=== PATIENT | female | born 1940 | race African-American/Black ===

== ENCOUNTER → 2016-10-28 | Outpatient (CLI) | payer MEDICARE, OTHER ==
[~2016-10-28] MED LIST: ALL100T PO; ATOR10TA52 PO; LISI-646 PO; METF-370 PO; METO-291 PO
[2016-10-28 14:15] LABS: Basophils # (auto) 0 uL; Basophils % (auto) 0.6 % (0.0-2.0); CONDITION Y; Eosinophils # (auto) 0.2 uL; Eosinophils % (auto) 3.1 % (0.0-7.0); Hematocrit 33.3 % (36.0-46.0); Hemoglobin 10.7 g/dL (12.2-16.2); Lymphocytes # (auto) 2.1 uL; Lymphocytes % (auto) 27.1 % (10.0-50.0); Mean Corpuscular Hemoglobin 27.2 pg (28.0-32.0); Mean Corpuscular Hgb Conc. 32.2 g/dL (32.0-36.0); Mean Corpuscular Volume 84.5 fL (80.0-100.0); Mean Platelet Volume 9.4 fL (7.4-10.4); Monocytes # (auto) 0.6 uL; Monocytes % (auto) 7.8 % (0.0-12.0); Neutrophils # (auto) 4.7 uL; Neutrophils % (auto) 61.4 % (37.0-80.0); Platelet Count (auto) 391 10^3/uL (140-450); Red Cell Distribution Width 13.2 % (11.6-16.0); White Blood Cell 7.6 10^3/uL (4.4-10.8)
[2016-10-28 14:27] LABS: Urine Bilirubin Negative (Negative); Urine Blood Negative /uL (Negative); Urine Color Yellow (Yellow); Urine Hyaline Cast FEW /lpf (0 - 2); Urine Ketone Negative (Negative); Urine Mucus FEW (None Seen); Urine Nitrite Negative (Negative); Urine RBC 3 /hpf (0 - 4); Urine Squamous Epithelial Cell MOD /hpf (<5); Urine pH 5.5 (5.0-8.0)
[2016-10-28 14:28] LABS: Urine Glucose 3+ mg/dL (Normal)
[2016-10-28 14:47] LABS: Albumin 3.6 g/dL (3.4-5.0); BUN/Creatinine Ratio 16.3; Bilirubin, Total 0.8 mg/dL (0.2-1.0); Total Protein 8.4 g/dL (6.4-8.2)
== END | disposition home or self-care (01) ==
LOC: LAB 13:32
PROVIDERS: ATTEND Family Medicine
DX: E11.21 Type 2 diabetes mellitus with diabetic nephropathy (principal); N18.3 Chronic kidney disease, stage 3 (moderate); K21.9 Gastro-esophageal reflux disease without esophagitis; E78.5 Hyperlipidemia, unspecified
CPT/HCPCS: 36415; 80053; 80061; 81001; 82306; 82607; 83036; 84443; 85025

== ENCOUNTER → 2017-03-30 | Outpatient (CLI) | payer MEDICARE, OTHER ==
[~2017-03-30] MED LIST changes: +AMLO5TAB2 PO; -LISI-646 PO; -METO-291 PO; +METO1TAB9 PO; +SITA100T7 PO
[2017-03-30 11:06] LABS: Basophils # (auto) 0.1 uL; Basophils % (auto) 1.1 % (0.0-2.0); Eosinophils # (auto) 0.2 uL; Eosinophils % (auto) 2.3 % (0.0-7.0); Hematocrit 31.6 % (36.0-46.0); Lymphocytes # (auto) 2.4 uL; Lymphocytes % (auto) 29.9 % (10.0-50.0); Mean Corpuscular Hemoglobin 27.1 pg (28.0-32.0); Mean Corpuscular Hgb Conc. 31.7 g/dL (32.0-36.0); Mean Corpuscular Volume 85.4 fL (80.0-100.0); Monocytes # (auto) 0.5 uL; Monocytes % (auto) 5.7 % (0.0-12.0); Neutrophils # (auto) 4.9 uL; Nucleated Red Blood Cells % 0.1 %; Platelet Count (auto) 363 10^3/uL (140-450); Red Cell Distribution Width 14.4 % (11.8-14.3)
[2017-03-30 11:17] LABS: Urine Bilirubin Negative (Negative); Urine Blood Negative /uL (Negative); Urine Color Yellow (Yellow); Urine Glucose Normal (Normal); Urine Ketone Negative (Negative); Urine Mucus FEW (None Seen); Urine Nitrite Negative (Negative); Urine RBC <1 /hpf (0 - 4); Urine Squamous Epithelial Cell FEW /hpf (<5)
[2017-03-30 11:18] LABS: Albumin 3.5 g/dL (3.4-5.0); BUN/Creatinine Ratio 13.9; Bilirubin, Total 0.6 mg/dL (0.2-1.0); Calcium 9.4 mg/dL (8.5-10.1); INR 0.98 (0.9-1.15); Partial Thromboplastin Time 27.3 sec (22.64-33.71); Potassium 3.3 mmol/L (3.5-5.1); Prothrombin Time 10.7 sec (9.37-12.3); Total Protein 8.5 g/dL (6.4-8.2)
== END | disposition home or self-care (01) ==
LOC: LAB 10:34
PROVIDERS: ATTEND Family Medicine
DX: Z01.812 Encounter for preprocedural laboratory examination (principal); E11.9 Type 2 diabetes mellitus without complications; I10 Essential (primary) hypertension; H25.9 Unspecified age-related cataract
CPT/HCPCS: 36415; 80053; 81001; 85025; 85610; 85730

== ENCOUNTER → 2017-06-08 | Outpatient (CLI) | payer MEDICARE, OTHER ==
[2017-06-08 09:25] LABS: Basophils # (auto) 0.1 uL; Eosinophils # (auto) 0.2 uL; Neutrophils # (auto) 5.6 uL; Urine Blood Negative /uL (Negative)
[2017-06-08 09:29] LABS: Basophils % (auto) 0.9 % (0.0-2.0); Eosinophils % (auto) 2.5 % (0.0-7.0); Hematocrit 33.7 % (36.0-46.0); Hemoglobin 10.8 g/dL (12.2-16.2); Lymphocytes % (auto) 23.6 % (10.0-50.0); Mean Corpuscular Hemoglobin 26.8 pg (28.0-32.0); Mean Corpuscular Volume 83.6 fL (80.0-100.0); Monocytes # (auto) 0.6 uL; Monocytes % (auto) 7.1 % (0.0-12.0); Neutrophils % (auto) 65.9 % (37.0-80.0); Nucleated Red Blood Cells % 0.1 %; Platelet Count (auto) 369 10^3/uL (140-450); Red Blood Cells 4.03 10^6/uL (4.0-5.20); Red Cell Distribution Width 14.5 % (11.8-14.3); White Blood Cell 8.4 10^3/uL (4.4-10.8)
[2017-06-08 09:35] LABS: INR 0.95 (0.9-1.15); Prothrombin Time 10.4 sec (9.37-12.3)
[2017-06-08 11:21] LABS: Albumin 3.4 g/dL (3.4-5.0); Bilirubin, Total 0.5 mg/dL (0.2-1.0); Calcium 9.4 mg/dL (8.5-10.1); Potassium 3.3 mmol/L (3.5-5.1); Total Protein 8.6 g/dL (6.4-8.2)
== END | disposition home or self-care (01) ==
LOC: LAB 08:27
PROVIDERS: ATTEND Family Medicine
DX: Z01.812 Encounter for preprocedural laboratory examination (principal); H25.11 Age-related nuclear cataract, right eye; Z79.01 Long term (current) use of anticoagulants; D68.311 Acquired hemophilia
CPT/HCPCS: 36415; 80053; 81003; 85025; 85610; 85730

== ENCOUNTER → 2018-07-25 | Outpatient (CLI) | payer MEDICARE, OTHER ==
[~2018-07-25] MED LIST changes: +AMLO5TAB13 PO; -AMLO5TAB2 PO
[2018-07-25 12:41] LABS: Basophils # (auto) 0.1 uL; Basophils % (auto) 1.1 % (0.0-2.0); Eosinophils # (auto) 0.2 uL; Eosinophils % (auto) 2.6 % (0.0-7.0); Hematocrit 33.4 % (36.0-46.0); Hemoglobin 10.8 g/dL (12.2-16.2); Lymphocytes # (auto) 1.9 uL; Lymphocytes % (auto) 27.6 % (10.0-50.0); Mean Corpuscular Hemoglobin 27.2 pg (28.0-32.0); Mean Corpuscular Hgb Conc. 32.5 g/dL (32.0-36.0); Mean Corpuscular Volume 83.6 fL (80.0-100.0); Monocytes # (auto) 0.6 uL; Monocytes % (auto) 8.7 % (0.0-12.0); Neutrophils # (auto) 4.2 uL; Platelet Count (auto) 356 10^3/uL (140-450); Red Blood Cells 3.99 10^6/uL (4.0-5.20)
[2018-07-25 12:42] LABS: Urine Bacteria FEW /hpf (None Seen); Urine Blood Negative /uL (Negative); Urine WBC 11 /hpf (0 - 5)
[2018-07-25 12:59] LABS: Potassium 4.1 mmol/L (3.5-5.1)
[2018-07-25 13:44] LABS: Albumin 3.5 g/dL (3.4-5.0); BUN/Creatinine Ratio 16.2; Bilirubin, Total 0.8 mg/dL (0.2-1.0); Calcium 9.3 mg/dL (8.5-10.1)
== END | disposition home or self-care (01) ==
LOC: LAB 11:13
PROVIDERS: ATTEND Family Medicine
DX: E78.49 Other hyperlipidemia (principal); I10 Essential (primary) hypertension; E66.9 Obesity, unspecified; E11.9 Type 2 diabetes mellitus without complications
CPT/HCPCS: 36415; 80053; 80061; 81001; 82043; 82607; 83036; 84443; 85025

== ENCOUNTER → 2019-03-02 | Outpatient (CLI) | payer MEDICARE, OTHER ==
[~2019-03-02] MED LIST changes: -AMLO5TAB13 PO; +AMLO5TAB15 PO
[2019-03-02 16:18] LABS: Basophils # (auto) 0.1 uL; Basophils % (auto) 1.1 % (0.0-2.0); Eosinophils # (auto) 0.2 uL; Hematocrit 35.7 % (36.0-46.0); Hemoglobin 11.5 g/dL (12.2-16.2); Lymphocytes # (auto) 2.1 uL; Lymphocytes % (auto) 35.1 % (10.0-50.0); Mean Corpuscular Hgb Conc. 32.2 g/dL (32.0-36.0); Mean Corpuscular Volume 83.9 fL (80.0-100.0); Monocytes # (auto) 0.4 uL; Monocytes % (auto) 5.8 % (0.0-12.0); Neutrophils # (auto) 3.4 uL; Nucleated Red Blood Cells % 0.1 %; Platelet Count (auto) 397 10^3/uL (140-450); Red Blood Cells 4.26 10^6/uL (4.0-5.20); Red Cell Distribution Width 13.8 % (11.8-14.3); White Blood Cell 6.1 10^3/uL (4.4-10.8)
[2019-03-02 16:22] LABS: Urine Bacteria MANY /hpf (None Seen); Urine Blood TRACE /uL (Negative); Urine Mucus FEW (None Seen); Urine Specific Gravity 1.019 (1.001-1.035); Urine WBC 214 /hpf (0 - 5); Urine WBC Clumps PRESENT /hpf (None Seen)
[2019-03-02 16:48] LABS: Albumin 3.6 g/dL (3.4-5.0); Calcium 9.7 mg/dL (8.5-10.1); Potassium 3.6 mmol/L (3.5-5.1)
[2019-03-02 16:53] LABS: BUN/Creatinine Ratio 20.7; Bilirubin, Total 0.6 mg/dL (0.2-1.0); Total Protein 8.5 g/dL (6.4-8.2)
== END | disposition home or self-care (01) ==
LOC: LAB 15:47
PROVIDERS: ATTEND Family Medicine
DX: I12.9 Hypertensive chronic kidney disease with stage 1 through stage 4 chronic kidney disease, or unspecified chronic kidney disease (principal); E11.22 Type 2 diabetes mellitus with diabetic chronic kidney disease; N18.3 Chronic kidney disease, stage 3 (moderate); E11.69 Type 2 diabetes mellitus with other specified complication; E78.49 Other hyperlipidemia
CPT/HCPCS: 36415; 80053; 80061; 81001; 82043; 82306; 82607; 83036; 84443; 85025

== ENCOUNTER 2019-08-11 00:42 | Inpatient (IN) | payer MEDICARE, OTHER ==
[~2019-08-11] VITALS: Ht 167.6 cm; Wt 94.5 kg
[2019-08-11] MEDS ORDERED: IPRATROPIUM BROM 0.5 MG/2.5ML INH SOL ONE (00:48)
[2019-08-11] MEDS ORDERED: methylPREDNISolone SOD SUCC 125 MG/2 ML VL ONE (00:48)
[2019-08-11] MEDS ORDERED: ALBUTEROL SULF 2.5 MG/0.5ML(0.5%) NEB SOLN ONE (00:48)
[2019-08-11] MEDS ORDERED: hydrALAZINE HCL 20 MG/ML VL ONE (01:05)
[2019-08-11] MEDS ORDERED: LORazepam 2MG/ML-1ML VIAL ONE (01:39)
[2019-08-11 02:06] LABS: Basophils # (auto) 0.1 10 ^3/uL (0-0.2); Basophils % (auto) 0.7 % (0.0-2.0); Eosinophils # (auto) 0.3 10 ^3/uL (0-0.8); Lymphocytes # (auto) 6.3 10 ^3/uL (0.4-5.4)
[2019-08-11 02:11] LABS: Eosinophils % (auto) 2.1 % (0.0-7.0); Hemoglobin 10.7 g/dL (12.2-16.2); Lymphocytes % (auto) 49.3 % (10.0-50.0); Mean Corpuscular Hemoglobin 26.4 pg (28.0-32.0); Mean Corpuscular Hgb Conc. 30.7 g/dL (32.0-36.0); Monocytes # (auto) 0.7 10 ^3/uL (0-1.3); Monocytes % (auto) 5.4 % (0.0-12.0); Neutrophils # (auto) 5.4 10 ^3/uL (1.6-8.6); Neutrophils % (auto) 42.5 % (37.0-80.0); Platelet Count (auto) 438 10^3/uL (140-450); Red Blood Cells 4.07 10^6/uL (4.0-5.20); Red Cell Distribution Width 15.1 % (11.8-14.3); White Blood Cell 12.7 10^3/uL (4.4-10.8)
[2019-08-11 02:16] LABS: INR 1.02 (0.9-1.15); Partial Thromboplastin Time 24.6 sec (23.64-32.05)
[2019-08-11 02:19] LABS: Albumin 3.1 g/dL (3.4-5.0); Calcium 8.7 mg/dL (8.5-10.1); Potassium 3.7 mmol/L (3.5-5.1)
[2019-08-11 02:22] LABS: BUN/Creatinine Ratio 8.7
[2019-08-11 02:26] LABS: Bilirubin, Total 0.8 mg/dL (0.2-1.0); Total Protein 8.3 g/dL (6.4-8.2)
[2019-08-11] MEDS ORDERED: CLOPIDOGREL BISULFATE 75 MG TAB ONE (02:46)
[2019-08-11] MEDS ORDERED: ALBUTEROL SULF 2.5 MG/0.5ML(0.5%) NEB SOLN NEB ONE (03:30)
[2019-08-11] MEDS ORDERED: IPRATROPIUM BROM 0.5 MG/2.5ML INH SOL NEB ONE (03:30)
[2019-08-11] MEDS ORDERED: FUROSEMIDE 20 MG/2 ML VIAL IV ONE (03:45)
[2019-08-11] MEDS ORDERED: CLOPIDOGREL BISULFATE 75 MG TAB PO ONE (04:00)
[2019-08-11] MEDS ORDERED: methylPREDNISolone SOD SUCC 125 MG/2 ML VL IV ONE (04:00)
[2019-08-11] MEDS ORDERED: hydrALAZINE HCL 20 MG/ML VL IV ONE (04:00)
[2019-08-11] MEDS ORDERED: LORazepam 2MG/ML-1ML VIAL IV ONE (04:00)
[2019-08-11 04:54] LABS: Urine Bacteria MANY /hpf (None Seen); Urine Blood TRACE /uL (Negative); Urine Hyaline Cast FEW /lpf (0 - 2); Urine Specific Gravity 1.009 (1.001-1.035); Urine WBC 5 /hpf (0 - 5)
[2019-08-11] MEDS ORDERED: ENOXAPARIN SOD 100 MG/1 ML SYRINGE SC ONE ×2 (05:30→05:45)
[2019-08-11] MEDS ORDERED: NITROGLYCERIN 0.4 MG SL TAB SL PRN (05:45)
[2019-08-11] MEDS ORDERED: LABETALOL HCL 5 MG/ML 4ML SYRINGE IV ONE (05:45)
[2019-08-11] MEDS ORDERED: ACETAMINOPHEN 325 MG TAB PO PRN (05:45)
[2019-08-11] MEDS ORDERED: MORPHINE SULF INJ 2 MG/ML SYRINGE 1ML IV PRN (05:45)
[2019-08-11] MEDS ORDERED: TEMAZEPAM 15 MG CAP PO PRN (05:45)
[2019-08-11] MEDS ORDERED: ALBUTEROL SULF 2.5 MG/0.5ML(0.5%) NEB SOLN NEB PRN (05:45)
[2019-08-11] MEDS ORDERED: ONDANSETRON HCL 4 MG/2 ML VIAL IV PRN (05:45)
[2019-08-11] MEDS ORDERED: DEXTROSE (50%) 50ML SYRG IV PRN (05:45)
[2019-08-11] MEDS: ALBUTEROL SULF 2.5 MG/0.5ML(0.5%) NEB SOLN NEB SCH ×3 (06:08→19:05)
[2019-08-11] MEDS: IPRATROPIUM BROM 0.5 MG/2.5ML INH SOL NEB SCH ×3 (06:08→19:05)
[2019-08-11 06:25] VITALS: BP 169/119
[2019-08-11] MEDS: InsuLIN REG 1unit/0.01ml Soln (100units/ml) SC SCH ×3 (06:28→17:49)
[2019-08-11] MEDS: ACCU-CHEK COMFORT CURVE STRIP VI SCH ×3 (06:37→17:10)
--- NOTE | 2019-08-11 07:40 | NUR ---
PT TRANSFERRED TO [facility] B[facility] 261 WITH RN, WITHOUT INCIDENT. PT ON 3LNC, SPO2 98%, NO RESPIRATORY DISTRESS. PT STATES SHE WOULD LIKE TO EAT BREAKFAST SOON. BIPAP AT BEDSIDE.
--- NOTE | 2019-08-11 08:51 | NUR ---
PT. OFF BIPAP, SP02 100% ON 3LPM, DECREASED TO 2LPM NC, SP02 100%. PT. IS SLEEPING AT THIS TIME, NO RESP. DISTRESS NOTED, WILL CONTINUE TO MONITOR RESP. STATUS. Addendum: 08/11/19 at 0853 by Kathy Breen RT Amended: Links added.
[2019-08-11] MEDS: levoFLOXacin 500MG 100 ML IV SCH (09:07)
[2019-08-11] MEDS: METOPROLOL SUCCINATE XL 50 MG TAB PO SCH (09:08)
[2019-08-11] MEDS: CLOPIDOGREL BISULFATE 75 MG TAB PO SCH (09:08)
[2019-08-11] MEDS: amLODIPine BESYLATE 5 MG TAB PO SCH (09:09)
--- NOTE | 2019-08-11 09:20 | NUR ---
Medication given as ordered, will continue to monitor BP. No complaining of chest pain noted, on NC 2 LPM, O2 saturation 98-99%, has wheezing a little.
--- NOTE | 2019-08-11 09:30 | NUR ---
Echocardiogram at the bedside.
[2019-08-11] MEDS ORDERED: ASPirin 81 mg TAB PO SCH (10:00)
[2019-08-11] MEDS ORDERED: OSELTAMIVIR 75 MG CAP PO SCH (10:00)
--- NOTE | 2019-08-11 10:30 | NUR ---
Reported Troponin I level to Dr. Puente at this time.
[2019-08-11 11:17] VITALS: BP 177/110
--- NOTE | 2019-08-11 11:34 | NUR ---
BP 146/82 mmHg after Medications given, will continue to monitor and care, patient sitting up with high em position on the bed.
[2019-08-11 11:40] VITALS: BP 151/79
--- NOTE | 2019-08-11 14:20 | NUR ---
Dr. Ledesma at the bedside, seen and examined patient at this time, plan of care discussed with patient, received new orders, will carry out. Patient complaining burning and painful at Busby's catheter, okay to take it out. Busby catheter dc'd Order to discontinue busby catheter. Busby dc'd with clean technique following deflation of balloon. Patient tolerated well with no complaints of pain. Continue care.
[2019-08-11] MEDS ORDERED: ASPirin 81 mg TAB PO ONE (14:30)
[2019-08-11 15:45] VITALS: BP 137/77
--- NOTE | 2019-08-11 15:54 | NUR ---
Received an order from Dr. Puente for diet.
[2019-08-11] MEDS ORDERED: ATOR40TA52 PO (16:47)
[2019-08-11] MEDS ORDERED: LEVOPOW43 XX (16:47)
[2019-08-11] MEDS ORDERED: PAR20T PO (16:47)
[2019-08-11] MEDS ORDERED: LISI-275 PO (16:47)
[2019-08-11] MEDS ORDERED: LEVO25TA49 PO (16:47)
[2019-08-11] MEDS ORDERED: AMLO5CAP40 PO (16:47)
[2019-08-11] MEDS ORDERED: CLOP75TA41 PO (16:47)
[2019-08-11] MEDS ORDERED: OXYB5TAB24 PO (16:47)
--- NOTE | 2019-08-11 17:00 | NUR ---
Health Information Technologist at the bedside for blood culture. Patient able to take a nap with high em position, RR 20-22/min, O2 saturation 98-100%, patient stated that her breathing much more better. No fever noted.
[2019-08-11 20:00] VITALS: BP 143/73
[2019-08-11 20:46] VITALS: BP 137/77
[2019-08-11] MEDS ORDERED: ENOXAPARIN SOD 100 MG/1 ML SYRINGE SC SCH (22:00)
[2019-08-11] MEDS ORDERED: ATORVASTATIN 20 MG TAB PO SCH (22:00)
[2019-08-11] MEDS: ATORVASTATIN 20 MG TAB PO SCH (22:32)
[2019-08-11] MEDS: OSELTAMIVIR 30 MG CAP PO SCH (22:53)
[2019-08-12] VITALS: BP 157/88
[2019-08-12] MEDS: ACCU-CHEK COMFORT CURVE STRIP VI SCH ×4 (00:21→17:56)
[2019-08-12] MEDS: InsuLIN REG 1unit/0.01ml Soln (100units/ml) SC SCH ×4 (00:30→17:56)
[2019-08-12] MEDS: IPRATROPIUM BROM 0.5 MG/2.5ML INH SOL NEB SCH ×4 (00:44→18:28)
[2019-08-12] MEDS: ALBUTEROL SULF 2.5 MG/0.5ML(0.5%) NEB SOLN NEB SCH ×4 (00:44→18:28)
[2019-08-12 03:15] LABS: Basophils # (auto) 0 10 ^3/uL (0-0.2); Eosinophils # (auto) 0 10 ^3/uL (0-0.8); Lymphocytes # (auto) 1.3 10 ^3/uL (0.4-5.4); Mean Corpuscular Hgb Conc. 31.4 g/dL (32.0-36.0); White Blood Cell 13.2 10^3/uL (4.4-10.8)
[2019-08-12 03:17] LABS: Basophils % (auto) 0.1 % (0.0-2.0); Eosinophils % (auto) 0.1 % (0.0-7.0); Hemoglobin 9.1 g/dL (12.2-16.2); Lymphocytes % (auto) 9.7 % (10.0-50.0); Mean Corpuscular Hemoglobin 26.1 pg (28.0-32.0); Mean Corpuscular Volume 83.1 fL (80.0-100.0); Monocytes # (auto) 0.9 10 ^3/uL (0-1.3); Monocytes % (auto) 6.5 % (0.0-12.0); Neutrophils # (auto) 11.1 10 ^3/uL (1.6-8.6); Neutrophils % (auto) 83.6 % (37.0-80.0); Platelet Count (auto) 362 10^3/uL (140-450); Red Blood Cells 3.49 10^6/uL (4.0-5.20)
[2019-08-12 03:29] LABS: Albumin 2.9 g/dL (3.4-5.0); Calcium 9.1 mg/dL (8.5-10.1); Potassium 4.5 mmol/L (3.5-5.1)
[2019-08-12 03:33] LABS: BUN/Creatinine Ratio 20.4; Bilirubin, Total 0.8 mg/dL (0.2-1.0); Total Protein 7.4 g/dL (6.4-8.2)
[2019-08-12 04:00] VITALS: BP 147/87
--- NOTE | 2019-08-12 07:45 | NUR ---
OPEN SHIFT NOTE REPORT RECEIVED FROM ELECTROMECHANICAL ENGINEER RN, MORNING ASSESSMENT PERFORMED AND DOCUMENTED, PATIENT RESTING WITH EYES CLOSED, VSS AND DOCUMENTED - NO DISTRESS NOTED, RESPIRATIONS EVEN AND UNLABORED. FALL AND SAFETY PRECAUTIONS IN PLACE, WILL CONTINUE TO MONITOR.
[2019-08-12 08:00] VITALS: BP 127/68
[2019-08-12] MEDS ORDERED: ENOXAPARIN SOD 80 MG/0.8ML SYRINGE SC SCH (10:00)
[2019-08-12] MEDS: levoFLOXacin 500MG 100 ML IV SCH (10:34)
[2019-08-12] MEDS: predniSONE 20 MG TAB PO SCH (10:35)
[2019-08-12] MEDS: CLOPIDOGREL BISULFATE 75 MG TAB PO SCH (10:35)
[2019-08-12] MEDS: OSELTAMIVIR 30 MG CAP PO SCH (10:35)
[2019-08-12] MEDS: ASPirin 81 mg TAB PO SCH (10:35)
[2019-08-12] MEDS: ENOXAPARIN SOD 80 MG/0.8ML SYRINGE SC SCH ×2 (10:36→22:00)
[2019-08-12] MEDS: amLODIPine BESYLATE 5 MG TAB PO SCH (10:36)
[2019-08-12] MEDS: FUROSEMIDE 20 MG/2 ML VIAL IV SCH (10:36)
[2019-08-12] MEDS: METOPROLOL SUCCINATE XL 50 MG TAB PO SCH (10:36)
[2019-08-12 11:59] VITALS: BP 142/79
--- NOTE | 2019-08-12 12:36 | NUR ---
INCONTINENCE PATIENT INCONTINENCE OF URINE AND CLEANSED OF LARGE/YELLOW SATURATED DOLORES. PATIENT TOLERATED WELL AND HELPED NURSE TURN SELF. SKIN INTEGRITY INTACT.
--- NOTE | 2019-08-12 12:41 | NUR ---
DR RAE/DR AQUINO AT BEDSIDE ALL DOCTORS AWARE OF PATIENT'S STATUS. ORDERS TO DOWNGRADE RECEIVED AND ALL MDS VERBALIZED UNDERSTANDING. DR WICK PAGED REGARDING CARDIOLOGY CONSULT - NO NOTE AVAILABLE IF PATIENT WAS SEEN BY DR WICK YESTERDAY. UNABLE TO LEAVE MESSAGE AT THIS TIME, PER ANSWERING MACHINE "STAFF OUT TO LUNCH BETWEEN 12 AND 2 PM. WILL ATTEMPT TO CALL AFTER 2 PM.
--- NOTE | 2019-08-12 14:41 | NUR ---
REPORT CALLED TO RECEIVING DWAYNE SHETH RN. WILL PREPARE PATIENT FOR TRANSFER.
[2019-08-12 16:00] VITALS: BP 147/90
--- NOTE | 2019-08-12 16:31 | NUR ---
[facility] pt transferred to floor [facility] MATA transfered to room 207 via rney on registered nurse cardiac and portable 02. All patient personal belongings transferred with patient to receiving floor. Patient care transferred to [facility]. Patient alert and oriented x4, no distress noted respirations even and unlabored. Patient reported to this nurse that "Dr. Puente did see me yesterday because he is my 's supervisor paper coating. He told me he may do a procedure on Wednesday".
--- NOTE | 2019-08-12 16:34 | NUR ---
Patient transferred from [facility] to Telemetry unit in room 207B. Patient assessed, placed on 2L NC. Patient showed no signs of distress, sob, or pain at this time. Patient orientated to room and primary RN Patricia. Fall precautions in place per safety protocol. Patient encouraged to press call light PRN. Will cont to monitor patient.
--- NOTE | 2019-08-12 17:32 | NUR ---
SPOKE WITH DR WICK REGARDING CARDIOLOGY CONSULT, DR WICK CONFIRMED THAT HE DID SEE PATIENT YESTERDAY (08/12/19) AND "WAS PLANNING TO DO A HEART CATH ON WEDNESDAY". DR WICK WAS TOLD THAT NO NOTE OR REPORT WAS AVAILABLE, HE STATED HE WOULD DICTATE A REPORT. NOTIFIED DWAYNE LOVE. Addendum: 08/12/19 at 1738 by Tricia Winters RN CORRECTION: MERYL WAS NOTIFIED OF DR WICK'S CALL AND NOT KATE.
--- NOTE | 2019-08-12 19:30 | NUR ---
Endorsed care to night DWAYNE Whitney. Patient resting in bed, no distress, sob, or pain noted at this time.
[2019-08-12 22:00] VITALS: BP 163/97
[2019-08-12] MEDS: ATORVASTATIN 20 MG TAB PO SCH (22:00)
[2019-08-13] MEDS: IPRATROPIUM BROM 0.5 MG/2.5ML INH SOL NEB SCH ×4 (00:20→19:37)
[2019-08-13] MEDS: ALBUTEROL SULF 2.5 MG/0.5ML(0.5%) NEB SOLN NEB SCH ×4 (00:20→19:37)
[2019-08-13] MEDS: OSELTAMIVIR 30 MG CAP PO SCH ×3 (01:48→22:15)
--- NOTE | 2019-08-13 04:26 | NUR ---
Paged air control/anti air warfare officer for order for prn resp treatments as pt requesting breathing tx.
[2019-08-13] MEDS ORDERED: ALBUTEROL SULF 2.5 MG/0.5ML(0.5%) NEB SOLN NEB PRN (04:45)
[2019-08-13 05:00] VITALS: BP 139/83
--- NOTE | 2019-08-13 05:04 | NUR ---
Informed pt that order received for resp. treatments in between routinely ordered treatments and that RT notified.
[2019-08-13] MEDS: ACCU-CHEK COMFORT CURVE STRIP VI SCH ×5 (06:19→22:17)
[2019-08-13] MEDS: InsuLIN REG 1unit/0.01ml Soln (100units/ml) SC SCH ×5 (06:23→22:20)
[2019-08-13 06:54] LABS: Calcium 8.8 mg/dL (8.5-10.1); Potassium 3.6 mmol/L (3.5-5.1)
[2019-08-13 06:58] LABS: BUN/Creatinine Ratio 25.7
--- NOTE | 2019-08-13 07:30 | NUR ---
Opening Shift Note Assumed care of patient, awake and alert. No S/S of distress/SOB or pain. Instructed on POC and to call for assist PRN, will continue to monitor for changes Q1hr and PRN. Fall precautions in place per safety protocol.
[2019-08-13 09:00] VITALS: BP 138/80
[2019-08-13] MEDS ORDERED: levoFLOXacin 250MG 50 ML IV SCH (10:00)
[2019-08-13] MEDS: predniSONE 20 MG TAB PO SCH (10:39)
[2019-08-13] MEDS: FUROSEMIDE 20 MG/2 ML VIAL IV SCH (10:39)
[2019-08-13] MEDS: ASPirin 81 mg TAB PO SCH (10:40)
[2019-08-13] MEDS: CLOPIDOGREL BISULFATE 75 MG TAB PO SCH (10:40)
[2019-08-13] MEDS: amLODIPine BESYLATE 5 MG TAB PO SCH (10:40)
[2019-08-13] MEDS: METOPROLOL SUCCINATE XL 50 MG TAB PO SCH (10:41)
[2019-08-13] MEDS: ENOXAPARIN SOD 80 MG/0.8ML SYRINGE SC SCH ×2 (10:41→23:16)
--- NOTE | 2019-08-13 12:00 | NUR ---
Materials Management Clerk at bedside MD Puente at bedside, aware of patient status. Per MD Puente, Obtain consents for heart cath Wednesday. Will carry out new orders and will cont to monitor patient.
[2019-08-13 12:30] VITALS: BP 160/90
--- NOTE | 2019-08-13 13:58 | NUR ---
Reassessed Patients BP160/90, BP is currently 139/78. Will cont to monitor patient.
[2019-08-13 13:59] VITALS: BP 139/78
[2019-08-13 17:19] VITALS: BP 145/90
[2019-08-13] MEDS: DOXYCYCLINE 100MG/250ML 250 ML IV SCH (17:43)
--- NOTE | 2019-08-13 19:20 | NUR ---
Endorsed care to night DWAYNE Crump. Patient resting in bed, no distress, sob, or pain noted at this time.
--- NOTE | 2019-08-13 19:24 | NUR ---
received report from day rn poc reviewed
--- NOTE | 2019-08-13 20:00 | NUR ---
pt observed resting with hob up resp even and unlabored, denies pain call light within reach, droplet precautions observed
[2019-08-13 22:00] VITALS: BP 158/82
[2019-08-13] MEDS: ATORVASTATIN 20 MG TAB PO SCH (22:15)
--- NOTE | 2019-08-13 23:46 | NUR ---
AWOKE NO C/O DISCOMFORT, LOVENOX GIVEN ORDERED
[2019-08-14] MEDS: ALBUTEROL SULF 2.5 MG/0.5ML(0.5%) NEB SOLN NEB SCH ×4 (00:23→18:23)
[2019-08-14] MEDS: IPRATROPIUM BROM 0.5 MG/2.5ML INH SOL NEB SCH ×4 (00:23→18:23)
[2019-08-14 05:14] VITALS: BP 144/95
[2019-08-14 05:56] LABS: INR 1.15 (0.9-1.15); Partial Thromboplastin Time 33.6 sec (23.64-32.05)
[2019-08-14] MEDS: InsuLIN REG 1unit/0.01ml Soln (100units/ml) SC SCH ×4 (06:00→23:47)
--- NOTE | 2019-08-14 06:43 | NUR ---
ambulate to bathroom with assist
[2019-08-14] MEDS: DOXYCYCLINE 100MG/250ML 250 ML IV SCH ×2 (06:45→17:52)
[2019-08-14] MEDS: ACCU-CHEK COMFORT CURVE STRIP VI SCH ×4 (06:46→23:46)
--- NOTE | 2019-08-14 07:11 | NUR ---
pt has been npo report given to am nurse poc reviewed
--- NOTE | 2019-08-14 07:50 | NUR ---
Opening Shift Note Assumed care of patient, awake and alert sitting up in bed uncomplaining. No S/S of distress/SOB or pain. Instructed on POC and to call for assist PRN, will continue to monitor for changes Q1hr and PRN.
[2019-08-14 09:00] VITALS: BP 159/91
[2019-08-14] MEDS: predniSONE 20 MG TAB PO SCH (09:20)
[2019-08-14] MEDS: ASPirin 81 mg TAB PO SCH (09:20)
[2019-08-14] MEDS: cefTRIAXone 1GM/50ML D5W 50 ML IV SCH (09:20)
[2019-08-14] MEDS: amLODIPine BESYLATE 5 MG TAB PO SCH (09:21)
[2019-08-14] MEDS: METOPROLOL SUCCINATE XL 50 MG TAB PO SCH (09:21)
[2019-08-14] MEDS: OSELTAMIVIR 30 MG CAP PO SCH ×2 (09:22→23:40)
[2019-08-14] MEDS: FUROSEMIDE 20 MG/2 ML VIAL IV SCH (10:00)
[2019-08-14] MEDS: ENOXAPARIN SOD 80 MG/0.8ML SYRINGE SC SCH ×2 (10:00→14:37)
[2019-08-14] MEDS: CLOPIDOGREL BISULFATE 75 MG TAB PO SCH (10:00)
[2019-08-14 10:49] LABS: Hemoglobin 9.3 g/dL (12.2-16.2)
[2019-08-14 10:50] LABS: Hematocrit 29.3 % (36.0-46.0); Mean Corpuscular Hemoglobin 26.7 pg (28.0-32.0); Mean Corpuscular Hgb Conc. 31.6 g/dL (32.0-36.0); Mean Corpuscular Volume 84.6 fL (80.0-100.0); Platelet Count (auto) 338 10^3/uL (140-450); Red Blood Cells 3.46 10^6/uL (4.0-5.20); White Blood Cell 9.6 10^3/uL (4.4-10.8)
[2019-08-14 10:53] LABS: Basophils % (manual) 0 (0.0-2.0); Blast Cells 0; Metamyelocytes % 0; Myelocytes % 0; Promyelocytes % 0; Reactive Lymphocytes 0
[2019-08-14 10:58] LABS: BUN/Creatinine Ratio 28.5; Calcium 8.8 mg/dL (8.5-10.1); Potassium 3.7 mmol/L (3.5-5.1)
[2019-08-14 11:30] LABS: Band Neutrophils % (manual) 2; Eosinophils % (manual) 1 (0-7); Lymphocytes % (manual) 18 (10.0-50.0); Monocytes % (manual) 5 (0-12)
--- NOTE | 2019-08-14 12:01 | NUR ---
Nutrition Assessment Notes please see attached link for complete assessment Est. Needs BW (83 kg): 9733-4637 kcal (20-23 kcal/kgBW), 66-83 gms pro (0.8-1.0 gms/kgBW r/t elev RFT). Will continue to monitor pertinent labs and reassess nutrient need prn Addendum: 08/14/19 at [address] Amended: Links added.
--- NOTE | 2019-08-14 12:40 | NUR ---
Off Unit Patient at label stitcher for left heart cath.
[2019-08-14] MEDS ORDERED: ANGIOMAX 250 MG VIAL IV ONE (12:46)
[2019-08-14] MEDS ORDERED: MIDAZOLAM HCL 1MG/1ML-2 ML VIAL ONE (12:46)
[2019-08-14] MEDS ORDERED: SODIUM CHL 0.9% 50 ML ONE (12:46)
[2019-08-14] MEDS ORDERED: fentaNYL CITRATE 100 MCG/2 ML VL ONE (12:46)
[2019-08-14] MEDS ORDERED: LIDOCAINE 2%HCL (LOCAL ANESTH.) INJ 20ML MDV ONE (12:58)
[2019-08-14] MEDS ORDERED: IOHEXOL 350 MG/ML 100ML IJ ONE (12:59)
[2019-08-14 13:00] VITALS: BP 164/96
[2019-08-14] MEDS ORDERED: IODIXANOL 320MG/ML 100ML BTL IV ONE ×2 (13:02→13:24)
[2019-08-14] MEDS ORDERED: hydrALAZINE HCL 20 MG/ML VL ONE (13:53)
[2019-08-14] MEDS ORDERED: TICAGRELOR 90 MG TAB ONE (13:53)
[2019-08-14] MEDS ORDERED: HYDROmorphone HCL 2 MG/ML VL IV ONE (15:00)
--- NOTE | 2019-08-14 15:30 | NUR ---
On Unit Patient returned to unit after having left heart cath done with Dr Puente. Patient very restless, states she is having pain to her mouth. Dressing to right groin dry and intact. Patient to lay flat until 1615. Vital signs assessed blood pressure 179/97, P. 92, R 20, O2 98%
--- NOTE | 2019-08-14 16:10 | NUR ---
Edge Trimmer Mechanic rounded Dr. Corona rounded, patient still very drowsy and states that she is not feeling well. As per Dr. Corona, do not administer anymore pain medication at this time, as it may affect patients respiratory status.
--- NOTE | 2019-08-14 16:20 | NUR ---
Paged Dr. Almonte regarding patient's status
--- NOTE | 2019-08-14 16:35 | NUR ---
Nabil Almonte regarding patients status and vitals. She will enter orders to be carried out in eMAR.
[2019-08-14 16:42] VITALS: BP 180/109
[2019-08-14] MEDS ORDERED: cloNIDine HCL 0.1 MG TAB PO ONE (16:45)
[2019-08-14] MEDS ORDERED: hydrALAZINE HCL 25 MG TAB PO ONE (16:45)
--- NOTE | 2019-08-14 18:50 | NUR ---
Health Coach on Unit Received orders from Dr. Puente for patient, orders verified and confirmed. Will be entered in eMAR.
[2019-08-14] MEDS ORDERED: HYDROmorphone HCL 2 MG/ML VL IV PRN (19:00)
[2019-08-14] MEDS ORDERED: FUROSEMIDE 20 MG TAB PO ONE (19:15)
[2019-08-14] MEDS ORDERED: POTASSIUM CHL 20 Meq TABLET PO ONE (19:15)
--- NOTE | 2019-08-14 19:25 | NUR ---
Patient sitting up in bed, stating that she is feeling much better now. She is having no pain at this time.
--- NOTE | 2019-08-14 20:45 | NUR ---
OPENING SHIFT NOTE Assumed care of patient who is A&O x4. Currently on 3L NC with reports of SOB. Spo2 is 99% and lung sounds are clear. Patient instructed to sit up in bed and take deep breaths through her nose. Denies pain at this time. Dressing to right groin is CDI. Area is soft to palpation. No IV access at this time. POC discussed. Bed is in low locked position and side rails are up x2. Call light is within reach and patient encouraged to call for assistance when needed.
[2019-08-14 21:00] VITALS: BP 158/79
[2019-08-14 22:00] VITALS: BP 158/79
[2019-08-14] MEDS ORDERED: TICAGRELOR 90 MG TAB PO SCH (22:00)
[2019-08-14] MEDS: ATORVASTATIN 20 MG TAB PO SCH (22:01)
[2019-08-14] MEDS: hydrALAZINE HCL 25 MG TAB PO SCH (22:01)
--- NOTE | 2019-08-14 22:30 | NUR ---
IV insertion IV access obtained, via clean sterile technique by inserting 22 gauge catheter at right wrist, by DWAYNE Johnston after 3 attempts. IV secured properly. No trauma to site. Patient tolerated well.
--- NOTE | 2019-08-14 22:40 | NUR ---
SOB Patient reports SOB/difficulty breathing. Denies chest pain. Spo2 on 3L NC is 99%, BP: 150/84, HR: 59. Lung sounds are diminished throughout. Respiratory paged to request PRN med-neb treatment.
--- NOTE | 2019-08-14 23:15 | NUR ---
Patient reports SOB has resolved. States that she "feels much better". Will continue to monitor for changes.
[2019-08-14] MEDS ORDERED: OSELTAMIVIR 30 MG CAP PO ONE (23:29)
[2019-08-15] VITALS (8 sets, daily range): BP systolic 137–170; BP diastolic 55–90
--- NOTE | 2019-08-15 05:05 | NUR ---
Patient requesting med-neb treatment. Respiratory therapist paged.
[2019-08-15] MEDS: DOXYCYCLINE 100MG/250ML 250 ML IV SCH (05:11)
[2019-08-15] MEDS: InsuLIN REG 1unit/0.01ml Soln (100units/ml) SC SCH ×3 (06:00→18:31)
[2019-08-15 06:05] LABS: Basophils # (auto) 0 10 ^3/uL (0-0.2); Basophils % (auto) 0.3 % (0.0-2.0); Eosinophils # (auto) 0.1 10 ^3/uL (0-0.8); Eosinophils % (auto) 0.6 % (0.0-7.0); Hematocrit 30.8 % (36.0-46.0); Lymphocytes # (auto) 1.4 10 ^3/uL (0.4-5.4); Lymphocytes % (auto) 15.9 % (10.0-50.0); Mean Corpuscular Hemoglobin 27.1 pg (28.0-32.0); Mean Corpuscular Hgb Conc. 32.4 g/dL (32.0-36.0); Mean Corpuscular Volume 83.7 fL (80.0-100.0); Monocytes # (auto) 0.7 10 ^3/uL (0-1.3); Monocytes % (auto) 8.2 % (0.0-12.0); Neutrophils # (auto) 6.4 10 ^3/uL (1.6-8.6); Nucleated Red Blood Cells % 0.1 %; Platelet Count (auto) 367 10^3/uL (140-450); Red Blood Cells 3.68 10^6/uL (4.0-5.20); Red Cell Distribution Width 14.8 % (11.8-14.3); White Blood Cell 8.5 10^3/uL (4.4-10.8)
[2019-08-15] MEDS: hydrALAZINE HCL 25 MG TAB PO SCH ×3 (06:05→21:20)
[2019-08-15] MEDS: ACCU-CHEK COMFORT CURVE STRIP VI SCH ×3 (06:05→18:29)
[2019-08-15] MEDS: IPRATROPIUM BROM 0.5 MG/2.5ML INH SOL NEB SCH ×4 (06:08→18:07)
[2019-08-15] MEDS: ALBUTEROL SULF 2.5 MG/0.5ML(0.5%) NEB SOLN NEB SCH ×4 (06:08→18:07)
[2019-08-15 06:22] LABS: BUN/Creatinine Ratio 28.8; Calcium 9.6 mg/dL (8.5-10.1); Potassium 3.4 mmol/L (3.5-5.1)
--- NOTE | 2019-08-15 07:48 | NUR ---
Opening Shift Note Assumed care of patient, awake and alert sitting up in bed. No S/S of distress/SOB or pain. Patient stated that she is doing much better this morning than she was yesterday. Dressing to right groin dry and intact. Instructed on POC and to call for assist PRN, will continue to monitor for changes Q1hr and PRN.
[2019-08-15] MEDS: FUROSEMIDE 20 MG/2 ML VIAL IV SCH (09:29)
[2019-08-15] MEDS: cefTRIAXone 1GM/50ML D5W 50 ML IV SCH (09:29)
[2019-08-15] MEDS: OSELTAMIVIR 30 MG CAP PO SCH ×2 (09:30→21:20)
[2019-08-15] MEDS: ASPirin 81 mg TAB PO SCH (09:32)
[2019-08-15] MEDS: CLOPIDOGREL BISULFATE 75 MG TAB PO SCH (09:32)
[2019-08-15] MEDS: predniSONE 20 MG TAB PO SCH (09:32)
[2019-08-15] MEDS: amLODIPine BESYLATE 5 MG TAB PO SCH (09:32)
[2019-08-15] MEDS: METOPROLOL SUCCINATE XL 50 MG TAB PO SCH (09:35)
[2019-08-15] MEDS ORDERED: POTASSIUM EFFERVESENT TAB 25 MEQ PO ONE (10:30)
--- NOTE | 2019-08-15 12:15 | NUR ---
VQ Scan Per training technician, no gas is available for scan at this time. Maybe tomorrow 08/15
--- NOTE | 2019-08-15 14:39 | NUR ---
Respiratory note: 1200 MED-NEB NOT ADMINISTERED PATIENT WAS ON COMMODE AT TIME OF CHECK AND STILL WAS 10MIN LATER. THERAPIST UNAVAILABLE AFTER THAT I WAS CALLED FOR MULTIPLE STAT CALLS AND INTUBATIONS, FOLLOWED BY A . PATIENT ASSESSED AT THIS TIME AND WAS IN NO ACUTE RESPIRATORY DISTRESS. SPO2 99% ON 2LPM N/C.
--- NOTE | 2019-08-15 15:02 | NUR ---
assessment Patient is a 79 year old female who is alert and oriented. Patients cognitive abilities are intact. Prior to admission patient lived home with family and functioned with assistance. Per patient she will return home to her prior living arrangements post discharge and family will transport her home. Patient has a fww for home use. Patients PCP is Dr Nagi Woodard. Patient informed me she has a caregiver. Patient may benefit from home health safety on discharge. Patient may also need IV ABX on discharge for Sepsis. Patient feels safe returning home on discharge. I informed patient she has a right to speak to a social work msw regarding all care. I informed patient she has a right to participate in any and all discharge planning. Patient does not have a POA and advanced directive. I have offered patient information on POA and advanced directives. I informed the patient the advantages and benefits of having an Advanced Directive. Patient verbalized understanding and agreed to discharge plan. Addendum: 08/15/19 at 1504 by Radha BELLE Amended: Links added.
[2019-08-15 16:00] LABS: Urine Bacteria FEW /hpf (None Seen); Urine Blood Negative /uL (Negative); Urine Hyaline Cast FEW /lpf (0 - 2); Urine Mucus FEW (None Seen); Urine Specific Gravity 1.008 (1.001-1.035); Urine WBC 14 /hpf (0 - 5)
[2019-08-15 16:11] LABS: Protein, Urine 41.8 mg/dL (0.0-11.9)
--- NOTE | 2019-08-15 18:07 | NUR ---
Respiratory note: AT BEDSIDE FOR MED DENNIS ROGERS.
[2019-08-15] MEDS: DOXYCYCLINE 100 MG TAB/CAP PO SCH (21:19)
[2019-08-15] MEDS: ATORVASTATIN 20 MG TAB PO SCH (21:19)
[2019-08-15] MEDS: INSULIN LANTUS (GLARGINE) 1 /0.01ml (100units/ml) SC SCH (21:34)
[2019-08-16] MEDS: ACCU-CHEK COMFORT CURVE STRIP VI SCH ×5 (00:04→23:53)
[2019-08-16] MEDS: InsuLIN REG 1unit/0.01ml Soln (100units/ml) SC SCH ×4 (00:05→18:29)
[2019-08-16] MEDS: IPRATROPIUM BROM 0.5 MG/2.5ML INH SOL NEB SCH ×4 (00:18→19:07)
[2019-08-16] MEDS: ALBUTEROL SULF 2.5 MG/0.5ML(0.5%) NEB SOLN NEB SCH ×4 (00:18→19:07)
--- NOTE | 2019-08-16 00:22 | NUR ---
Respiratory note: AT BEDSIDE FOR MED DENNIS ROGERS.
--- NOTE | 2019-08-16 00:38 | NUR ---
Endorsed by Vicki to notify senior brand manager Dr Puente of patient [place] 17308/15/2019. Spoke to MD Puente and notified him of patient having run of afib on monitor at 173108/15/2019. Dr Punete advised me to continue to continue to monitor patient. No new orders given. Addendum: 08/16/19 at 0042 by Buster Otto RN actual time of notifying dr puente is 08/15/2019 at time 1940.
[2019-08-16] MEDS: hydrALAZINE HCL 25 MG TAB PO SCH ×3 (05:02→21:20)
[2019-08-16 05:20] VITALS: BP 133/83
--- NOTE | 2019-08-16 07:55 | NUR ---
Opening Shift Note Assumed care of patient. Pt sleeping at the moment with equal rise and fall of chest. Currently PT on 3L NC. No S/S of distress/SOB or pain. Call light within reach and bed to lowest position. Will continue to monitor for changes Q1hr and PRN. Signed: 08/16/19 at 1009 by NARENDRA WALLS SN <Co-Signature Required> Co-Signed: 08/16/19 at 1009 by Veronica Nuno RN
[2019-08-16 08:00] VITALS: BP 134/94
[2019-08-16 09:00] VITALS: BP 134/94
[2019-08-16] MEDS: cefTRIAXone 1GM/50ML D5W 50 ML IV SCH (09:28)
[2019-08-16] MEDS: FUROSEMIDE 20 MG/2 ML VIAL IV SCH (09:29)
[2019-08-16] MEDS: predniSONE 20 MG TAB PO SCH (09:30)
[2019-08-16] MEDS: METOPROLOL SUCCINATE XL 50 MG TAB PO SCH (09:31)
[2019-08-16] MEDS: amLODIPine BESYLATE 5 MG TAB PO SCH (09:32)
[2019-08-16] MEDS: DOXYCYCLINE 100 MG TAB/CAP PO SCH ×2 (09:32→21:19)
[2019-08-16] MEDS: ASPirin 81 mg TAB PO SCH (09:32)
[2019-08-16] MEDS: CLOPIDOGREL BISULFATE 75 MG TAB PO SCH (09:32)
[2019-08-16] MEDS: INSULIN LANTUS (GLARGINE) 1 /0.01ml (100units/ml) SC SCH ×2 (10:36→21:17)
[2019-08-16] MEDS: OSELTAMIVIR 30 MG CAP PO SCH (11:50)
[2019-08-16 13:00] VITALS: BP 121/75
[2019-08-16 17:00] VITALS: BP 131/27
--- NOTE | 2019-08-16 18:50 | NUR ---
Dr. Corona at bedside.
--- NOTE | 2019-08-16 18:50 | NUR ---
closing note Patient is comfortably sitting up in bed, on 2L NC, breath sounds even and unlabored. No c/o pain. No s/s of distress/sob noted stated. Bed at lowest locked position and call light within reach. Will endorse care to NOC RN.
[2019-08-16] MEDS ORDERED: ENOXAPARIN SOD 40 MG/0.4 ML SYRINGE SC ONE (19:00)
[2019-08-16] MEDS: ATORVASTATIN 20 MG TAB PO SCH (21:19)
[2019-08-16 21:23] VITALS: BP 148/79
[2019-08-17] MEDS: InsuLIN REG 1unit/0.01ml Soln (100units/ml) SC SCH ×4 (00:01→18:25)
[2019-08-17] MEDS: IPRATROPIUM BROM 0.5 MG/2.5ML INH SOL NEB SCH ×3 (00:30→19:05)
[2019-08-17] MEDS: ALBUTEROL SULF 2.5 MG/0.5ML(0.5%) NEB SOLN NEB SCH ×3 (00:30→19:05)
--- NOTE | 2019-08-17 00:30 | NUR ---
Respiratory note: AT BEDSIDE FOR MED DENNIS ROGERS.
[2019-08-17 05:30] VITALS: BP 121/72
[2019-08-17] MEDS: ACCU-CHEK COMFORT CURVE STRIP VI SCH ×3 (05:53→18:14)
[2019-08-17] MEDS: hydrALAZINE HCL 25 MG TAB PO SCH ×3 (06:03→22:01)
[2019-08-17 06:15] LABS: Basophils # (auto) 0 10 ^3/uL (0-0.2); Eosinophils # (auto) 0 10 ^3/uL (0-0.8); Hemoglobin 9.4 g/dL (12.2-16.2); Neutrophils # (auto) 6.1 10 ^3/uL (1.6-8.6); White Blood Cell 8.6 10^3/uL (4.4-10.8)
[2019-08-17 06:17] LABS: Basophils % (auto) 0.4 % (0.0-2.0); Eosinophils % (auto) 0.3 % (0.0-7.0); Hematocrit 29.3 % (36.0-46.0); Lymphocytes # (auto) 1.8 10 ^3/uL (0.4-5.4); Lymphocytes % (auto) 20.8 % (10.0-50.0); Mean Corpuscular Hgb Conc. 32.2 g/dL (32.0-36.0); Mean Corpuscular Volume 83.9 fL (80.0-100.0); Monocytes # (auto) 0.6 10 ^3/uL (0-1.3); Monocytes % (auto) 7.4 % (0.0-12.0); Neutrophils % (auto) 71.1 % (37.0-80.0); Nucleated Red Blood Cells % 0.1 %; Platelet Count (auto) 335 10^3/uL (140-450); Red Blood Cells 3.49 10^6/uL (4.0-5.20); Red Cell Distribution Width 14.7 % (11.8-14.3)
[2019-08-17 06:38] LABS: Calcium 8.7 mg/dL (8.5-10.1); Potassium 3.5 mmol/L (3.5-5.1)
[2019-08-17 06:40] LABS: BUN/Creatinine Ratio 32.5
--- NOTE | 2019-08-17 07:53 | NUR ---
PT REFUSED ABG FOR HOME O2. PT ON RA WITH SPO2 100% HR 74, RR 18. PT SAYS IF SPO2 IS 100% SHE WILL NOT QUALIFY FOR HOME O2. DWAYNE TREADWELL MADE AWARE.
--- NOTE | 2019-08-17 08:00 | NUR ---
Opening Shift Note Assumed care of patient, awake and alert. No S/S of distress/SOB or pain. Instructed on POC and to call for assist PRN, will continue to monitor for changes Q1hr and PRN.
[2019-08-17 08:52] VITALS: BP 127/55
--- NOTE | 2019-08-17 09:45 | NUR ---
Patient complained of SOB after going to the bathroom. O2 sat on room air-88%. O2 at 1lpm/nasal cannula administered. Dr. Almonte ordered ABG's. Will continue care.
[2019-08-17] MEDS: cefTRIAXone 1GM/50ML D5W 50 ML IV SCH (09:51)
[2019-08-17] MEDS: ASPirin 81 mg TAB PO SCH (09:52)
[2019-08-17] MEDS: FUROSEMIDE 20 MG/2 ML VIAL IV SCH (09:52)
[2019-08-17] MEDS: CLOPIDOGREL BISULFATE 75 MG TAB PO SCH (09:52)
[2019-08-17] MEDS: DOXYCYCLINE 100 MG TAB/CAP PO SCH ×2 (09:52→22:00)
[2019-08-17] MEDS: amLODIPine BESYLATE 5 MG TAB PO SCH (09:53)
[2019-08-17] MEDS: ENOXAPARIN SOD 40 MG/0.4 ML SYRINGE SC SCH (09:53)
[2019-08-17] MEDS: METOPROLOL SUCCINATE XL 50 MG TAB PO SCH (09:55)
[2019-08-17] MEDS ORDERED: predniSONE 20 MG TAB PO SCH (10:00)
[2019-08-17] MEDS: INSULIN LANTUS (GLARGINE) 1 /0.01ml (100units/ml) SC SCH ×2 (10:06→22:00)
[2019-08-17 13:08] VITALS: BP 130/65
[2019-08-17 16:38] VITALS: BP 147/81
[2019-08-17 21:22] VITALS: BP 147/81
[2019-08-17] MEDS: ATORVASTATIN 20 MG TAB PO SCH (22:00)
[2019-08-17 22:56] VITALS: BP 126/70
[2019-08-18] MEDS: ACCU-CHEK COMFORT CURVE STRIP VI SCH ×3 (00:10→12:31)
[2019-08-18] MEDS: IPRATROPIUM BROM 0.5 MG/2.5ML INH SOL NEB SCH ×3 (00:14→11:29)
[2019-08-18] MEDS: ALBUTEROL SULF 2.5 MG/0.5ML(0.5%) NEB SOLN NEB SCH ×3 (00:14→11:29)
[2019-08-18] MEDS: InsuLIN REG 1unit/0.01ml Soln (100units/ml) SC SCH ×3 (00:24→12:31)
[2019-08-18 05:28] VITALS: BP 121/64
[2019-08-18] MEDS: hydrALAZINE HCL 25 MG TAB PO SCH ×2 (06:04→15:09)
--- NOTE | 2019-08-18 07:30 | NUR ---
Opening Note Assumed patient care from NOC Muna RICE.
[2019-08-18 08:15] LABS: BUN/Creatinine Ratio 36.4; Calcium 8.8 mg/dL (8.5-10.1); Potassium 3.6 mmol/L (3.5-5.1)
[2019-08-18 09:00] VITALS: BP 129/72
[2019-08-18] MEDS: cefTRIAXone 1GM/50ML D5W 50 ML IV SCH (09:00)
--- NOTE | 2019-08-18 09:00 | NUR ---
IV D/C IV discontinued. Site is edematous, painful and cool to touch. IV removed, patient tolerated well. No signs of distress at this time. Patient refusing new IV at this time. Safety precautions in place, will continue to monitor.
[2019-08-18] MEDS ORDERED: ENOXAPARIN SOD 40 MG/0.4 ML SYRINGE SC SCH (10:00)
[2019-08-18] MEDS: DOXYCYCLINE 100 MG TAB/CAP PO SCH (11:09)
[2019-08-18] MEDS: CLOPIDOGREL BISULFATE 75 MG TAB PO SCH (11:09)
[2019-08-18] MEDS: ASPirin 81 mg TAB PO SCH (11:10)
[2019-08-18] MEDS: amLODIPine BESYLATE 5 MG TAB PO SCH (11:10)
[2019-08-18] MEDS: METOPROLOL SUCCINATE XL 50 MG TAB PO SCH (11:10)
--- NOTE | 2019-08-18 11:15 | NUR ---
Attempt IV Attempted to start IV. Patient refusing at this time. Will continue to monitor.
[2019-08-18] MEDS: INSULIN LANTUS (GLARGINE) 1 /0.01ml (100units/ml) SC SCH (11:28)
[2019-08-18] MEDS: ENOXAPARIN SOD 40 MG/0.4 ML SYRINGE SC SCH (11:28)
--- NOTE | 2019-08-18 11:30 | NUR ---
at bedside Dr. Almonte at bedside discussing plan of care with patient. Per MD, patient clear for discharge.
--- NOTE | 2019-08-18 12:18 | NUR ---
Nutrition Followup Notes Wt: 94.5 kg Pt was sleeping with no family by bedside. pt s/p hearth cath per records. pt is currently on CCHO 60 gm 2 gm na soft diet with adequate PO of 100% x 4 per RN doc Est. Needs BW (83 kg): 1772-0882 kcal (20-23 kcal/kgBW), 66-83 gms pro (0.8-1.0 gms/kgBW r/t elev RFT). Will continue to monitor pertinent labs and reassess nutrient need prn LABS: BUN 48 H, CREAT 1.32 H, ALB 2.9 L, GI: Pt had 1 BM yesterday per RN doc BS: 21 low risk skin intact per RN doc PES: Altered nutrition related lab values r.t current chronic medical condition aeb elev RFT, mod hypoalb hyperglycemia Comments Will continue to monitor PO intake, skin status, pertinent labs and weight trends. Will f/u in 3-5 days. 1) consider renal specific 80 gm protein along with current diet if RFT elev. 2) refer to CDE on DC. 3) continue current plan of care
[2019-08-18 13:00] VITALS: BP 118/86
[2019-08-18 13:47] VITALS: BP 118/86
[2019-08-18] MEDS ORDERED: AMOX500T86 PO (14:15)
[2019-08-18] MEDS ORDERED: PRED-158 PO (14:18)
--- NOTE | 2019-08-18 16:06 | NUR ---
Discharge Discharge instructions given as ordered. Encourage to follow up with PMD as instructed. All questions and concerns addressed. Patient verbalized understanding. Medication reconciliation form completed and copy given to patient. Home medications held in Pharmacy returned to patient, and needed vaccines given. IV removed with catheter intact, pressure dressing applied. Telemetry unit returned to ICU. Patient taken to vehicle via wheelchair with all personal belongings, accompanied by staff. No distress noted at time of departure.
[2019-12-29] MEDS ORDERED: SITA100T7 PO (13:14)
[2019-12-29] MEDS ORDERED: PROM25TA5 PO (13:14)
[2019-12-29] MEDS ORDERED: POTA10TA32 PO (13:14)
[2019-12-29] MEDS ORDERED: METO-169 PO (13:14)
[2019-12-29] MEDS ORDERED: AMLO10TA13 PO (13:14)
[2019-12-29] MEDS ORDERED: FURO40TA4 PO (13:14)
[2019-12-29] MEDS ORDERED: HYDR-4296 PO (13:14)
[2019-12-29] MEDS ORDERED: CLOP75TA28 PO (13:14)
[2019-12-29] MEDS ORDERED: SACU1TAB PO (13:14)
[2019-12-29] MEDS ORDERED: ASPI-543 PO (13:14)
[2019-12-29] MEDS ORDERED: OXYB5TAB24 PO (13:14)
[2019-12-29] MEDS ORDERED: ALLO100T PO (13:14)
[2019-12-29] MEDS ORDERED: LEVO25TA49 PO (13:14)
== END 2019-08-18 16:06 | disposition home or self-care (01) | DRG 853 ==
LOC: ER 00:43 → TELE 00:44 → DOU IN ICU 07:55 → TELE-CENTR 08-12 16:18
PROVIDERS: ADMIT Nurse Practitioner; ATTEND Internal Medicine Nephrology
PROC: 027034Z Dilation of Coronary Artery, One Artery with Drug-eluting Intraluminal Device, Percutaneous Approach (ICD-10-PCS; principal; 2019-08-14)
PROC: B2111ZZ Fluoroscopy of Multiple Coronary Arteries using Low Osmolar Contrast (ICD-10-PCS; 2019-08-14)
PROC: B240ZZ3 Ultrasonography of Single Coronary Artery, Intravascular (ICD-10-PCS; 2019-08-14)
DX: A41.9 Sepsis, unspecified organism (principal); I21.4 Non-ST elevation (NSTEMI) myocardial infarction; I50.43 Acute on chronic combined systolic (congestive) and diastolic (congestive) heart failure; J96.01 Acute respiratory failure with hypoxia; J10.00 Influenza due to other identified influenza virus with unspecified type of pneumonia; N39.0 Urinary tract infection, site not specified; J44.1 Chronic obstructive pulmonary disease with (acute) exacerbation; I47.1 Supraventricular tachycardia; J45.901 Unspecified asthma with (acute) exacerbation; E87.2 Acidosis; N17.9 Acute kidney failure, unspecified; I13.0 Hypertensive heart and chronic kidney disease with heart failure and stage 1 through stage 4 chronic kidney disease, or unspecified chronic kidney disease; J44.0 Chronic obstructive pulmonary disease with (acute) lower respiratory infection; N18.3 Chronic kidney disease, stage 3 (moderate); N28.9 Disorder of kidney and ureter, unspecified; E11.22 Type 2 diabetes mellitus with diabetic chronic kidney disease; E78.5 Hyperlipidemia, unspecified; E11.51 Type 2 diabetes mellitus with diabetic peripheral angiopathy without gangrene; F17.210 Nicotine dependence, cigarettes, uncomplicated; I25.10 Atherosclerotic heart disease of native coronary artery without angina pectoris; R65.20 Severe sepsis without septic shock; Z22.330 Carrier of Group B streptococcus; Z80.9 Family history of malignant neoplasm, unspecified; Z82.3 Family history of stroke; Z82.49 Family history of ischemic heart disease and other diseases of the circulatory system; Z95.5 Presence of coronary angioplasty implant and graft; Z03.818 Encounter for observation for suspected exposure to other biological agents ruled out
CPT/HCPCS: 36415; 36600; 51702; 71045; 78582; 80048; 80053; 81001; 82570; 82728; 82805; 82962; 83605; 83880; 84156; 84443; 84484; 85007; 85025; 85027; 85379; 85610; 85730; 87040; 87070; 87086; 87804; 87880; 92928; 92978; 93005; 93306; 93454; 93971; 94640; 94644; 94660; 96372; 96374; 96375; C1887; G0378; G9035; J0696; J1815; J1956; J2250; J2405; J3490; Q9967

== ENCOUNTER → 2019-09-21 | Outpatient (CLI) | payer MEDICARE, OTHER ==
[~2019-09-21] MED LIST changes: +ALBU108A5 IN; +ALLO100T PO; +AMLO10TA13 PO; -AMLO5TAB15 PO; +AMOX500T86 PO; +ASPI-543 PO; -ATOR10TA52 PO; +ATOR40TA52 PO; +CLOP75TA28 PO; +CLOP75TA41 PO; +FURO40TA4 PO; +HYDR-4296 PO; +IPRA0.00 NEB; +LEVO25TA49 PO; -METF-370 PO; +METO-169 PO; +OXYB5TAB24 PO; +PAR20T PO; +POTA10TA32 PO; +POTA8TAB2 PO; +PRED-158 PO; +PROM25TA5 PO; +SACU1TAB PO
== END | disposition home or self-care (01) ==
LOC: Rad HDHVI 13:15
PROVIDERS: ATTEND Internal Medicine Cardiovascular Disease
DX: R06.02 Shortness of breath (principal); R42 Dizziness and giddiness; R07.89 Other chest pain
CPT/HCPCS: 93306

== ENCOUNTER → 2019-09-26 | Outpatient (CLI) | payer MEDICARE, OTHER ==
[~2019-09-26] VITALS: Ht 162.6 cm; Wt 83.0 kg
[~2019-09-26] MED LIST changes: +ADENOSINE 70 MG in GIVE UN-DILUTED 0 ML IV ONE; +ADENOSINE 90 MG/30 ML INJ IV ONE
== END | disposition home or self-care (01) ==
LOC: Rad HDHVI 13:43
PROVIDERS: ATTEND Internal Medicine Cardiovascular Disease
DX: I25.10 Atherosclerotic heart disease of native coronary artery without angina pectoris (principal); I10 Essential (primary) hypertension; E11.9 Type 2 diabetes mellitus without complications; E78.00 Pure hypercholesterolemia, unspecified; I25.2 Old myocardial infarction; F17.210 Nicotine dependence, cigarettes, uncomplicated; Z82.49 Family history of ischemic heart disease and other diseases of the circulatory system
CPT/HCPCS: 78452; 93005; 96374; 96375; A9500; J0153

== ENCOUNTER 2019-11-23 19:44 | Inpatient (IN) | payer MEDICARE, OTHER ==
[~2019-11-23] VITALS: Ht 165.1 cm; Wt 88.9 kg
[~2019-11-23 19:44] MED LIST changes: -ADENOSINE 70 MG in GIVE UN-DILUTED 0 ML IV ONE; -ADENOSINE 90 MG/30 ML INJ IV ONE; -ALBU108A5 IN; -ALLO100T PO; -AMLO10TA13 PO; -ASPI-543 PO; -CLOP75TA28 PO; -FURO40TA4 PO; -HYDR-4296 PO; -IPRA0.00 NEB; -METO-169 PO; -POTA10TA32 PO; -POTA8TAB2 PO; -PROM25TA5 PO; -SACU1TAB PO
[2019-11-23] MEDS ORDERED: cloNIDine HCL 0.1 MG TAB PO ONE ×2 (21:00→23:30)
[2019-11-23 22:12] LABS: Basophils # (auto) 0 10 ^3/uL (0-0.2); Basophils % (auto) 0.5 % (0.0-2.0); Eosinophils # (auto) 0.1 10 ^3/uL (0-0.8); Monocytes # (auto) 0.5 10 ^3/uL (0-1.3); Red Cell Distribution Width 14.6 % (11.8-14.3)
[2019-11-23 22:14] LABS: Eosinophils % (auto) 1.4 % (0.0-7.0); Hematocrit 30.8 % (36.0-46.0); Hemoglobin 9.8 g/dL (12.2-16.2); Lymphocytes # (auto) 1.1 10 ^3/uL (0.4-5.4); Lymphocytes % (auto) 14.4 % (10.0-50.0); Mean Corpuscular Hemoglobin 26.9 pg (28.0-32.0); Mean Corpuscular Hgb Conc. 31.7 g/dL (32.0-36.0); Mean Corpuscular Volume 84.7 fL (80.0-100.0); Monocytes % (auto) 6.3 % (0.0-12.0); Neutrophils # (auto) 5.9 10 ^3/uL (1.6-8.6); Neutrophils % (auto) 77.4 % (37.0-80.0); Nucleated Red Blood Cells % 0.1 %; Platelet Count (auto) 278 10^3/uL (140-450); Red Blood Cells 3.63 10^6/uL (4.0-5.20); White Blood Cell 7.7 10^3/uL (4.4-10.8)
[2019-11-23 22:27] LABS: Albumin 3.3 g/dL (3.4-5.0); BUN/Creatinine Ratio 18.3; Calcium 8.6 mg/dL (8.5-10.1); Potassium 4.2 mmol/L (3.5-5.1)
[2019-11-23 22:30] LABS: Bilirubin, Total 0.8 mg/dL (0.2-1.0); Total Protein 7.2 g/dL (6.4-8.2)
[2019-11-23] MEDS ORDERED: ENOXAPARIN SOD 80 MG/0.8ML SYRINGE SC ONE (23:45)
[2019-11-23 23:53] LABS: Urine Bacteria NONE SEEN /hpf (None Seen); Urine Blood Negative /uL (Negative); Urine Hyaline Cast FEW /lpf (0 - 2); Urine Mucus FEW (None Seen); Urine Specific Gravity 1.022 (1.001-1.035); Urine WBC 1 /hpf (0 - 5)
[2019-11-24] VITALS (8 sets, daily range): BP systolic 128–148; BP diastolic 69–98
[2019-11-24] LABS: INR 1.02 (0.9-1.15); Partial Thromboplastin Time 26.2 sec (23.0-31.2)
[2019-11-24] MEDS ORDERED: ONDANSETRON HCL 4 MG/2 ML VIAL IV PRN (00:45)
[2019-11-24] MEDS ORDERED: DEXTROSE (50%) 50ML SYRG IV PRN (00:45)
[2019-11-24] MEDS ORDERED: NITROGLYCERIN 0.4 MG SL TAB SL PRN (00:45)
[2019-11-24] MEDS ORDERED: ACETAMINOPHEN 325 MG TAB PO PRN (00:45)
[2019-11-24] MEDS ORDERED: MORPHINE SULF INJ 2 MG/ML SYRINGE 1ML IV PRN (00:45)
--- NOTE | 2019-11-24 02:26 | NUR ---
Telemetry admit from ER [facility] Marlen admitted to Telemetry unit. Patient oriented to SHANEKA ROCK, primary RN, unit, room, bed, and unit policies regarding patient care and visiting hours. Patient now on continuous telemetry monitoring, tele box #74 and telemetry reading on arrival to unit is SR 60s-70s with PVC and intverted T wave. Bed in lowest locked position, side rails up x2, patient weighed by bedscale and encouraged to call if they need something. All questions and concerns addressed, patient verbalized understanding.
[2019-11-24] MEDS: LEVOTHYROXINE SODIUM 25 MCG TAB PO SCH (06:02)
[2019-11-24] MEDS: InsuLIN REG 1unit/0.01ml Soln (100units/ml) SC SCH ×4 (06:02→21:35)
[2019-11-24] MEDS: ACCU-CHEK COMFORT CURVE STRIP VI SCH ×4 (06:03→21:34)
--- NOTE | 2019-11-24 07:30 | NUR ---
Opening Shift Note Assumed patient care from NOC RN. Patient currently sitting up in bed, no signs of distress at this time, respirations even and unlabored. Patient denies chest pain and shortness of breath at this time. Safety precautions in place, call light within reach, patient encouraged to call PRN, will continue to monitor.
--- NOTE | 2019-11-24 09:00 | NUR ---
O2 Patient currently resting with eyes closed, respirations noted to be shallow, SpO2 currently 96% on room air. Patient placed on 2L nasal cannula as needed. O2 saturation reassessed, currently 100% with nasal cannula.
[2019-11-24] MEDS: METOPROLOL SUCCINATE XL 50 MG TAB PO SCH (10:00)
[2019-11-24] MEDS: ASPirin 81 mg TAB PO SCH (10:23)
[2019-11-24] MEDS: CLOPIDOGREL BISULFATE 75 MG TAB PO SCH (10:24)
[2019-11-24] MEDS: ALLOPURINOL 100 MG TAB PO SCH (10:25)
[2019-11-24] MEDS: PARoxetine 20 MG TAB PO SCH (10:25)
[2019-11-24] MEDS: PANTOPRAZOLE 40 MG TAB PO SCH (10:25)
[2019-11-24] MEDS: FUROSEMIDE 40 MG TAB PO SCH (10:26)
--- NOTE | 2019-11-24 11:45 | NUR ---
at Bedside Dr. Melvin at bedside discussing plan of care with patient.
[2019-11-24] MEDS: ATORVASTATIN 20 MG TAB PO SCH (21:34)
[2019-11-25] VITALS (7 sets, daily range): BP systolic 149–172; BP diastolic 79–112
[2019-11-25] MEDS: ACCU-CHEK COMFORT CURVE STRIP VI SCH ×4 (06:24→21:44)
[2019-11-25] MEDS: LEVOTHYROXINE SODIUM 25 MCG TAB PO SCH (06:24)
[2019-11-25] MEDS: InsuLIN REG 1unit/0.01ml Soln (100units/ml) SC SCH ×4 (06:25→22:08)
[2019-11-25 07:14] LABS: Basophils # (auto) 0 10 ^3/uL (0-0.2); Eosinophils # (auto) 0.2 10 ^3/uL (0-0.8); Hemoglobin 9.2 g/dL (12.2-16.2); Mean Corpuscular Hemoglobin 26.9 pg (28.0-32.0); White Blood Cell 4.9 10^3/uL (4.4-10.8)
[2019-11-25 07:16] LABS: Basophils % (auto) 0.7 % (0.0-2.0); Hematocrit 28.7 % (36.0-46.0); Lymphocytes # (auto) 1.5 10 ^3/uL (0.4-5.4); Lymphocytes % (auto) 29.7 % (10.0-50.0); Mean Corpuscular Hgb Conc. 31.9 g/dL (32.0-36.0); Mean Corpuscular Volume 84.5 fL (80.0-100.0); Monocytes # (auto) 0.5 10 ^3/uL (0-1.3); Monocytes % (auto) 9.6 % (0.0-12.0); Neutrophils # (auto) 2.7 10 ^3/uL (1.6-8.6); Nucleated Red Blood Cells % 0.1 %; Platelet Count (auto) 264 10^3/uL (140-450); Red Cell Distribution Width 14.5 % (11.8-14.3)
--- NOTE | 2019-11-25 07:30 | NUR ---
Opening Shift Note Assumed patient care from NOC RN. Patient currently resting on left side with eyes closed, respirations even and unlabored, no signs of distress. Safety precautions in place, call light within reach. Will continue to monitor.
[2019-11-25 07:31] LABS: Potassium 3.9 mmol/L (3.5-5.1)
[2019-11-25 07:43] LABS: BUN/Creatinine Ratio 18.4; Calcium 8.6 mg/dL (8.5-10.1)
[2019-11-25] MEDS ORDERED: cloNIDine HCL 0.1 MG TAB PO PRN (09:00)
--- NOTE | 2019-11-25 09:00 | NUR ---
MD Called Received return call from Dr. Olegario MD aware of patient's blood pressure and heart rate. New orders received, will continue to monitor.
[2019-11-25] MEDS: CLOPIDOGREL BISULFATE 75 MG TAB PO SCH (09:39)
[2019-11-25] MEDS: PARoxetine 20 MG TAB PO SCH (09:39)
[2019-11-25] MEDS: PANTOPRAZOLE 40 MG TAB PO SCH (09:39)
[2019-11-25] MEDS: ALLOPURINOL 100 MG TAB PO SCH (09:39)
[2019-11-25] MEDS: METOPROLOL SUCCINATE XL 50 MG TAB PO SCH (09:40)
[2019-11-25] MEDS: FUROSEMIDE 40 MG TAB PO SCH (09:40)
[2019-11-25] MEDS: ASPirin 81 mg TAB PO SCH (09:40)
--- NOTE | 2019-11-25 15:45 | NUR ---
at Bedside Dr. Melvin at bedside discussing plan of care with patient. New orders received for Metoprolol dosage change, per MD, ok to give if heart rate is in 50s.
--- NOTE | 2019-11-25 18:52 | NUR ---
PT ASSESSED FOR PRN MED NEB TX. SPO2 93% ON RA. PT DENIES ANY RESPIRATORY DISTRESS. NO TX INDICATED. PT IS AWARE TO HAVE RT PAGED IF TX NEEDED.
--- NOTE | 2019-11-25 19:25 | NUR ---
Opening shift note/Reassessed Blood Pressure Assumed care of patient from day RNLaverne. Patient A&Ox4, respirations even with slight audible wheezes. Patient denies any pain or distress at this time. Reassessed blood pressure/VS: 159/83, T 98.7, RR 20, HR 80, 97%, 0/10 pain. Discussed POC with patient who verbalized understanding. Bed in lowest locked position with 2 side rails up. Call light within reach, advised patient to call for assistance. Will continue to monitor Q1hr and PRN.
[2019-11-25] MEDS: ATORVASTATIN 20 MG TAB PO SCH (21:44)
--- NOTE | 2019-11-25 22:08 | NUR ---
Paged RT for breathing treatment Patient with audible wheezes, requested breathing treatment.
[2019-11-25] MEDS: ALBUTEROL SULF 2.5 MG/0.5ML(0.5%) NEB SOLN NEB PRN (22:13)
[2019-11-26 05:20] VITALS: BP 150/93
[2019-11-26] MEDS: ALBUTEROL SULF 2.5 MG/0.5ML(0.5%) NEB SOLN NEB PRN ×2 (06:04→13:18)
[2019-11-26] MEDS: ACCU-CHEK COMFORT CURVE STRIP VI SCH ×2 (06:24→12:06)
[2019-11-26] MEDS: InsuLIN REG 1unit/0.01ml Soln (100units/ml) SC SCH ×2 (06:24→12:11)
[2019-11-26] MEDS: LEVOTHYROXINE SODIUM 25 MCG TAB PO SCH (06:37)
--- NOTE | 2019-11-26 07:30 | NUR ---
Opening Shift Note Assumed patient care from NOC RN. Patient currently AOx4, no signs of distress. Respirations even and unlabored. Patient denies pain and shortness of breath at this time. Safety precautions in place, will continue to monitor.
[2019-11-26 08:00] VITALS: BP 147/83
[2019-11-26] MEDS ORDERED: METOPROLOL SUCCINATE XL 50 MG TAB PO SCH (10:00)
[2019-11-26] MEDS ORDERED: POTASSIUM CHL 10 Meq TABLET PO SCH (10:00)
[2019-11-26] MEDS: CLOPIDOGREL BISULFATE 75 MG TAB PO SCH (10:05)
[2019-11-26] MEDS: PARoxetine 20 MG TAB PO SCH (10:05)
[2019-11-26] MEDS: FUROSEMIDE 40 MG TAB PO SCH (10:05)
[2019-11-26] MEDS: PANTOPRAZOLE 40 MG TAB PO SCH (10:05)
[2019-11-26] MEDS: ASPirin 81 mg TAB PO SCH (10:05)
[2019-11-26] MEDS: ALLOPURINOL 100 MG TAB PO SCH (10:05)
[2019-11-26 12:00] VITALS: BP 138/91
--- NOTE | 2019-11-26 13:09 | NUR ---
Ambulated to Bathroom Patient ambulated to bathroom with minimal assistance by staff. No signs of distress noted at this time, will continue to monitor.
--- NOTE | 2019-11-26 13:09 | NUR ---
Paged RT Paged RT per patient request for shortness of breath. No signs of distress at this time, will continue to monitor.
[2019-11-26 15:52] VITALS: BP 138/91
[2019-11-26 17:00] VITALS: BP 153/98
--- NOTE | 2019-11-26 17:15 | NUR ---
Discharge Discharge instructions given as ordered. Encourage to follow up with PMD as instructed. All questions and concerns addressed. Patient verbalized understanding. Medication reconciliation form completed and copy given to patient. IV removed with catheter intact, pressure dressing applied. Telemetry unit returned to ICU. Patient taken to vehicle via wheelchair with all personal belongings, accompanied by staff. Patient provided with discharge packet and prescriptions. No distress noted at time of departure.
--- NOTE | 2019-11-26 18:11 | NUR ---
AT BEDSIDE FOR PRN MED NEB ASSESSMENT, PT NOT IN ROOM. WILL FOLLOW UP WITH RN.
[2019-12-29] MEDS ORDERED: FURO40TA4 PO (13:14)
[2019-12-29] MEDS ORDERED: LEVO25TA49 PO (13:14)
[2019-12-29] MEDS ORDERED: ASPI-543 PO (13:14)
[2019-12-29] MEDS ORDERED: OXYB5TAB24 PO (13:14)
[2019-12-29] MEDS ORDERED: PROM25TA5 PO (13:14)
[2019-12-29] MEDS ORDERED: POTA10TA32 PO (13:14)
[2019-12-29] MEDS ORDERED: ALLO100T PO (13:14)
[2019-12-29] MEDS ORDERED: SITA100T7 PO (13:14)
[2019-12-29] MEDS ORDERED: CLOP75TA28 PO (13:14)
[2019-12-29] MEDS ORDERED: METO-169 PO (13:14)
[2019-12-29] MEDS ORDERED: SACU1TAB PO (13:14)
[2019-12-29] MEDS ORDERED: HYDR-4296 PO (13:14)
[2019-12-29] MEDS ORDERED: AMLO10TA13 PO (13:14)
== END 2019-11-26 17:15 | disposition home or self-care (01) | DRG 280 ==
LOC: EDBD 19:44 → ER 19:45 → TELE 19:46 → TELE-WESTW 11-24 02:26
PROVIDERS: ADMIT Nurse Practitioner; ATTEND Internal Medicine
DX: I47.1 Supraventricular tachycardia (principal); I50.43 Acute on chronic combined systolic (congestive) and diastolic (congestive) heart failure; I21.4 Non-ST elevation (NSTEMI) myocardial infarction; I13.0 Hypertensive heart and chronic kidney disease with heart failure and stage 1 through stage 4 chronic kidney disease, or unspecified chronic kidney disease; Z95.5 Presence of coronary angioplasty implant and graft; I25.10 Atherosclerotic heart disease of native coronary artery without angina pectoris; N18.3 Chronic kidney disease, stage 3 (moderate); E11.22 Type 2 diabetes mellitus with diabetic chronic kidney disease; E78.5 Hyperlipidemia, unspecified; F17.210 Nicotine dependence, cigarettes, uncomplicated; G62.9 Polyneuropathy, unspecified; J44.9 Chronic obstructive pulmonary disease, unspecified; E66.9 Obesity, unspecified; E11.21 Type 2 diabetes mellitus with diabetic nephropathy; E11.40 Type 2 diabetes mellitus with diabetic neuropathy, unspecified; Z68.30 Body mass index [BMI] 30.0-30.9, adult
CPT/HCPCS: 36415; 71045; 80048; 80053; 80061; 81001; 82962; 83036; 83880; 84443; 84484; 85025; 85610; 85730; 93005; 94640; 99291; G0378; J1815; J2405

== ENCOUNTER → 2019-12-29 | Outpatient (CLI) | payer MEDICARE, OTHER ==
[~2019-12-29] MED LIST changes: -ALL100T PO; +ALLO100T PO; +AMLO10TA13 PO; -AMOX500T86 PO; +ASPI-543 PO; -ATOR40TA52 PO; +CLOP75TA28 PO; -CLOP75TA41 PO; +FURO40TA4 PO; +HYDR-4296 PO; +METO-169 PO; -METO1TAB9 PO; -PAR20T PO; +POTA10TA32 PO; -PRED-158 PO; +PROM25TA5 PO; +SACU1TAB PO
[2019-12-29 10:40] VITALS: BP 144/82
--- NOTE | 2019-12-29 10:40 | NUR ---
CLINIC PT ARRIVED TO THE [facility] FOR PRE OP EKG, CXR, AND LABS. A/OX4, AMBULATORY WITH WALKER, BREATHING IS EVEN AND UNLABORED.
--- NOTE | 2019-12-29 11:06 | NUR ---
EKG DONE BY FRIEDA BAGLEY REVIEWED BY HUMBERTO RICE SR 75
[2019-12-29 11:20] VITALS: BP 136/71
--- NOTE | 2019-12-29 11:20 | NUR ---
Pre-Op Discharge Summary: See e-MAR for any medications given for this visit. Pre-op orders received and carried out per MD of EKG, LABS and chest xrays. Patient given a copy of EKG with instructions to go to [facility] out patient for further follow up care. NOTE EKG DONE BY FRIEDA BAGLEY REVIEWED BY HUMBERTO RICE
[2019-12-29 12:00] LABS: Basophils # (auto) 0.1 10 ^3/uL (0-0.2); Eosinophils # (auto) 0.3 10 ^3/uL (0-0.8); Eosinophils % (auto) 4.5 % (0.0-7.0); Hematocrit 32.8 % (36.0-46.0); Hemoglobin 10.2 g/dL (12.2-16.2); Lymphocytes # (auto) 1.5 10 ^3/uL (0.4-5.4); Lymphocytes % (auto) 25.2 % (10.0-50.0); Monocytes # (auto) 0.4 10 ^3/uL (0-1.3); Monocytes % (auto) 7.1 % (0.0-12.0); Neutrophils # (auto) 3.6 10 ^3/uL (1.6-8.6); Neutrophils % (auto) 62.2 % (37.0-80.0); Platelet Count (auto) 329 10^3/uL (140-450); Red Cell Distribution Width 14.6 % (11.8-14.3); White Blood Cell 5.8 10^3/uL (4.4-10.8)
[2019-12-29 12:17] LABS: Potassium 3.7 mmol/L (3.5-5.1)
[2019-12-29 12:19] LABS: BUN/Creatinine Ratio 15.3; Calcium 9.2 mg/dL (8.5-10.1); INR 0.97 (0.9-1.15); Partial Thromboplastin Time 26.7 sec (23.0-31.2)
== END | disposition home or self-care (01) ==
LOC: Rad HDHVI 10:17
PROVIDERS: ATTEND Internal Medicine Cardiovascular Disease
DX: Z01.812 Encounter for preprocedural laboratory examination (principal); I51.7 Cardiomegaly; I70.0 Atherosclerosis of aorta; M47.814 Spondylosis without myelopathy or radiculopathy, thoracic region; I42.9 Cardiomyopathy, unspecified; I50.9 Heart failure, unspecified; I50.41 Acute combined systolic (congestive) and diastolic (congestive) heart failure; Z95.5 Presence of coronary angioplasty implant and graft; Z86.79 Personal history of other diseases of the circulatory system
CPT/HCPCS: 36415; 71046; 80048; 85025; 85610; 85730; 93005; G0463

== ENCOUNTER 2020-01-04 08:13 | Inpatient (IN) | payer MEDICARE, OTHER ==
[~2020-01-04] VITALS: Ht 162.6 cm; Wt 85.7 kg
[2020-01-04] MEDS ORDERED: VANCOMYCIN 1GM/250ML 250 ML IV ONE (09:15)
[2020-01-04] MEDS ORDERED: fentaNYL CITRATE 100 MCG/2 ML VL ONE ×2 (10:05→10:54)
[2020-01-04] MEDS ORDERED: MIDAZOLAM HCL 1MG/1ML-2 ML VIAL ONE ×2 (10:05→11:24)
[2020-01-04] MEDS ORDERED: VANCOMYCIN HCL 1000 MG VL ONE (10:05)
[2020-01-04] MEDS ORDERED: LIDOCAINE 2%HCL (LOCAL ANESTH.) INJ 20ML MDV ONE (10:06)
[2020-01-04] MEDS ORDERED: IOHEXOL 350 MG/ML 100ML IJ ONE (10:11)
[2020-01-04] MEDS ORDERED: FUROSEMIDE 20 MG/2 ML VIAL ONE ×3 (10:50→13:32)
[2020-01-04] MEDS ORDERED: diphenhdrAMINE HCL 50 MG/1 ML VL ONE (10:51)
[2020-01-04] MEDS ORDERED: ENALAPRILAT 1.25 MG/ML-1ML VIAL IV ONE (11:32)
[2020-01-04] MEDS ORDERED: LABETALOL HCL 5 MG/ML ML 20ML VIAL IV ONE (11:40)
[2020-01-04] MEDS ORDERED: NITROGLYCERIN 0.4 MG SL TAB SL PRN (12:30)
[2020-01-04] MEDS ORDERED: ACETAMINOPHEN 325 MG TAB PO PRN (12:30)
[2020-01-04] MEDS ORDERED: MORPHINE SULF INJ 2 MG/ML SYRINGE 1ML IV PRN (12:30)
[2020-01-04] MEDS ORDERED: HYDROcodone-ACET 5/325MG TAB PO PRN (12:30)
[2020-01-04] MEDS ORDERED: ceFAZolin 1GM/50ML 50 ML IV SCH (12:30)
[2020-01-04] MEDS ORDERED: ceFAZolin 1GM 2 GM in D5W 5% 100 ML IV ONE (12:45)
[2020-01-04] MEDS ORDERED: POTASSIUM CHL 20 Meq TABLET PO ONE (13:30)
[2020-01-04] MEDS ORDERED: FUROSEMIDE 40 MG/4 ML VIAL IV ONE (13:30)
[2020-01-04] MEDS ORDERED: ceFAZolin 1GM VL ONE (13:40)
[2020-01-04] MEDS ORDERED: PROMETHAZINE HCL 12.5 MG PO PRN (14:00)
[2020-01-04 15:08] VITALS: BP 140/83
[2020-01-04 16:46] VITALS: BP 129/75
[2020-01-04] MEDS ORDERED: LEVALBUTEROL HCL 1.25 MG/3 ML NEB NEB SCH (18:00)
[2020-01-04 18:26] VITALS: BP 129/75
[2020-01-04] MEDS ORDERED: POTA8TAB2 PO (18:49)
[2020-01-04] MEDS ORDERED: ALBU108A5 IN (18:49)
[2020-01-04] MEDS ORDERED: IPRA0.00 NEB (18:49)
[2020-01-04 20:00] VITALS: BP 162/102
[2020-01-04] MEDS ORDERED: ceFAZolin 1GM/50ML 50 ML IV ONE (20:45)
[2020-01-04] MEDS: hydrALAZINE HCL 25 MG TAB PO SCH (21:42)
[2020-01-04] MEDS: OXYBUTYNIN CHL 5 MG TAB PO SCH (21:42)
[2020-01-04 21:43] VITALS: BP 162/102
[2020-01-04] MEDS: LEVALBUTEROL HCL 1.25 MG/3 ML NEB NEB SCH (21:58)
[2020-01-05 05:00] VITALS: BP 139/86
[2020-01-05] MEDS ORDERED: LEVOTHYROXINE SODIUM 25 MCG TAB PO SCH (07:00)
[2020-01-05] MEDS: LEVALBUTEROL HCL 1.25 MG/3 ML NEB NEB SCH (08:02)
[2020-01-05 09:00] VITALS: BP 132/67
[2020-01-05] MEDS: OXYBUTYNIN CHL 5 MG TAB PO SCH (09:55)
[2020-01-05] MEDS: hydrALAZINE HCL 25 MG TAB PO SCH (09:57)
[2020-01-05] MEDS ORDERED: METOPROLOL SUCCINATE XL 50 MG TAB PO SCH (10:00)
[2020-01-05] MEDS ORDERED: FUROSEMIDE 40 MG TAB PO SCH (10:00)
[2020-01-05] MEDS ORDERED: amLODIPine BESYLATE 5 MG TAB PO SCH (10:00)
[2020-01-05] MEDS ORDERED: ASPirin-EC 81 mg tab PO SCH (10:00)
[2020-01-05] MEDS ORDERED: ALLOPURINOL 100 MG TAB PO SCH (10:00)
[2020-01-05] MEDS ORDERED: CLOPIDOGREL BISULFATE 75 MG TAB PO SCH (10:00)
[2020-01-05] MEDS ORDERED: SACUBITRIL-VALSARTAN 24mg/26mg TAB PO SCH (10:00)
[2020-01-05] MEDS ORDERED: POTASSIUM CHL 10 Meq TABLET PO SCH (10:00)
[2020-01-05 13:00] VITALS: BP 125/73
== END 2020-01-05 17:00 | disposition home or self-care (01) | DRG 226 ==
LOC: CATH 08:13 → TELE-WESTW 14:57
PROVIDERS: ADMIT Internal Medicine Cardiovascular Disease; ATTEND Internal Medicine Cardiovascular Disease
PROC: 0JH609Z Insertion of Cardiac Resynchronization Defibrillator Pulse Generator into Chest Subcutaneous Tissue and Fascia, Open Approach (ICD-10-PCS; principal; 2020-01-04)
PROC: 02HK3KZ Insertion of Defibrillator Lead into Right Ventricle, Percutaneous Approach (ICD-10-PCS; 2020-01-04)
PROC: 02HL3KZ Insertion of Defibrillator Lead into Left Ventricle, Percutaneous Approach (ICD-10-PCS; 2020-01-04)
PROC: 02H63KZ Insertion of Defibrillator Lead into Right Atrium, Percutaneous Approach (ICD-10-PCS; 2020-01-04)
DX: I25.5 Ischemic cardiomyopathy (principal); I50.23 Acute on chronic systolic (congestive) heart failure; I25.10 Atherosclerotic heart disease of native coronary artery without angina pectoris; I42.0 Dilated cardiomyopathy; E78.5 Hyperlipidemia, unspecified; E11.40 Type 2 diabetes mellitus with diabetic neuropathy, unspecified; I10 Essential (primary) hypertension; M19.90 Unspecified osteoarthritis, unspecified site; Z20.828 Contact with and (suspected) exposure to other viral communicable diseases; I25.2 Old myocardial infarction; Z95.5 Presence of coronary angioplasty implant and graft; Z82.49 Family history of ischemic heart disease and other diseases of the circulatory system; I45.9 Conduction disorder, unspecified
CPT/HCPCS: 33249; 71045; 93005; 94640; 99152; 99153; G0378; J0690; J2250; J7060

== ENCOUNTER 2020-01-30 03:21 | Inpatient (IN) | payer MEDICARE, OTHER ==
[~2020-01-30] VITALS: Ht 165.1 cm; Wt 88.4 kg
[~2020-01-30 03:21] MED LIST changes: +ALBU108A5 IN; +IPRA0.00 NEB; +POTA8TAB2 PO
[2020-01-30] MEDS ORDERED: ALBUTEROL SULF 2.5 MG/0.5ML(0.5%) NEB SOLN ONE (03:39)
[2020-01-30] MEDS ORDERED: IPRATROPIUM BROM 0.5 MG/2.5ML INH SOL ONE (03:39)
[2020-01-30] MEDS ORDERED: IPRATROPIUM BROM 0.5 MG/2.5ML INH SOL NEB ONE (03:45)
[2020-01-30] MEDS ORDERED: ALBUTEROL SULF 2.5 MG/0.5ML(0.5%) NEB SOLN NEB ONE (03:45)
[2020-01-30 06:23] LABS: Eosinophils # (auto) 0.1 10 ^3/uL (0-0.8); Lymphocytes # (auto) 0.6 10 ^3/uL (0.4-5.4); White Blood Cell 13.7 10^3/uL (4.4-10.8)
[2020-01-30 06:25] LABS: Basophils # (auto) 0 10 ^3/uL (0-0.2); Basophils % (auto) 0.2 % (0.0-2.0); Eosinophils % (auto) 0.8 % (0.0-7.0); Hematocrit 30.2 % (36.0-46.0); Hemoglobin 9.3 g/dL (12.2-16.2); Lymphocytes % (auto) 4.2 % (10.0-50.0); Mean Corpuscular Hemoglobin 26.4 pg (28.0-32.0); Mean Corpuscular Hgb Conc. 30.9 g/dL (32.0-36.0); Mean Corpuscular Volume 85.4 fL (80.0-100.0); Monocytes # (auto) 0.4 10 ^3/uL (0-1.3); Monocytes % (auto) 2.7 % (0.0-12.0); Neutrophils # (auto) 12.6 10 ^3/uL (1.6-8.6); Neutrophils % (auto) 92.1 % (37.0-80.0); Platelet Count (auto) 322 10^3/uL (140-450); Red Blood Cells 3.53 10^6/uL (4.0-5.20); Red Cell Distribution Width 15.4 % (11.8-14.3)
[2020-01-30 06:46] LABS: Albumin 3.9 g/dL (3.4-5.0); Calcium 9.3 mg/dL (8.5-10.1); Potassium 4.7 mmol/L (3.5-5.1)
[2020-01-30 06:48] LABS: INR 1.08 (0.9-1.15); Partial Thromboplastin Time 24.2 sec (23.0-31.2)
[2020-01-30 06:53] LABS: BUN/Creatinine Ratio 13.3; Bilirubin, Total 1.2 mg/dL (0.2-1.0)
--- NOTE | 2020-01-30 07:30 | NUR ---
Respiratory note: PT TAKEN OFF BIPAP AT THIS TIME AND PLACED ON 3LNC. SPO2 97% HR 75 RR 18 B/S COARSE. NO RESPIRATORY DISTRESS NOTED. PT AWARE TO HAVE RN PAGED RT IF THEY BECOME SOB.
[2020-01-30] MEDS ORDERED: cloNIDine HCL 0.1 MG TAB PO ONE (09:15)
[2020-01-30] MEDS ORDERED: FUROSEMIDE 40 MG/4 ML VIAL IV ONE (09:15)
[2020-01-30] MEDS ORDERED: ONDANSETRON HCL 4 MG/2 ML VIAL IV PRN (11:00)
[2020-01-30] MEDS ORDERED: ALBUTEROL SULF 2.5 MG/0.5ML(0.5%) NEB SOLN NEB PRN (11:00)
[2020-01-30] MEDS ORDERED: MORPHINE SULF INJ 2 MG/ML SYRINGE 1ML IV PRN ×2 (11:00)
[2020-01-30] MEDS ORDERED: ACETAMINOPHEN 500 MG TAB PO PRN (11:00)
[2020-01-30] MEDS ORDERED: NITROGLYCERIN 0.4 MG SL TAB SL PRN (11:00)
[2020-01-30] MEDS ORDERED: IPRATROPIUM BROM 0.5 MG/2.5ML INH SOL NEB PRN (11:00)
[2020-01-30] MEDS ORDERED: HYDROcodone-ACET 5/325MG TAB PO PRN (11:00)
[2020-01-30] MEDS ORDERED: DEXTROSE (50%) 50ML SYRG IV PRN (11:15)
[2020-01-30] MEDS: cefTRIAXone 1GM/50ML D5W 50 ML IV SCH (12:00)
[2020-01-30] MEDS: ACCU-CHEK COMFORT CURVE STRIP VI SCH ×3 (12:20→21:43)
[2020-01-30] MEDS: IPRATROPIUM BROM 0.5 MG/2.5ML INH SOL NEB SCH ×2 (12:21→19:36)
[2020-01-30] MEDS: ALBUTEROL SULF 2.5 MG/0.5ML(0.5%) NEB SOLN NEB SCH ×2 (12:22→19:36)
[2020-01-30] MEDS: amLODIPine BESYLATE 5 MG TAB PO SCH (12:28)
[2020-01-30] MEDS: InsuLIN REG 1unit/0.01ml Soln (100units/ml) SC SCH ×3 (12:28→21:43)
[2020-01-30] MEDS: AZITHROMYCIN 500MG/ 250ML 250 ML IV SCH (12:30)
--- NOTE | 2020-01-30 12:45 | NUR ---
Telemetry admit from ER [facility] admitted to Telemetry unit after SBAR received. Patient oriented to Meg Morrell, primary RN, unit, room, bed, and unit policies regarding patient care and visiting hours. Patient now on continuous telemetry monitoring, tele box # 47 and telemetry reading on arrival to unit is . Patient placed on bedside oxygen, weighed by bedscale and encouraged to call if they need something. All questions and concerns addressed, patient verbalized understanding. Note:
[2020-01-30 16:44] VITALS: BP 135/91
--- NOTE | 2020-01-30 19:35 | NUR ---
Opening Shift Note Assumed care of patient, awake and alert. No S/S of distress/SOB or pain. Bed is locked in lowest position with call light within reach. Instructed on POC and to call for assist PRN, will continue to monitor for changes Q1hr and PRN.
[2020-01-30] MEDS: ATORVASTATIN 20 MG TAB PO SCH (21:40)
[2020-01-30 22:23] VITALS: BP 113/69
[2020-01-31 06:07] VITALS: BP 123/78
[2020-01-31] MEDS: InsuLIN REG 1unit/0.01ml Soln (100units/ml) SC SCH ×4 (06:39→22:25)
[2020-01-31] MEDS: ACCU-CHEK COMFORT CURVE STRIP VI SCH ×4 (06:39→22:25)
[2020-01-31 06:44] LABS: Basophils # (auto) 0 10 ^3/uL (0-0.2); Eosinophils # (auto) 0 10 ^3/uL (0-0.8); Eosinophils % (auto) 0.2 % (0.0-7.0); Hemoglobin 8.2 g/dL (12.2-16.2); Monocytes # (auto) 0.7 10 ^3/uL (0-1.3); Red Cell Distribution Width 15.1 % (11.8-14.3)
[2020-01-31 06:46] LABS: Basophils % (auto) 0.3 % (0.0-2.0); Mean Corpuscular Hemoglobin 26.6 pg (28.0-32.0); Mean Corpuscular Hgb Conc. 31.6 g/dL (32.0-36.0); Mean Corpuscular Volume 84.2 fL (80.0-100.0); Monocytes % (auto) 8.1 % (0.0-12.0); Neutrophils # (auto) 7.1 10 ^3/uL (1.6-8.6); Neutrophils % (auto) 80.4 % (37.0-80.0); Platelet Count (auto) 292 10^3/uL (140-450); Red Blood Cells 3.09 10^6/uL (4.0-5.20); White Blood Cell 8.9 10^3/uL (4.4-10.8)
[2020-01-31 06:49] LABS: Calcium 8.8 mg/dL (8.5-10.1); Potassium 4.2 mmol/L (3.5-5.1)
[2020-01-31 06:53] LABS: BUN/Creatinine Ratio 19.2
--- NOTE | 2020-01-31 07:30 | NUR ---
Opening Shift Note Assumed care of patient, awake and alert. Respirations are even and unlabored. No S/S of distress/SOB or pain. Bed is low, locked with 2x side rails up. Call light is within reach. Instructed on POC and to call for assist PRN, will continue to monitor for changes Q1hr and PRN.
--- NOTE | 2020-01-31 08:00 | NUR ---
EKG HAS BEEN PLACED IN CHART.
[2020-01-31 09:00] VITALS: BP 136/82
[2020-01-31] MEDS: cefTRIAXone 1GM/50ML D5W 50 ML IV SCH (09:14)
[2020-01-31] MEDS: FAMOTIDINE 20 MG TAB PO SCH (09:15)
[2020-01-31] MEDS: FUROSEMIDE 20 MG TAB PO SCH (09:15)
[2020-01-31] MEDS: CLOPIDOGREL BISULFATE 75 MG TAB PO SCH (09:15)
[2020-01-31] MEDS: ASPirin-EC 81 mg tab PO SCH (09:16)
[2020-01-31] MEDS: LOSARTAN POTASSIUM 25 MG TAB PO SCH (09:16)
[2020-01-31] MEDS: amLODIPine BESYLATE 5 MG TAB PO SCH (09:16)
[2020-01-31 09:36] LABS: Urine Bacteria MOD /hpf (None Seen); Urine Blood 3+ /uL (Negative); Urine Budding Yeast OCCASIONAL /hpf (None Seen); Urine Hyaline Cast MANY /lpf (0 - 2); Urine Mucus FEW (None Seen); Urine WBC 86 /hpf (0 - 5)
[2020-01-31] MEDS: AZITHROMYCIN 500MG/ 250ML 250 ML IV SCH (10:49)
--- NOTE | 2020-01-31 11:15 | NUR ---
Stopped Zithromax Patient c/o pain to IV site 15 minutes after starting IV Zithromax. Stopped IV infusion at this time. Flushed IV with 10ml flush of NS. Paging MD to notify.
[2020-01-31] MEDS: ALBUTEROL SULF 2.5 MG/0.5ML(0.5%) NEB SOLN NEB SCH ×3 (11:50→18:42)
[2020-01-31] MEDS: IPRATROPIUM BROM 0.5 MG/2.5ML INH SOL NEB SCH ×3 (11:51→18:42)
[2020-01-31 13:00] VITALS: BP 137/89
[2020-01-31 17:00] VITALS: BP 130/77
--- NOTE | 2020-01-31 19:40 | NUR ---
Opening Shift Note Assumed care of patient. Awake, alert and oriented x4. No S/S of distress/SOB or pain. Instructed on POC and to call for assist PRN. [place] is off the floor, below bladder, patent and draining clear yellow urine. Bed locked, in lowest position, call light within reach, side rails up x2. Will continue to monitor for changes Q1hr and PRN.
[2020-01-31 22:00] VITALS: BP 126/74
[2020-01-31] MEDS: ATORVASTATIN 20 MG TAB PO SCH (22:24)
--- NOTE | 2020-02-01 01:22 | NUR ---
Pt reporting tightness in her chest VS: BP 139/84, P 76 O2 sat 95% on 3L nasal cannula. EKG done. Compared to previous EKG. No changes. Pt asked again about chest pain and pt reported the pain went away. Informed pt to call for assistance if the pain returns. Pt verbalized understanding. Will continue to monitor
[2020-02-01 05:00] VITALS: BP 116/73
[2020-02-01] MEDS: ALBUTEROL SULF 2.5 MG/0.5ML(0.5%) NEB SOLN NEB SCH ×3 (06:09→19:01)
[2020-02-01] MEDS: IPRATROPIUM BROM 0.5 MG/2.5ML INH SOL NEB SCH ×3 (06:09→19:01)
[2020-02-01] MEDS: ACCU-CHEK COMFORT CURVE STRIP VI SCH ×5 (06:41→21:33)
[2020-02-01] MEDS: InsuLIN REG 1unit/0.01ml Soln (100units/ml) SC SCH ×5 (06:41→21:32)
[2020-02-01 08:32] VITALS: BP 131/74
[2020-02-01] MEDS: cefTRIAXone 1GM/50ML D5W 50 ML IV SCH (09:55)
[2020-02-01] MEDS: amLODIPine BESYLATE 5 MG TAB PO SCH (09:56)
[2020-02-01] MEDS: ASPirin-EC 81 mg tab PO SCH (09:56)
[2020-02-01] MEDS: FUROSEMIDE 20 MG TAB PO SCH (09:56)
[2020-02-01] MEDS: FAMOTIDINE 20 MG TAB PO SCH (09:56)
[2020-02-01] MEDS: CLOPIDOGREL BISULFATE 75 MG TAB PO SCH (09:56)
[2020-02-01] MEDS: LOSARTAN POTASSIUM 25 MG TAB PO SCH (09:57)
[2020-02-01] MEDS: AZITHROMYCIN 500MG/ 250ML 250 ML IV SCH (11:49)
[2020-02-01 12:30] VITALS: BP 141/83
[2020-02-01 16:55] VITALS: BP 147/92
[2020-02-01 18:56] LABS: Basophils # (auto) 0.1 10 ^3/uL (0-0.2); Basophils % (auto) 1.3 % (0.0-2.0); Eosinophils # (auto) 0.4 10 ^3/uL (0-0.8); Eosinophils % (auto) 5.6 % (0.0-7.0); Hematocrit 29.6 % (36.0-46.0); Hemoglobin 9.4 g/dL (12.2-16.2); Lymphocytes # (auto) 1.2 10 ^3/uL (0.4-5.4); Lymphocytes % (auto) 18.8 % (10.0-50.0); Mean Corpuscular Hgb Conc. 31.8 g/dL (32.0-36.0); Mean Corpuscular Volume 84.9 fL (80.0-100.0); Monocytes # (auto) 0.5 10 ^3/uL (0-1.3); Monocytes % (auto) 7.7 % (0.0-12.0); Neutrophils # (auto) 4.2 10 ^3/uL (1.6-8.6); Neutrophils % (auto) 66.6 % (37.0-80.0); Nucleated Red Blood Cells % 0.2 %; Platelet Count (auto) 309 10^3/uL (140-450); Red Blood Cells 3.48 10^6/uL (4.0-5.20); Red Cell Distribution Width 15.2 % (11.8-14.3); White Blood Cell 6.3 10^3/uL (4.4-10.8)
[2020-02-01 19:18] LABS: Albumin 3.4 g/dL (3.4-5.0); Calcium 9.2 mg/dL (8.5-10.1); Potassium 4.3 mmol/L (3.5-5.1)
[2020-02-01 19:22] LABS: BUN/Creatinine Ratio 19.5; Bilirubin, Total 0.7 mg/dL (0.2-1.0); Total Protein 7.9 g/dL (6.4-8.2)
--- NOTE | 2020-02-01 19:35 | NUR ---
Opening Shift Note Assumed care of patient. Awake, alert and oriented x4. No S/S of distress/SOB or pain. Instructed on POC and to call for assist PRN. [place] is off the floor, below bladder, patent and draining clear chantal urine. Bed locked, in lowest position, call light within reach, side rails up x2, safety precautions in place. Will continue to monitor for changes Q1hr and PRN.
[2020-02-01] MEDS: ATORVASTATIN 20 MG TAB PO SCH (21:20)
[2020-02-01 22:00] VITALS: BP 138/81
--- NOTE | 2020-02-02 02:13 | NUR ---
IV insertion IV access obtained, via clean sterile technique by inserting 22 gauge catheter at right forearm after 2 attempt. IV secured properly. No trauma to site. Patient tolerated procedure well.
[2020-02-02 05:00] VITALS: BP 150/82
[2020-02-02] MEDS: InsuLIN REG 1unit/0.01ml Soln (100units/ml) SC SCH ×4 (06:37→22:27)
[2020-02-02] MEDS: ACCU-CHEK COMFORT CURVE STRIP VI SCH ×4 (06:38→22:27)
[2020-02-02] MEDS: IPRATROPIUM BROM 0.5 MG/2.5ML INH SOL NEB SCH ×3 (07:12→17:55)
[2020-02-02] MEDS: ALBUTEROL SULF 2.5 MG/0.5ML(0.5%) NEB SOLN NEB SCH ×3 (07:12→17:55)
[2020-02-02 08:38] VITALS: BP 149/87
[2020-02-02] MEDS: LOSARTAN POTASSIUM 25 MG TAB PO SCH (09:06)
[2020-02-02] MEDS: CLOPIDOGREL BISULFATE 75 MG TAB PO SCH (09:06)
[2020-02-02] MEDS: ASPirin-EC 81 mg tab PO SCH (09:06)
[2020-02-02] MEDS: cefTRIAXone 1GM/50ML D5W 50 ML IV SCH (09:06)
[2020-02-02] MEDS: AZITHROMYCIN 500MG/ 250ML 250 ML IV SCH (09:07)
[2020-02-02] MEDS: amLODIPine BESYLATE 5 MG TAB PO SCH (09:07)
[2020-02-02] MEDS: FAMOTIDINE 20 MG TAB PO SCH (09:07)
[2020-02-02] MEDS: FUROSEMIDE 20 MG TAB PO SCH (09:07)
[2020-02-02 13:00] VITALS: BP 136/83
[2020-02-02 15:50] VITALS: BP 136/83
--- NOTE | 2020-02-02 15:51 | NUR ---
Nutrition Assessment Notes Please refer to link for full assessment notes. Est Energy needs: 6371-3422 kcals (20-23 kcal/kgBW) d/t pt elev RFTs Est Protein needs: 72-80 gms/day (0.8-0.9 gm/kgBW) d/t pt elev RFTs Will continue to monitor and reassess prn. Addendum: 02/02/20 at [address] Amended: Links added.
[2020-02-02 17:00] VITALS: BP 151/92
[2020-02-02 22:00] VITALS: BP 128/76
[2020-02-02] MEDS: ATORVASTATIN 20 MG TAB PO SCH (22:26)
[2020-02-03 04:40] VITALS: BP 156/82
[2020-02-03] MEDS: ALBUTEROL SULF 2.5 MG/0.5ML(0.5%) NEB SOLN NEB SCH ×2 (05:42→11:44)
[2020-02-03] MEDS: IPRATROPIUM BROM 0.5 MG/2.5ML INH SOL NEB SCH ×2 (05:42→11:44)
[2020-02-03] MEDS: ACCU-CHEK COMFORT CURVE STRIP VI SCH ×2 (06:31→11:22)
[2020-02-03] MEDS: InsuLIN REG 1unit/0.01ml Soln (100units/ml) SC SCH ×2 (06:31→11:22)
--- NOTE | 2020-02-03 08:00 | NUR ---
OPENING SHIFT NOTE ASSUMED CARE OF PATIENT AWAKE AND ALERT. NO S/S OF DISTRESS NOTED OR COMPLAINTS OF PAIN. PATIENT UPDATED ON POC FOR THE DAY AND ALL QUESTIONS ANSWERED. BED IS IN LOWEST, LOCKED POSITION WITH SIDE RAILS UP X2 AND CALL LIGHT WITHIN REACH. WILL CONTINUE TO MONITOR Q1H AND PRN.
[2020-02-03 09:09] VITALS: BP 126/79
[2020-02-03] MEDS: ASPirin-EC 81 mg tab PO SCH (09:54)
[2020-02-03] MEDS: FUROSEMIDE 20 MG TAB PO SCH (09:55)
[2020-02-03] MEDS: LOSARTAN POTASSIUM 25 MG TAB PO SCH (09:55)
[2020-02-03] MEDS: amLODIPine BESYLATE 5 MG TAB PO SCH (09:55)
[2020-02-03] MEDS: FAMOTIDINE 20 MG TAB PO SCH (09:55)
[2020-02-03] MEDS: CLOPIDOGREL BISULFATE 75 MG TAB PO SCH (09:55)
[2020-02-03 13:30] VITALS: BP 144/87
--- NOTE | 2020-02-03 15:26 | NUR ---
INFO FAXED PATIENT HEALTH SUMMARY FAXED TO DR WICK[facility]ICE USING CONFIDENTIAL COVER SHEET.
--- NOTE | 2020-02-03 16:26 | NUR ---
Discharge instructions given as ordered. Encourage to follow up with PMD as instructed. All questions and concerns addressed. Patient verbalized understanding. IV removed with catheter intact, pressure dressing applied, busby catheter removed. Telemetry unit returned to ICU. Patient taken to vehicle via wheelchair with all personal belongings, accompanied by staff. No distress noted at time of departure.
--- NOTE | 2020-02-05 10:22 | NUR ---
Weekend validation manager-I did not receive a page regarding the social service consult for this patient. I faxed home health order to [facility]. I received a call from Abraham at [facility] letting me know that they would be able to accept this patient back on service.
== END 2020-02-03 16:25 | disposition home health service (06) | DRG 871 ==
LOC: ER 03:26 → EDUNIT# 03:26 → EDBD 03:26 → TELE 03:27 → TELE-CENTR 13:08
PROVIDERS: ADMIT Nurse Practitioner Acute Care; ATTEND Internal Medicine Cardiovascular Disease
PROC: 5A09357 Assistance with Respiratory Ventilation, Less than 24 Consecutive Hours, Continuous Positive Airway Pressure (ICD-10-PCS; principal; 2020-01-30)
DX: A41.9 Sepsis, unspecified organism (principal); J96.01 Acute respiratory failure with hypoxia; I50.23 Acute on chronic systolic (congestive) heart failure; I13.0 Hypertensive heart and chronic kidney disease with heart failure and stage 1 through stage 4 chronic kidney disease, or unspecified chronic kidney disease; J44.1 Chronic obstructive pulmonary disease with (acute) exacerbation; J98.11 Atelectasis; I42.0 Dilated cardiomyopathy; N18.30 Chronic kidney disease, stage 3 unspecified; E66.9 Obesity, unspecified; I25.10 Atherosclerotic heart disease of native coronary artery without angina pectoris; D64.9 Anemia, unspecified; E11.22 Type 2 diabetes mellitus with diabetic chronic kidney disease; I25.2 Old myocardial infarction; Z87.891 Personal history of nicotine dependence; Z95.810 Presence of automatic (implantable) cardiac defibrillator; Z79.84 Long term (current) use of oral hypoglycemic drugs; Z68.30 Body mass index [BMI] 30.0-30.9, adult
CPT/HCPCS: 36415; 36600; 51702; 71045; 80048; 80053; 81001; 82805; 82962; 83036; 83880; 84484; 85025; 85610; 85730; 86141; 87040; 87081; 87086; 93005; 94640; 94660; 96365; 96375; 99291; G0378; J0696; J1815

== ENCOUNTER 2020-02-18 08:11 | Inpatient (IN) | payer MEDICARE, OTHER ==
[~2020-02-18] VITALS: Ht 170.2 cm; Wt 82.5 kg
[2020-02-18 08:43] LABS: Basophils # (auto) 0.1 10 ^3/uL (0-0.2); Eosinophils # (auto) 0.5 10 ^3/uL (0-0.8); Eosinophils % (auto) 7.6 % (0.0-7.0); Monocytes # (auto) 0.5 10 ^3/uL (0-1.3); White Blood Cell 6.1 10^3/uL (4.4-10.8)
[2020-02-18 08:46] LABS: Basophils % (auto) 1.1 % (0.0-2.0); Hematocrit 34.9 % (36.0-46.0); Lymphocytes % (auto) 48.8 % (10.0-50.0); Mean Corpuscular Hemoglobin 26.8 pg (28.0-32.0); Mean Corpuscular Hgb Conc. 31.6 g/dL (32.0-36.0); Mean Corpuscular Volume 84.9 fL (80.0-100.0); Monocytes % (auto) 7.9 % (0.0-12.0); Neutrophils # (auto) 2.1 10 ^3/uL (1.6-8.6); Neutrophils % (auto) 34.6 % (37.0-80.0); Nucleated Red Blood Cells % 0.3 %; Platelet Count (auto) 350 10^3/uL (140-450); Red Blood Cells 4.11 10^6/uL (4.0-5.20); Red Cell Distribution Width 15.3 % (11.8-14.3)
[2020-02-18 09:01] LABS: Albumin 3.6 g/dL (3.4-5.0); Calcium 8.9 mg/dL (8.5-10.1); Magnesium 2.2 mg/dL (1.6-2.6); Potassium 3.8 mmol/L (3.5-5.1)
[2020-02-18 09:08] LABS: BUN/Creatinine Ratio 11.9; Bilirubin, Total 0.9 mg/dL (0.2-1.0); Total Protein 8.4 g/dL (6.4-8.2)
--- NOTE | 2020-02-18 09:29 | NUR ---
Respiratory note: UNABLE TO OBTAIN ABG AT THIS TIME. WILL INFORM OTHER RT TO ATTEMPT AT A LATER TIME.
[2020-02-18] MEDS ORDERED: MORPHINE SULF INJ 2 MG/ML SYRINGE 1ML IV PRN ×2 (14:45→15:15)
[2020-02-18] MEDS ORDERED: NITROGLYCERIN 0.4 MG SL TAB SL PRN (14:45)
[2020-02-18 15:01] LABS: Urine Bacteria FEW /hpf (None Seen); Urine Blood TRACE /uL (Negative); Urine Hyaline Cast MANY /lpf (0 - 2); Urine Mucus FEW (None Seen); Urine Specific Gravity 1.019 (1.001-1.035); Urine WBC 7 /hpf (0 - 5)
[2020-02-18] MEDS ORDERED: LACTULOSE 20Gm/30ML SOLN PO PRN (15:15)
[2020-02-18] MEDS ORDERED: traMADol HCL 50 MG TAB PO PRN (15:15)
[2020-02-18] MEDS ORDERED: DEXTROSE (50%) 50ML SYRG IV PRN (15:15)
[2020-02-18] MEDS ORDERED: ACETAMINOPHEN 500 MG TAB PO PRN (15:15)
[2020-02-18] MEDS ORDERED: LORazepam 0.5 MG TAB PO PRN (15:15)
[2020-02-18] MEDS ORDERED: ENOXAPARIN SOD 40 MG/0.4 ML SYRINGE SC ONE (16:00)
[2020-02-18] MEDS: ACCU-CHEK COMFORT CURVE STRIP VI SCH ×2 (17:19→21:46)
[2020-02-18] MEDS: InsuLIN REG 1unit/0.01ml Soln (100units/ml) SC SCH ×2 (17:26→21:46)
--- NOTE | 2020-02-18 20:30 | NUR ---
TELE ADMIT Patient arrived from ER via gurney and was safely transferred onto bed. Patient is A&O X's 4 with no s/s of distress and reports no pain. Patient is receiving 2L O2 via N.C and O2 saturation is at 100%. Respirations are even and unlabored. Educated patient on POC/to use call light when in need of any assistance. Oriented patient to unit: TV/lights/call light/bathroom/unit policies. Patient verbalized understanding. Bed is in lowest/locked position with side rails up X's 2 and call light is within reach of patient. Patient sitting with HOB elevated and dinner provided for patient. Bed alarm is on for safety. Will continue care.
--- NOTE | 2020-02-18 20:40 | NUR ---
WOUND PHOTOS wound photo taken at this time and paper filled out. Skin/wound care plan added and wound consult in.
[2020-02-18] MEDS: ATORVASTATIN 20 MG TAB PO SCH (21:39)
[2020-02-18] MEDS: hydrALAZINE HCL 25 MG TAB PO SCH (21:39)
[2020-02-18] MEDS: SODIUM CHLOR 0.9% PF (SALINE LOCK) 10ML VIAL/SYR IV SCH (21:46)
[2020-02-18 23:05] VITALS: BP 147/85
[2020-02-18 23:11] VITALS: BP 147/85
--- NOTE | 2020-02-18 23:24 | NUR ---
HOME MEDICATION patient reports not knowing any home medication that she takes because she says "I take a lot." patient states that she will have a family member bring in a list of home medication tomorrow because they cannot do it at this time. Will inform day shift RN.
--- NOTE | 2020-02-19 00:42 | NUR ---
MRSA SWAB obtained and sent to lab via bullet system
[2020-02-19 05:08] VITALS: BP 136/75
[2020-02-19 05:33] LABS: Basophils # (auto) 0.1 10 ^3/uL (0-0.2); Basophils % (auto) 1.3 % (0.0-2.0); Eosinophils # (auto) 0.3 10 ^3/uL (0-0.8); Eosinophils % (auto) 5.6 % (0.0-7.0); Hematocrit 27.7 % (36.0-46.0); Hemoglobin 8.6 g/dL (12.2-16.2); Lymphocytes # (auto) 1.4 10 ^3/uL (0.4-5.4); Lymphocytes % (auto) 22.8 % (10.0-50.0); Mean Corpuscular Hemoglobin 26.3 pg (28.0-32.0); Mean Corpuscular Volume 84.9 fL (80.0-100.0); Monocytes # (auto) 0.5 10 ^3/uL (0-1.3); Monocytes % (auto) 8.7 % (0.0-12.0); Neutrophils # (auto) 3.7 10 ^3/uL (1.6-8.6); Neutrophils % (auto) 61.6 % (37.0-80.0); Platelet Count (auto) 251 10^3/uL (140-450); Red Blood Cells 3.26 10^6/uL (4.0-5.20); Red Cell Distribution Width 15.2 % (11.8-14.3)
[2020-02-19 05:56] LABS: Potassium 3.6 mmol/L (3.5-5.1)
[2020-02-19 06:05] LABS: BUN/Creatinine Ratio 14.3; Bilirubin, Total 0.8 mg/dL (0.2-1.0); Calcium 8.9 mg/dL (8.5-10.1); Total Protein 6.7 g/dL (6.4-8.2)
[2020-02-19] MEDS: LEVOTHYROXINE SODIUM 25 MCG TAB PO SCH (06:09)
[2020-02-19] MEDS: InsuLIN REG 1unit/0.01ml Soln (100units/ml) SC SCH ×4 (06:12→21:34)
[2020-02-19] MEDS: ACCU-CHEK COMFORT CURVE STRIP VI SCH ×4 (06:13→21:35)
[2020-02-19] MEDS: SODIUM CHLOR 0.9% PF (SALINE LOCK) 10ML VIAL/SYR IV SCH ×3 (06:13→21:33)
--- NOTE | 2020-02-19 07:30 | NUR ---
Opening Shift Note Assumed care of patient, awake, alert and oriented x4, even and unlabored respirations, no S/S of distress/SOB or pain. Patient able to turn in bed independently, bed in lowest locked position, side rails up x2, and call light within reach. Instructed on POC and to call for assist PRN, will continue to monitor for changes Q1hr and PRN.
[2020-02-19 09:00] VITALS: BP 138/85
[2020-02-19] MEDS: ASPirin 81 mg TAB PO SCH (09:32)
[2020-02-19] MEDS: FUROSEMIDE 40 MG/4 ML VIAL IV SCH (09:33)
[2020-02-19] MEDS: Oxybutynin Chloride (Ditropan Xl) 5 MG PO SCH (09:34)
[2020-02-19] MEDS: POTASSIUM CHL 10 Meq TABLET PO SCH (09:34)
[2020-02-19] MEDS: hydrALAZINE HCL 25 MG TAB PO SCH ×2 (09:34→21:33)
[2020-02-19] MEDS: Sitagliptin Phosphate (Januvia) 100 MG TAB PO SCH (09:34)
[2020-02-19] MEDS: SACUBITRIL-VALSARTAN 24mg/26mg TAB PO SCH (09:34)
[2020-02-19] MEDS: amLODIPine BESYLATE 5 MG TAB PO SCH (09:35)
[2020-02-19] MEDS: CLOPIDOGREL BISULFATE 75 MG TAB PO SCH (09:35)
[2020-02-19] MEDS: ENOXAPARIN SOD 30 MG/0.3 ML SYRINGE SC SCH (09:35)
[2020-02-19] MEDS: METOPROLOL SUCCINATE XL 50 MG TAB PO SCH (09:36)
[2020-02-19] MEDS: NITROGLYCERIN 0.2MG/HR TOPICAL PATCH TD SCH (09:36)
[2020-02-19] MEDS: ALLOPURINOL 100 MG TAB PO SCH (09:36)
--- NOTE | 2020-02-19 09:43 | NUR ---
WOUND CARE NOTE: WOUND CARE IN TO SEE PATIENT PER WOUND CARE REQUEST. PATIENT ADMITTED TO [facility] FOR HEART FAILURE. BEDSIDE NURSE NOTED SKIN INTEGRITY ISSUE UPON ADMISSION. PHOTOGRAPH TAKEN AT THAT TIME FOR REFERENCE. PATIENT MICHAEL SCORE IS 18. PATIENT NOTED TO HAVE A SKIN TEAR TO THE RIGHT POSTERIOR THIGH. CLEANSED WITH NORMAL SALINE, PATTED DRY WITH STERILE GAUZE, THERAHONEY APPLIED, COVERED WITH OPTIFOAM GENTLE DRESSING. RECOMMEND: REDISTRIBUTE PRESSURE UTILIZING PILLOWS AND WEDGES. EOD/PRN DRESSING CHANGE. SKIN/WOUND CARE PLAN. CONTINUED MONITORING BY WOUND CARE TEAM. Addendum: 02/19/20 at 1024 by ALIA HINES RN RN Amended: Links added.
[2020-02-19] MEDS ORDERED: ENOXAPARIN SOD 40 MG/0.4 ML SYRINGE SC SCH (10:00)
[2020-02-19] MEDS ORDERED: POLYETHYLENE GLYCOL 17 GM PWDR PO ONE (10:45)
[2020-02-19] MEDS ORDERED: POLYETHYLENE GLYCOL 17 GM PWDR PO PRN (10:45)
[2020-02-19 11:03] LABS: % Iron Saturation 23.6 % (15-50)
[2020-02-19 11:14] LABS: Ferritin 117.8 ng/mL (10-322); Folate (Folic Acid) 6.76 ng/mL (5.38-24)
--- NOTE | 2020-02-19 11:48 | NUR ---
MD NURA RODRIGUEZ AT BEDSIDE. ALL QUESTIONS AND CONCERNS ADDRESSED AT THIS TIME.
--- NOTE | 2020-02-19 11:52 | NUR ---
D/C Planning Per social service consult for home health safety evaluation and advance directive. Patient is on service with [facility]. Faxed clinical information to agency. Per Sally with [facility] patient has been accepted and service to start within 24-48hrs upon d.c day. Advance directive will be given to patient.
--- NOTE | 2020-02-19 12:48 | NUR ---
PATIENT TRANSFERRED TO ROOM 275A PATIENT TRANSFERRRED WITH PORTABLE OXYGEN AND ACCOMPANIED BY STAFF. NO S/S OF DISTRESS NOTED AT THIS TIME. CARE ENDORSED TO DWAYNE JONES
[2020-02-19 13:00] VITALS: BP 134/88
--- NOTE | 2020-02-19 13:03 | NUR ---
Received patient, a/o, vs stable, patient oriented to room, call light in reach, will continue to monitor.
[2020-02-19] MEDS: DOBUTamine 1000MCG/ML 250 ML IV SCH ×2 (14:06→19:44)
--- NOTE | 2020-02-19 14:21 | NUR ---
assessment Patient is a 79 year old female who is alert and oriented. Patients cognitive abilities are intact. Patients emotional state is stable and appropriate. Prior to admission patient lived home with family and functioned with assistance. Per patient she will return home to her prior living arrangements post discharge and family will transport her home. Patient has a fww and home oxygen for home use. Patients PCP is Dr Nagi Woodard. Patient informed me she has a caregiver. Patient is on service with [employer]. Patient may benefit from home health safety on discharge. Patient feels safe returning home on discharge. Patient has good support system, her daughter and . I informed patient she has a right to speak to a executive secretary social welfare regarding all care. I informed patient she has a right to participate in any and all discharge planning. Patient does not have a POA and advanced directive. I have offered patient information on POA and advanced directives. I informed the patient the advantages and benefits of having an Advanced Directive. Patient verbalized understanding and agreed to discharge plan. Addendum: 02/19/20 at 1433 by Radha BELLE Amended: Links added.
[2020-02-19 17:00] VITALS: BP 141/74
--- NOTE | 2020-02-19 19:25 | NUR ---
assumed care, pt. awake, no c/o pain, not in distress.
[2020-02-19 21:31] VITALS: BP 129/71
[2020-02-19] MEDS: ATORVASTATIN 20 MG TAB PO SCH (21:33)
[2020-02-20 05:07] VITALS: BP 105/68
[2020-02-20] MEDS: SODIUM CHLOR 0.9% PF (SALINE LOCK) 10ML VIAL/SYR IV SCH ×3 (05:43→22:01)
[2020-02-20] MEDS: ACCU-CHEK COMFORT CURVE STRIP VI SCH ×4 (06:03→22:03)
[2020-02-20] MEDS: LEVOTHYROXINE SODIUM 25 MCG TAB PO SCH (06:03)
[2020-02-20] MEDS: InsuLIN REG 1unit/0.01ml Soln (100units/ml) SC SCH ×4 (06:03→22:02)
[2020-02-20 07:16] LABS: Basophils # (auto) 0.1 10 ^3/uL (0-0.2); Eosinophils # (auto) 0.4 10 ^3/uL (0-0.8); Eosinophils % (auto) 7.4 % (0.0-7.0); Lymphocytes # (auto) 1.3 10 ^3/uL (0.4-5.4); Monocytes # (auto) 0.4 10 ^3/uL (0-1.3); Neutrophils # (auto) 2.7 10 ^3/uL (1.6-8.6); Nucleated Red Blood Cells % 0.1 %; White Blood Cell 4.8 10^3/uL (4.4-10.8)
[2020-02-20 07:19] LABS: Basophils % (auto) 1.4 % (0.0-2.0); Hematocrit 27.9 % (36.0-46.0); Hemoglobin 9.1 g/dL (12.2-16.2); Lymphocytes % (auto) 27.3 % (10.0-50.0); Mean Corpuscular Hemoglobin 27.5 pg (28.0-32.0); Mean Corpuscular Hgb Conc. 32.6 g/dL (32.0-36.0); Mean Corpuscular Volume 84.3 fL (80.0-100.0); Monocytes % (auto) 8.8 % (0.0-12.0); Neutrophils % (auto) 55.1 % (37.0-80.0); Platelet Count (auto) 267 10^3/uL (140-450); Red Blood Cells 3.31 10^6/uL (4.0-5.20); Red Cell Distribution Width 14.7 % (11.8-14.3)
[2020-02-20 07:41] LABS: Potassium 3.9 mmol/L (3.5-5.1)
[2020-02-20 07:48] LABS: Albumin 2.8 g/dL (3.4-5.0); BUN/Creatinine Ratio 14.7; Bilirubin, Total 0.8 mg/dL (0.2-1.0); Calcium 8.8 mg/dL (8.5-10.1); Magnesium 2.3 mg/dL (1.6-2.6); Total Protein 6.6 g/dL (6.4-8.2)
[2020-02-20 09:00] VITALS: BP 120/73
[2020-02-20] MEDS: ASPirin 81 mg TAB PO SCH (09:56)
[2020-02-20] MEDS: FUROSEMIDE 40 MG/4 ML VIAL IV SCH (09:56)
[2020-02-20] MEDS: POTASSIUM CHL 10 Meq TABLET PO SCH (09:57)
[2020-02-20] MEDS: hydrALAZINE HCL 25 MG TAB PO SCH ×2 (09:57→22:06)
[2020-02-20] MEDS: amLODIPine BESYLATE 5 MG TAB PO SCH (09:57)
[2020-02-20] MEDS: SACUBITRIL-VALSARTAN 24mg/26mg TAB PO SCH (09:57)
[2020-02-20] MEDS: ALLOPURINOL 100 MG TAB PO SCH (09:58)
[2020-02-20] MEDS: METOPROLOL SUCCINATE XL 50 MG TAB PO SCH (09:58)
[2020-02-20] MEDS: ENOXAPARIN SOD 30 MG/0.3 ML SYRINGE SC SCH (09:58)
[2020-02-20] MEDS: CLOPIDOGREL BISULFATE 75 MG TAB PO SCH (09:58)
[2020-02-20] MEDS: Oxybutynin Chloride (Ditropan Xl) 5 MG PO SCH (10:00)
[2020-02-20] MEDS: Sitagliptin Phosphate (Januvia) 100 MG TAB PO SCH (10:00)
[2020-02-20] MEDS: DOBUTamine 1000MCG/ML 250 ML IV SCH (10:14)
[2020-02-20] MEDS: NITROGLYCERIN 0.2MG/HR TOPICAL PATCH TD SCH (10:15)
[2020-02-20] MEDS ORDERED: POTASSIUM CHL 20 Meq TABLET PO SCH (13:00)
[2020-02-20] MEDS: POTASSIUM CHL 20 Meq TABLET PO SCH ×2 (14:33→22:03)
[2020-02-20] MEDS: FUROSEMIDE INJECTION 100 MG in SODIUM CHL 0.9% 100 ML IV SCH ×2 (14:35→22:13)
[2020-02-20 16:52] VITALS: BP 100/67
--- NOTE | 2020-02-20 20:00 | NUR ---
Opening Shift Note Assumed care of patient. PT is awake and alert. No S/S of distress/SOB or pain. Instructed on POC and to call for assist PRN, will continue to monitor for changes Q1hr and PRN.
[2020-02-20 22:00] VITALS: BP 103/59
[2020-02-20] MEDS: ATORVASTATIN 20 MG TAB PO SCH (22:03)
[2020-02-21 05:00] VITALS: BP 115/68
[2020-02-21] MEDS: POTASSIUM CHL 20 Meq TABLET PO SCH ×3 (06:00→21:48)
[2020-02-21] MEDS: LEVOTHYROXINE SODIUM 25 MCG TAB PO SCH (06:00)
[2020-02-21] MEDS: ACCU-CHEK COMFORT CURVE STRIP VI SCH ×4 (06:00→21:48)
[2020-02-21] MEDS: SODIUM CHLOR 0.9% PF (SALINE LOCK) 10ML VIAL/SYR IV SCH ×3 (06:00→21:08)
[2020-02-21] MEDS: InsuLIN REG 1unit/0.01ml Soln (100units/ml) SC SCH ×4 (06:01→21:49)
[2020-02-21 06:22] LABS: Basophils # (auto) 0.1 10 ^3/uL (0-0.2); Eosinophils # (auto) 0.4 10 ^3/uL (0-0.8); Nucleated Red Blood Cells % 0.2 %; Red Cell Distribution Width 14.7 % (11.8-14.3); White Blood Cell 5.2 10^3/uL (4.4-10.8)
[2020-02-21 06:24] LABS: Basophils % (auto) 1.1 % (0.0-2.0); Eosinophils % (auto) 8.3 % (0.0-7.0); Hematocrit 30.5 % (36.0-46.0); Hemoglobin 9.5 g/dL (12.2-16.2); Lymphocytes # (auto) 1.3 10 ^3/uL (0.4-5.4); Lymphocytes % (auto) 24.7 % (10.0-50.0); Mean Corpuscular Hemoglobin 26.2 pg (28.0-32.0); Mean Corpuscular Hgb Conc. 31.3 g/dL (32.0-36.0); Mean Corpuscular Volume 83.9 fL (80.0-100.0); Monocytes # (auto) 0.4 10 ^3/uL (0-1.3); Monocytes % (auto) 8.5 % (0.0-12.0); Neutrophils % (auto) 57.4 % (37.0-80.0); Platelet Count (auto) 285 10^3/uL (140-450); Red Blood Cells 3.63 10^6/uL (4.0-5.20)
[2020-02-21 06:40] LABS: Potassium 4.1 mmol/L (3.5-5.1)
[2020-02-21 06:52] LABS: BUN/Creatinine Ratio 15.4; Calcium 9.3 mg/dL (8.5-10.1)
--- NOTE | 2020-02-21 07:30 | NUR ---
STATUS PT RESTING IN BED WITH EYES CLOSED. RESPIRATIONS EQUAL AND UNLABORED. TELE REMAINS IN PLACE AND MONITORED. O2 AT 3L VIA NC IN PLACE. PT SHOWS NO S/S OF DISTRESS OR DISCOMFORT. WILL CONTINUE TO MONITOR
[2020-02-21 09:00] VITALS: BP 106/64
[2020-02-21] MEDS: DOBUTamine 1000MCG/ML 250 ML IV SCH (09:16)
[2020-02-21] MEDS: ALLOPURINOL 100 MG TAB PO SCH (09:17)
[2020-02-21] MEDS: ASPirin 81 mg TAB PO SCH (09:17)
[2020-02-21] MEDS: FUROSEMIDE INJECTION 100 MG in SODIUM CHL 0.9% 100 ML IV SCH ×2 (09:17→18:36)
[2020-02-21] MEDS: ENOXAPARIN SOD 30 MG/0.3 ML SYRINGE SC SCH (09:17)
[2020-02-21] MEDS: CLOPIDOGREL BISULFATE 75 MG TAB PO SCH (09:18)
[2020-02-21] MEDS: NITROGLYCERIN 0.2MG/HR TOPICAL PATCH TD SCH (10:00)
[2020-02-21] MEDS: hydrALAZINE HCL 25 MG TAB PO SCH ×2 (10:00→21:48)
[2020-02-21] MEDS: Sitagliptin Phosphate (Januvia) 100 MG TAB PO SCH (10:00)
[2020-02-21] MEDS: Oxybutynin Chloride (Ditropan Xl) 5 MG PO SCH (10:00)
[2020-02-21 13:00] VITALS: BP 114/77
[2020-02-21] MEDS: METOPROLOL SUCCINATE XL 50 MG TAB PO SCH (14:11)
[2020-02-21] MEDS: amLODIPine BESYLATE 5 MG TAB PO SCH (14:11)
[2020-02-21] MEDS: SACUBITRIL-VALSARTAN 24mg/26mg TAB PO SCH (14:11)
--- NOTE | 2020-02-21 14:22 | NUR ---
DR ESTRELLA AT BEDSIDE
[2020-02-21 17:00] VITALS: BP 114/74
--- NOTE | 2020-02-21 18:00 | NUR ---
DRESSING CHANGE PT DRESSING REMOVED, WOUND CLEANED AND THERAHONEY APPLIED. COVERED AND DATED REPORT GIVEN TO NOC
--- NOTE | 2020-02-21 19:00 | NUR ---
Opening Shift Note Assumed care of patient, awake and alert. No S/S of distress/SOB or pain. Instructed on POC and to call for assist PRN, will continue to monitor for changes Q1hr and PRN. Patient in the lowest possible position with call light within reach. Will continue to monitor.
[2020-02-21 20:00] VITALS: BP 110/69
[2020-02-21] MEDS: ATORVASTATIN 20 MG TAB PO SCH (21:48)
[2020-02-21 22:06] VITALS: BP 110/69
--- NOTE | 2020-02-22 01:31 | NUR ---
Patient called stating that she felt short of breath, checked on patient, all vitals fine. Patients NC not in her nostrils at the time. NC placed back in nostrils and vitals checked. Patients oxygen saturation at 99%, heart rate of 75. Patient moved to left side for positional changes. Patient comfortable and states that she feels better. Will continue to monitor patient.
--- NOTE | 2020-02-22 04:41 | NUR ---
Patients AM blood pressure reading 89/60 for the highest recording, Patient repositioned and rechecked with unchanged reading. Patients other vitals are within normal limits, MD paged awaiting plan of care. Lasix currently not running as bag needs to be changed. Will continue to monitor and await MD orders.
[2020-02-22 05:00] VITALS: BP 106/76
[2020-02-22] MEDS: FUROSEMIDE INJECTION 100 MG in SODIUM CHL 0.9% 100 ML IV SCH ×2 (05:03→14:45)
[2020-02-22] MEDS: SODIUM CHLOR 0.9% PF (SALINE LOCK) 10ML VIAL/SYR IV SCH ×2 (05:04→15:27)
[2020-02-22] MEDS: ACCU-CHEK COMFORT CURVE STRIP VI SCH ×3 (06:04→17:00)
[2020-02-22] MEDS: POTASSIUM CHL 20 Meq TABLET PO SCH ×2 (06:04→14:00)
[2020-02-22] MEDS: LEVOTHYROXINE SODIUM 25 MCG TAB PO SCH (06:12)
[2020-02-22] MEDS: InsuLIN REG 1unit/0.01ml Soln (100units/ml) SC SCH ×3 (06:13→17:00)
--- NOTE | 2020-02-22 06:16 | NUR ---
MD called, new orders to stop lasix and dobutamine drip. Will carry out orders and continue to monitor patient. Will call MD with any further changes in patients vitals or status.
--- NOTE | 2020-02-22 07:00 | NUR ---
Opening Shift Note Received report from night nurse. Assumed care of patient, awake and alert. No S/S of distress/SOB or pain. Instructed on POC and to call for assist PRN, will continue to monitor for changes Q1hr and PRN.
--- NOTE | 2020-02-22 08:50 | NUR ---
Dr Nieves at bedside. New orders received.
[2020-02-22 09:00] VITALS: BP 100/72
[2020-02-22] MEDS: METOPROLOL SUCCINATE XL 50 MG TAB PO SCH (10:00)
[2020-02-22] MEDS: Oxybutynin Chloride (Ditropan Xl) 5 MG PO SCH (10:00)
[2020-02-22] MEDS: hydrALAZINE HCL 25 MG TAB PO SCH (10:00)
[2020-02-22] MEDS: Sitagliptin Phosphate (Januvia) 100 MG TAB PO SCH (10:00)
[2020-02-22] MEDS: ASPirin 81 mg TAB PO SCH (10:27)
[2020-02-22] MEDS: SACUBITRIL-VALSARTAN 24mg/26mg TAB PO SCH (10:28)
[2020-02-22] MEDS: CLOPIDOGREL BISULFATE 75 MG TAB PO SCH (10:29)
[2020-02-22] MEDS: amLODIPine BESYLATE 5 MG TAB PO SCH (10:29)
[2020-02-22] MEDS: ALLOPURINOL 100 MG TAB PO SCH (10:30)
[2020-02-22] MEDS: NITROGLYCERIN 0.2MG/HR TOPICAL PATCH TD SCH (10:32)
[2020-02-22] MEDS: ENOXAPARIN SOD 30 MG/0.3 ML SYRINGE SC SCH (10:36)
[2020-02-22 13:00] VITALS: BP 102/63
[2020-02-22 16:46] VITALS: BP 95/99
[2020-02-22 17:00] VITALS: BP 100/72
--- NOTE | 2020-02-22 18:20 | NUR ---
Discharge instructions given as ordered. Encourage to follow up with PMD as instructed. All questions and concerns addressed. Patient verbalized understanding. Medication reconciliation form completed and copy given to patient. IV removed with catheter intact, pressure dressing applied, busby catheter removed. Telemetry unit returned to ICU. Patient taken to vehicle via wheelchair with all personal belongings, accompanied by staff and family member. No distress noted at time of departure.
== END 2020-02-22 18:20 | disposition home or self-care (01) | DRG 291 ==
LOC: ER 08:11 → EDBD 08:11 → TELE 14:32 → TELE-EAST 20:30 → TELE-WESTW 02-19 13:12
PROVIDERS: ADMIT Internal Medicine; ATTEND Internal Medicine
PROC: 5A09357 Assistance with Respiratory Ventilation, Less than 24 Consecutive Hours, Continuous Positive Airway Pressure (ICD-10-PCS; principal; 2020-02-18)
DX: I13.0 Hypertensive heart and chronic kidney disease with heart failure and stage 1 through stage 4 chronic kidney disease, or unspecified chronic kidney disease (principal); I50.23 Acute on chronic systolic (congestive) heart failure; R06.03 Acute respiratory distress; N18.30 Chronic kidney disease, stage 3 unspecified; E11.21 Type 2 diabetes mellitus with diabetic nephropathy; E03.9 Hypothyroidism, unspecified; I25.10 Atherosclerotic heart disease of native coronary artery without angina pectoris; Z20.828 Contact with and (suspected) exposure to other viral communicable diseases; D63.8 Anemia in other chronic diseases classified elsewhere; E66.3 Overweight; D72.829 Elevated white blood cell count, unspecified; J44.9 Chronic obstructive pulmonary disease, unspecified; E11.22 Type 2 diabetes mellitus with diabetic chronic kidney disease; I25.2 Old myocardial infarction; Z95.810 Presence of automatic (implantable) cardiac defibrillator; Z87.891 Personal history of nicotine dependence; Z68.28 Body mass index [BMI] 28.0-28.9, adult
CPT/HCPCS: 36415; 36600; 71045; 78582; 80048; 80053; 81001; 82270; 82550; 82607; 82728; 82746; 82805; 82962; 83540; 83550; 83615; 83735; 83880; 84484; 85025; 85045; 85379; 86141; 87081; 87426; 93005; 93970; 94660; G0378; J1815

== ENCOUNTER → 2020-03-05 | Outpatient (CLI) | payer MEDICARE, OTHER ==
[~2020-03-05] MED LIST changes: +CYANOCOBALAMIN (B-12) 1000 MCG/1 ML VIAL IM ONE; +CYANOCOBALAMIN (B-12) 1000 MCG/1 ML VIAL ONE
--- NOTE | 2020-03-05 13:56 | NUR ---
CLINIC PT ARRIVED TO THE CHF CLINIC FOR INITIAL CHF EVAL AND TO OBTAIN BASELINE INFO FOR CLINIC, A/OX4, BROUGHT IN BY WHEEL CHAIR ASSISTED BY DAUGHTER. BREATHING IS EVEN AND UNLABORED, PT HAD A AICD IMPLANTED IN DEC, INCISION SITE IS CLOSED AND NO S/S OF INFECTION.
--- NOTE | 2020-03-05 14:26 | NUR ---
EKG DONE BY WILMA BAGLEY V PACED WITH PVCS HR 94
--- NOTE | 2020-03-05 14:32 | NUR ---
LABS DRAWN AND SENT
--- NOTE | 2020-03-05 14:50 | NUR ---
EDMUNDO RICE SAT WITH PT AND DAUGHTER TO DISCUSS DISEASE PROCESS AND TX, ALL QUESTIONS AND CONCERNS WERE ANSWERED. Addendum: 03/05/20 at 1454 by CHARMAINE SWEENEY RN RN VIT D, AND IRON BOOST SPRAY GIVEN TO PT WITH INSTRUCTIONS FOR USE GIVEN TO PT AND DAUGHTER BOTH VERBALIZED UNDERSTANDING.
[2020-03-05 15:05] VITALS: BP 156/97
--- NOTE | 2020-03-05 15:05 | NUR ---
Discharge Instructions See e-MAR for any mediations given with this visit. Patient education given on disease process. Patient verbalized understanding. Previous labs reviewed. Patient discharged in stable condition with after care instructions and follow up appointment NEXT WED. NOTE VIT B12 IM ADMIN BY CHARMAINE STORY LOT#[id number] EXP 12/02 EKG DONE BY WILMA BAGLEY
[2020-03-05 15:45] LABS: Basophils # (auto) 0.1 10 ^3/uL (0-0.2); Basophils % (auto) 0.9 % (0.0-2.0); Eosinophils # (auto) 0.3 10 ^3/uL (0-0.8); Eosinophils % (auto) 3.9 % (0.0-7.0); Hematocrit 30.1 % (36.0-46.0); Hemoglobin 9.7 g/dL (12.2-16.2); Lymphocytes # (auto) 1.1 10 ^3/uL (0.4-5.4); Lymphocytes % (auto) 13.8 % (10.0-50.0); Mean Corpuscular Hemoglobin 26.9 pg (28.0-32.0); Mean Corpuscular Hgb Conc. 32.2 g/dL (32.0-36.0); Mean Corpuscular Volume 83.5 fL (80.0-100.0); Monocytes # (auto) 0.6 10 ^3/uL (0-1.3); Monocytes % (auto) 7.1 % (0.0-12.0); Neutrophils # (auto) 5.8 10 ^3/uL (1.6-8.6); Neutrophils % (auto) 74.3 % (37.0-80.0); Nucleated Red Blood Cells % 0.1 %; Platelet Count (auto) 327 10^3/uL (140-450); Red Cell Distribution Width 14.3 % (11.8-14.3); White Blood Cell 7.8 10^3/uL (4.4-10.8)
[2020-03-05 15:59] LABS: Albumin 3.4 g/dL (3.4-5.0); BUN/Creatinine Ratio 15.5; Calcium 9.4 mg/dL (8.5-10.1); Magnesium 2.1 mg/dL (1.6-2.6); Potassium 4.1 mmol/L (3.5-5.1)
[2020-03-05 16:01] LABS: Bilirubin, Total 0.6 mg/dL (0.2-1.0); Total Protein 8.1 g/dL (6.4-8.2)
== END | disposition home or self-care (01) ==
LOC: Rad HDHVI 12:44
PROVIDERS: ATTEND Internal Medicine Cardiovascular Disease
DX: I13.0 Hypertensive heart and chronic kidney disease with heart failure and stage 1 through stage 4 chronic kidney disease, or unspecified chronic kidney disease (principal); E11.22 Type 2 diabetes mellitus with diabetic chronic kidney disease; N18.30 Chronic kidney disease, stage 3 unspecified; I50.23 Acute on chronic systolic (congestive) heart failure; E55.9 Vitamin D deficiency, unspecified; D64.9 Anemia, unspecified; I25.10 Atherosclerotic heart disease of native coronary artery without angina pectoris; I25.2 Old myocardial infarction; I42.8 Other cardiomyopathies; J44.9 Chronic obstructive pulmonary disease, unspecified; E03.9 Hypothyroidism, unspecified; E11.21 Type 2 diabetes mellitus with diabetic nephropathy; E66.9 Obesity, unspecified; Z68.28 Body mass index [BMI] 28.0-28.9, adult; Z79.84 Long term (current) use of oral hypoglycemic drugs; Z95.810 Presence of automatic (implantable) cardiac defibrillator; Z87.891 Personal history of nicotine dependence
CPT/HCPCS: 36415; 71046; 80053; 82306; 83735; 83880; 85025; 93005; 93306; 96372; G0463; J3420

== ENCOUNTER → 2020-03-13 | Outpatient (CLI) | payer MEDICARE, OTHER ==
[~2020-03-13] MED LIST changes: +DOBUTamine 1000MCG/ML 250 ML IV ONE
== END | disposition home or self-care (01) ==
LOC: CHF HDHVI 15:27
PROVIDERS: ATTEND Internal Medicine Cardiovascular Disease
DX: I13.0 Hypertensive heart and chronic kidney disease with heart failure and stage 1 through stage 4 chronic kidney disease, or unspecified chronic kidney disease (principal); E11.22 Type 2 diabetes mellitus with diabetic chronic kidney disease; N18.30 Chronic kidney disease, stage 3 unspecified; I50.23 Acute on chronic systolic (congestive) heart failure; I25.10 Atherosclerotic heart disease of native coronary artery without angina pectoris; I42.8 Other cardiomyopathies; I25.2 Old myocardial infarction; E11.42 Type 2 diabetes mellitus with diabetic polyneuropathy; M19.90 Unspecified osteoarthritis, unspecified site; J44.9 Chronic obstructive pulmonary disease, unspecified; E78.5 Hyperlipidemia, unspecified; E03.9 Hypothyroidism, unspecified; E44.1 Mild protein-calorie malnutrition; E11.21 Type 2 diabetes mellitus with diabetic nephropathy; E11.649 Type 2 diabetes mellitus with hypoglycemia without coma; E66.01 Morbid (severe) obesity due to excess calories; Z68.36 Body mass index [BMI] 36.0-36.9, adult; Z79.899 Other long term (current) drug therapy; Z95.810 Presence of automatic (implantable) cardiac defibrillator; Z86.73 Personal history of transient ischemic attack (TIA), and cerebral infarction without residual deficits; Z87.891 Personal history of nicotine dependence
CPT/HCPCS: 96365; 96366; 96372; G0463; J1250; J3420

== ENCOUNTER 2020-03-22 15:12 | Inpatient (IN) | payer MEDICARE, OTHER ==
[~2020-03-22] VITALS: Ht 157.5 cm; Wt 90.0 kg
[2020-03-22 15:12] VITALS: BP 146/77
[~2020-03-22 15:12] MED LIST changes: -CYANOCOBALAMIN (B-12) 1000 MCG/1 ML VIAL IM ONE; -CYANOCOBALAMIN (B-12) 1000 MCG/1 ML VIAL ONE; -DOBUTamine 1000MCG/ML 250 ML IV ONE
[2020-03-22] MEDS ORDERED: ALBUTEROL SULF 2.5 MG/0.5ML(0.5%) NEB SOLN NEB ONE (15:45)
[2020-03-22] MEDS ORDERED: FUROSEMIDE 40 MG/4 ML VIAL IV ONE (16:15)
[2020-03-22] MEDS ORDERED: NITROGLYCERIN 50MG/250ML 250 ML IV ONE (16:15)
[2020-03-22 16:36] LABS: Basophils # (auto) 0.1 10 ^3/uL (0-0.2); Basophils % (auto) 0.5 % (0.0-2.0); Eosinophils # (auto) 0 10 ^3/uL (0-0.8); Lymphocytes # (auto) 0.8 10 ^3/uL (0.4-5.4); Monocytes # (auto) 0.6 10 ^3/uL (0-1.3)
[2020-03-22 16:38] LABS: Eosinophils % (auto) 0.1 % (0.0-7.0); Hematocrit 27.8 % (36.0-46.0); Hemoglobin 8.8 g/dL (12.2-16.2); Mean Corpuscular Hemoglobin 26.8 pg (28.0-32.0); Mean Corpuscular Hgb Conc. 31.7 g/dL (32.0-36.0); Mean Corpuscular Volume 84.7 fL (80.0-100.0); Monocytes % (auto) 4.3 % (0.0-12.0); Neutrophils # (auto) 12.2 10 ^3/uL (1.6-8.6); Neutrophils % (auto) 89.1 % (37.0-80.0); Platelet Count (auto) 283 10^3/uL (140-450); Red Blood Cells 3.28 10^6/uL (4.0-5.20); Red Cell Distribution Width 14.4 % (11.8-14.3); White Blood Cell 13.6 10^3/uL (4.4-10.8)
[2020-03-22 16:56] LABS: Magnesium 2.2 mg/dL (1.6-2.6); Potassium 3.4 mmol/L (3.5-5.1)
[2020-03-22 17:00] LABS: Bilirubin, Total 1.5 mg/dL (0.2-1.0); Lactic Acid w/Reflex 3.1 mmol/L (0.4-2.0); Total Protein 7.3 g/dL (6.4-8.2)
[2020-03-22 17:12] LABS: Urine Bacteria MANY /hpf (None Seen); Urine Blood TRACE /uL (Negative); Urine Mucus FEW (None Seen); Urine Specific Gravity 1.018 (1.001-1.035); Urine WBC 179 /hpf (0 - 5)
[2020-03-22 17:18] LABS: BUN/Creatinine Ratio 9.4
[2020-03-22] MEDS ORDERED: ACETAMINOPHEN 500 MG TAB PO ONE (17:30)
[2020-03-22] MEDS ORDERED: CEFEPIME 2 GM in SODIUM CHL 0.9% 50 ML IV ONE (17:30)
[2020-03-22] MEDS ORDERED: DexAMETHasone SOD PHOS 10MG/1ML VIAL INJ IV ONE (17:45)
[2020-03-22] MEDS ORDERED: POTASSIUM CHL 20MEQ/100ML 100 ML IV ONE (18:00)
[2020-03-22] MEDS ORDERED: FUROSEMIDE 20 MG/2 ML VIAL IV ONE (18:00)
[2020-03-22] MEDS ORDERED: NITROGLYCERIN 0.4 MG SL TAB SL PRN ×2 (18:15→18:30)
[2020-03-22] MEDS ORDERED: MORPHINE SULF INJ 2 MG/ML SYRINGE 1ML IV PRN ×3 (18:15→18:30)
[2020-03-22] MEDS ORDERED: DEXTROSE (50%) 50ML SYRG IV PRN (18:15)
[2020-03-22] MEDS ORDERED: ACETAMINOPHEN 500 MG TAB PO PRN (18:30)
[2020-03-22] MEDS ORDERED: ONDANSETRON HCL 4 MG/2 ML VIAL IV PRN (18:30)
[2020-03-22] MEDS ORDERED: VANCOMYCIN PER PHARMACY 0 MG IV SCH (18:30)
[2020-03-22] MEDS ORDERED: HYDROcodone-ACET 5/325MG TAB PO PRN (18:30)
[2020-03-22] MEDS ORDERED: REMDESIVIR PER PHARMACY 0 ML IV SCH (18:30)
[2020-03-22] MEDS ORDERED: ALUM & MAG HYDROX-SIMETH LIQ(MAALOX) 30 ML PO PRN (18:30)
[2020-03-22] MEDS ORDERED: DOCUSATE SOD 100 MG CAP PO PRN (18:30)
[2020-03-22 18:35] VITALS: BP 139/116
[2020-03-22 20:00] LABS: CRP High Sensitivity 7.58 mg/dL (< 0.3)
[2020-03-22] MEDS ORDERED: VANCOMYCIN 1GM/250ML 250 ML IV ONE (20:00)
[2020-03-22 21:00] LABS: Alcohol, Urine < 3.0 mg/dL (0-10); Amphetamine Screen, Urine NEGATIVE (NEGATIVE); Barbiturate Scree,Urine NEGATIVE (NEGATIVE); Benzodiazephine Screen, Urine NEGATIVE (NEGATIVE); Cannabinoid Screen, Urine NEGATIVE (NEGATIVE); Cocaine Screen, Urine NEGATIVE (NEGATIVE); Opiate Scree,Urine NEGATIVE (NEGATIVE); Phencyclidine Screen, Urine NEGATIVE (NEGATIVE)
[2020-03-22] MEDS ORDERED: REMDESIVIR 200 MG in NS 210ml LOADING DOSE ADULT IV ONE (21:00)
[2020-03-22] MEDS: BUDESONIDE (INHALATION) 180 MCG IH IN SCH (22:00)
[2020-03-22] MEDS: OXYBUTYNIN CHL 5 MG TAB PO SCH (23:02)
[2020-03-22] MEDS: ATORVASTATIN 20 MG TAB PO SCH (23:03)
[2020-03-22] MEDS: ACCU-CHEK COMFORT CURVE STRIP VI SCH (23:16)
[2020-03-22] MEDS: InsuLIN REG 1unit/0.01ml Soln (100units/ml) SC SCH (23:17)
[2020-03-23] VITALS (8 sets, daily range): BP systolic 91–143; BP diastolic 66–104
[2020-03-23] MEDS: MEROPENEM 1GM IVPB 100 ML IV SCH ×3 (01:58→23:00)
--- NOTE | 2020-03-23 02:00 | NUR ---
Telemetry admit from ER ELIZABET MATA Marlen admitted to Telemetry unit after SBAR received. Patient oriented to Callie Farooq, primary RN, unit, room, bed, and unit policies regarding patient care and visiting hours. Patient now on continuous telemetry monitoring, tele box # 16 and telemetry reading on arrival to unit is paced at 75. Patient placed on bedside oxygen, weighed by bedscale and encouraged to call if they need something. [place] draining to gravity. Fall precaution measures in place. All questions and concerns addressed, patient verbalized understanding.
--- NOTE | 2020-03-23 03:10 | NUR ---
Remdesivir post infusion vitals: [place] 83 RR 18 Sat 97% BP 125/81
[2020-03-23] MEDS: FUROSEMIDE 20 MG/2 ML VIAL IV SCH ×2 (05:55→17:33)
[2020-03-23] MEDS: ACCU-CHEK COMFORT CURVE STRIP VI SCH ×4 (06:51→22:00)
[2020-03-23] MEDS: InsuLIN REG 1unit/0.01ml Soln (100units/ml) SC SCH ×4 (06:51→22:00)
--- NOTE | 2020-03-23 07:50 | NUR ---
Opening Shift Note Received report from retail event coordinator DWAYNE Diaz, Assumed care of patient, awake and alert. Patient on 4L Oxymizer experiencing SOB. No pain per patient. Password request per patient Fajoel, and contact info Tawny (daughter) [phone], and Alisia (daughter) [phone]. Instructed on POC and to call for assist PRN, will continue to monitor for changes Q1hr and PRN. Bed in lowest position, call light within reach. Addendum: 03/23/20 at 1314 by CHAD VANEGAS RN RN BELONGINGS LIST UPDATED.
[2020-03-23] MEDS ORDERED: SACUBITRIL-VALSARTAN 24mg/26mg TAB PO SCH (10:00)
[2020-03-23] MEDS ORDERED: DexAMETHasone SOD PHOS 10MG/1ML VIAL INJ IV SCH (10:00)
[2020-03-23] MEDS: BUDESONIDE (INHALATION) 180 MCG IH IN SCH ×2 (10:00→21:57)
[2020-03-23] MEDS ORDERED: ZINC SULFATE 220mg CAP or TAB PO SCH (10:00)
[2020-03-23] MEDS: DexAMETHasone SOD PHOS 10MG/1ML VIAL INJ IV SCH (10:16)
[2020-03-23] MEDS: FAMOTIDINE (10MG/ML) 2ML VL IV SCH (10:17)
[2020-03-23] MEDS: OXYBUTYNIN CHL 5 MG TAB PO SCH ×2 (10:18→23:05)
[2020-03-23] MEDS: ASPirin-EC 81 mg tab PO SCH (10:18)
[2020-03-23] MEDS: ZINC SULFATE 220mg CAP or TAB PO SCH (10:18)
[2020-03-23] MEDS: LEVOTHYROXINE SODIUM 25 MCG TAB PO SCH (10:19)
[2020-03-23] MEDS: POTASSIUM CHL 20 Meq TABLET PO SCH (10:19)
[2020-03-23] MEDS: CHOLECALCIFEROL (VITD3) 2,000 UNIT CAP PO SCH (10:20)
[2020-03-23] MEDS: METOPROLOL SUCCINATE XL 50 MG TAB PO SCH (10:20)
[2020-03-23] MEDS: ASCORBIC ACID 1,000 MG TAB PO SCH (10:20)
[2020-03-23] MEDS: ENOXAPARIN SOD 40 MG/0.4 ML SYRINGE SC SCH (10:21)
[2020-03-23] MEDS: ALLOPURINOL 100 MG TAB PO SCH (10:21)
--- NOTE | 2020-03-23 12:14 | NUR ---
MD VELAZQUEZ AT BEDSIDE PATIENT UPDATED ON POC, NO NEW ORDERS RECEIVED.
[2020-03-23 12:42] LABS: Basophils # (auto) 0 10 ^3/uL (0-0.2); Eosinophils # (auto) 0 10 ^3/uL (0-0.8); Hemoglobin 9.4 g/dL (12.2-16.2)
[2020-03-23 12:44] LABS: Basophils % (auto) 0.1 % (0.0-2.0); Lymphocytes # (auto) 0.5 10 ^3/uL (0.4-5.4); Lymphocytes % (auto) 6.1 % (10.0-50.0); Mean Corpuscular Hemoglobin 25.9 pg (28.0-32.0); Mean Corpuscular Hgb Conc. 31.4 g/dL (32.0-36.0); Mean Corpuscular Volume 82.5 fL (80.0-100.0); Monocytes # (auto) 0.2 10 ^3/uL (0-1.3); Monocytes % (auto) 2.9 % (0.0-12.0); Neutrophils % (auto) 90.9 % (37.0-80.0); Platelet Count (auto) 324 10^3/uL (140-450); Red Blood Cells 3.64 10^6/uL (4.0-5.20); Red Cell Distribution Width 14.1 % (11.8-14.3); White Blood Cell 7.7 10^3/uL (4.4-10.8)
[2020-03-23 13:01] LABS: Albumin 3.2 g/dL (3.4-5.0); Calcium 8.8 mg/dL (8.5-10.1); Potassium 4.5 mmol/L (3.5-5.1)
[2020-03-23 13:18] LABS: Bilirubin, Total 1.1 mg/dL (0.2-1.0); Total Protein 8.2 g/dL (6.4-8.2)
[2020-03-23] MEDS ORDERED: VANCOMYCIN 1GM/250ML 250 ML IV ONE (15:30)
--- NOTE | 2020-03-23 15:32 | NUR ---
MD VELAZQUEZ PAGED FOR CRITICAL VALUE PER [place] IN MICROBIOLOGY PATIENTS BLOOD CULTURE IS GRAM POSITIVE COCCI. AWAITING A CALL BACK.
--- NOTE | 2020-03-23 15:58 | NUR ---
REMDESIVIR INFUSION STARTED HEART RATE 83 BLOOD PRESSURE 108/60 OXYGEN SATURATION 100% TITRATED OXYMIZER FROM 4L TO 3L RESPIRATORY RATE 18
--- NOTE | 2020-03-23 16:13 | NUR ---
REMDESIVIR 15 MIN VITALS HEART RATE 81 BLOOD PRESSURE 91/68 OXYGEN SATURATION 100% 3L OXYMIZER
[2020-03-23] MEDS: REMDESIVIR 100 MG in SODIUM CHL 0.9% 250 ML IV SCH (16:35)
--- NOTE | 2020-03-23 17:38 | NUR ---
REMDESIVIR POST INFUSION HEART RATE 85 BLOOD PRESSURE 113/78 100% OXYGEN SATURATION 3 L OXYMIZER RESPIRATIONS 18
[2020-03-23] MEDS ORDERED: SODIUM CHLORIDE 0.9% 1,000 ML IV ONE (17:45)
--- NOTE | 2020-03-23 17:46 | NUR ---
PATIENT TITRATED FROM 3L OXYMIZER TO 2L, OXYGEN SATURATION 98%, NO SIGNS OF DISTRESS/SOB.
--- NOTE | 2020-03-23 18:31 | NUR ---
nasal cannula Patient switched to a nasal cannula, patient titrated down to 2L, SPO2 98%. No s/s of SOB noted/stated. Will continue to monitor.
--- NOTE | 2020-03-23 19:15 | NUR ---
CLOSING NOTE ENDORSED CARE TO DIAN RICE.
--- NOTE | 2020-03-23 21:59 | NUR ---
PT ASSESSED, ON 2L NC, NO SOB NOTED. BIPAP AND PRN TX NOT INDICATED AT THIS TIME.
[2020-03-23] MEDS: ATORVASTATIN 20 MG TAB PO SCH (23:00)
[2020-03-23] MEDS: LORazepam 0.5 MG TAB PO PRN (23:00)
[2020-03-23] MEDS: LINEZOLID 600MG/300ML 300 ML IV SCH (23:01)
--- NOTE | 2020-03-24 02:34 | NUR ---
HEMATOLOGY CONFIRMED GRAM POSITIVE COCCI IN 3RD ANEROBIC BOTTLE;WILL INFORM .
--- NOTE | 2020-03-24 03:00 | NUR ---
LEFT FOREARM INFILTRATED WITH IV CATHETER REMOVED AND ARM ELEVATED ON A PILLOW. PT DENIES PAIN.
--- NOTE | 2020-03-24 03:21 | NUR ---
PT WANTING A BREATHING TREATMENT.PT ALSO ASSISTED TO BATHROOM FOR BM. WHEN RT CAME 15 MINUTES LATER PT WAS STILL SITTING ON THE COMMODE. PT REQUESTED RT TO COME BACK LATER. PT ASSISTED BACK TO BED. O2 AT 5 LITERS NC WITH OXYGEN SATURATION OF100%. O2 NOW DECREASED TO 3 LITERS.
--- NOTE | 2020-03-24 03:33 | NUR ---
PT WANTING BREATHING TREATMENT;WAS ASSISTED TO BATHROOM. TWENTY MINUTES LATER WHEN RT CAME PT WAS STILL SITTING ON THE COMMODE. PT TOLD RT TO "COME BACK LATER". PT THEN ASSISTED BACK TO BED.
--- NOTE | 2020-03-24 03:35 | NUR ---
O2 SATURATION 98% ON 3 LITERS.
[2020-03-24 05:00] VITALS: BP 124/91
[2020-03-24] MEDS: InsuLIN REG 1unit/0.01ml Soln (100units/ml) SC SCH ×4 (06:25→22:42)
[2020-03-24] MEDS: ACCU-CHEK COMFORT CURVE STRIP VI SCH ×4 (06:59→22:40)
--- NOTE | 2020-03-24 07:55 | NUR ---
IV removal Patient c/o pain and tenderness to touch.IV DC'd with clean sterile technique on right FA, catheter fully intact. Pressure dressing applied to site. Patient tolerated well.
--- NOTE | 2020-03-24 08:02 | NUR ---
Opening Shift Note Received report from operations research group manager RN Monica, Assumed care of patient, awake and alert. Patient on 2.5L nasal cannula, No S/S of distress/SOB or pain. Patient oxygen saturation 100% on 2.5 L NC. Patient experiencing episode of anxiety, PRN Ativan to be given for anxiety when due as ordered. Instructed on POC and to call for assist PRN, will continue to monitor for changes Q1hr and PRN. Bed in lowest position, call light within reach.
[2020-03-24] MEDS: LINEZOLID 600MG/300ML 300 ML IV SCH ×2 (08:03→20:53)
[2020-03-24] MEDS: ZINC SULFATE 220mg CAP or TAB PO SCH (08:59)
[2020-03-24] MEDS: DexAMETHasone SOD PHOS 10MG/1ML VIAL INJ IV SCH (08:59)
[2020-03-24 09:00] VITALS: BP 120/73
[2020-03-24] MEDS: POTASSIUM CHL 20 Meq TABLET PO SCH (09:00)
[2020-03-24] MEDS: ASPirin-EC 81 mg tab PO SCH (09:00)
[2020-03-24] MEDS: LEVOTHYROXINE SODIUM 25 MCG TAB PO SCH (09:00)
[2020-03-24] MEDS: OXYBUTYNIN CHL 5 MG TAB PO SCH ×2 (09:00→22:44)
[2020-03-24] MEDS: ASCORBIC ACID 1,000 MG TAB PO SCH (09:01)
[2020-03-24] MEDS: METOPROLOL SUCCINATE XL 50 MG TAB PO SCH (09:01)
[2020-03-24] MEDS: CHOLECALCIFEROL (VITD3) 2,000 UNIT CAP PO SCH (09:01)
[2020-03-24] MEDS: ENOXAPARIN SOD 40 MG/0.4 ML SYRINGE SC SCH (09:02)
[2020-03-24] MEDS: LORazepam 0.5 MG TAB PO PRN (09:02)
[2020-03-24] MEDS: ALLOPURINOL 100 MG TAB PO SCH (09:02)
--- NOTE | 2020-03-24 09:03 | NUR ---
PRN ATIVAN GIVEN TO PATIENT ORDERED. WILL CONTINUE TO MONITOR.
--- NOTE | 2020-03-24 09:05 | NUR ---
IV insertion IV access obtained, via clean sterile technique by inserting 22 gauge catheter at L wrist after 2 attempts. IV secured properly. No trauma to site. Patient tolerated well.
[2020-03-24] MEDS: BUDESONIDE (INHALATION) 180 MCG IH IN SCH ×3 (09:57→21:06)
[2020-03-24 11:36] LABS: Basophils # (auto) 0 10 ^3/uL (0-0.2); Basophils % (auto) 0.1 % (0.0-2.0); Eosinophils # (auto) 0 10 ^3/uL (0-0.8); Hemoglobin 9.5 g/dL (12.2-16.2); Monocytes # (auto) 0.5 10 ^3/uL (0-1.3); Nucleated Red Blood Cells % 0.1 %; Red Blood Cells 3.59 10^6/uL (4.0-5.20)
[2020-03-24 11:38] LABS: Hematocrit 29.6 % (36.0-46.0); Lymphocytes # (auto) 0.6 10 ^3/uL (0.4-5.4); Lymphocytes % (auto) 5.2 % (10.0-50.0); Mean Corpuscular Hemoglobin 26.3 pg (28.0-32.0); Mean Corpuscular Hgb Conc. 31.9 g/dL (32.0-36.0); Mean Corpuscular Volume 82.6 fL (80.0-100.0); Monocytes % (auto) 3.9 % (0.0-12.0); Neutrophils # (auto) 11.2 10 ^3/uL (1.6-8.6); Neutrophils % (auto) 90.8 % (37.0-80.0); Platelet Count (auto) 361 10^3/uL (140-450); Red Cell Distribution Width 14.3 % (11.8-14.3); White Blood Cell 12.3 10^3/uL (4.4-10.8)
[2020-03-24] MEDS: MEROPENEM 1GM IVPB 100 ML IV SCH ×2 (11:45→22:44)
[2020-03-24 11:56] LABS: Albumin 2.7 g/dL (3.4-5.0); Calcium 8.4 mg/dL (8.5-10.1); Potassium 4.3 mmol/L (3.5-5.1)
[2020-03-24 11:59] LABS: BUN/Creatinine Ratio 19.5; Bilirubin, Total 0.7 mg/dL (0.2-1.0); Total Protein 7.1 g/dL (6.4-8.2)
--- NOTE | 2020-03-24 12:00 | NUR ---
MD VELAZQUEZ AT BEDSIDE PATIENT UPDATED ON POC. PER CAROLINE'S ORDERS NO MORE IV FLUIDS TO BE GIVEN TO PATIENT.
[2020-03-24 13:00] VITALS: BP 115/49
[2020-03-24] MEDS: ALBUTEROL SULF HFA 90MCG INH 200DOSE IN PRN ×2 (14:41→21:06)
[2020-03-24] MEDS: REMDESIVIR 100 MG in SODIUM CHL 0.9% 250 ML IV SCH (16:14)
--- NOTE | 2020-03-24 16:14 | NUR ---
REMDESEVIR INFUSION STARTED BLOOD PRESSURE 123/58 HEART RATE 62 OXYGEN SATURATION ON 2L NASAL CANNULA 100% RESPIRATIONS 16
--- NOTE | 2020-03-24 16:30 | NUR ---
15 MINUTE REMDESIVIR VITALS BLOOD PRESSURE 124/77 HEART RATE 73 OXYGEN SATURATION 99% 2L NC RESPIRATIONS 16
--- NOTE | 2020-03-24 16:39 | NUR ---
Per new policy, patient's own medications are safe in medication room. patient aware. please see chart.
[2020-03-24 17:00] VITALS: BP 124/77
--- NOTE | 2020-03-24 17:10 | NUR ---
POST REMDESIVIR VITALS BLOOD PRESSURE 119/70 HEART RATE 62 OXYGEN SATURATION 98% 2L NASAL CANNULA RESPIRATIONS 16
--- NOTE | 2020-03-24 18:34 | NUR ---
ENDORSING CARE TO JACKIE RICE, PATIENT STABLE.
[2020-03-24 22:00] VITALS: BP 130/82
[2020-03-24] MEDS: ATORVASTATIN 20 MG TAB PO SCH (22:40)
[2020-03-25 05:00] VITALS: BP 150/84
[2020-03-25] MEDS: ACCU-CHEK COMFORT CURVE STRIP VI SCH ×4 (06:35→22:13)
[2020-03-25] MEDS: InsuLIN REG 1unit/0.01ml Soln (100units/ml) SC SCH ×4 (06:36→22:19)
--- NOTE | 2020-03-25 07:30 | NUR ---
Opening Shift Note Assumed patient care from NOC RN. Patient currently sitting up in bed, no signs of distress at this time. Patient is on 2L nasal cannula at this time. Respirations even and unlabored. Safety precautions in place. Will continue to monitor q1hr and PRN.
[2020-03-25] MEDS: LINEZOLID 600MG/300ML 300 ML IV SCH ×2 (08:00→20:05)
--- NOTE | 2020-03-25 08:06 | NUR ---
Remdesivir Medication administered per MD orders. Starting BP 111/53 HR 64 15 minute reassessment: 139/62 HR 32 Addendum: 03/25/20 at 1930 by TUCKER DEE RN RN Wrong Time: 4046
[2020-03-25 08:32] LABS: Albumin 2.8 g/dL (3.4-5.0); Calcium 8.5 mg/dL (8.5-10.1); Potassium 4.5 mmol/L (3.5-5.1)
[2020-03-25 08:35] LABS: BUN/Creatinine Ratio 22.5; Bilirubin, Total 0.7 mg/dL (0.2-1.0); Total Protein 7.1 g/dL (6.4-8.2)
[2020-03-25] MEDS: DexAMETHasone SOD PHOS 10MG/1ML VIAL INJ IV SCH (08:40)
[2020-03-25] MEDS: FAMOTIDINE (10MG/ML) 2ML VL IV SCH (08:40)
[2020-03-25] MEDS: ASPirin-EC 81 mg tab PO SCH (08:41)
[2020-03-25] MEDS: LEVOTHYROXINE SODIUM 25 MCG TAB PO SCH (08:41)
[2020-03-25] MEDS: ALLOPURINOL 100 MG TAB PO SCH (08:42)
[2020-03-25] MEDS: CHOLECALCIFEROL (VITD3) 2,000 UNIT CAP PO SCH (08:42)
[2020-03-25] MEDS: ASCORBIC ACID 1,000 MG TAB PO SCH (08:42)
[2020-03-25] MEDS: ENOXAPARIN SOD 40 MG/0.4 ML SYRINGE SC SCH (08:42)
[2020-03-25] MEDS: OXYBUTYNIN CHL 5 MG TAB PO SCH ×2 (08:44→22:13)
[2020-03-25 09:00] VITALS: BP 134/71
[2020-03-25] MEDS: METOPROLOL SUCCINATE XL 50 MG TAB PO SCH (10:00)
[2020-03-25] MEDS: ZINC SULFATE 220mg CAP or TAB PO SCH (10:00)
[2020-03-25] MEDS: MEROPENEM 1GM IVPB 100 ML IV SCH (10:00)
[2020-03-25] MEDS: BUDESONIDE (INHALATION) 180 MCG IH IN SCH ×2 (10:00→22:00)
--- NOTE | 2020-03-25 10:00 | NUR ---
Ambulated Patient ambulated to restroom and back to bed with moderate assistance. Patient tolerated well, denies shortness of breath at this time.
--- NOTE | 2020-03-25 11:45 | NUR ---
at Bedside Dr. Mejia at bedside discussing plan of care with patient.
[2020-03-25 13:00] VITALS: BP 125/76
[2020-03-25 18:00] VITALS: BP 125/91
[2020-03-25] MEDS: REMDESIVIR 100 MG in SODIUM CHL 0.9% 250 ML IV SCH (18:11)
--- NOTE | 2020-03-25 19:00 | NUR ---
Opening Shift Note Assumed care of patient, awake and alert. No S/S of distress/SOB or pain. Instructed on POC and to call for assist PRN, will continue to monitor for changes Q1hr and PRN.
--- NOTE | 2020-03-25 19:30 | NUR ---
REMDESIVIR END VITALS TEMP 98.0 HR 53 RR 16 B/P 145/89 O2 96% PAIN 0/10
--- NOTE | 2020-03-25 19:30 | NUR ---
Closing Shift Note Report given to NOC RN. Endorsed care, including Remdesivir end vitals.
[2020-03-25 21:52] VITALS: BP 145/89
[2020-03-25] MEDS: ATORVASTATIN 20 MG TAB PO SCH (22:13)
[2020-03-25] MEDS: hydrALAZINE HCL 25 MG TAB PO SCH (22:19)
--- NOTE | 2020-03-25 23:46 | NUR ---
Respiratory note: ATTEMPTED TO GIVE MDI TX AT THIS TIME. PT NOT IN ROOM AT TIME OF ARRIVAL.
[2020-03-26 05:00] VITALS: BP 103/58
[2020-03-26] MEDS: InsuLIN REG 1unit/0.01ml Soln (100units/ml) SC SCH ×4 (06:24→22:05)
[2020-03-26] MEDS: ACCU-CHEK COMFORT CURVE STRIP VI SCH ×4 (06:24→21:47)
--- NOTE | 2020-03-26 07:30 | NUR ---
Opening Shift Note Assumed patient care from NOC. Patient currently sitting up in bed, no signs of distress at this time. Patient is on 2L nasal cannula. Safety precautions in place, will continue to monitor q1hr and PRN.
[2020-03-26] MEDS: LINEZOLID 600MG/300ML 300 ML IV SCH (08:00)
[2020-03-26] MEDS: DexAMETHasone SOD PHOS 10MG/1ML VIAL INJ IV SCH (08:35)
[2020-03-26] MEDS: cefTRIAXone 1GM/50ML D5W 50 ML IV SCH (08:35)
[2020-03-26] MEDS: ZINC SULFATE 220mg CAP or TAB PO SCH (08:36)
[2020-03-26] MEDS: hydrALAZINE HCL 25 MG TAB PO SCH ×2 (08:36→21:53)
[2020-03-26] MEDS: ASPirin-EC 81 mg tab PO SCH (08:37)
[2020-03-26] MEDS: CLOPIDOGREL BISULFATE 75 MG TAB PO SCH (08:37)
[2020-03-26] MEDS: OXYBUTYNIN CHL 5 MG TAB PO SCH ×2 (08:37→21:46)
[2020-03-26] MEDS: ASCORBIC ACID 1,000 MG TAB PO SCH (08:38)
[2020-03-26] MEDS: LEVOTHYROXINE SODIUM 25 MCG TAB PO SCH (08:38)
[2020-03-26] MEDS: METOPROLOL SUCCINATE XL 50 MG TAB PO SCH (08:38)
[2020-03-26] MEDS: ENOXAPARIN SOD 40 MG/0.4 ML SYRINGE SC SCH (08:39)
[2020-03-26] MEDS: ALLOPURINOL 100 MG TAB PO SCH (08:39)
[2020-03-26] MEDS: CHOLECALCIFEROL (VITD3) 2,000 UNIT CAP PO SCH (08:39)
[2020-03-26 08:58] LABS: Basophils # (auto) 0 10 ^3/uL (0-0.2); Basophils % (auto) 0.1 % (0.0-2.0); Eosinophils # (auto) 0 10 ^3/uL (0-0.8); Eosinophils % (auto) 0.1 % (0.0-7.0); Hematocrit 30.9 % (36.0-46.0); Hemoglobin 9.7 g/dL (12.2-16.2); Lymphocytes # (auto) 1.2 10 ^3/uL (0.4-5.4); Lymphocytes % (auto) 14.5 % (10.0-50.0); Mean Corpuscular Hemoglobin 25.8 pg (28.0-32.0); Mean Corpuscular Hgb Conc. 31.4 g/dL (32.0-36.0); Mean Corpuscular Volume 82.3 fL (80.0-100.0); Monocytes # (auto) 0.8 10 ^3/uL (0-1.3); Monocytes % (auto) 8.8 % (0.0-12.0); Neutrophils # (auto) 6.6 10 ^3/uL (1.6-8.6); Neutrophils % (auto) 76.5 % (37.0-80.0); Nucleated Red Blood Cells % 0.2 %; Platelet Count (auto) 377 10^3/uL (140-450); Red Blood Cells 3.75 10^6/uL (4.0-5.20); Red Cell Distribution Width 14.5 % (11.8-14.3); White Blood Cell 8.6 10^3/uL (4.4-10.8)
[2020-03-26 09:00] VITALS: BP 106/56
[2020-03-26 09:28] LABS: Potassium 4.3 mmol/L (3.5-5.1)
[2020-03-26 09:34] LABS: Albumin 2.8 g/dL (3.4-5.0); Bilirubin, Total 0.5 mg/dL (0.2-1.0); Calcium 8.5 mg/dL (8.5-10.1); Total Protein 6.9 g/dL (6.4-8.2)
[2020-03-26] MEDS: BUDESONIDE (INHALATION) 180 MCG IH IN SCH ×2 (10:00→21:27)
--- NOTE | 2020-03-26 11:13 | NUR ---
Assessment Patient is a 79 year old female, patient was unable to speak with SW, CAPO called daughter Tawny ([phone]) to conduct initial assessment. Per Tawny, prior to patient admitted to [facility], patient is alert and oriented. Per Tawny, patient cognitive abilities are intact. Per Tawny, patient could do all ADL's independently and ambulate with a walker. Per Tawny, patient is retired and receives social security. Per Tawny, patient is a diabetic. Per Tawny, patient lives with , daughter Tawny stated that she is in the process of moving in with her parents as their caregiver. Per Tawny, patient will return home post discharge, daughter will provide transportation post discharge. Per Tawny, patient has Advance Directive not filed at [facility]. Discharge planning: Patient will return home post discharge, patient will follow up care with PCP post discharge. Patient has all diabetic supplies for home care post discharge. There are no other discharge needs to address at the moment. Addendum: 03/26/20 at 1120 by SONY BELLE Amended: Links added.
--- NOTE | 2020-03-26 11:24 | NUR ---
at Bedside Dr. Mejia at bedside discussing plan of care with patient.
--- NOTE | 2020-03-26 12:24 | NUR ---
Nutrition Assessment Notes please see attached link for complete assessment Est energy needs ABW [id number] kcal (20-23 kcal/kg ABW) Est protein needs: 55-69 g (0.8-1g/kg ABW r/t elev RFT CKD) Will monitor and reassess prn. Addendum: 03/26/20 at [address] Amended: Links added.
[2020-03-26] MEDS: ALBUTEROL SULF HFA 90MCG INH 200DOSE IN PRN ×2 (12:53→21:28)
[2020-03-26 13:00] VITALS: BP 136/66
[2020-03-26] MEDS: SODIUM CHLORIDE 0.9% 1,000 ML IV SCH (13:15)
[2020-03-26 17:00] VITALS: BP 147/75
[2020-03-26] MEDS: ATORVASTATIN 20 MG TAB PO SCH (21:47)
[2020-03-26 22:00] VITALS: BP 155/77
--- NOTE | 2020-03-26 23:00 | NUR ---
Patient Rounds Patient currently resting in bed with eyes closed. No signs of distress at this time, respirations even and unlabored on 2L nasal cannula.
[2020-03-27 05:00] VITALS: BP 127/61
[2020-03-27] MEDS: ACCU-CHEK COMFORT CURVE STRIP VI SCH ×4 (06:22→22:15)
[2020-03-27] MEDS: InsuLIN REG 1unit/0.01ml Soln (100units/ml) SC SCH ×4 (06:23→22:20)
[2020-03-27] MEDS: ALBUTEROL SULF HFA 90MCG INH 200DOSE IN PRN ×2 (07:45→22:00)
[2020-03-27] MEDS: BUDESONIDE (INHALATION) 180 MCG IH IN SCH ×2 (07:45→22:00)
--- NOTE | 2020-03-27 07:45 | NUR ---
Respiratory note: RECEIVED PT ON 2L NC. NO RESPIRATORY DISTRESS NOTED. WILL CONTINUE TO MONITOR.
[2020-03-27 08:00] VITALS: BP 141/71
[2020-03-27] MEDS: cefTRIAXone 1GM/50ML D5W 50 ML IV SCH (08:42)
[2020-03-27] MEDS: SODIUM CHLORIDE 0.9% 1,000 ML IV SCH (08:43)
[2020-03-27 09:00] VITALS: BP 141/71
[2020-03-27 10:16] LABS: BUN/Creatinine Ratio 26.1; Calcium 8.5 mg/dL (8.5-10.1); Potassium 4.1 mmol/L (3.5-5.1)
[2020-03-27] MEDS: ZINC SULFATE 220mg CAP or TAB PO SCH (10:22)
[2020-03-27] MEDS: FAMOTIDINE (10MG/ML) 2ML VL IV SCH (10:22)
[2020-03-27] MEDS: DexAMETHasone 4 MG TAB PO SCH (10:23)
[2020-03-27] MEDS: hydrALAZINE HCL 25 MG TAB PO SCH ×2 (10:23→22:22)
[2020-03-27] MEDS: OXYBUTYNIN CHL 5 MG TAB PO SCH ×2 (10:24→22:21)
[2020-03-27] MEDS: CLOPIDOGREL BISULFATE 75 MG TAB PO SCH (10:24)
[2020-03-27] MEDS: ASPirin-EC 81 mg tab PO SCH (10:24)
[2020-03-27] MEDS: LEVOTHYROXINE SODIUM 25 MCG TAB PO SCH (10:25)
[2020-03-27] MEDS: ASCORBIC ACID 1,000 MG TAB PO SCH (10:26)
[2020-03-27] MEDS: METOPROLOL SUCCINATE XL 50 MG TAB PO SCH (10:26)
[2020-03-27] MEDS: ENOXAPARIN SOD 40 MG/0.4 ML SYRINGE SC SCH (10:27)
[2020-03-27] MEDS: CHOLECALCIFEROL (VITD3) 2,000 UNIT CAP PO SCH (10:27)
[2020-03-27] MEDS: ALLOPURINOL 100 MG TAB PO SCH (10:27)
[2020-03-27 13:00] VITALS: BP 135/83
--- NOTE | 2020-03-27 13:29 | NUR ---
DR SANTOS AT BEDSIDE
[2020-03-27 17:00] VITALS: BP 115/70
[2020-03-27 22:00] VITALS: BP 137/88
[2020-03-27] MEDS: ATORVASTATIN 20 MG TAB PO SCH (22:21)
[2020-03-28 06:08] LABS: Basophils # (auto) 0 10 ^3/uL (0-0.2); Eosinophils # (auto) 0 10 ^3/uL (0-0.8); Lymphocytes # (auto) 1.2 10 ^3/uL (0.4-5.4); Monocytes # (auto) 0.6 10 ^3/uL (0-1.3); Nucleated Red Blood Cells % 0.1 %; Red Cell Distribution Width 14.4 % (11.8-14.3)
[2020-03-28] MEDS: ACCU-CHEK COMFORT CURVE STRIP VI SCH ×4 (06:08→22:00)
[2020-03-28 06:10] LABS: Eosinophils % (auto) 0.3 % (0.0-7.0); Hematocrit 31.7 % (36.0-46.0); Hemoglobin 10.1 g/dL (12.2-16.2); Lymphocytes % (auto) 13.8 % (10.0-50.0); Mean Corpuscular Hemoglobin 26.3 pg (28.0-32.0); Mean Corpuscular Hgb Conc. 31.8 g/dL (32.0-36.0); Mean Corpuscular Volume 82.8 fL (80.0-100.0); Monocytes % (auto) 7.4 % (0.0-12.0); Neutrophils # (auto) 6.7 10 ^3/uL (1.6-8.6); Neutrophils % (auto) 78.5 % (37.0-80.0); Platelet Count (auto) 428 10^3/uL (140-450); Red Blood Cells 3.83 10^6/uL (4.0-5.20); White Blood Cell 8.5 10^3/uL (4.4-10.8)
[2020-03-28] MEDS: InsuLIN REG 1unit/0.01ml Soln (100units/ml) SC SCH ×4 (06:11→22:06)
[2020-03-28 06:15] VITALS: BP 149/63
[2020-03-28] MEDS: BUDESONIDE (INHALATION) 180 MCG IH IN SCH ×2 (06:15→20:22)
[2020-03-28 06:17] LABS: Potassium 4.8 mmol/L (3.5-5.1)
--- NOTE | 2020-03-28 06:17 | NUR ---
Respiratory note: ATTEMPTED TO ADMINISTER MEDS PATIENT NOT IN ROOM.
[2020-03-28 06:37] LABS: BUN/Creatinine Ratio 24.4; Bilirubin, Total 0.6 mg/dL (0.2-1.0); Calcium 8.5 mg/dL (8.5-10.1); Total Protein 7.4 g/dL (6.4-8.2)
[2020-03-28] MEDS: cefTRIAXone 1GM/50ML D5W 50 ML IV SCH (08:46)
[2020-03-28] MEDS: ASPirin-EC 81 mg tab PO SCH (08:52)
[2020-03-28] MEDS: ENOXAPARIN SOD 40 MG/0.4 ML SYRINGE SC SCH (08:52)
[2020-03-28] MEDS: LEVOTHYROXINE SODIUM 25 MCG TAB PO SCH (08:53)
[2020-03-28] MEDS: METOPROLOL SUCCINATE XL 50 MG TAB PO SCH (08:53)
[2020-03-28] MEDS: ALLOPURINOL 100 MG TAB PO SCH (08:54)
[2020-03-28] MEDS: hydrALAZINE HCL 25 MG TAB PO SCH ×2 (08:54→22:06)
[2020-03-28] MEDS: DexAMETHasone 4 MG TAB PO SCH (08:54)
[2020-03-28] MEDS: CLOPIDOGREL BISULFATE 75 MG TAB PO SCH (08:54)
[2020-03-28] MEDS: OXYBUTYNIN CHL 5 MG TAB PO SCH ×2 (08:54→22:07)
[2020-03-28] MEDS: CHOLECALCIFEROL (VITD3) 2,000 UNIT CAP PO SCH (08:55)
[2020-03-28] MEDS: ASCORBIC ACID 1,000 MG TAB PO SCH (08:55)
[2020-03-28] MEDS: ZINC SULFATE 220mg CAP or TAB PO SCH (08:55)
[2020-03-28 09:00] VITALS: BP 151/81
--- NOTE | 2020-03-28 10:40 | NUR ---
Dr Mejia at bedside.
[2020-03-28 13:00] VITALS: BP 130/80
[2020-03-28 16:56] VITALS: BP 124/79
--- NOTE | 2020-03-28 19:20 | NUR ---
Opening Shift Note Assumed care of patient after receiving report from day shift RN. Patient is awake and alert with no S/S of distress/SOB or pain. Call light within reach, bed in lowest locked position x2 side rails up for safety. Instructed on POC and to call for assist PRN, will continue to monitor for changes Q1hr and PRN.
[2020-03-28] MEDS: ALBUTEROL SULF HFA 90MCG INH 200DOSE IN PRN (20:22)
--- NOTE | 2020-03-28 20:58 | NUR ---
Patient Education RE: DM Patient educated regarding blood sugar and diet. Patient had empty containers of juice and claudia crackers, as well as fast food which contained soda. Blood glucose taken at this time of 244. Patient asked "is that high?". Patient educated on normal range of blood glucose and where she should be, that current glucose is high and could be related to the food she is eating on a daily basis. Patient educated on diabetic diet. Will continue to educate and monitor for changes.
[2020-03-28 22:00] VITALS: BP 122/91
[2020-03-28] MEDS: ATORVASTATIN 20 MG TAB PO SCH (22:07)
[2020-03-29 05:00] VITALS: BP 101/75
[2020-03-29 05:51] LABS: Calcium 8.6 mg/dL (8.5-10.1); Potassium 4.1 mmol/L (3.5-5.1)
[2020-03-29 05:54] LABS: BUN/Creatinine Ratio 29.6
[2020-03-29] MEDS: ACCU-CHEK COMFORT CURVE STRIP VI SCH ×2 (06:14→12:15)
[2020-03-29] MEDS: InsuLIN REG 1unit/0.01ml Soln (100units/ml) SC SCH ×2 (06:35→12:17)
[2020-03-29] MEDS: BUDESONIDE (INHALATION) 180 MCG IH IN SCH (06:44)
[2020-03-29] MEDS: ALBUTEROL SULF HFA 90MCG INH 200DOSE IN PRN (06:44)
[2020-03-29 08:00] VITALS: BP 162/95
[2020-03-29 09:00] VITALS: BP 162/95
[2020-03-29] MEDS: cefTRIAXone 1GM/50ML D5W 50 ML IV SCH (09:02)
[2020-03-29] MEDS: ENOXAPARIN SOD 40 MG/0.4 ML SYRINGE SC SCH (09:04)
[2020-03-29] MEDS: ALLOPURINOL 100 MG TAB PO SCH (09:04)
[2020-03-29] MEDS: FAMOTIDINE (10MG/ML) 2ML VL IV SCH (09:04)
[2020-03-29] MEDS: ZINC SULFATE 220mg CAP or TAB PO SCH (09:05)
[2020-03-29] MEDS: CLOPIDOGREL BISULFATE 75 MG TAB PO SCH (09:05)
[2020-03-29] MEDS: METOPROLOL SUCCINATE XL 50 MG TAB PO SCH (09:05)
[2020-03-29] MEDS: ASPirin-EC 81 mg tab PO SCH (09:05)
[2020-03-29] MEDS: OXYBUTYNIN CHL 5 MG TAB PO SCH (09:06)
[2020-03-29] MEDS: hydrALAZINE HCL 25 MG TAB PO SCH (09:06)
[2020-03-29] MEDS: LEVOTHYROXINE SODIUM 25 MCG TAB PO SCH (09:06)
[2020-03-29] MEDS: DexAMETHasone 4 MG TAB PO SCH (09:06)
[2020-03-29] MEDS: ASCORBIC ACID 1,000 MG TAB PO SCH (09:07)
[2020-03-29] MEDS: CHOLECALCIFEROL (VITD3) 2,000 UNIT CAP PO SCH (09:07)
--- NOTE | 2020-03-29 11:42 | NUR ---
Dr. Mejia at bedside
--- NOTE | 2020-03-29 12:05 | NUR ---
Nutrition Followup Notes Wt: 90.0 kg Pt is positive for COVID, in isolation. not picked her call. pt is currently on CCHO 75 gm cardiac chop fine diet with adequte PO of > 75% x 5 per RN doc Est energy needs ABW [id number] kcal (20-23 kcal/kg ABW) Est protein needs: 55-69 g (0.8-1g/kg ABW r/t elev RFT CKD) Will monitor and reassess prn. LABS: BUN 58 H CREAT 1.96 H ALB 3.0 L GLU 171 H GI: Pt had no BM today per RN doc. BS: 19 low risk. Refer to wound assessment report for further details. PES: Altered nutrition related lab values r.t current chronic medical condition aeb elev RFT mod hypoalb hyperglycemia Decrease nutrient needs r/t adiposity aeb pt`s high BMI of 35.8 kgm2 Comments : Will continue to monitor PO status, skin status, pertinent labs and weight trends. Will f/u in 3-5 days Rec: 1) refer to CDE on DC. 2) consider renal specific 60 gm protein along with current diet if RFt continue to be elev. 3) continue current plan of care
[2020-03-29 13:00] VITALS: BP 143/96
[2020-03-29 16:34] VITALS: BP 134/70
--- NOTE | 2020-03-29 16:51 | NUR ---
Discharge instructions given as ordered. Encourage to follow up with PMD as instructed. All questions and concerns addressed. Patient verbalized understanding. Medication reconciliation form completed and copy given to patient. Home medications held in Pharmacy returned to patient. IV removed with catheter intact, pressure dressing applied, busby catheter removed. Telemetry unit returned to ICU. Patient taken to vehicle via wheelchair with all personal belongings, accompanied by staff. No distress noted at time of departure.
== END 2020-03-29 16:51 | disposition home or self-care (01) | DRG 871 ==
LOC: EDBD 15:12 → ER 15:12 → TELE 15:13 → TELE-EAST 03-23 02:00
PROVIDERS: ADMIT Hospitalist; ATTEND Internal Medicine
PROC: 5A09357 Assistance with Respiratory Ventilation, Less than 24 Consecutive Hours, Continuous Positive Airway Pressure (ICD-10-PCS; principal; 2020-03-22)
PROC: XW033E5 Introduction of Remdesivir Anti-infective into Peripheral Vein, Percutaneous Approach, New Technology Group 5 (ICD-10-PCS; 2020-03-22)
DX: A41.89 Other specified sepsis (principal); U07.1 COVID-19; J12.89 Other viral pneumonia; J96.01 Acute respiratory failure with hypoxia; I50.23 Acute on chronic systolic (congestive) heart failure; N17.0 Acute kidney failure with tubular necrosis; J10.08 Influenza due to other identified influenza virus with other specified pneumonia; E44.1 Mild protein-calorie malnutrition; N39.0 Urinary tract infection, site not specified; I13.0 Hypertensive heart and chronic kidney disease with heart failure and stage 1 through stage 4 chronic kidney disease, or unspecified chronic kidney disease; J44.0 Chronic obstructive pulmonary disease with (acute) lower respiratory infection; D64.9 Anemia, unspecified; E87.6 Hypokalemia; E66.01 Morbid (severe) obesity due to excess calories; M1A.9XX0 Chronic gout, unspecified, without tophus (tophi); E03.9 Hypothyroidism, unspecified; E11.22 Type 2 diabetes mellitus with diabetic chronic kidney disease; I25.10 Atherosclerotic heart disease of native coronary artery without angina pectoris; B96.20 Unspecified Escherichia coli [E. coli] as the cause of diseases classified elsewhere; E11.40 Type 2 diabetes mellitus with diabetic neuropathy, unspecified; E11.65 Type 2 diabetes mellitus with hyperglycemia; N18.30 Chronic kidney disease, stage 3 unspecified; E78.5 Hyperlipidemia, unspecified; Z86.73 Personal history of transient ischemic attack (TIA), and cerebral infarction without residual deficits; Z95.810 Presence of automatic (implantable) cardiac defibrillator; Z68.36 Body mass index [BMI] 36.0-36.9, adult
CPT/HCPCS: 36415; 36600; 51702; 71045; 80048; 80053; 80061; 80202; 80307; 81001; 82728; 82805; 82962; 83036; 83605; 83615; 83735; 83880; 84443; 84484; 85025; 85379; 86141; 87040; 87077; 87086; 87088; 87186; 87426; 87804; 93005; 93970; 94640; 94660; 96365; 96367; 96372; 96375; G0378; J0696; J1100; J1815; J2185; J3480; J3490

== ENCOUNTER 2020-04-03 23:00 | Inpatient (IN) | payer MEDICARE, OTHER ==
[~2020-04-03] VITALS: Ht 162.6 cm; Wt 78.0 kg
[~2020-04-03 23:00] MED LIST changes: +AMLO-496 PO; -AMLO10TA13 PO; -POTA10TA32 PO
[2020-04-04 00:10] LABS: Basophils # (auto) 0 10 ^3/uL (0-0.2); Basophils % (auto) 0.2 % (0.0-2.0); Eosinophils # (auto) 0 10 ^3/uL (0-0.8); Eosinophils % (auto) 0.1 % (0.0-7.0); Hematocrit 32.9 % (36.0-46.0); Hemoglobin 10.3 g/dL (12.2-16.2); Lymphocytes # (auto) 1.3 10 ^3/uL (0.4-5.4); Mean Corpuscular Hemoglobin 26.1 pg (28.0-32.0); Mean Corpuscular Hgb Conc. 31.2 g/dL (32.0-36.0); Mean Corpuscular Volume 83.4 fL (80.0-100.0); Monocytes # (auto) 0.8 10 ^3/uL (0-1.3); Monocytes % (auto) 5.8 % (0.0-12.0); Neutrophils # (auto) 12.1 10 ^3/uL (1.6-8.6); Neutrophils % (auto) 84.9 % (37.0-80.0); Platelet Count (auto) 364 10^3/uL (140-450); Red Blood Cells 3.94 10^6/uL (4.0-5.20); Red Cell Distribution Width 14.9 % (11.8-14.3); White Blood Cell 14.2 10^3/uL (4.4-10.8)
[2020-04-04 00:19] LABS: Albumin 2.8 g/dL (3.4-5.0); BUN/Creatinine Ratio 17.1; Calcium 8.6 mg/dL (8.5-10.1); Magnesium 2.2 mg/dL (1.6-2.6); Potassium 4.6 mmol/L (3.5-5.1)
[2020-04-04 00:24] LABS: Bilirubin, Total 0.7 mg/dL (0.2-1.0); Lactic Acid w/Reflex 5.8 mmol/L (0.4-2.0); Total Protein 7.6 g/dL (6.4-8.2)
[2020-04-04 00:32] LABS: INR 1.11 (0.9-1.15); Partial Thromboplastin Time 24.4 sec (23.0-31.2)
[2020-04-04] MEDS ORDERED: SODIUM CHLORIDE 0.9% 500 ML IV ONE (00:45)
[2020-04-04] MEDS ORDERED: InsuLIN REG 1unit/0.01ml Soln (100units/ml) IV ONE (00:45)
[2020-04-04] MEDS ORDERED: PIPERACILLIN-TAZOB 3.375GM 100 ML IV ONE (02:15)
[2020-04-04] MEDS ORDERED: VANCOMYCIN 1GM/250ML 250 ML IV ONE (02:15)
[2020-04-04] MEDS ORDERED: ACETAMINOPHEN 325 MG TAB PO ONE (02:45)
[2020-04-04 03:05] VITALS: BP 121/66
[2020-04-04 05:06] LABS: Urine Bacteria FEW /hpf (None Seen); Urine Blood Negative /uL (Negative); Urine Budding Yeast LOADED /hpf (None Seen); Urine Hyaline Cast FEW /lpf (0 - 2); Urine Mucus FEW (None Seen); Urine Specific Gravity 1.016 (1.001-1.035); Urine WBC 2 /hpf (0 - 5)
[2020-04-04 06:09] VITALS: BP 104/66
[2020-04-04] MEDS ORDERED: NITROGLYCERIN 0.4 MG SL TAB SL PRN (07:45)
[2020-04-04] MEDS ORDERED: REMDESIVIR PER PHARMACY 0 ML IV SCH (07:45)
[2020-04-04] MEDS ORDERED: DEXTROSE (50%) 50ML SYRG IV PRN (07:45)
[2020-04-04] MEDS ORDERED: MORPHINE SULF INJ 2 MG/ML SYRINGE 1ML IV PRN (07:45)
[2020-04-04] MEDS: ZINC SULFATE 220mg CAP or TAB PO SCH (08:56)
[2020-04-04] MEDS: DexAMETHasone SOD PHOS 10MG/1ML VIAL INJ IV SCH (08:56)
[2020-04-04] MEDS: CHOLECALCIFEROL (VITD3) 2,000 UNIT CAP PO SCH (08:57)
[2020-04-04] MEDS: ASCORBIC ACID 500 MG TAB PO SCH (08:57)
[2020-04-04 08:58] LABS: Albumin 2.4 g/dL (3.4-5.0); Calcium 8.4 mg/dL (8.5-10.1); Potassium 4.3 mmol/L (3.5-5.1)
[2020-04-04 09:00] LABS: BUN/Creatinine Ratio 19.7
[2020-04-04 09:06] LABS: Bilirubin, Total 0.6 mg/dL (0.2-1.0); Total Protein 6.5 g/dL (6.4-8.2)
[2020-04-04 09:44] LABS: Eosinophils # (auto) 0 10 ^3/uL (0-0.8); Eosinophils % (auto) 0.2 % (0.0-7.0); Hemoglobin 9.1 g/dL (12.2-16.2); White Blood Cell 19.7 10^3/uL (4.4-10.8)
[2020-04-04 09:46] LABS: Basophils # (auto) 0.1 10 ^3/uL (0-0.2); Basophils % (auto) 0.3 % (0.0-2.0); Hematocrit 28.8 % (36.0-46.0); Lymphocytes # (auto) 0.7 10 ^3/uL (0.4-5.4); Lymphocytes % (auto) 3.7 % (10.0-50.0); Mean Corpuscular Hemoglobin 26.1 pg (28.0-32.0); Mean Corpuscular Hgb Conc. 31.7 g/dL (32.0-36.0); Mean Corpuscular Volume 82.5 fL (80.0-100.0); Monocytes # (auto) 0.7 10 ^3/uL (0-1.3); Monocytes % (auto) 3.7 % (0.0-12.0); Neutrophils # (auto) 18.1 10 ^3/uL (1.6-8.6); Neutrophils % (auto) 92.1 % (37.0-80.0); Platelet Count (auto) 282 10^3/uL (140-450); Red Blood Cells 3.49 10^6/uL (4.0-5.20); Red Cell Distribution Width 14.7 % (11.8-14.3)
[2020-04-04 10:19] LABS: INR 1.15 (0.9-1.15)
[2020-04-04 11:36] VITALS: BP 129/82
[2020-04-04] MEDS: BUDESONIDE (INHALATION) 0.5 MG/2 ML NEB NEB SCH ×2 (11:36→22:00)
[2020-04-04] MEDS: InsuLIN REG 1unit/0.01ml Soln (100units/ml) SC SCH ×3 (11:56→22:08)
[2020-04-04] MEDS: ACCU-CHEK COMFORT CURVE STRIP VI SCH ×3 (11:58→22:02)
[2020-04-04] MEDS: DOBUTamine 1000MCG/ML 250 ML IV SCH (12:07)
[2020-04-04] MEDS: PIPERACILLIN-TAZO 4.5GM 100 ML IV SCH ×2 (13:18→22:16)
[2020-04-04] MEDS: IPRATROPIUM BROM 0.5 MG/2.5ML INH SOL NEB SCH ×2 (13:55→22:00)
[2020-04-04] MEDS: FUROSEMIDE 40 MG/4 ML VIAL IV SCH (17:01)
[2020-04-04] MEDS: SODIUM CHLOR 0.9% PF (SALINE LOCK) 10ML VIAL/SYR IV SCH (22:02)
[2020-04-05] MEDS: DOBUTamine 1000MCG/ML 250 ML IV SCH ×2 (02:36→22:52)
[2020-04-05 05:16] LABS: Basophils # (auto) 0.1 10 ^3/uL (0-0.2); Basophils % (auto) 0.3 % (0.0-2.0); Eosinophils # (auto) 0 10 ^3/uL (0-0.8); Hematocrit 25.2 % (36.0-46.0); Hemoglobin 8.2 g/dL (12.2-16.2); Lymphocytes # (auto) 0.2 10 ^3/uL (0.4-5.4); Lymphocytes % (auto) 0.9 % (10.0-50.0); Mean Corpuscular Hemoglobin 26.5 pg (28.0-32.0); Mean Corpuscular Hgb Conc. 32.6 g/dL (32.0-36.0); Mean Corpuscular Volume 81.4 fL (80.0-100.0); Monocytes # (auto) 0.4 10 ^3/uL (0-1.3); Neutrophils # (auto) 19.2 10 ^3/uL (1.6-8.6); Neutrophils % (auto) 96.8 % (37.0-80.0); Platelet Count (auto) 247 10^3/uL (140-450); Red Cell Distribution Width 14.5 % (11.8-14.3); White Blood Cell 19.8 10^3/uL (4.4-10.8)
[2020-04-05] MEDS: FUROSEMIDE 40 MG/4 ML VIAL IV SCH ×2 (05:26→18:06)
[2020-04-05] MEDS: PIPERACILLIN-TAZO 4.5GM 100 ML IV SCH ×2 (05:26→14:09)
[2020-04-05 05:48] LABS: Albumin 2.2 g/dL (3.4-5.0); BUN/Creatinine Ratio 22.3; Bilirubin, Total 0.7 mg/dL (0.2-1.0); Total Protein 6.7 g/dL (6.4-8.2)
[2020-04-05] MEDS: IPRATROPIUM BROM 0.5 MG/2.5ML INH SOL NEB SCH ×3 (06:00→22:00)
[2020-04-05] MEDS: ACCU-CHEK COMFORT CURVE STRIP VI SCH ×4 (06:27→22:52)
[2020-04-05] MEDS: InsuLIN REG 1unit/0.01ml Soln (100units/ml) SC SCH ×4 (06:50→22:54)
[2020-04-05] MEDS: BUDESONIDE (INHALATION) 0.5 MG/2 ML NEB NEB SCH ×2 (10:00→22:00)
[2020-04-05] MEDS: DexAMETHasone SOD PHOS 10MG/1ML VIAL INJ IV SCH (10:27)
[2020-04-05] MEDS: ZINC SULFATE 220mg CAP or TAB PO SCH (10:28)
[2020-04-05] MEDS: ASCORBIC ACID 500 MG TAB PO SCH (10:28)
[2020-04-05] MEDS: SODIUM CHLOR 0.9% PF (SALINE LOCK) 10ML VIAL/SYR IV SCH ×2 (10:28→22:52)
[2020-04-05] MEDS: CHOLECALCIFEROL (VITD3) 2,000 UNIT CAP PO SCH (10:28)
[2020-04-06] MEDS: LORazepam 0.5 MG TAB PO PRN (00:19)
[2020-04-06] MEDS: PIPERACILLIN-TAZOB 3.375GM 100 ML IV SCH ×4 (01:43→18:29)
[2020-04-06 06:18] LABS: Hematocrit 25.4 % (36.0-46.0); Hemoglobin 8.4 g/dL (12.2-16.2); Mean Corpuscular Hemoglobin 26.7 pg (28.0-32.0); Mean Corpuscular Hgb Conc. 32.8 g/dL (32.0-36.0); Mean Corpuscular Volume 81.2 fL (80.0-100.0); Platelet Count (auto) 260 10^3/uL (140-450); Red Blood Cells 3.13 10^6/uL (4.0-5.20); Red Cell Distribution Width 14.4 % (11.8-14.3); White Blood Cell 25.9 10^3/uL (4.4-10.8)
[2020-04-06 06:35] LABS: Potassium 3.6 mmol/L (3.5-5.1)
[2020-04-06 06:37] LABS: Basophils % (manual) 0 (0.0-2.0); Blast Cells 0; Eosinophils % (manual) 0 (0-7); Metamyelocytes % 0; Myelocytes % 0; Promyelocytes % 0; Reactive Lymphocytes 0
[2020-04-06 06:47] LABS: Albumin 2.2 g/dL (3.4-5.0); BUN/Creatinine Ratio 24.5; Bilirubin, Total 0.9 mg/dL (0.2-1.0); Calcium 9.2 mg/dL (8.5-10.1); Magnesium 1.9 mg/dL (1.6-2.6); Total Protein 7.2 g/dL (6.4-8.2)
[2020-04-06] MEDS: FUROSEMIDE 40 MG/4 ML VIAL IV SCH ×2 (07:00→18:29)
[2020-04-06] MEDS: InsuLIN REG 1unit/0.01ml Soln (100units/ml) SC SCH ×4 (07:01→21:45)
[2020-04-06] MEDS: ACCU-CHEK COMFORT CURVE STRIP VI SCH ×4 (07:01→21:30)
[2020-04-06] MEDS: SODIUM CHLOR 0.9% PF (SALINE LOCK) 10ML VIAL/SYR IV SCH ×2 (09:42→21:45)
[2020-04-06] MEDS: DexAMETHasone SOD PHOS 10MG/1ML VIAL INJ IV SCH (09:53)
[2020-04-06] MEDS: ASCORBIC ACID 500 MG TAB PO SCH (09:53)
[2020-04-06] MEDS: CHOLECALCIFEROL (VITD3) 2,000 UNIT CAP PO SCH (09:53)
[2020-04-06] MEDS: BUDESONIDE (INHALATION) 180 MCG IH IN SCH (09:53)
[2020-04-06] MEDS: ZINC SULFATE 220mg CAP or TAB PO SCH (09:53)
[2020-04-06 10:44] LABS: Band Neutrophils % (manual) 2; Lymphocytes % (manual) 1 (10.0-50.0); Monocytes % (manual) 3 (0-12)
[2020-04-06] MEDS: DOXYCYCLINE 100 MG TAB/CAP PO SCH ×2 (14:46→21:42)
[2020-04-06] MEDS ORDERED: ACETAMINOPHEN 325 MG TAB PO ONE (16:58)
[2020-04-06] MEDS ORDERED: ACETAMINOPHEN 650 mg PER 20.3 mL UD PO PRN (17:00)
[2020-04-06] MEDS ORDERED: ACETAMINOPHEN 325 MG TAB PO PRN (17:15)
[2020-04-07] MEDS: PIPERACILLIN-TAZOB 3.375GM 100 ML IV SCH ×4 (02:00→18:06)
[2020-04-07] MEDS: FUROSEMIDE 40 MG/4 ML VIAL IV SCH ×2 (06:01→18:06)
[2020-04-07 06:13] LABS: Basophils # (auto) 0 10 ^3/uL (0-0.2); Eosinophils # (auto) 0 10 ^3/uL (0-0.8); Hemoglobin 8.4 g/dL (12.2-16.2); Lymphocytes # (auto) 0.3 10 ^3/uL (0.4-5.4); Monocytes # (auto) 0.8 10 ^3/uL (0-1.3); Monocytes % (auto) 3.6 % (0.0-12.0); Red Cell Distribution Width 14.5 % (11.8-14.3)
[2020-04-07 06:15] LABS: Hematocrit 25.3 % (36.0-46.0); Lymphocytes % (auto) 1.4 % (10.0-50.0); Mean Corpuscular Hgb Conc. 33.3 g/dL (32.0-36.0); Neutrophils # (auto) 20.6 10 ^3/uL (1.6-8.6); Platelet Count (auto) 214 10^3/uL (140-450); Red Blood Cells 3.12 10^6/uL (4.0-5.20); White Blood Cell 21.7 10^3/uL (4.4-10.8)
[2020-04-07 06:28] LABS: Potassium 3.7 mmol/L (3.5-5.1)
[2020-04-07] MEDS: ACCU-CHEK COMFORT CURVE STRIP VI SCH ×4 (06:31→22:05)
[2020-04-07] MEDS: InsuLIN REG 1unit/0.01ml Soln (100units/ml) SC SCH ×4 (06:35→22:06)
[2020-04-07 06:38] LABS: Albumin 2.1 g/dL (3.4-5.0); BUN/Creatinine Ratio 28.6; Calcium 9.5 mg/dL (8.5-10.1); Total Protein 7.2 g/dL (6.4-8.2)
[2020-04-07] MEDS: BUDESONIDE (INHALATION) 180 MCG IH IN SCH ×3 (07:42→22:00)
[2020-04-07] MEDS: DOXYCYCLINE 100 MG TAB/CAP PO SCH ×2 (11:14→22:05)
[2020-04-07] MEDS: CHOLECALCIFEROL (VITD3) 2,000 UNIT CAP PO SCH (11:14)
[2020-04-07] MEDS: ZINC SULFATE 220mg CAP or TAB PO SCH (11:15)
[2020-04-07] MEDS: ASCORBIC ACID 500 MG TAB PO SCH (11:15)
[2020-04-07] MEDS: SODIUM CHLOR 0.9% PF (SALINE LOCK) 10ML VIAL/SYR IV SCH ×2 (11:15→22:03)
[2020-04-07] MEDS ORDERED: CARVEDILOL 12.5 MG TAB PO ONE (13:15)
[2020-04-07] MEDS ORDERED: HYDROcodone-ACET 5/325MG TAB PO ONE (22:00)
[2020-04-07] MEDS: CARVEDILOL 12.5 MG TAB PO SCH (22:04)
[2020-04-08] MEDS: PIPERACILLIN-TAZOB 3.375GM 100 ML IV SCH ×3 (00:38→13:08)
[2020-04-08] MEDS: FUROSEMIDE 40 MG/4 ML VIAL IV SCH ×2 (06:35→17:38)
[2020-04-08] MEDS: InsuLIN REG 1unit/0.01ml Soln (100units/ml) SC SCH ×3 (06:36→19:08)
[2020-04-08] MEDS: ACCU-CHEK COMFORT CURVE STRIP VI SCH ×3 (06:36→19:08)
[2020-04-08 06:48] LABS: Basophils # (auto) 0.1 10 ^3/uL (0-0.2); Hemoglobin 8.3 g/dL (12.2-16.2); Lymphocytes # (auto) 0.5 10 ^3/uL (0.4-5.4); Red Cell Distribution Width 15.1 % (11.8-14.3)
[2020-04-08 06:51] LABS: Basophils % (auto) 0.5 % (0.0-2.0); Eosinophils # (auto) 0.2 10 ^3/uL (0-0.8); Eosinophils % (auto) 1.5 % (0.0-7.0); Hematocrit 26.4 % (36.0-46.0); Mean Corpuscular Hemoglobin 26.1 pg (28.0-32.0); Mean Corpuscular Hgb Conc. 31.6 g/dL (32.0-36.0); Mean Corpuscular Volume 82.6 fL (80.0-100.0); Monocytes # (auto) 0.7 10 ^3/uL (0-1.3); Monocytes % (auto) 4.3 % (0.0-12.0); Neutrophils # (auto) 14.9 10 ^3/uL (1.6-8.6); Neutrophils % (auto) 90.7 % (37.0-80.0); Platelet Count (auto) 238 10^3/uL (140-450); Red Blood Cells 3.19 10^6/uL (4.0-5.20); White Blood Cell 16.4 10^3/uL (4.4-10.8)
[2020-04-08 07:14] LABS: Potassium 3.9 mmol/L (3.5-5.1)
[2020-04-08 07:22] LABS: Albumin 1.8 g/dL (3.4-5.0); BUN/Creatinine Ratio 28.8; Bilirubin, Total 1.2 mg/dL (0.2-1.0); Calcium 8.6 mg/dL (8.5-10.1)
[2020-04-08] MEDS: CHOLECALCIFEROL (VITD3) 2,000 UNIT CAP PO SCH (09:50)
[2020-04-08] MEDS: CARVEDILOL 12.5 MG TAB PO SCH ×2 (09:50→22:59)
[2020-04-08] MEDS: ASCORBIC ACID 500 MG TAB PO SCH (09:50)
[2020-04-08] MEDS: DOXYCYCLINE 100 MG TAB/CAP PO SCH (09:52)
[2020-04-08] MEDS: SODIUM CHLOR 0.9% PF (SALINE LOCK) 10ML VIAL/SYR IV SCH ×2 (10:00→22:59)
[2020-04-08] MEDS: BUDESONIDE (INHALATION) 180 MCG IH IN SCH ×2 (10:00→19:50)
[2020-04-08] MEDS: ZINC SULFATE 220mg CAP or TAB PO SCH (10:12)
[2020-04-08] MEDS: ALBUTEROL SULF HFA 90MCG INH 200DOSE IN PRN ×2 (13:22→19:50)
[2020-04-08] MEDS: LOPERAMIDE HCL 2 MG CAP PO SCH ×2 (16:27→22:58)
[2020-04-08] MEDS: metroNIDAZOLE 500 MG TAB PO SCH (22:59)
[2020-04-09] MEDS: ACCU-CHEK COMFORT CURVE STRIP VI SCH ×5 (02:35→23:39)
[2020-04-09] MEDS: InsuLIN REG 1unit/0.01ml Soln (100units/ml) SC SCH ×5 (02:36→23:43)
[2020-04-09] MEDS: FUROSEMIDE 40 MG/4 ML VIAL IV SCH ×2 (06:12→17:44)
[2020-04-09] MEDS: metroNIDAZOLE 500 MG TAB PO SCH ×3 (06:12→22:35)
[2020-04-09] MEDS: ALBUTEROL SULF HFA 90MCG INH 200DOSE IN PRN ×2 (06:20→20:28)
[2020-04-09] MEDS: BUDESONIDE (INHALATION) 180 MCG IH IN SCH ×2 (06:20→18:40)
[2020-04-09 06:29] LABS: Basophils # (auto) 0 10 ^3/uL (0-0.2); Lymphocytes # (auto) 0.7 10 ^3/uL (0.4-5.4); Monocytes # (auto) 0.8 10 ^3/uL (0-1.3)
[2020-04-09 06:31] LABS: Basophils % (auto) 0.1 % (0.0-2.0); Eosinophils # (auto) 0.4 10 ^3/uL (0-0.8); Eosinophils % (auto) 3.5 % (0.0-7.0); Hematocrit 26.3 % (36.0-46.0); Hemoglobin 8.4 g/dL (12.2-16.2); Lymphocytes % (auto) 6.5 % (10.0-50.0); Mean Corpuscular Hemoglobin 25.9 pg (28.0-32.0); Mean Corpuscular Hgb Conc. 31.9 g/dL (32.0-36.0); Mean Corpuscular Volume 81.4 fL (80.0-100.0); Monocytes % (auto) 7.3 % (0.0-12.0); Neutrophils # (auto) 9.1 10 ^3/uL (1.6-8.6); Neutrophils % (auto) 82.6 % (37.0-80.0); Nucleated Red Blood Cells % 0.1 %; Platelet Count (auto) 248 10^3/uL (140-450); Red Blood Cells 3.23 10^6/uL (4.0-5.20); Red Cell Distribution Width 14.9 % (11.8-14.3); White Blood Cell 11.1 10^3/uL (4.4-10.8)
[2020-04-09 07:00] LABS: Potassium 3.3 mmol/L (3.5-5.1)
[2020-04-09 07:30] LABS: Albumin 1.9 g/dL (3.4-5.0); BUN/Creatinine Ratio 26.8
[2020-04-09 09:53] LABS: Bilirubin, Total 1.2 mg/dL (0.2-1.0); Total Protein 7.2 g/dL (6.4-8.2)
[2020-04-09] MEDS ORDERED: metroNIDAZOLE 500MG/100ML 100 ML IV SCH (10:00)
[2020-04-09] MEDS: CARVEDILOL 12.5 MG TAB PO SCH ×2 (10:14→22:35)
[2020-04-09] MEDS: ZINC SULFATE 220mg CAP or TAB PO SCH (10:14)
[2020-04-09] MEDS: LOPERAMIDE HCL 2 MG CAP PO SCH ×2 (10:14→22:35)
[2020-04-09] MEDS: CHOLECALCIFEROL (VITD3) 2,000 UNIT CAP PO SCH (10:14)
[2020-04-09] MEDS: SODIUM CHLOR 0.9% PF (SALINE LOCK) 10ML VIAL/SYR IV SCH ×2 (10:14→22:35)
[2020-04-09] MEDS: ASCORBIC ACID 500 MG TAB PO SCH (10:14)
[2020-04-09] MEDS ORDERED: POTASSIUM EFFERVESENT TAB 25 MEQ PO ONE (13:00)
[2020-04-10 05:29] LABS: Basophils # (auto) 0 10 ^3/uL (0-0.2); Hemoglobin 7.9 g/dL (12.2-16.2); Lymphocytes # (auto) 0.7 10 ^3/uL (0.4-5.4); Red Cell Distribution Width 14.9 % (11.8-14.3)
[2020-04-10 05:32] LABS: Basophils % (auto) 0.2 % (0.0-2.0); Eosinophils # (auto) 0.3 10 ^3/uL (0-0.8); Eosinophils % (auto) 3.1 % (0.0-7.0); Hematocrit 24.1 % (36.0-46.0); Lymphocytes % (auto) 6.9 % (10.0-50.0); Mean Corpuscular Hemoglobin 26.5 pg (28.0-32.0); Mean Corpuscular Hgb Conc. 32.6 g/dL (32.0-36.0); Mean Corpuscular Volume 81.2 fL (80.0-100.0); Monocytes # (auto) 0.4 10 ^3/uL (0-1.3); Monocytes % (auto) 4.1 % (0.0-12.0); Neutrophils # (auto) 8.4 10 ^3/uL (1.6-8.6); Neutrophils % (auto) 85.7 % (37.0-80.0); Platelet Count (auto) 277 10^3/uL (140-450); Red Blood Cells 2.97 10^6/uL (4.0-5.20); White Blood Cell 9.9 10^3/uL (4.4-10.8)
[2020-04-10 05:53] LABS: Potassium 3.3 mmol/L (3.5-5.1)
[2020-04-10 05:59] LABS: Albumin 1.9 g/dL (3.4-5.0); BUN/Creatinine Ratio 26.9; Calcium 8.9 mg/dL (8.5-10.1)
[2020-04-10 06:01] LABS: Bilirubin, Total 1.1 mg/dL (0.2-1.0); Total Protein 7.3 g/dL (6.4-8.2)
[2020-04-10] MEDS: BUDESONIDE (INHALATION) 180 MCG IH IN SCH ×3 (06:50→22:11)
[2020-04-10] MEDS: FUROSEMIDE 40 MG/4 ML VIAL IV SCH ×2 (06:52→18:22)
[2020-04-10] MEDS: metroNIDAZOLE 500 MG TAB PO SCH ×3 (06:52→21:47)
[2020-04-10] MEDS: ACCU-CHEK COMFORT CURVE STRIP VI SCH ×4 (07:25→21:37)
[2020-04-10] MEDS: InsuLIN REG 1unit/0.01ml Soln (100units/ml) SC SCH ×4 (07:27→21:49)
[2020-04-10] MEDS: ALBUTEROL SULF HFA 90MCG INH 200DOSE IN PRN ×3 (09:11→22:13)
[2020-04-10] MEDS: LOPERAMIDE HCL 2 MG CAP PO SCH ×2 (10:00→22:00)
[2020-04-10] MEDS: ZINC SULFATE 220mg CAP or TAB PO SCH (10:00)
[2020-04-10] MEDS: ASCORBIC ACID 500 MG TAB PO SCH (10:00)
[2020-04-10] MEDS: CARVEDILOL 12.5 MG TAB PO SCH ×2 (10:00→21:47)
[2020-04-10] MEDS: CHOLECALCIFEROL (VITD3) 2,000 UNIT CAP PO SCH (10:00)
[2020-04-10] MEDS: SODIUM CHLOR 0.9% PF (SALINE LOCK) 10ML VIAL/SYR IV SCH ×2 (14:45→21:36)
[2020-04-10] MEDS: DOBUTamine 1000MCG/ML 250 ML IV SCH (15:39)
[2020-04-10] MEDS ORDERED: SODIUM FERR GLUC 62.5MG/5ML 125 MG in SODIUM CHL 0.9% 100 ML IV ONE (16:00)
[2020-04-10] MEDS ORDERED: POTASSIUM CHL 20 Meq TABLET PO ONE (16:00)
[2020-04-10] MEDS ORDERED: CYANOCOBALAMIN (B-12) 1000 MCG/1 ML VIAL SUBCUT ONE (16:00)
[2020-04-11] MEDS: FUROSEMIDE 40 MG/4 ML VIAL IV SCH ×2 (06:28→18:35)
[2020-04-11] MEDS: metroNIDAZOLE 500 MG TAB PO SCH ×3 (06:28→22:33)
[2020-04-11] MEDS: InsuLIN REG 1unit/0.01ml Soln (100units/ml) SC SCH ×4 (07:00→22:41)
[2020-04-11] MEDS: ACCU-CHEK COMFORT CURVE STRIP VI SCH ×4 (07:00→22:39)
[2020-04-11] MEDS: BUDESONIDE (INHALATION) 180 MCG IH IN SCH ×2 (10:00→19:08)
[2020-04-11 11:23] LABS: Basophils # (auto) 0.1 10 ^3/uL (0-0.2); Eosinophils # (auto) 0.3 10 ^3/uL (0-0.8); Hemoglobin 7.1 g/dL (12.2-16.2); Lymphocytes # (auto) 0.6 10 ^3/uL (0.4-5.4); Mean Corpuscular Volume 81.6 fL (80.0-100.0); Platelet Count (auto) 312 10^3/uL (140-450)
[2020-04-11 11:25] LABS: Basophils % (auto) 1.2 % (0.0-2.0); Hematocrit 21.4 % (36.0-46.0); Mean Corpuscular Hemoglobin 26.9 pg (28.0-32.0); Monocytes # (auto) 0.5 10 ^3/uL (0-1.3); Monocytes % (auto) 5.2 % (0.0-12.0); Neutrophils # (auto) 8.1 10 ^3/uL (1.6-8.6); Neutrophils % (auto) 84.6 % (37.0-80.0); Red Blood Cells 2.62 10^6/uL (4.0-5.20); Red Cell Distribution Width 14.9 % (11.8-14.3); White Blood Cell 9.6 10^3/uL (4.4-10.8)
[2020-04-11 11:44] LABS: Albumin 1.7 g/dL (3.4-5.0); Calcium 9.1 mg/dL (8.5-10.1); Potassium 3.8 mmol/L (3.5-5.1)
[2020-04-11 11:48] LABS: BUN/Creatinine Ratio 30.6; Bilirubin, Total 1.4 mg/dL (0.2-1.0); Total Protein 7.2 g/dL (6.4-8.2)
[2020-04-11] MEDS: DOBUTamine 1000MCG/ML 250 ML IV SCH (12:11)
[2020-04-11] MEDS: SODIUM CHLOR 0.9% PF (SALINE LOCK) 10ML VIAL/SYR IV SCH ×2 (12:11→22:00)
[2020-04-11] MEDS: ZINC SULFATE 220mg CAP or TAB PO SCH (12:32)
[2020-04-11] MEDS: LOPERAMIDE HCL 2 MG CAP PO SCH ×2 (12:33→22:33)
[2020-04-11] MEDS: ASCORBIC ACID 500 MG TAB PO SCH (12:33)
[2020-04-11] MEDS: CARVEDILOL 12.5 MG TAB PO SCH ×2 (12:33→22:33)
[2020-04-11] MEDS: CHOLECALCIFEROL (VITD3) 2,000 UNIT CAP PO SCH (12:33)
[2020-04-11] MEDS: ALBUTEROL SULF HFA 90MCG INH 200DOSE IN PRN (20:21)
[2020-04-12] MEDS: metroNIDAZOLE 500 MG TAB PO SCH ×3 (05:55→22:00)
[2020-04-12] MEDS: FUROSEMIDE 40 MG/4 ML VIAL IV SCH ×2 (05:55→18:12)
[2020-04-12] MEDS: ALBUTEROL SULF HFA 90MCG INH 200DOSE IN PRN ×2 (06:12→20:10)
[2020-04-12] MEDS: BUDESONIDE (INHALATION) 180 MCG IH IN SCH ×2 (06:12→22:22)
[2020-04-12] MEDS: ACCU-CHEK COMFORT CURVE STRIP VI SCH ×4 (06:30→22:00)
[2020-04-12] MEDS: InsuLIN REG 1unit/0.01ml Soln (100units/ml) SC SCH ×4 (06:41→22:00)
[2020-04-12] MEDS: DOBUTamine 1000MCG/ML 250 ML IV SCH ×2 (08:02→22:40)
[2020-04-12] MEDS: LOPERAMIDE HCL 2 MG CAP PO SCH ×2 (08:31→22:00)
[2020-04-12] MEDS: ZINC SULFATE 220mg CAP or TAB PO SCH (08:31)
[2020-04-12] MEDS: CHOLECALCIFEROL (VITD3) 2,000 UNIT CAP PO SCH (08:32)
[2020-04-12] MEDS: CARVEDILOL 12.5 MG TAB PO SCH ×2 (08:32→22:00)
[2020-04-12] MEDS: ASCORBIC ACID 500 MG TAB PO SCH (08:32)
[2020-04-12] MEDS: SODIUM CHLOR 0.9% PF (SALINE LOCK) 10ML VIAL/SYR IV SCH ×2 (08:33→21:49)
[2020-04-12 12:31] LABS: Albumin 1.6 g/dL (3.4-5.0); Calcium 8.7 mg/dL (8.5-10.1); Potassium 3.6 mmol/L (3.5-5.1)
[2020-04-12 12:35] LABS: BUN/Creatinine Ratio 28.6; Bilirubin, Total 1.5 mg/dL (0.2-1.0); Total Protein 7.3 g/dL (6.4-8.2)
[2020-04-12 13:32] LABS: Basophils # (auto) 0.1 10 ^3/uL (0-0.2); Eosinophils # (auto) 0.4 10 ^3/uL (0-0.8); Lymphocytes # (auto) 0.8 10 ^3/uL (0.4-5.4); Nucleated Red Blood Cells % 0.2 %; Platelet Count (auto) 325 10^3/uL (140-450)
[2020-04-12 13:33] LABS: Basophils % (auto) 0.8 % (0.0-2.0); Eosinophils % (auto) 3.9 % (0.0-7.0); Hematocrit 20.2 % (36.0-46.0); Lymphocytes % (auto) 8.3 % (10.0-50.0); Mean Corpuscular Hemoglobin 27.4 pg (28.0-32.0); Mean Corpuscular Hgb Conc. 32.6 g/dL (32.0-36.0); Mean Corpuscular Volume 84.1 fL (80.0-100.0); Monocytes # (auto) 0.4 10 ^3/uL (0-1.3); Monocytes % (auto) 4.7 % (0.0-12.0); Neutrophils # (auto) 7.8 10 ^3/uL (1.6-8.6); Neutrophils % (auto) 82.3 % (37.0-80.0); Red Cell Distribution Width 15.6 % (11.8-14.3); White Blood Cell 9.5 10^3/uL (4.4-10.8)
[2020-04-12 13:44] LABS: Hemoglobin 6.6 g/dL (12.2-16.2)
[2020-04-12 17:33] VITALS: BP 114/62
[2020-04-12 18:43] VITALS: BP 106/70
[2020-04-13] MEDS: metroNIDAZOLE 500 MG TAB PO SCH ×3 (06:06→23:24)
[2020-04-13] MEDS: FUROSEMIDE 40 MG/4 ML VIAL IV SCH ×2 (06:06→18:00)
[2020-04-13] MEDS: ACCU-CHEK COMFORT CURVE STRIP VI SCH ×4 (06:42→23:24)
[2020-04-13] MEDS: InsuLIN REG 1unit/0.01ml Soln (100units/ml) SC SCH ×4 (06:42→22:00)
[2020-04-13] MEDS: CARVEDILOL 12.5 MG TAB PO SCH ×2 (08:12→23:24)
[2020-04-13] MEDS: SODIUM CHLOR 0.9% PF (SALINE LOCK) 10ML VIAL/SYR IV SCH ×2 (08:12→23:25)
[2020-04-13] MEDS: ZINC SULFATE 220mg CAP or TAB PO SCH (08:12)
[2020-04-13] MEDS: CHOLECALCIFEROL (VITD3) 2,000 UNIT CAP PO SCH (08:13)
[2020-04-13] MEDS: LOPERAMIDE HCL 2 MG CAP PO SCH ×2 (08:13→23:24)
[2020-04-13] MEDS: ASCORBIC ACID 500 MG TAB PO SCH (08:13)
[2020-04-13] MEDS: BUDESONIDE (INHALATION) 180 MCG IH IN SCH (10:00)
[2020-04-13] MEDS: ALBUTEROL SULF HFA 90MCG INH 200DOSE IN PRN (13:41)
[2020-04-13] MEDS: DOBUTamine 1000MCG/ML 250 ML IV SCH (16:17)
[2020-04-14] MEDS: FUROSEMIDE 40 MG/4 ML VIAL IV SCH ×2 (05:47→18:46)
[2020-04-14] MEDS: metroNIDAZOLE 500 MG TAB PO SCH ×3 (05:48→22:34)
[2020-04-14] MEDS: InsuLIN REG 1unit/0.01ml Soln (100units/ml) SC SCH ×4 (06:52→22:37)
[2020-04-14] MEDS: ACCU-CHEK COMFORT CURVE STRIP VI SCH ×4 (06:52→22:35)
[2020-04-14] MEDS: BUDESONIDE (INHALATION) 180 MCG IH IN SCH ×3 (07:28→19:17)
[2020-04-14] MEDS: SODIUM CHLOR 0.9% PF (SALINE LOCK) 10ML VIAL/SYR IV SCH ×2 (10:40→22:34)
[2020-04-14] MEDS: ZINC SULFATE 220mg CAP or TAB PO SCH ×3 (10:40→13:42)
[2020-04-14] MEDS: CARVEDILOL 12.5 MG TAB PO SCH ×4 (10:41→22:35)
[2020-04-14] MEDS: ASCORBIC ACID 500 MG TAB PO SCH ×3 (10:41→13:43)
[2020-04-14] MEDS: LOPERAMIDE HCL 2 MG CAP PO SCH ×4 (10:41→22:34)
[2020-04-14] MEDS: CHOLECALCIFEROL (VITD3) 2,000 UNIT CAP PO SCH ×3 (10:42→13:43)
[2020-04-14 10:46] LABS: Basophils # (auto) 0.1 10 ^3/uL (0-0.2); Basophils % (auto) 0.5 % (0.0-2.0); Eosinophils # (auto) 0.3 10 ^3/uL (0-0.8); Eosinophils % (auto) 2.6 % (0.0-7.0); Hematocrit 23.5 % (36.0-46.0); Hemoglobin 7.5 g/dL (12.2-16.2); Lymphocytes # (auto) 1.1 10 ^3/uL (0.4-5.4); Lymphocytes % (auto) 8.7 % (10.0-50.0); Mean Corpuscular Hemoglobin 27.4 pg (28.0-32.0); Mean Corpuscular Volume 85.7 fL (80.0-100.0); Monocytes # (auto) 0.8 10 ^3/uL (0-1.3); Monocytes % (auto) 6.4 % (0.0-12.0); Neutrophils # (auto) 10.1 10 ^3/uL (1.6-8.6); Neutrophils % (auto) 81.8 % (37.0-80.0); Nucleated Red Blood Cells % 0.3 %; Platelet Count (auto) 375 10^3/uL (140-450); Red Blood Cells 2.75 10^6/uL (4.0-5.20); Red Cell Distribution Width 16.4 % (11.8-14.3); White Blood Cell 12.4 10^3/uL (4.4-10.8)
[2020-04-14] MEDS: DOBUTamine 1000MCG/ML 250 ML IV SCH (10:51)
[2020-04-14 10:52] LABS: BUN/Creatinine Ratio 32.2; Potassium 3.5 mmol/L (3.5-5.1)
[2020-04-14] MEDS ORDERED: EPOETIN ALFA 10,000 UNIT/1 ML VIAL SC ONE (13:45)
[2020-04-14 17:47] VITALS: BP 130/68
[2020-04-15] VITALS: BP 128/68
[2020-04-15 02:09] VITALS: BP 133/89
[2020-04-15 02:30] VITALS: BP 123/60
[2020-04-15] MEDS: ACCU-CHEK COMFORT CURVE STRIP VI SCH ×4 (06:16→23:30)
[2020-04-15] MEDS: metroNIDAZOLE 500 MG TAB PO SCH ×2 (06:16→14:15)
[2020-04-15] MEDS: FUROSEMIDE 40 MG/4 ML VIAL IV SCH (06:16)
[2020-04-15] MEDS: InsuLIN REG 1unit/0.01ml Soln (100units/ml) SC SCH ×4 (06:18→23:33)
[2020-04-15 06:22] VITALS: BP 146/76
[2020-04-15] MEDS: BUDESONIDE (INHALATION) 180 MCG IH IN SCH ×2 (06:58→19:12)
[2020-04-15 08:00] VITALS: BP 137/85
[2020-04-15 08:37] LABS: Basophils # (auto) 0.1 10 ^3/uL (0-0.2); Basophils % (auto) 0.6 % (0.0-2.0); Eosinophils # (auto) 0.3 10 ^3/uL (0-0.8); Eosinophils % (auto) 2.8 % (0.0-7.0); Hematocrit 29.1 % (36.0-46.0); Hemoglobin 9.4 g/dL (12.2-16.2); Lymphocytes # (auto) 1.2 10 ^3/uL (0.4-5.4); Lymphocytes % (auto) 10.4 % (10.0-50.0); Mean Corpuscular Hemoglobin 28.3 pg (28.0-32.0); Mean Corpuscular Hgb Conc. 32.2 g/dL (32.0-36.0); Mean Corpuscular Volume 87.9 fL (80.0-100.0); Monocytes # (auto) 0.8 10 ^3/uL (0-1.3); Monocytes % (auto) 6.5 % (0.0-12.0); Neutrophils # (auto) 9.3 10 ^3/uL (1.6-8.6); Neutrophils % (auto) 79.7 % (37.0-80.0); Nucleated Red Blood Cells % 0.3 %; Platelet Count (auto) 363 10^3/uL (140-450); Red Blood Cells 3.31 10^6/uL (4.0-5.20); White Blood Cell 11.6 10^3/uL (4.4-10.8)
[2020-04-15] MEDS: ALBUTEROL SULF HFA 90MCG INH 200DOSE IN PRN ×2 (08:49→20:31)
[2020-04-15 08:50] LABS: Albumin 2.2 g/dL (3.4-5.0); Calcium 9.3 mg/dL (8.5-10.1); Potassium 3.5 mmol/L (3.5-5.1)
[2020-04-15 08:52] LABS: BUN/Creatinine Ratio 30.4
[2020-04-15 09:12] LABS: Bilirubin, Total 1.3 mg/dL (0.2-1.0); Total Protein 7.7 g/dL (6.4-8.2)
[2020-04-15] MEDS: CARVEDILOL 12.5 MG TAB PO SCH ×2 (10:00→23:47)
[2020-04-15] MEDS: CHOLECALCIFEROL (VITD3) 2,000 UNIT CAP PO SCH (10:00)
[2020-04-15] MEDS: ASCORBIC ACID 500 MG TAB PO SCH (10:29)
[2020-04-15] MEDS: SODIUM CHLOR 0.9% PF (SALINE LOCK) 10ML VIAL/SYR IV SCH ×2 (10:29→23:30)
[2020-04-15] MEDS: ZINC SULFATE 220mg CAP or TAB PO SCH (10:30)
[2020-04-15] MEDS: LOPERAMIDE HCL 2 MG CAP PO SCH ×2 (10:30→23:30)
[2020-04-15 16:00] VITALS: BP 145/78
[2020-04-16] VITALS: BP 152/80
[2020-04-16] MEDS: InsuLIN REG 1unit/0.01ml Soln (100units/ml) SC SCH ×4 (06:31→22:00)
[2020-04-16] MEDS: ACCU-CHEK COMFORT CURVE STRIP VI SCH ×4 (06:31→22:53)
[2020-04-16] MEDS: BUDESONIDE (INHALATION) 180 MCG IH IN SCH ×2 (06:50→20:25)
[2020-04-16] MEDS: ALBUTEROL SULF HFA 90MCG INH 200DOSE IN PRN ×2 (06:50→20:25)
[2020-04-16 08:00] VITALS: BP 123/69
[2020-04-16 10:47] LABS: Hematocrit 30.8 % (36.0-46.0); Hemoglobin 9.7 g/dL (12.2-16.2); Mean Corpuscular Hemoglobin 28.2 pg (28.0-32.0); Mean Corpuscular Hgb Conc. 31.5 g/dL (32.0-36.0); Mean Corpuscular Volume 89.6 fL (80.0-100.0); Platelet Count (auto) 385 10^3/uL (140-450); Red Blood Cells 3.44 10^6/uL (4.0-5.20); Red Cell Distribution Width 17.5 % (11.8-14.3); White Blood Cell 11.2 10^3/uL (4.4-10.8)
[2020-04-16 10:53] LABS: Calcium 9.5 mg/dL (8.5-10.1); Potassium 3.9 mmol/L (3.5-5.1)
[2020-04-16] MEDS: SODIUM CHLOR 0.9% PF (SALINE LOCK) 10ML VIAL/SYR IV SCH ×2 (11:07→23:17)
[2020-04-16] MEDS: ASCORBIC ACID 500 MG TAB PO SCH (11:08)
[2020-04-16] MEDS: FUROSEMIDE 40 MG/4 ML VIAL IV SCH (11:08)
[2020-04-16] MEDS: ZINC SULFATE 220mg CAP or TAB PO SCH (11:16)
[2020-04-16] MEDS: CHOLECALCIFEROL (VITD3) 2,000 UNIT CAP PO SCH (11:17)
[2020-04-16] MEDS: CARVEDILOL 12.5 MG TAB PO SCH ×2 (11:17→23:18)
[2020-04-16] MEDS: LOPERAMIDE HCL 2 MG CAP PO SCH ×2 (11:17→23:18)
[2020-04-16 11:19] LABS: Basophils % (manual) 0 (0.0-2.0); Blast Cells 0; Eosinophils % (manual) 0 (0-7); Myelocytes % 0; Promyelocytes % 0; Reactive Lymphocytes 0
[2020-04-16] MEDS ORDERED: SODIUM FERR GLUC 62.5MG/5ML 125 MG in SODIUM CHL 0.9% 100 ML IV ONE (12:00)
[2020-04-16 13:01] LABS: Band Neutrophils % (manual) 16; Lymphocytes % (manual) 9 (10.0-50.0); Metamyelocytes % 3; Monocytes % (manual) 3 (0-12)
[2020-04-16] MEDS ORDERED: EPOETIN ALFA 10,000 UNIT/1 ML VIAL SC ONE (13:15)
[2020-04-16 16:00] VITALS: BP 118/68
[2020-04-17] VITALS: BP 144/96
[2020-04-17] MEDS: ACCU-CHEK COMFORT CURVE STRIP VI SCH ×4 (06:18→23:13)
[2020-04-17] MEDS: InsuLIN REG 1unit/0.01ml Soln (100units/ml) SC SCH ×4 (06:20→23:26)
[2020-04-17 08:00] VITALS: BP 88/58
[2020-04-17] MEDS: SODIUM CHLOR 0.9% PF (SALINE LOCK) 10ML VIAL/SYR IV SCH ×2 (10:00→23:11)
[2020-04-17] MEDS: BUDESONIDE (INHALATION) 180 MCG IH IN SCH ×2 (11:15→20:03)
[2020-04-17] MEDS: ZINC SULFATE 220mg CAP or TAB PO SCH (11:17)
[2020-04-17] MEDS: CHOLECALCIFEROL (VITD3) 2,000 UNIT CAP PO SCH (11:18)
[2020-04-17] MEDS: LOPERAMIDE HCL 2 MG CAP PO SCH ×2 (11:18→23:12)
[2020-04-17] MEDS: ASCORBIC ACID 500 MG TAB PO SCH (11:18)
[2020-04-17] MEDS: CARVEDILOL 12.5 MG TAB PO SCH ×2 (11:19→23:12)
[2020-04-17] MEDS: FUROSEMIDE 40 MG/4 ML VIAL IV SCH (11:19)
[2020-04-17] MEDS: ALBUTEROL SULF HFA 90MCG INH 200DOSE IN PRN ×2 (12:43→20:03)
[2020-04-17 16:00] VITALS: BP 138/74
[2020-04-18] VITALS: BP 130/73
[2020-04-18] MEDS: LORazepam 0.5 MG TAB PO PRN (03:49)
[2020-04-18] MEDS: ACCU-CHEK COMFORT CURVE STRIP VI SCH ×4 (06:44→22:00)
[2020-04-18] MEDS: InsuLIN REG 1unit/0.01ml Soln (100units/ml) SC SCH ×4 (06:44→22:00)
[2020-04-18] MEDS: BUDESONIDE (INHALATION) 180 MCG IH IN SCH ×2 (07:32→22:10)
[2020-04-18 08:00] VITALS: BP 138/63
[2020-04-18] MEDS: FUROSEMIDE 40 MG/4 ML VIAL IV SCH (10:20)
[2020-04-18] MEDS: CARVEDILOL 12.5 MG TAB PO SCH ×2 (10:20→22:57)
[2020-04-18] MEDS: SODIUM CHLOR 0.9% PF (SALINE LOCK) 10ML VIAL/SYR IV SCH ×2 (10:20→21:58)
[2020-04-18] MEDS: ZINC SULFATE 220mg CAP or TAB PO SCH (10:20)
[2020-04-18] MEDS: ASCORBIC ACID 500 MG TAB PO SCH (10:21)
[2020-04-18] MEDS: LOPERAMIDE HCL 2 MG CAP PO SCH ×2 (10:21→22:58)
[2020-04-18] MEDS: CHOLECALCIFEROL (VITD3) 2,000 UNIT CAP PO SCH (10:22)
[2020-04-18 16:00] VITALS: BP 158/88
[2020-04-18 17:56] LABS: Urine Bacteria NONE SEEN /hpf (None Seen); Urine Blood 2+ /uL (Negative); Urine Specific Gravity 1.017 (1.001-1.035); Urine WBC 1688 /hpf (0 - 5); Urine WBC Clumps PRESENT /hpf (None Seen)
[2020-04-18] MEDS: ALBUTEROL SULF HFA 90MCG INH 200DOSE IN PRN (22:15)
[2020-04-19] VITALS: BP 142/72
[2020-04-19] MEDS: ACCU-CHEK COMFORT CURVE STRIP VI SCH ×4 (06:25→21:55)
[2020-04-19] MEDS: InsuLIN REG 1unit/0.01ml Soln (100units/ml) SC SCH ×4 (06:25→21:54)
[2020-04-19 08:00] VITALS: BP 141/74
[2020-04-19] MEDS: BUDESONIDE (INHALATION) 180 MCG IH IN SCH ×2 (09:58→20:36)
[2020-04-19] MEDS: SODIUM CHLOR 0.9% PF (SALINE LOCK) 10ML VIAL/SYR IV SCH ×2 (11:18→21:54)
[2020-04-19] MEDS: ZINC SULFATE 220mg CAP or TAB PO SCH (11:18)
[2020-04-19] MEDS: CARVEDILOL 12.5 MG TAB PO SCH ×2 (11:19→21:55)
[2020-04-19] MEDS: LOPERAMIDE HCL 2 MG CAP PO SCH ×2 (11:19→21:55)
[2020-04-19] MEDS: ASCORBIC ACID 500 MG TAB PO SCH (11:19)
[2020-04-19] MEDS: CHOLECALCIFEROL (VITD3) 2,000 UNIT CAP PO SCH (11:20)
[2020-04-19 16:17] VITALS: BP 133/71
[2020-04-19] MEDS: ALBUTEROL SULF HFA 90MCG INH 200DOSE IN PRN (20:36)
[2020-04-20] VITALS: BP 120/58
[2020-04-20] MEDS: InsuLIN REG 1unit/0.01ml Soln (100units/ml) SC SCH ×4 (06:10→22:00)
[2020-04-20] MEDS: ACCU-CHEK COMFORT CURVE STRIP VI SCH ×4 (06:10→22:00)
[2020-04-20 08:00] VITALS: BP 133/67
[2020-04-20] MEDS: BUDESONIDE (INHALATION) 180 MCG IH IN SCH ×2 (10:24→21:49)
[2020-04-20] MEDS: SODIUM CHLOR 0.9% PF (SALINE LOCK) 10ML VIAL/SYR IV SCH (10:24)
[2020-04-20] MEDS: ZINC SULFATE 220mg CAP or TAB PO SCH (10:24)
[2020-04-20] MEDS: LOPERAMIDE HCL 2 MG CAP PO SCH ×2 (10:25→23:20)
[2020-04-20] MEDS: CARVEDILOL 12.5 MG TAB PO SCH ×2 (10:25→23:20)
[2020-04-20] MEDS: CHOLECALCIFEROL (VITD3) 2,000 UNIT CAP PO SCH (10:26)
[2020-04-20] MEDS: ASCORBIC ACID 500 MG TAB PO SCH (10:26)
[2020-04-20] MEDS: ALBUTEROL SULF HFA 90MCG INH 200DOSE IN PRN ×2 (10:31→21:49)
[2020-04-20 16:00] VITALS: BP 119/64
[2020-04-21] VITALS: BP 142/73
[2020-04-21] MEDS: CARVEDILOL 12.5 MG TAB PO SCH ×3 (07:00→22:21)
[2020-04-21] MEDS: InsuLIN REG 1unit/0.01ml Soln (100units/ml) SC SCH ×4 (07:00→22:15)
[2020-04-21] MEDS: ACCU-CHEK COMFORT CURVE STRIP VI SCH ×4 (07:07→22:09)
[2020-04-21] MEDS: SODIUM CHLOR 0.9% PF (SALINE LOCK) 10ML VIAL/SYR IV SCH ×3 (07:16→22:21)
[2020-04-21 08:00] VITALS: BP 126/69
[2020-04-21] MEDS: BUDESONIDE (INHALATION) 180 MCG IH IN SCH ×2 (08:30→19:09)
[2020-04-21] MEDS: ZINC SULFATE 220mg CAP or TAB PO SCH (10:08)
[2020-04-21] MEDS: LOPERAMIDE HCL 2 MG CAP PO SCH ×2 (10:08→22:21)
[2020-04-21] MEDS: ASCORBIC ACID 500 MG TAB PO SCH (10:10)
[2020-04-21] MEDS: CHOLECALCIFEROL (VITD3) 2,000 UNIT CAP PO SCH (10:10)
[2020-04-21 15:47] LABS: Basophils # (auto) 0.1 10 ^3/uL (0-0.2); Basophils % (auto) 1.2 % (0.0-2.0); Eosinophils # (auto) 0.1 10 ^3/uL (0-0.8); Eosinophils % (auto) 1.9 % (0.0-7.0); Hematocrit 28.3 % (36.0-46.0); Hemoglobin 9.3 g/dL (12.2-16.2); Lymphocytes # (auto) 1.3 10 ^3/uL (0.4-5.4); Lymphocytes % (auto) 19.3 % (10.0-50.0); Mean Corpuscular Hgb Conc. 32.8 g/dL (32.0-36.0); Mean Corpuscular Volume 88.3 fL (80.0-100.0); Monocytes # (auto) 0.7 10 ^3/uL (0-1.3); Monocytes % (auto) 10.2 % (0.0-12.0); Neutrophils # (auto) 4.4 10 ^3/uL (1.6-8.6); Neutrophils % (auto) 67.4 % (37.0-80.0); Nucleated Red Blood Cells % 0.2 %; Platelet Count (auto) 346 10^3/uL (140-450); Red Cell Distribution Width 19.6 % (11.8-14.3); White Blood Cell 6.6 10^3/uL (4.4-10.8)
[2020-04-21 16:00] VITALS: BP 105/84
[2020-04-21 16:30] LABS: Albumin 2.2 g/dL (3.4-5.0); BUN/Creatinine Ratio 25.4; Bilirubin, Total 0.6 mg/dL (0.2-1.0); Calcium 9.1 mg/dL (8.5-10.1); Potassium 3.6 mmol/L (3.5-5.1); Total Protein 7.4 g/dL (6.4-8.2)
[2020-04-21] MEDS: ALBUTEROL SULF HFA 90MCG INH 200DOSE IN PRN (19:09)
[2020-04-22] VITALS: BP 137/77
[2020-04-22] MEDS: InsuLIN REG 1unit/0.01ml Soln (100units/ml) SC SCH ×4 (06:03→21:40)
[2020-04-22] MEDS: ACCU-CHEK COMFORT CURVE STRIP VI SCH ×4 (06:04→21:40)
[2020-04-22] MEDS: BUDESONIDE (INHALATION) 180 MCG IH IN SCH ×2 (06:15→19:23)
[2020-04-22 08:00] VITALS: BP 134/73
[2020-04-22] MEDS: CARVEDILOL 12.5 MG TAB PO SCH ×2 (09:36→21:39)
[2020-04-22] MEDS: ZINC SULFATE 220mg CAP or TAB PO SCH (09:37)
[2020-04-22] MEDS: LOPERAMIDE HCL 2 MG CAP PO SCH ×2 (09:37→21:39)
[2020-04-22] MEDS: ASCORBIC ACID 500 MG TAB PO SCH (09:37)
[2020-04-22] MEDS: SODIUM CHLOR 0.9% PF (SALINE LOCK) 10ML VIAL/SYR IV SCH ×2 (09:44→21:39)
[2020-04-22] MEDS: CHOLECALCIFEROL (VITD3) 2,000 UNIT CAP PO SCH (09:44)
[2020-04-22 16:00] VITALS: BP 123/70
[2020-04-22] MEDS: ALBUTEROL SULF HFA 90MCG INH 200DOSE IN PRN (19:24)
[2020-04-23] VITALS: BP 146/74
[2020-04-23] MEDS: InsuLIN REG 1unit/0.01ml Soln (100units/ml) SC SCH ×4 (06:12→21:02)
[2020-04-23] MEDS: ACCU-CHEK COMFORT CURVE STRIP VI SCH ×4 (06:12→21:02)
[2020-04-23] MEDS: BUDESONIDE (INHALATION) 180 MCG IH IN SCH ×2 (07:37→19:39)
[2020-04-23] MEDS: ALBUTEROL SULF HFA 90MCG INH 200DOSE IN PRN ×2 (07:38→19:39)
[2020-04-23 08:00] VITALS: BP 113/73
[2020-04-23] MEDS: ZINC SULFATE 220mg CAP or TAB PO SCH (10:00)
[2020-04-23] MEDS: CHOLECALCIFEROL (VITD3) 2,000 UNIT CAP PO SCH (10:00)
[2020-04-23] MEDS: LOPERAMIDE HCL 2 MG CAP PO SCH ×2 (10:00→21:02)
[2020-04-23] MEDS: ASCORBIC ACID 500 MG TAB PO SCH (10:00)
[2020-04-23] MEDS: SODIUM CHLOR 0.9% PF (SALINE LOCK) 10ML VIAL/SYR IV SCH ×2 (10:11→21:01)
[2020-04-23] MEDS: CARVEDILOL 12.5 MG TAB PO SCH ×2 (10:12→21:02)
[2020-04-23 16:00] VITALS: BP 146/89
[2020-04-24] VITALS: BP 145/87
[2020-04-24] MEDS: InsuLIN REG 1unit/0.01ml Soln (100units/ml) SC SCH ×4 (05:59→22:00)
[2020-04-24] MEDS: ACCU-CHEK COMFORT CURVE STRIP VI SCH ×4 (05:59→22:17)
[2020-04-24] MEDS: BUDESONIDE (INHALATION) 180 MCG IH IN SCH ×2 (07:52→22:16)
[2020-04-24] MEDS: ALBUTEROL SULF HFA 90MCG INH 200DOSE IN PRN ×2 (07:52→22:17)
[2020-04-24 08:00] VITALS: BP 173/94
[2020-04-24] MEDS: SODIUM CHLOR 0.9% PF (SALINE LOCK) 10ML VIAL/SYR IV SCH ×2 (11:49→22:17)
[2020-04-24] MEDS: LOPERAMIDE HCL 2 MG CAP PO SCH ×2 (11:50→22:17)
[2020-04-24] MEDS: CARVEDILOL 12.5 MG TAB PO SCH ×2 (11:50→22:18)
[2020-04-24] MEDS: ZINC SULFATE 220mg CAP or TAB PO SCH (11:50)
[2020-04-24] MEDS: ASCORBIC ACID 500 MG TAB PO SCH (11:51)
[2020-04-24] MEDS: CHOLECALCIFEROL (VITD3) 2,000 UNIT CAP PO SCH (11:51)
[2020-04-24 16:00] VITALS: BP 146/91
[2020-04-24 21:45] VITALS: BP 161/77
[2020-04-25] VITALS: BP 130/66
[2020-04-25] MEDS: InsuLIN REG 1unit/0.01ml Soln (100units/ml) SC SCH ×4 (06:02→22:00)
[2020-04-25] MEDS: ACCU-CHEK COMFORT CURVE STRIP VI SCH ×4 (06:02→22:17)
[2020-04-25] MEDS: ALBUTEROL SULF HFA 90MCG INH 200DOSE IN PRN ×2 (07:29→22:01)
[2020-04-25] MEDS: BUDESONIDE (INHALATION) 180 MCG IH IN SCH ×2 (07:29→22:01)
[2020-04-25 08:00] VITALS: BP 153/103
[2020-04-25] MEDS: CARVEDILOL 12.5 MG TAB PO SCH ×2 (10:19→22:18)
[2020-04-25] MEDS: SODIUM CHLOR 0.9% PF (SALINE LOCK) 10ML VIAL/SYR IV SCH ×2 (10:21→22:17)
[2020-04-25] MEDS: CHOLECALCIFEROL (VITD3) 2,000 UNIT CAP PO SCH (10:22)
[2020-04-25] MEDS: LOPERAMIDE HCL 2 MG CAP PO SCH ×2 (10:22→22:17)
[2020-04-25] MEDS: ZINC SULFATE 220mg CAP or TAB PO SCH (10:22)
[2020-04-25] MEDS: ASCORBIC ACID 500 MG TAB PO SCH (10:22)
[2020-04-25 16:00] VITALS: BP 151/73
== END 2020-04-25 22:27 | disposition home health service (06) | DRG 871 ==
LOC: ER 23:05 → OVERFLOW 23:06 → TELE-EAST 04-14 17:50
PROVIDERS: ADMIT Internal Medicine Cardiovascular Disease; ATTEND Internal Medicine Cardiovascular Disease
PROC: 5A09357 Assistance with Respiratory Ventilation, Less than 24 Consecutive Hours, Continuous Positive Airway Pressure (ICD-10-PCS; 2020-04-03)
PROC: 02HV33Z Insertion of Infusion Device into Superior Vena Cava, Percutaneous Approach (ICD-10-PCS; principal; 2020-04-04)
PROC: 30233N1 Transfusion of Nonautologous Red Blood Cells into Peripheral Vein, Percutaneous Approach (ICD-10-PCS; 2020-04-12)
PROC: B548ZZA Ultrasonography of Superior Vena Cava, Guidance (ICD-10-PCS; 2020-04-12)
DX: A41.89 Other specified sepsis (principal); U07.1 COVID-19; J96.91 Respiratory failure, unspecified with hypoxia; G92 Toxic encephalopathy; J12.82 Pneumonia due to coronavirus disease 2019; I50.23 Acute on chronic systolic (congestive) heart failure; I13.0 Hypertensive heart and chronic kidney disease with heart failure and stage 1 through stage 4 chronic kidney disease, or unspecified chronic kidney disease; I42.0 Dilated cardiomyopathy; D64.9 Anemia, unspecified; E11.22 Type 2 diabetes mellitus with diabetic chronic kidney disease; I25.10 Atherosclerotic heart disease of native coronary artery without angina pectoris; E11.42 Type 2 diabetes mellitus with diabetic polyneuropathy; M19.90 Unspecified osteoarthritis, unspecified site; E66.9 Obesity, unspecified; Z82.49 Family history of ischemic heart disease and other diseases of the circulatory system; I25.2 Old myocardial infarction; Z79.899 Other long term (current) drug therapy; Z95.810 Presence of automatic (implantable) cardiac defibrillator; N18.31 Chronic kidney disease, stage 3a; Z68.33 Body mass index [BMI] 33.0-33.9, adult
CPT/HCPCS: 36415; 36569; 36600; 71045; 80048; 80053; 81001; 82805; 82962; 83605; 83735; 83880; 84484; 85007; 85025; 85027; 85045; 85379; 85610; 85730; 86850; 86900; 86901; 86920; 87040; 87081; 87086; 87088; 87493; 93005; 94640; 94660; 97110; 97530; 99291; G0378; J0885; J1100; J1815; J2543

== ENCOUNTER → 2020-05-08 | Outpatient (CLI) | payer MEDICARE, OTHER ==
[~2020-05-08] MED LIST changes: +CYANOCOBALAMIN (B-12) 1000 MCG/1 ML VIAL IM ONE; +CYANOCOBALAMIN (B-12) 1000 MCG/1 ML VIAL ONE; +DOBUTamine 1000MCG/ML 250 ML IV ONE; +MAGNESIUM OXIDE 400 MG TAB ONE; +MAGNESIUM OXIDE 400 MG TAB PO ONE; +POTASSIUM CHL 10 Meq TABLET PO ONE
[2020-05-08 11:49] LABS: Basophils # (auto) 0.1 10 ^3/uL (0-0.2); Basophils % (auto) 0.8 % (0.0-2.0); Eosinophils # (auto) 0.2 10 ^3/uL (0-0.8); Eosinophils % (auto) 2.8 % (0.0-7.0); Hematocrit 32.6 % (36.0-46.0); Hemoglobin 10.7 g/dL (12.2-16.2); Lymphocytes # (auto) 1.9 10 ^3/uL (0.4-5.4); Lymphocytes % (auto) 31.7 % (10.0-50.0); Mean Corpuscular Hemoglobin 28.3 pg (28.0-32.0); Mean Corpuscular Hgb Conc. 32.8 g/dL (32.0-36.0); Mean Corpuscular Volume 86.4 fL (80.0-100.0); Monocytes # (auto) 0.9 10 ^3/uL (0-1.3); Monocytes % (auto) 14.1 % (0.0-12.0); Neutrophils # (auto) 3.1 10 ^3/uL (1.6-8.6); Neutrophils % (auto) 50.6 % (37.0-80.0); Nucleated Red Blood Cells % 0.1 %; Platelet Count (auto) 301 10^3/uL (140-450); Red Blood Cells 3.77 10^6/uL (4.0-5.20); Red Cell Distribution Width 17.3 % (11.8-14.3); White Blood Cell 6.1 10^3/uL (4.4-10.8)
[2020-05-08 12:01] LABS: Albumin 2.8 g/dL (3.4-5.0); Magnesium 1.8 mg/dL (1.6-2.6); Potassium 3.5 mmol/L (3.5-5.1)
[2020-05-08 12:07] LABS: BUN/Creatinine Ratio 10.5; Bilirubin, Total 0.5 mg/dL (0.2-1.0); Total Protein 8.1 g/dL (6.4-8.2)
[2020-05-08 14:17] VITALS: BP 123/68
== END | disposition home or self-care (01) ==
LOC: CHF HDHVI 10:13
PROVIDERS: ATTEND Internal Medicine Cardiovascular Disease
DX: I13.0 Hypertensive heart and chronic kidney disease with heart failure and stage 1 through stage 4 chronic kidney disease, or unspecified chronic kidney disease (principal); E11.22 Type 2 diabetes mellitus with diabetic chronic kidney disease; I50.23 Acute on chronic systolic (congestive) heart failure; N18.31 Chronic kidney disease, stage 3a; I49.8 Other specified cardiac arrhythmias; E83.40 Disorders of magnesium metabolism, unspecified; I25.10 Atherosclerotic heart disease of native coronary artery without angina pectoris; I25.2 Old myocardial infarction; I42.8 Other cardiomyopathies; J44.9 Chronic obstructive pulmonary disease, unspecified; J96.10 Chronic respiratory failure, unspecified whether with hypoxia or hypercapnia; E11.42 Type 2 diabetes mellitus with diabetic polyneuropathy; E78.5 Hyperlipidemia, unspecified; E03.9 Hypothyroidism, unspecified; E66.01 Morbid (severe) obesity due to excess calories; Z68.33 Body mass index [BMI] 33.0-33.9, adult; Z95.810 Presence of automatic (implantable) cardiac defibrillator; Z79.899 Other long term (current) drug therapy
CPT/HCPCS: 36415; 80053; 82306; 83735; 83880; 85025; 93005; 96365; 96366; 96372; G0463; J1250; J3420

== ENCOUNTER → 2020-05-22 | Outpatient (CLI) | payer MEDICARE, OTHER ==
[~2020-05-22] VITALS: Ht 30.5 cm; Wt 74.5 kg
[2020-05-22] VITALS (11 sets, daily range): BP systolic 104–148; BP diastolic 59–90
[~2020-05-22] MED LIST changes: -CYANOCOBALAMIN (B-12) 1000 MCG/1 ML VIAL IM ONE; -CYANOCOBALAMIN (B-12) 1000 MCG/1 ML VIAL ONE; -MAGNESIUM OXIDE 400 MG TAB ONE; -MAGNESIUM OXIDE 400 MG TAB PO ONE; -POTASSIUM CHL 10 Meq TABLET PO ONE; +POTASSIUM EFFERVESENT TAB 25 MEQ ONE; +POTASSIUM EFFERVESENT TAB 25 MEQ PO ONE
[2020-05-22 11:40] LABS: Basophils # (auto) 0 10 ^3/uL (0-0.2); Basophils % (auto) 0.5 % (0.0-2.0); Eosinophils # (auto) 0.2 10 ^3/uL (0-0.8); Eosinophils % (auto) 2.7 % (0.0-7.0); Hematocrit 29.6 % (36.0-46.0); Hemoglobin 9.6 g/dL (12.2-16.2); Lymphocytes # (auto) 1.7 10 ^3/uL (0.4-5.4); Lymphocytes % (auto) 20.1 % (10.0-50.0); Mean Corpuscular Hemoglobin 27.7 pg (28.0-32.0); Mean Corpuscular Hgb Conc. 32.5 g/dL (32.0-36.0); Mean Corpuscular Volume 85.3 fL (80.0-100.0); Monocytes # (auto) 0.6 10 ^3/uL (0-1.3); Monocytes % (auto) 7.3 % (0.0-12.0); Neutrophils # (auto) 5.9 10 ^3/uL (1.6-8.6); Neutrophils % (auto) 69.4 % (37.0-80.0); Nucleated Red Blood Cells % 0.1 %; Platelet Count (auto) 275 10^3/uL (140-450); Red Blood Cells 3.47 10^6/uL (4.0-5.20); Red Cell Distribution Width 17.4 % (11.8-14.3); White Blood Cell 8.5 10^3/uL (4.4-10.8)
[2020-05-22 11:46] LABS: Albumin 2.6 g/dL (3.4-5.0); Magnesium 1.8 mg/dL (1.6-2.6); Potassium 3.4 mmol/L (3.5-5.1)
[2020-05-22 11:50] LABS: BUN/Creatinine Ratio 14.2; Bilirubin, Total 0.5 mg/dL (0.2-1.0); Total Protein 7.6 g/dL (6.4-8.2)
== END | disposition home or self-care (01) ==
LOC: CHF HDHVI 09:42
PROVIDERS: ATTEND Internal Medicine Cardiovascular Disease
DX: I13.0 Hypertensive heart and chronic kidney disease with heart failure and stage 1 through stage 4 chronic kidney disease, or unspecified chronic kidney disease (principal); E11.22 Type 2 diabetes mellitus with diabetic chronic kidney disease; I50.23 Acute on chronic systolic (congestive) heart failure; N18.30 Chronic kidney disease, stage 3 unspecified; I25.10 Atherosclerotic heart disease of native coronary artery without angina pectoris; J44.9 Chronic obstructive pulmonary disease, unspecified; E78.5 Hyperlipidemia, unspecified; E03.9 Hypothyroidism, unspecified; I25.2 Old myocardial infarction; I48.91 Unspecified atrial fibrillation; E11.42 Type 2 diabetes mellitus with diabetic polyneuropathy; M19.90 Unspecified osteoarthritis, unspecified site; Z86.73 Personal history of transient ischemic attack (TIA), and cerebral infarction without residual deficits; Z79.899 Other long term (current) drug therapy; Z95.810 Presence of automatic (implantable) cardiac defibrillator
CPT/HCPCS: 36415; 71046; 80053; 83735; 83880; 85025; 96365; 96366; G0463; J1250

== ENCOUNTER → 2020-05-29 | Outpatient (CLI) | payer MEDICARE, OTHER ==
[2020-05-29] VITALS (7 sets, daily range): BP systolic 116–146; BP diastolic 69–81
[~2020-05-29] MED LIST changes: +CYANOCOBALAMIN (B-12) 1000 MCG/1 ML VIAL IM ONE; +CYANOCOBALAMIN (B-12) 1000 MCG/1 ML VIAL ONE; +MAGNESIUM SULFATE 1GM/100ML 100 ML IV ONE; +MAGNESIUM SULFATE 1GM/100ML 200 ML IV ONE; -POTASSIUM EFFERVESENT TAB 25 MEQ ONE; -POTASSIUM EFFERVESENT TAB 25 MEQ PO ONE
[2020-05-29 15:37] LABS: Basophils # (auto) 0 10 ^3/uL (0-0.2); Basophils % (auto) 0.5 % (0.0-2.0); Eosinophils # (auto) 0.4 10 ^3/uL (0-0.8); Eosinophils % (auto) 5.1 % (0.0-7.0); Hematocrit 31.7 % (36.0-46.0); Hemoglobin 10.1 g/dL (12.2-16.2); Lymphocytes # (auto) 1.7 10 ^3/uL (0.4-5.4); Lymphocytes % (auto) 21.5 % (10.0-50.0); Mean Corpuscular Hemoglobin 27.7 pg (28.0-32.0); Mean Corpuscular Hgb Conc. 31.9 g/dL (32.0-36.0); Mean Corpuscular Volume 86.8 fL (80.0-100.0); Monocytes # (auto) 0.6 10 ^3/uL (0-1.3); Monocytes % (auto) 7.7 % (0.0-12.0); Neutrophils # (auto) 5.3 10 ^3/uL (1.6-8.6); Neutrophils % (auto) 65.2 % (37.0-80.0); Platelet Count (auto) 323 10^3/uL (140-450); Red Blood Cells 3.65 10^6/uL (4.0-5.20); Red Cell Distribution Width 17.6 % (11.8-14.3); White Blood Cell 8.1 10^3/uL (4.4-10.8)
[2020-05-29 15:43] LABS: BUN/Creatinine Ratio 13.2; Calcium 9.4 mg/dL (8.5-10.1); Magnesium 1.8 mg/dL (1.6-2.6); Potassium 4.1 mmol/L (3.5-5.1)
== END | disposition home or self-care (01) ==
LOC: CHF HDHVI 09:34
PROVIDERS: ATTEND Internal Medicine Cardiovascular Disease
DX: I13.0 Hypertensive heart and chronic kidney disease with heart failure and stage 1 through stage 4 chronic kidney disease, or unspecified chronic kidney disease (principal); E11.22 Type 2 diabetes mellitus with diabetic chronic kidney disease; I50.23 Acute on chronic systolic (congestive) heart failure; N18.31 Chronic kidney disease, stage 3a; D64.9 Anemia, unspecified; I49.9 Cardiac arrhythmia, unspecified; I25.10 Atherosclerotic heart disease of native coronary artery without angina pectoris; J44.9 Chronic obstructive pulmonary disease, unspecified; E78.5 Hyperlipidemia, unspecified; E03.9 Hypothyroidism, unspecified; I25.2 Old myocardial infarction; E11.42 Type 2 diabetes mellitus with diabetic polyneuropathy; I48.91 Unspecified atrial fibrillation; M19.90 Unspecified osteoarthritis, unspecified site; Z79.899 Other long term (current) drug therapy; Z95.810 Presence of automatic (implantable) cardiac defibrillator; Z86.73 Personal history of transient ischemic attack (TIA), and cerebral infarction without residual deficits
CPT/HCPCS: 36415; 80048; 83735; 83880; 85025; 96365; 96366; 96367; 96368; 96372; G0463; J1250; J3420; J3475

== ENCOUNTER → 2020-06-05 | Outpatient (CLI) | payer MEDICARE, OTHER ==
[2020-06-05] VITALS (9 sets, daily range): BP systolic 153–186; BP diastolic 74–94
[~2020-06-05] MED LIST changes: -CYANOCOBALAMIN (B-12) 1000 MCG/1 ML VIAL IM ONE; -CYANOCOBALAMIN (B-12) 1000 MCG/1 ML VIAL ONE; -MAGNESIUM SULFATE 1GM/100ML 100 ML IV ONE; -MAGNESIUM SULFATE 1GM/100ML 200 ML IV ONE; +POTASSIUM CHL 10 Meq TABLET PO ONE; +POTASSIUM EFFERVESENT TAB 25 MEQ ONE; +POTASSIUM EFFERVESENT TAB 25 MEQ PO ONE
[2020-06-05 10:44] LABS: Magnesium 2.1 mg/dL (1.6-2.6); Potassium 3.4 mmol/L (3.5-5.1)
== END | disposition home or self-care (01) ==
LOC: CHF HDHVI 09:19
PROVIDERS: ATTEND Internal Medicine Cardiovascular Disease
DX: I13.0 Hypertensive heart and chronic kidney disease with heart failure and stage 1 through stage 4 chronic kidney disease, or unspecified chronic kidney disease (principal); E11.22 Type 2 diabetes mellitus with diabetic chronic kidney disease; I50.23 Acute on chronic systolic (congestive) heart failure; N18.31 Chronic kidney disease, stage 3a; I25.10 Atherosclerotic heart disease of native coronary artery without angina pectoris; E11.42 Type 2 diabetes mellitus with diabetic polyneuropathy; I48.91 Unspecified atrial fibrillation; M19.90 Unspecified osteoarthritis, unspecified site; J44.9 Chronic obstructive pulmonary disease, unspecified; E78.5 Hyperlipidemia, unspecified; E03.9 Hypothyroidism, unspecified; I25.2 Old myocardial infarction; Z79.899 Other long term (current) drug therapy; Z95.810 Presence of automatic (implantable) cardiac defibrillator; Z86.73 Personal history of transient ischemic attack (TIA), and cerebral infarction without residual deficits
CPT/HCPCS: 36415; 82565; 83735; 83880; 84132; 84520; 96365; 96366; G0463; J1250

== ENCOUNTER → 2020-06-12 | Outpatient (CLI) | payer MEDICARE, OTHER ==
[~2020-06-12] VITALS: Ht 30.5 cm; Wt 78.0 kg
[2020-06-12] VITALS (10 sets, daily range): BP systolic 104–175; BP diastolic 70–97
[~2020-06-12] MED LIST changes: +CYANOCOBALAMIN (B-12) 1000 MCG/1 ML VIAL IM ONE; +CYANOCOBALAMIN (B-12) 1000 MCG/1 ML VIAL ONE; -POTASSIUM CHL 10 Meq TABLET PO ONE; -POTASSIUM EFFERVESENT TAB 25 MEQ ONE; -POTASSIUM EFFERVESENT TAB 25 MEQ PO ONE
[2020-06-12 11:57] LABS: Albumin 2.9 g/dL (3.4-5.0); Potassium 3.6 mmol/L (3.5-5.1)
[2020-06-12 11:59] LABS: Total Protein 7.7 g/dL (6.4-8.2)
== END | disposition home or self-care (01) ==
LOC: CHF HDHVI 09:15
PROVIDERS: ATTEND Internal Medicine Cardiovascular Disease
DX: I13.0 Hypertensive heart and chronic kidney disease with heart failure and stage 1 through stage 4 chronic kidney disease, or unspecified chronic kidney disease (principal); E11.22 Type 2 diabetes mellitus with diabetic chronic kidney disease; I50.23 Acute on chronic systolic (congestive) heart failure; N18.31 Chronic kidney disease, stage 3a; R53.83 Other fatigue; I25.10 Atherosclerotic heart disease of native coronary artery without angina pectoris; I25.2 Old myocardial infarction; I42.0 Dilated cardiomyopathy; I48.91 Unspecified atrial fibrillation; J96.10 Chronic respiratory failure, unspecified whether with hypoxia or hypercapnia; J44.9 Chronic obstructive pulmonary disease, unspecified; E11.42 Type 2 diabetes mellitus with diabetic polyneuropathy; E78.5 Hyperlipidemia, unspecified; E03.9 Hypothyroidism, unspecified; M19.90 Unspecified osteoarthritis, unspecified site; E66.01 Morbid (severe) obesity due to excess calories; Z68.33 Body mass index [BMI] 33.0-33.9, adult; Z79.899 Other long term (current) drug therapy; Z95.810 Presence of automatic (implantable) cardiac defibrillator; Z86.73 Personal history of transient ischemic attack (TIA), and cerebral infarction without residual deficits
CPT/HCPCS: 36415; 82040; 82565; 83880; 84132; 84155; 84520; 96365; 96366; 96372; G0463; J1250; J3420

== ENCOUNTER 2020-06-22 22:24 | Inpatient (IN) | payer MEDICARE, OTHER ==
[~2020-06-22] VITALS: Ht 162.6 cm; Wt 82.9 kg
[~2020-06-22 22:24] MED LIST changes: -CYANOCOBALAMIN (B-12) 1000 MCG/1 ML VIAL IM ONE; -CYANOCOBALAMIN (B-12) 1000 MCG/1 ML VIAL ONE; -DOBUTamine 1000MCG/ML 250 ML IV ONE
[2020-06-22] MEDS ORDERED: IPRATROPIUM BROM 0.5 MG/2.5ML INH SOL ONE (22:33)
[2020-06-22] MEDS ORDERED: ALBUTEROL SULF 2.5 MG/0.5ML(0.5%) NEB SOLN ONE (22:33)
[2020-06-23 00:10] VITALS: BP 139/80
[2020-06-23 00:30] LABS: Basophils # (auto) 0 10 ^3/uL (0-0.2); Basophils % (auto) 0.3 % (0.0-2.0); Eosinophils # (auto) 0.1 10 ^3/uL (0-0.8); Eosinophils % (auto) 1.3 % (0.0-7.0); Hematocrit 29.9 % (36.0-46.0); Hemoglobin 9.4 g/dL (12.2-16.2); Lymphocytes % (auto) 9.5 % (10.0-50.0); Mean Corpuscular Hemoglobin 27.1 pg (28.0-32.0); Mean Corpuscular Hgb Conc. 31.5 g/dL (32.0-36.0); Mean Corpuscular Volume 86.1 fL (80.0-100.0); Monocytes # (auto) 0.5 10 ^3/uL (0-1.3); Monocytes % (auto) 4.5 % (0.0-12.0); Neutrophils # (auto) 9.1 10 ^3/uL (1.6-8.6); Neutrophils % (auto) 84.4 % (37.0-80.0); Platelet Count (auto) 257 10^3/uL (140-450); Red Blood Cells 3.47 10^6/uL (4.0-5.20); Red Cell Distribution Width 15.8 % (11.8-14.3); White Blood Cell 10.8 10^3/uL (4.4-10.8)
[2020-06-23 00:46] LABS: Albumin 2.8 g/dL (3.4-5.0); BUN/Creatinine Ratio 13.7; Calcium 8.4 mg/dL (8.5-10.1); Potassium 3.7 mmol/L (3.5-5.1)
[2020-06-23 00:48] LABS: INR 1.03 (0.9-1.15); Partial Thromboplastin Time 20.6 sec (23.0-31.2)
[2020-06-23 00:50] LABS: Bilirubin, Total 0.5 mg/dL (0.2-1.0); Total Protein 7.1 g/dL (6.4-8.2)
[2020-06-23 00:56] LABS: Lactic Acid w/Reflex 2.3 mmol/L (0.4-2.0)
[2020-06-23 04:10] VITALS: BP 101/71
[2020-06-23 06:30] VITALS: BP 132/74
[2020-06-23 09:21] LABS: Urine Bacteria MANY /hpf (None Seen); Urine Blood Negative /uL (Negative); Urine Hyaline Cast FEW /lpf (0 - 2); Urine Mucus FEW (None Seen); Urine Specific Gravity 1.017 (1.001-1.035); Urine WBC 80 /hpf (0 - 5)
[2020-06-23 09:33] LABS: Lactic Acid w/Reflex 2.2 mmol/L (0.4-2.0)
[2020-06-23] MEDS ORDERED: cefTRIAXone 1GM/50ML D5W 50 ML IV ONE (11:00)
[2020-06-23] MEDS ORDERED: SODIUM CHLORIDE 0.9% 1,000 ML IV ONE (11:30)
[2020-06-23] MEDS ORDERED: MORPHINE SULF INJ 2 MG/ML SYRINGE 1ML IV PRN (15:30)
[2020-06-23] MEDS ORDERED: NITROGLYCERIN 0.4 MG SL TAB SL PRN (15:30)
[2020-06-23] MEDS ORDERED: DEXTROSE (50%) 50ML SYRG IV PRN (15:45)
[2020-06-23] MEDS ORDERED: ONDANSETRON HCL 4 MG/2 ML VIAL IV PRN (15:45)
[2020-06-23] MEDS ORDERED: ACETAMINOPHEN 500 MG TAB PO PRN (15:45)
[2020-06-23] MEDS ORDERED: LACTULOSE 20Gm/30ML SOLN PO PRN (15:45)
[2020-06-23] MEDS ORDERED: ALBUTEROL SULF 2.5 MG/0.5ML(0.5%) NEB SOLN NEB PRN (15:45)
[2020-06-23] MEDS: InsuLIN REG 1unit/0.01ml Soln (100units/ml) SC SCH ×2 (17:00→21:20)
[2020-06-23] MEDS: ACCU-CHEK COMFORT CURVE STRIP VI SCH ×2 (17:25→21:58)
[2020-06-23 17:38] VITALS: BP 138/78
[2020-06-23 18:46] VITALS: BP 144/75
[2020-06-23] MEDS: IPRATROPIUM BROM 0.5 MG/2.5ML INH SOL NEB SCH (18:54)
[2020-06-23] MEDS: ALBUTEROL SULF 2.5 MG/0.5ML(0.5%) NEB SOLN NEB SCH (18:54)
[2020-06-23 21:00] VITALS: BP 145/76
[2020-06-23] MEDS: ATORVASTATIN 20 MG TAB PO SCH (21:58)
[2020-06-23] MEDS: SODIUM CHLOR 0.9% PF (SALINE LOCK) 10ML VIAL/SYR IV SCH (21:58)
[2020-06-23] MEDS: hydrALAZINE HCL 25 MG TAB PO SCH (21:58)
[2020-06-23] MEDS: FAMOTIDINE 20 MG TAB PO SCH (21:58)
[2020-06-24] MEDS: IPRATROPIUM BROM 0.5 MG/2.5ML INH SOL NEB SCH ×4 (00:13→18:32)
[2020-06-24] MEDS: ALBUTEROL SULF 2.5 MG/0.5ML(0.5%) NEB SOLN NEB SCH ×4 (00:13→18:32)
[2020-06-24 04:20] VITALS: BP 144/75
[2020-06-24 05:00] VITALS: BP 138/79
[2020-06-24 05:49] LABS: Basophils # (auto) 0.1 10 ^3/uL (0-0.2); Basophils % (auto) 2.3 % (0.0-2.0); Eosinophils # (auto) 0.4 10 ^3/uL (0-0.8); Eosinophils % (auto) 7.6 % (0.0-7.0); Hematocrit 25.3 % (36.0-46.0); Hemoglobin 8.3 g/dL (12.2-16.2); Lymphocytes # (auto) 1.4 10 ^3/uL (0.4-5.4); Mean Corpuscular Hemoglobin 27.9 pg (28.0-32.0); Mean Corpuscular Hgb Conc. 32.7 g/dL (32.0-36.0); Mean Corpuscular Volume 85.1 fL (80.0-100.0); Monocytes # (auto) 0.4 10 ^3/uL (0-1.3); Neutrophils % (auto) 57.1 % (37.0-80.0); Nucleated Red Blood Cells % 0.1 %; Platelet Count (auto) 253 10^3/uL (140-450); Red Blood Cells 2.97 10^6/uL (4.0-5.20); Red Cell Distribution Width 15.5 % (11.8-14.3); White Blood Cell 5.3 10^3/uL (4.4-10.8)
[2020-06-24] MEDS: InsuLIN REG 1unit/0.01ml Soln (100units/ml) SC SCH ×4 (05:57→22:25)
[2020-06-24] MEDS: LEVOTHYROXINE SODIUM 25 MCG TAB PO SCH (05:58)
[2020-06-24] MEDS: SODIUM CHLOR 0.9% PF (SALINE LOCK) 10ML VIAL/SYR IV SCH ×3 (05:58→22:17)
[2020-06-24 06:15] LABS: Albumin 2.6 g/dL (3.4-5.0); Calcium 8.9 mg/dL (8.5-10.1); Potassium 3.8 mmol/L (3.5-5.1)
[2020-06-24 06:24] LABS: BUN/Creatinine Ratio 16.3; Bilirubin, Total 0.6 mg/dL (0.2-1.0); Total Protein 6.8 g/dL (6.4-8.2)
[2020-06-24 09:00] VITALS: BP 141/78
[2020-06-24] MEDS ORDERED: FUROSEMIDE 40 MG TAB PO SCH (10:00)
[2020-06-24] MEDS ORDERED: ASPirin 81 mg TAB PO SCH (10:00)
[2020-06-24] MEDS: Sitagliptin Phosphate (Januvia) 100 MG TAB PO SCH (10:00)
[2020-06-24] MEDS: cefTRIAXone 1GM/50ML D5W 50 ML IV SCH (10:32)
[2020-06-24] MEDS: ACCU-CHEK COMFORT CURVE STRIP VI SCH ×4 (10:32→22:18)
[2020-06-24] MEDS: NITROGLYCERIN 0.2MG/HR TOPICAL PATCH TD SCH (10:36)
[2020-06-24] MEDS: ENOXAPARIN SOD 40 MG/0.4 ML SYRINGE SC SCH (10:37)
[2020-06-24] MEDS: ALLOPURINOL 100 MG TAB PO SCH (10:37)
[2020-06-24] MEDS: FAMOTIDINE 20 MG TAB PO SCH (10:38)
[2020-06-24] MEDS: CLOPIDOGREL BISULFATE 75 MG TAB PO SCH (10:38)
[2020-06-24] MEDS: METOPROLOL SUCCINATE XL 50 MG TAB PO SCH (10:38)
[2020-06-24] MEDS: amLODIPine BESYLATE 5 MG TAB PO SCH (10:39)
[2020-06-24] MEDS: POTASSIUM CHLORIDE 8 MEQ TAB PO SCH (10:39)
[2020-06-24] MEDS: hydrALAZINE HCL 25 MG TAB PO SCH ×2 (10:43→22:18)
[2020-06-24] MEDS: ASPirin-EC 81 mg tab PO SCH (10:44)
[2020-06-24] MEDS: OXYBUTYNIN CHL 5 MG TAB PO SCH (10:44)
[2020-06-24] MEDS: SACUBITRIL-VALSARTAN 24mg/26mg TAB PO SCH (10:51)
[2020-06-24] MEDS ORDERED: FUROSEMIDE 40 MG/4 ML VIAL IV ONE (11:45)
[2020-06-24] MEDS ORDERED: methylPREDNISolone SOD SUCC 40 MG/ML VL IV ONE (11:45)
[2020-06-24 13:00] VITALS: BP 132/75
[2020-06-24 17:00] VITALS: BP 131/86
[2020-06-24] MEDS: FUROSEMIDE 40 MG/4 ML VIAL IV SCH (18:04)
[2020-06-24] MEDS: BUDESONIDE (INHALATION) 0.5 MG/2 ML NEB NEB SCH (18:33)
[2020-06-24 21:58] VITALS: BP 146/99
[2020-06-24] MEDS: methylPREDNISolone SOD SUCC 40 MG/ML VL IV SCH (22:18)
[2020-06-24] MEDS: ATORVASTATIN 20 MG TAB PO SCH (22:18)
[2020-06-25] MEDS: IPRATROPIUM BROM 0.5 MG/2.5ML INH SOL NEB SCH ×4 (00:16→19:52)
[2020-06-25] MEDS: ALBUTEROL SULF 2.5 MG/0.5ML(0.5%) NEB SOLN NEB SCH ×4 (00:16→19:52)
[2020-06-25 05:00] VITALS: BP 143/83
[2020-06-25] MEDS: ACCU-CHEK COMFORT CURVE STRIP VI SCH ×4 (06:17→22:18)
[2020-06-25] MEDS: FUROSEMIDE 40 MG/4 ML VIAL IV SCH (06:17)
[2020-06-25] MEDS: SODIUM CHLOR 0.9% PF (SALINE LOCK) 10ML VIAL/SYR IV SCH ×3 (06:17→22:30)
[2020-06-25] MEDS: LEVOTHYROXINE SODIUM 25 MCG TAB PO SCH (06:17)
[2020-06-25] MEDS: InsuLIN REG 1unit/0.01ml Soln (100units/ml) SC SCH ×4 (06:21→22:32)
[2020-06-25] MEDS: BUDESONIDE (INHALATION) 0.5 MG/2 ML NEB NEB SCH ×2 (06:36→23:06)
[2020-06-25 08:20] LABS: Anion Gap 15 (5-15); BUN/Creatinine Ratio 13.1; Blood Urea Nitrogen 23 mg/dL (7-18); Calcium 8.5 mg/dL (8.5-10.1); Carbon Dioxide 19 mmol/L (21-32); Chloride 102 mmol/L (98-107); GFR African American 36 mL/min; GFR Non-African American 30 mL/min; Glucose 387 mg/dL (74-106); Potassium 4.3 mmol/L (3.5-5.1); Sodium 136 mmol/L (136-145)
[2020-06-25 08:49] VITALS: BP 146/85
[2020-06-25] MEDS: cefTRIAXone 1GM/50ML D5W 50 ML IV SCH (09:00)
[2020-06-25] MEDS: Sitagliptin Phosphate (Januvia) 100 MG TAB PO SCH (10:00)
[2020-06-25] MEDS: methylPREDNISolone SOD SUCC 40 MG/ML VL IV SCH (10:10)
[2020-06-25] MEDS: ASPirin-EC 81 mg tab PO SCH (10:11)
[2020-06-25] MEDS: hydrALAZINE HCL 25 MG TAB PO SCH ×2 (10:11→22:18)
[2020-06-25] MEDS: OXYBUTYNIN CHL 5 MG TAB PO SCH (10:11)
[2020-06-25] MEDS: FAMOTIDINE 20 MG TAB PO SCH (10:12)
[2020-06-25] MEDS: SACUBITRIL-VALSARTAN 24mg/26mg TAB PO SCH (10:12)
[2020-06-25] MEDS: amLODIPine BESYLATE 5 MG TAB PO SCH (10:12)
[2020-06-25] MEDS: POTASSIUM CHLORIDE 8 MEQ TAB PO SCH (10:12)
[2020-06-25] MEDS: CLOPIDOGREL BISULFATE 75 MG TAB PO SCH (10:13)
[2020-06-25] MEDS: METOPROLOL SUCCINATE XL 50 MG TAB PO SCH (10:13)
[2020-06-25] MEDS: ENOXAPARIN SOD 40 MG/0.4 ML SYRINGE SC SCH (10:13)
[2020-06-25] MEDS: ALLOPURINOL 100 MG TAB PO SCH (10:13)
[2020-06-25] MEDS: NITROGLYCERIN 0.2MG/HR TOPICAL PATCH TD SCH (10:14)
[2020-06-25] MEDS ORDERED: EPINEPHrine HCL 250 ML IV ONE (10:41)
[2020-06-25 12:42] VITALS: BP 136/80
[2020-06-25 16:09] VITALS: BP 135/70
[2020-06-25] MEDS ORDERED: INSULIN LANTUS (GLARGINE) 1 /0.01ml (100units/ml) SC ONE (18:00)
[2020-06-25 22:00] VITALS: BP 133/60
[2020-06-25] MEDS: ATORVASTATIN 20 MG TAB PO SCH (22:17)
[2020-06-26] MEDS: IPRATROPIUM BROM 0.5 MG/2.5ML INH SOL NEB SCH ×3 (00:18→11:30)
[2020-06-26] MEDS: ALBUTEROL SULF 2.5 MG/0.5ML(0.5%) NEB SOLN NEB SCH ×3 (00:18→11:30)
[2020-06-26 05:00] VITALS: BP 138/80
[2020-06-26 05:30] LABS: Hematocrit 25.5 % (36.0-46.0); Hemoglobin 8.5 g/dL (12.2-16.2)
[2020-06-26] MEDS: LEVOTHYROXINE SODIUM 25 MCG TAB PO SCH (05:44)
[2020-06-26] MEDS: SODIUM CHLOR 0.9% PF (SALINE LOCK) 10ML VIAL/SYR IV SCH ×2 (05:44→14:00)
[2020-06-26] MEDS: ACCU-CHEK COMFORT CURVE STRIP VI SCH ×2 (05:44→11:30)
[2020-06-26 05:50] LABS: Calcium 8.6 mg/dL (8.5-10.1); Potassium 3.9 mmol/L (3.5-5.1)
[2020-06-26 05:51] LABS: BUN/Creatinine Ratio 16.9
[2020-06-26] MEDS: InsuLIN REG 1unit/0.01ml Soln (100units/ml) SC SCH ×2 (05:52→11:30)
[2020-06-26] MEDS: BUDESONIDE (INHALATION) 0.5 MG/2 ML NEB NEB SCH (06:15)
[2020-06-26 09:00] VITALS: BP 147/72
[2020-06-26] MEDS: cefTRIAXone 1GM/50ML D5W 50 ML IV SCH (09:08)
[2020-06-26] MEDS: ALLOPURINOL 100 MG TAB PO SCH (10:00)
[2020-06-26] MEDS: Sitagliptin Phosphate (Januvia) 100 MG TAB PO SCH (10:00)
[2020-06-26] MEDS ORDERED: predniSONE 20 MG TAB PO SCH (10:00)
[2020-06-26] MEDS: CLOPIDOGREL BISULFATE 75 MG TAB PO SCH (10:27)
[2020-06-26] MEDS: SACUBITRIL-VALSARTAN 24mg/26mg TAB PO SCH (10:27)
[2020-06-26] MEDS: ASPirin-EC 81 mg tab PO SCH (10:27)
[2020-06-26] MEDS: FAMOTIDINE 20 MG TAB PO SCH (10:27)
[2020-06-26] MEDS: hydrALAZINE HCL 25 MG TAB PO SCH (10:28)
[2020-06-26] MEDS: OXYBUTYNIN CHL 5 MG TAB PO SCH (10:28)
[2020-06-26] MEDS: amLODIPine BESYLATE 5 MG TAB PO SCH (10:28)
[2020-06-26] MEDS: METOPROLOL SUCCINATE XL 50 MG TAB PO SCH (10:28)
[2020-06-26] MEDS: ENOXAPARIN SOD 40 MG/0.4 ML SYRINGE SC SCH (10:29)
[2020-06-26 13:00] VITALS: BP 127/73
[2020-06-26] MEDS ORDERED: FUROSEMIDE 40 MG/4 ML VIAL IV ONE (13:30)
[2020-06-26] MEDS ORDERED: levoFLOXacin 250 MG TAB PO ONE (13:30)
[2020-06-26] MEDS ORDERED: LEVO250T69 PO (13:55)
[2020-06-26] MEDS ORDERED: FLUT110A INH (13:56)
[2020-06-26 14:01] VITALS: BP 147/72
[2020-06-27] MEDS ORDERED: levoFLOXacin 250 MG TAB PO SCH (10:00)
== END 2020-06-26 16:40 | disposition home health service (06) | DRG 280 ==
LOC: ER 22:24 → EDSEX 22:24 → EDBD 22:24 → EDUNIT# 22:24 → TELE 22:25 → TELE-WESTW 06-23 17:32
PROVIDERS: ADMIT Internal Medicine; ATTEND Internal Medicine
PROC: 5A09357 Assistance with Respiratory Ventilation, Less than 24 Consecutive Hours, Continuous Positive Airway Pressure (ICD-10-PCS; principal; 2020-06-22)
DX: I13.0 Hypertensive heart and chronic kidney disease with heart failure and stage 1 through stage 4 chronic kidney disease, or unspecified chronic kidney disease (principal); I50.43 Acute on chronic combined systolic (congestive) and diastolic (congestive) heart failure; I21.A1 Myocardial infarction type 2; J96.21 Acute and chronic respiratory failure with hypoxia; N39.0 Urinary tract infection, site not specified; J44.1 Chronic obstructive pulmonary disease with (acute) exacerbation; Z20.822 Contact with and (suspected) exposure to COVID-19; E66.9 Obesity, unspecified; N18.32 Chronic kidney disease, stage 3b; B96.4 Proteus (mirabilis) (morganii) as the cause of diseases classified elsewhere; E03.9 Hypothyroidism, unspecified; B96.1 Klebsiella pneumoniae [K. pneumoniae] as the cause of diseases classified elsewhere; E11.22 Type 2 diabetes mellitus with diabetic chronic kidney disease; I25.10 Atherosclerotic heart disease of native coronary artery without angina pectoris; M10.9 Gout, unspecified; D63.8 Anemia in other chronic diseases classified elsewhere; E11.21 Type 2 diabetes mellitus with diabetic nephropathy; Z68.29 Body mass index [BMI] 29.0-29.9, adult; Z95.810 Presence of automatic (implantable) cardiac defibrillator; Z82.3 Family history of stroke; Z82.49 Family history of ischemic heart disease and other diseases of the circulatory system; Z83.3 Family history of diabetes mellitus
CPT/HCPCS: 36415; 36600; 71045; 80048; 80053; 81001; 82550; 82805; 82962; 83036; 83605; 83880; 84484; 85014; 85018; 85025; 85379; 85610; 85730; 87040; 87086; 87088; 87186; 87426; 93005; 93970; 94640; 94644; 94660; 96361; 96365; 96372; G0378; J0171; J0696; J1815

== ENCOUNTER → 2020-07-03 | Outpatient (CLI) | payer MEDICARE, OTHER ==
[2020-07-03] VITALS (12 sets, daily range): BP systolic 125–159; BP diastolic 66–94
[~2020-07-03] VITALS: Ht 30.5 cm; Wt 83.2 kg
[~2020-07-03] MED LIST changes: +APIX2.5T PO; +CYANOCOBALAMIN (B-12) 1000 MCG/1 ML VIAL IM ONE; +CYANOCOBALAMIN (B-12) 1000 MCG/1 ML VIAL ONE; +DOBUTamine 1000MCG/ML 250 ML IV ONE; +FLUT110A INH; +FUROSEMIDE 20 MG/2 ML VIAL IV ONE; +FUROSEMIDE 20 MG/2 ML VIAL ONE; +FUROSEMIDE 40 MG/4 ML VIAL ONE; +IPR002IS NEB; +LEVO250T69 PO; +LOSA-69 PO; +MAGN400T26 PO; +MAGNESIUM CITRATE SOLUTION 300 ML BTL ONE; +MAGNESIUM CITRATE SOLUTION 300 ML BTL PO ONE; +METO1TAB9 PO; +OXYB5TAB61 PO; +POTA10TA32 PO; +POTASSIUM EFFERVESENT TAB 25 MEQ GT ONE; +POTASSIUM EFFERVESENT TAB 25 MEQ ONE; -PROM25TA5 PO; +SACU1TAB7 PO
[2020-07-03 10:26] LABS: Albumin 3.1 g/dL (3.4-5.0); Magnesium 2.4 mg/dL (1.6-2.6); Potassium 3.7 mmol/L (3.5-5.1)
[2020-07-03 10:29] LABS: Basophils # (auto) 0.1 10 ^3/uL (0-0.2); Eosinophils # (auto) 0.3 10 ^3/uL (0-0.8); Eosinophils % (auto) 3.7 % (0.0-7.0); Hematocrit 27.3 % (36.0-46.0); Hemoglobin 8.8 g/dL (12.2-16.2); Lymphocytes # (auto) 1.1 10 ^3/uL (0.4-5.4); Lymphocytes % (auto) 15.5 % (10.0-50.0); Mean Corpuscular Hemoglobin 27.5 pg (28.0-32.0); Mean Corpuscular Hgb Conc. 32.1 g/dL (32.0-36.0); Mean Corpuscular Volume 85.6 fL (80.0-100.0); Monocytes # (auto) 0.6 10 ^3/uL (0-1.3); Monocytes % (auto) 7.6 % (0.0-12.0); Neutrophils # (auto) 5.3 10 ^3/uL (1.6-8.6); Neutrophils % (auto) 72.2 % (37.0-80.0); Platelet Count (auto) 279 10^3/uL (140-450); Red Blood Cells 3.19 10^6/uL (4.0-5.20); Red Cell Distribution Width 15.2 % (11.8-14.3); White Blood Cell 7.3 10^3/uL (4.4-10.8)
[2020-07-03 10:32] LABS: BUN/Creatinine Ratio 16.9; Bilirubin, Total 0.9 mg/dL (0.2-1.0); Total Protein 7.4 g/dL (6.4-8.2)
== END | disposition home or self-care (01) ==
LOC: CHF HDHVI 09:13
PROVIDERS: ATTEND Internal Medicine Cardiovascular Disease
DX: I13.0 Hypertensive heart and chronic kidney disease with heart failure and stage 1 through stage 4 chronic kidney disease, or unspecified chronic kidney disease (principal); E11.22 Type 2 diabetes mellitus with diabetic chronic kidney disease; I50.42 Chronic combined systolic (congestive) and diastolic (congestive) heart failure; N18.30 Chronic kidney disease, stage 3 unspecified; I25.10 Atherosclerotic heart disease of native coronary artery without angina pectoris; I25.2 Old myocardial infarction; I48.91 Unspecified atrial fibrillation; I42.8 Other cardiomyopathies; J96.10 Chronic respiratory failure, unspecified whether with hypoxia or hypercapnia; J44.9 Chronic obstructive pulmonary disease, unspecified; E11.42 Type 2 diabetes mellitus with diabetic polyneuropathy; E03.9 Hypothyroidism, unspecified; E66.01 Morbid (severe) obesity due to excess calories; M19.90 Unspecified osteoarthritis, unspecified site; Z95.810 Presence of automatic (implantable) cardiac defibrillator; Z68.33 Body mass index [BMI] 33.0-33.9, adult; Z79.899 Other long term (current) drug therapy; Z86.73 Personal history of transient ischemic attack (TIA), and cerebral infarction without residual deficits
CPT/HCPCS: 36415; 80053; 83735; 83880; 85025; 96365; 96366; 96372; 96375; G0463; J1250; J1940; J3420

== ENCOUNTER 2020-07-05 21:20 | Inpatient (IN) | payer MEDICARE, OTHER ==
[~2020-07-05] VITALS: Ht 162.6 cm; Wt 84.7 kg
[~2020-07-05 21:20] MED LIST changes: -APIX2.5T PO; -CYANOCOBALAMIN (B-12) 1000 MCG/1 ML VIAL IM ONE; -CYANOCOBALAMIN (B-12) 1000 MCG/1 ML VIAL ONE; -DOBUTamine 1000MCG/ML 250 ML IV ONE; -FUROSEMIDE 20 MG/2 ML VIAL IV ONE; -FUROSEMIDE 20 MG/2 ML VIAL ONE; -FUROSEMIDE 40 MG/4 ML VIAL ONE; -IPR002IS NEB; -LOSA-69 PO; -MAGN400T26 PO; -MAGNESIUM CITRATE SOLUTION 300 ML BTL ONE; -MAGNESIUM CITRATE SOLUTION 300 ML BTL PO ONE; -METO1TAB9 PO; -OXYB5TAB61 PO; -POTA10TA32 PO; -POTASSIUM EFFERVESENT TAB 25 MEQ GT ONE; -POTASSIUM EFFERVESENT TAB 25 MEQ ONE; -SACU1TAB7 PO
[2020-07-05 22:23] LABS: Basophils # (auto) 0 10 ^3/uL (0-0.2); Basophils % (auto) 0.6 % (0.0-2.0); Eosinophils # (auto) 0.2 10 ^3/uL (0-0.8); Hematocrit 27.4 % (36.0-46.0); Hemoglobin 8.8 g/dL (12.2-16.2); Lymphocytes # (auto) 1.3 10 ^3/uL (0.4-5.4); Lymphocytes % (auto) 16.9 % (10.0-50.0); Mean Corpuscular Hemoglobin 27.5 pg (28.0-32.0); Monocytes # (auto) 0.7 10 ^3/uL (0-1.3); Monocytes % (auto) 9.2 % (0.0-12.0); Neutrophils # (auto) 5.6 10 ^3/uL (1.6-8.6); Neutrophils % (auto) 70.3 % (37.0-80.0); Nucleated Red Blood Cells % 0.1 %; Platelet Count (auto) 316 10^3/uL (140-450); Red Blood Cells 3.19 10^6/uL (4.0-5.20); Red Cell Distribution Width 14.9 % (11.8-14.3); White Blood Cell 7.9 10^3/uL (4.4-10.8)
[2020-07-05 22:43] LABS: Albumin 3.4 g/dL (3.4-5.0); Calcium 8.7 mg/dL (8.5-10.1)
[2020-07-05 22:44] LABS: INR 1.05 (0.9-1.15); Partial Thromboplastin Time 23.1 sec (23.0-31.2)
[2020-07-05 22:49] LABS: Bilirubin, Total 0.9 mg/dL (0.2-1.0); Total Protein 8.1 g/dL (6.4-8.2)
[2020-07-05 23:59] VITALS: BP 147/78
[2020-07-06] VITALS (7 sets, daily range): BP systolic 109–152; BP diastolic 67–82
[2020-07-06] MEDS ORDERED: ALBUTEROL SULF HFA 90MCG INH 200DOSE IN PRN (02:30)
[2020-07-06] MEDS ORDERED: hydrALAZINE HCL 20 MG/ML VL IV PRN (02:30)
[2020-07-06] MEDS ORDERED: MORPHINE SULF INJ 2 MG/ML SYRINGE 1ML IV PRN (02:45)
[2020-07-06] MEDS ORDERED: DEXTROSE (50%) 50ML SYRG IV PRN (02:45)
[2020-07-06] MEDS ORDERED: HYDROcodone-ACET 5/325MG TAB PO PRN (02:45)
[2020-07-06] MEDS ORDERED: ACETAMINOPHEN 325 MG TAB PO PRN (02:45)
[2020-07-06] MEDS ORDERED: ONDANSETRON HCL 4 MG/2 ML VIAL IV PRN (02:45)
[2020-07-06] MEDS ORDERED: NITROGLYCERIN 0.4 MG SL TAB SL PRN (02:45)
[2020-07-06] MEDS ORDERED: DOCUSATE SOD 100 MG CAP PO PRN (02:45)
[2020-07-06] MEDS: InsuLIN REG 1unit/0.01ml Soln (100units/ml) SC SCH ×3 (06:00→17:56)
[2020-07-06] MEDS: ACCU-CHEK COMFORT CURVE STRIP VI SCH ×3 (06:15→17:56)
[2020-07-06] MEDS: SODIUM CHLOR 0.9% PF (SALINE LOCK) 10ML VIAL/SYR IV SCH ×3 (06:15→21:30)
[2020-07-06] MEDS: ALBUTEROL SULF HFA 90MCG INH 200DOSE IN SCH ×2 (06:40→14:00)
[2020-07-06] MEDS ORDERED: FLUTICASONE PROPIONATE INH SCH (10:00)
[2020-07-06] MEDS: amLODIPine BESYLATE 5 MG TAB PO SCH (10:00)
[2020-07-06] MEDS: ASPirin-EC 81 mg tab PO SCH (10:00)
[2020-07-06] MEDS ORDERED: ALLOPURINOL 100 MG TAB PO SCH (10:00)
[2020-07-06] MEDS ORDERED: PATIENTS OWN MEDICATION (Amlodipine Besylate 10 MG) PO SCH (10:00)
[2020-07-06] MEDS ORDERED: amLODIPine BESYLATE 5 MG TAB PO SCH (10:00)
[2020-07-06 10:39] LABS: Basophils # (auto) 0.1 10 ^3/uL (0-0.2); Basophils % (auto) 0.9 % (0.0-2.0); Eosinophils # (auto) 0.2 10 ^3/uL (0-0.8); Eosinophils % (auto) 2.7 % (0.0-7.0); Hematocrit 23.5 % (36.0-46.0); Hemoglobin 7.6 g/dL (12.2-16.2); Lymphocytes # (auto) 1.2 10 ^3/uL (0.4-5.4); Lymphocytes % (auto) 14.5 % (10.0-50.0); Mean Corpuscular Hemoglobin 27.4 pg (28.0-32.0); Mean Corpuscular Hgb Conc. 32.2 g/dL (32.0-36.0); Monocytes # (auto) 0.6 10 ^3/uL (0-1.3); Monocytes % (auto) 7.4 % (0.0-12.0); Neutrophils % (auto) 74.5 % (37.0-80.0); Platelet Count (auto) 274 10^3/uL (140-450); Red Blood Cells 2.77 10^6/uL (4.0-5.20); Red Cell Distribution Width 14.8 % (11.8-14.3); White Blood Cell 8.1 10^3/uL (4.4-10.8)
[2020-07-06 10:50] LABS: % Iron Saturation 20.2 % (15-50)
[2020-07-06 10:51] LABS: Albumin 2.9 g/dL (3.4-5.0); Potassium 4.1 mmol/L (3.5-5.1)
[2020-07-06 10:56] LABS: BUN/Creatinine Ratio 15.8
[2020-07-06] MEDS: FUROSEMIDE 40 MG/4 ML VIAL IV SCH (10:57)
[2020-07-06] MEDS: FAMOTIDINE (10MG/ML) 2ML VL IV SCH (10:58)
[2020-07-06] MEDS: hydrALAZINE HCL 25 MG TAB PO SCH ×2 (10:58→21:31)
[2020-07-06] MEDS: ZINC SULFATE 220mg CAP or TAB PO SCH (10:58)
[2020-07-06] MEDS: MULTIPLE VITAMIN TAB PO SCH (11:00)
[2020-07-06] MEDS ORDERED: cefTRIAXone 1GM/50ML D5W 50 ML IV ONE (11:00)
[2020-07-06] MEDS: METOPROLOL TARTRATE 25 MG TAB PO SCH ×2 (11:00→21:31)
[2020-07-06] MEDS: ASCORBIC ACID 500 MG TAB PO SCH ×2 (11:01→21:30)
[2020-07-06] MEDS: LEVOTHYROXINE SODIUM 25 MCG TAB PO SCH (11:01)
[2020-07-06] MEDS: CLOPIDOGREL BISULFATE 75 MG TAB PO SCH (11:01)
[2020-07-06] MEDS: methylPREDNISolone SOD SUCC 40 MG/ML VL IV SCH ×2 (17:55→21:30)
[2020-07-06] MEDS: ALBUTEROL SULF 2.5 MG/0.5ML(0.5%) NEB SOLN NEB PRN (22:57)
[2020-07-07] MEDS: ACCU-CHEK COMFORT CURVE STRIP VI SCH ×4 (00:06→17:48)
[2020-07-07] MEDS: InsuLIN REG 1unit/0.01ml Soln (100units/ml) SC SCH ×4 (00:07→18:05)
[2020-07-07 05:00] VITALS: BP 138/88
[2020-07-07] MEDS: SODIUM CHLOR 0.9% PF (SALINE LOCK) 10ML VIAL/SYR IV SCH ×3 (06:33→21:55)
[2020-07-07] MEDS: methylPREDNISolone SOD SUCC 40 MG/ML VL IV SCH ×3 (06:33→21:54)
[2020-07-07 07:12] LABS: Basophils # (auto) 0 10 ^3/uL (0-0.2); Basophils % (auto) 0.2 % (0.0-2.0); Eosinophils # (auto) 0 10 ^3/uL (0-0.8); Hematocrit 24.4 % (36.0-46.0); Lymphocytes # (auto) 0.3 10 ^3/uL (0.4-5.4); Lymphocytes % (auto) 9.1 % (10.0-50.0); Mean Corpuscular Hemoglobin 27.9 pg (28.0-32.0); Mean Corpuscular Hgb Conc. 32.6 g/dL (32.0-36.0); Mean Corpuscular Volume 85.5 fL (80.0-100.0); Monocytes # (auto) 0.1 10 ^3/uL (0-1.3); Monocytes % (auto) 1.4 % (0.0-12.0); Neutrophils # (auto) 3.4 10 ^3/uL (1.6-8.6); Neutrophils % (auto) 89.3 % (37.0-80.0); Nucleated Red Blood Cells % 0.1 %; Platelet Count (auto) 277 10^3/uL (140-450); Red Blood Cells 2.86 10^6/uL (4.0-5.20); Red Cell Distribution Width 14.4 % (11.8-14.3); White Blood Cell 3.8 10^3/uL (4.4-10.8)
[2020-07-07 07:29] LABS: Potassium 4.5 mmol/L (3.5-5.1)
[2020-07-07 07:35] LABS: BUN/Creatinine Ratio 16.5; Bilirubin, Total 0.6 mg/dL (0.2-1.0); Calcium 8.9 mg/dL (8.5-10.1); Total Protein 7.4 g/dL (6.4-8.2)
[2020-07-07 08:00] VITALS: BP 157/80
[2020-07-07 09:00] VITALS: BP 157/80
[2020-07-07] MEDS: MULTIPLE VITAMIN TAB PO SCH (10:00)
[2020-07-07] MEDS: ASPirin-EC 81 mg tab PO SCH (10:00)
[2020-07-07 10:42] LABS: Urine Bacteria NONE SEEN /hpf (None Seen); Urine Blood Negative /uL (Negative); Urine Mucus FEW (None Seen); Urine Specific Gravity 1.019 (1.001-1.035); Urine WBC 2 /hpf (0 - 5)
[2020-07-07] MEDS: cefTRIAXone 1GM/50ML D5W 50 ML IV SCH (10:42)
[2020-07-07] MEDS: FUROSEMIDE 40 MG/4 ML VIAL IV SCH (10:43)
[2020-07-07] MEDS: FAMOTIDINE (10MG/ML) 2ML VL IV SCH (10:43)
[2020-07-07] MEDS: hydrALAZINE HCL 25 MG TAB PO SCH ×2 (10:44→21:55)
[2020-07-07] MEDS: ZINC SULFATE 220mg CAP or TAB PO SCH (10:44)
[2020-07-07] MEDS: METOPROLOL TARTRATE 25 MG TAB PO SCH ×2 (10:45→21:55)
[2020-07-07] MEDS: CLOPIDOGREL BISULFATE 75 MG TAB PO SCH (10:46)
[2020-07-07] MEDS: amLODIPine BESYLATE 5 MG TAB PO SCH (10:46)
[2020-07-07] MEDS: LEVOTHYROXINE SODIUM 25 MCG TAB PO SCH (10:47)
[2020-07-07] MEDS: ASCORBIC ACID 500 MG TAB PO SCH ×2 (10:47→21:54)
[2020-07-07 13:00] VITALS: BP 130/78
[2020-07-07 16:53] VITALS: BP 127/80
[2020-07-07] MEDS: ALBUTEROL SULF 2.5 MG/0.5ML(0.5%) NEB SOLN NEB PRN (19:02)
[2020-07-07 22:34] VITALS: BP 148/90
[2020-07-08] MEDS: ACCU-CHEK COMFORT CURVE STRIP VI SCH ×4 (00:19→18:21)
[2020-07-08] MEDS: InsuLIN REG 1unit/0.01ml Soln (100units/ml) SC SCH ×4 (00:23→18:21)
[2020-07-08] MEDS: ALBUTEROL SULF 2.5 MG/0.5ML(0.5%) NEB SOLN NEB PRN (01:54)
[2020-07-08 05:12] VITALS: BP 149/79
[2020-07-08] MEDS: methylPREDNISolone SOD SUCC 40 MG/ML VL IV SCH ×3 (05:36→21:39)
[2020-07-08] MEDS: SODIUM CHLOR 0.9% PF (SALINE LOCK) 10ML VIAL/SYR IV SCH ×3 (05:36→21:39)
[2020-07-08 07:25] LABS: Basophils # (auto) 0 10 ^3/uL (0-0.2); Basophils % (auto) 0.1 % (0.0-2.0); Eosinophils # (auto) 0 10 ^3/uL (0-0.8); Hematocrit 24.8 % (36.0-46.0); Lymphocytes # (auto) 0.4 10 ^3/uL (0.4-5.4); Lymphocytes % (auto) 3.7 % (10.0-50.0); Mean Corpuscular Hemoglobin 27.7 pg (28.0-32.0); Mean Corpuscular Hgb Conc. 32.3 g/dL (32.0-36.0); Mean Corpuscular Volume 85.8 fL (80.0-100.0); Monocytes # (auto) 0.2 10 ^3/uL (0-1.3); Monocytes % (auto) 2.2 % (0.0-12.0); Neutrophils # (auto) 9.1 10 ^3/uL (1.6-8.6); Platelet Count (auto) 309 10^3/uL (140-450); Red Blood Cells 2.89 10^6/uL (4.0-5.20); Red Cell Distribution Width 14.7 % (11.8-14.3); White Blood Cell 9.7 10^3/uL (4.4-10.8)
[2020-07-08 08:46] VITALS: BP 127/74
[2020-07-08] MEDS: cefTRIAXone 1GM/50ML D5W 50 ML IV SCH (09:01)
[2020-07-08] MEDS: ZINC SULFATE 220mg CAP or TAB PO SCH (09:02)
[2020-07-08] MEDS: FUROSEMIDE 40 MG/4 ML VIAL IV SCH (09:02)
[2020-07-08] MEDS: FAMOTIDINE (10MG/ML) 2ML VL IV SCH (09:02)
[2020-07-08] MEDS: hydrALAZINE HCL 25 MG TAB PO SCH ×2 (09:02→21:40)
[2020-07-08] MEDS: METOPROLOL TARTRATE 25 MG TAB PO SCH ×2 (09:03→21:39)
[2020-07-08] MEDS: MULTIPLE VITAMIN TAB PO SCH (09:04)
[2020-07-08] MEDS: LEVOTHYROXINE SODIUM 25 MCG TAB PO SCH (09:05)
[2020-07-08] MEDS: amLODIPine BESYLATE 5 MG TAB PO SCH (09:05)
[2020-07-08] MEDS: CLOPIDOGREL BISULFATE 75 MG TAB PO SCH (09:05)
[2020-07-08] MEDS: ASCORBIC ACID 500 MG TAB PO SCH ×2 (09:06→21:39)
[2020-07-08] MEDS: ASPirin-EC 81 mg tab PO SCH (10:00)
[2020-07-08 10:15] LABS: Folate (Folic Acid) 7.63 ng/mL (5.38-24)
[2020-07-08 13:00] VITALS: BP 105/70
[2020-07-08 17:00] VITALS: BP 142/83
[2020-07-08 22:00] VITALS: BP 146/81
[2020-07-09] MEDS: ACCU-CHEK COMFORT CURVE STRIP VI SCH ×5 (00:01→23:19)
[2020-07-09] MEDS: InsuLIN REG 1unit/0.01ml Soln (100units/ml) SC SCH ×5 (00:05→23:19)
[2020-07-09 03:14] VITALS: BP 130/72
[2020-07-09 05:00] VITALS: BP 142/84
[2020-07-09] MEDS: SODIUM CHLOR 0.9% PF (SALINE LOCK) 10ML VIAL/SYR IV SCH ×3 (05:46→21:32)
[2020-07-09] MEDS: methylPREDNISolone SOD SUCC 40 MG/ML VL IV SCH ×2 (05:46→14:58)
[2020-07-09 09:00] VITALS: BP 136/79
[2020-07-09] MEDS: hydrALAZINE HCL 25 MG TAB PO SCH ×2 (09:18→21:32)
[2020-07-09] MEDS: ZINC SULFATE 220mg CAP or TAB PO SCH (09:19)
[2020-07-09] MEDS: amLODIPine BESYLATE 5 MG TAB PO SCH (09:19)
[2020-07-09] MEDS: LEVOTHYROXINE SODIUM 25 MCG TAB PO SCH (09:19)
[2020-07-09] MEDS: MULTIPLE VITAMIN TAB PO SCH (09:19)
[2020-07-09] MEDS: METOPROLOL TARTRATE 25 MG TAB PO SCH ×2 (09:19→21:31)
[2020-07-09] MEDS: ASCORBIC ACID 500 MG TAB PO SCH ×2 (09:20→21:30)
[2020-07-09] MEDS: cefTRIAXone 1GM/50ML D5W 50 ML IV SCH (09:20)
[2020-07-09] MEDS: CLOPIDOGREL BISULFATE 75 MG TAB PO SCH (09:20)
[2020-07-09] MEDS: FAMOTIDINE (10MG/ML) 2ML VL IV SCH (09:21)
[2020-07-09] MEDS: FUROSEMIDE 40 MG/4 ML VIAL IV SCH (09:21)
[2020-07-09 13:00] VITALS: BP 131/78
[2020-07-09] MEDS ORDERED: ASPirin 81 mg TAB PO ONE (14:45)
[2020-07-09] MEDS ORDERED: POTA10TA32 PO (15:40)
[2020-07-09] MEDS ORDERED: OXYB5TAB61 PO (15:41)
[2020-07-09] MEDS ORDERED: ALBU108A5 IN (15:42)
[2020-07-09] MEDS ORDERED: METO1TAB9 PO (15:43)
[2020-07-09] MEDS ORDERED: SACU1TAB7 PO (15:43)
[2020-07-09] MEDS ORDERED: LOSA-69 PO (15:45)
[2020-07-09] MEDS ORDERED: APIX2.5T PO (15:45)
[2020-07-09] MEDS ORDERED: MAGN400T26 PO (15:45)
[2020-07-09 17:00] VITALS: BP 142/76
[2020-07-09] MEDS ORDERED: IPR002IS NEB (18:10)
[2020-07-09 22:14] VITALS: BP 156/91
[2020-07-10 04:49] VITALS: BP 153/84
[2020-07-10] MEDS: SODIUM CHLOR 0.9% PF (SALINE LOCK) 10ML VIAL/SYR IV SCH ×2 (05:44→13:45)
[2020-07-10] MEDS: ACCU-CHEK COMFORT CURVE STRIP VI SCH ×3 (05:44→18:16)
[2020-07-10] MEDS: InsuLIN REG 1unit/0.01ml Soln (100units/ml) SC SCH ×3 (05:47→18:20)
[2020-07-10 07:23] LABS: Calcium 8.5 mg/dL (8.5-10.1); Potassium 3.5 mmol/L (3.5-5.1)
[2020-07-10 09:00] VITALS: BP 119/80
[2020-07-10] MEDS: cefTRIAXone 1GM/50ML D5W 50 ML IV SCH (09:00)
[2020-07-10] MEDS: FUROSEMIDE 40 MG/4 ML VIAL IV SCH (09:53)
[2020-07-10] MEDS: FAMOTIDINE (10MG/ML) 2ML VL IV SCH (09:53)
[2020-07-10] MEDS: hydrALAZINE HCL 25 MG TAB PO SCH (09:54)
[2020-07-10] MEDS: ZINC SULFATE 220mg CAP or TAB PO SCH (09:54)
[2020-07-10] MEDS: amLODIPine BESYLATE 5 MG TAB PO SCH (09:55)
[2020-07-10] MEDS: METOPROLOL TARTRATE 25 MG TAB PO SCH (09:55)
[2020-07-10] MEDS: MULTIPLE VITAMIN TAB PO SCH (09:55)
[2020-07-10] MEDS: CLOPIDOGREL BISULFATE 75 MG TAB PO SCH (09:56)
[2020-07-10] MEDS: LEVOTHYROXINE SODIUM 25 MCG TAB PO SCH (09:56)
[2020-07-10] MEDS: ASCORBIC ACID 500 MG TAB PO SCH (09:56)
[2020-07-10] MEDS ORDERED: predniSONE 20 MG TAB PO SCH (10:00)
[2020-07-10] MEDS ORDERED: ASPirin 81 mg TAB PO SCH (10:00)
[2020-07-10 13:00] VITALS: BP 104/80
[2020-07-10 16:54] VITALS: BP 128/87
[2020-07-10 20:24] VITALS: BP 147/73
[2020-07-10 21:09] VITALS: BP 117/79
== END 2020-07-10 22:00 | disposition home or self-care (01) | DRG 291 ==
LOC: ER 21:20 → TELE 07-06 02:38 → TELE-CENTR 07-06 05:48
PROVIDERS: ADMIT Nurse Practitioner Family; ATTEND Internal Medicine Cardiovascular Disease
PROC: 5A09357 Assistance with Respiratory Ventilation, Less than 24 Consecutive Hours, Continuous Positive Airway Pressure (ICD-10-PCS; principal; 2020-07-05)
DX: I13.0 Hypertensive heart and chronic kidney disease with heart failure and stage 1 through stage 4 chronic kidney disease, or unspecified chronic kidney disease (principal); J96.21 Acute and chronic respiratory failure with hypoxia; I50.23 Acute on chronic systolic (congestive) heart failure; J44.1 Chronic obstructive pulmonary disease with (acute) exacerbation; I42.0 Dilated cardiomyopathy; D64.9 Anemia, unspecified; E11.65 Type 2 diabetes mellitus with hyperglycemia; M10.9 Gout, unspecified; E11.21 Type 2 diabetes mellitus with diabetic nephropathy; E11.40 Type 2 diabetes mellitus with diabetic neuropathy, unspecified; Z20.822 Contact with and (suspected) exposure to COVID-19; E11.22 Type 2 diabetes mellitus with diabetic chronic kidney disease; E03.9 Hypothyroidism, unspecified; I25.10 Atherosclerotic heart disease of native coronary artery without angina pectoris; Z82.3 Family history of stroke; Z82.49 Family history of ischemic heart disease and other diseases of the circulatory system; Z83.3 Family history of diabetes mellitus; Z86.16 Personal history of COVID-19; Z87.01 Personal history of pneumonia (recurrent); Z87.891 Personal history of nicotine dependence; Z91.19 Patient's noncompliance with other medical treatment and regimen; N18.32 Chronic kidney disease, stage 3b
CPT/HCPCS: 36415; 36600; 71045; 80048; 80053; 81001; 82607; 82746; 82805; 82962; 83540; 83550; 83880; 84443; 84484; 85025; 85610; 85730; 86850; 86900; 86901; 86920; 87081; 87426; 93970; 94640; 96374; G0378; J0696; J1815; J3490

== ENCOUNTER 2020-07-16 20:43 | Inpatient (IN) | payer MEDICARE, OTHER ==
[~2020-07-16] VITALS: Ht 165.1 cm; Wt 18.5 kg
[~2020-07-16 20:43] MED LIST changes: +APIX2.5T PO; -CLOP75TA28 PO; +IPR002IS NEB; -IPRA0.00 NEB; +LOSA-69 PO; +MAGN400T26 PO; -METO-169 PO; +METO1TAB9 PO; -OXYB5TAB24 PO; +OXYB5TAB61 PO; +POTA10TA32 PO; -POTA8TAB2 PO; -SACU1TAB PO; +SACU1TAB7 PO
[2020-07-16] MEDS ORDERED: methylPREDNISolone SOD SUCC 125 MG/2 ML VL IV ONE (20:45)
[2020-07-16] MEDS: ALBUTEROL SULF 2.5 MG/0.5ML(0.5%) NEB SOLN HHN ONE ×2 (21:04→21:29)
[2020-07-16] MEDS: IPRATROPIUM BROM 0.5 MG/2.5ML INH SOL HHN ONE ×2 (21:04→21:29)
[2020-07-16 21:15] LABS: Basophils # (auto) 0.1 10 ^3/uL (0-0.2); Basophils % (auto) 0.8 % (0.0-2.0); Eosinophils # (auto) 0.6 10 ^3/uL (0-0.8); Eosinophils % (auto) 3.9 % (0.0-7.0); Hematocrit 28.5 % (36.0-46.0); Hemoglobin 8.9 g/dL (12.2-16.2); Lymphocytes % (auto) 24.6 % (10.0-50.0); Mean Corpuscular Hemoglobin 27.4 pg (28.0-32.0); Mean Corpuscular Hgb Conc. 31.4 g/dL (32.0-36.0); Mean Corpuscular Volume 87.3 fL (80.0-100.0); Monocytes # (auto) 1.2 10 ^3/uL (0-1.3); Monocytes % (auto) 7.2 % (0.0-12.0); Neutrophils # (auto) 10.4 10 ^3/uL (1.6-8.6); Neutrophils % (auto) 63.5 % (37.0-80.0); Nucleated Red Blood Cells % 0.1 %; Platelet Count (auto) 355 10^3/uL (140-450); Red Blood Cells 3.26 10^6/uL (4.0-5.20); Red Cell Distribution Width 14.8 % (11.8-14.3); White Blood Cell 16.4 10^3/uL (4.4-10.8)
[2020-07-16] MEDS ORDERED: hydrALAZINE HCL 20 MG/ML VL IV ONE (21:15)
[2020-07-16] MEDS ORDERED: ENALAPRILAT 1.25 MG/ML-1ML VIAL IV ONE (21:30)
[2020-07-16 21:39] LABS: Albumin 3.3 g/dL (3.4-5.0); BUN/Creatinine Ratio 16.4; Calcium 8.4 mg/dL (8.5-10.1); Magnesium 2.2 mg/dL (1.6-2.6); Potassium 4.1 mmol/L (3.5-5.1)
[2020-07-16 21:42] LABS: Lactic Acid w/Reflex 3.2 mmol/L (0.4-2.0)
[2020-07-16 21:44] LABS: Bilirubin, Total 0.6 mg/dL (0.2-1.0); Total Protein 7.9 g/dL (6.4-8.2)
[2020-07-16] MEDS ORDERED: NITROGLYCERIN 0.2MG/HR TOPICAL PATCH TD ONE (22:30)
[2020-07-17] MEDS ORDERED: MORPHINE SULF INJ 2 MG/ML SYRINGE 1ML IV PRN (04:00)
[2020-07-17] MEDS ORDERED: NITROGLYCERIN 0.4 MG SL TAB SL PRN (04:00)
[2020-07-17 05:06] LABS: Urine Bacteria FEW /hpf (None Seen); Urine Blood Negative /uL (Negative); Urine Hyaline Cast FEW /lpf (0 - 2); Urine Mucus FEW (None Seen); Urine Specific Gravity 1.018 (1.001-1.035); Urine WBC 2 /hpf (0 - 5)
[2020-07-17] MEDS ORDERED: FUROSEMIDE INJECTION 10 ML ONE (05:10)
[2020-07-17] MEDS: DOBUTamine 1000MCG/ML 250 ML IV SCH ×3 (05:33→18:20)
[2020-07-17] MEDS: FUROSEMIDE INJECTION 100 MG in SODIUM CHL 0.9% 100 ML IV SCH ×2 (05:34→15:58)
[2020-07-17] MEDS: IPRATROPIUM BROM 0.5 MG/2.5ML INH SOL NEB SCH ×3 (07:03→18:09)
[2020-07-17 07:30] VITALS: BP 153/77
[2020-07-17 07:57] LABS: Hematocrit 24.8 % (36.0-46.0); Mean Corpuscular Hemoglobin 27.5 pg (28.0-32.0); Mean Corpuscular Hgb Conc. 32.2 g/dL (32.0-36.0); Mean Corpuscular Volume 85.4 fL (80.0-100.0); Platelet Count (auto) 283 10^3/uL (140-450); Red Cell Distribution Width 14.6 % (11.8-14.3); White Blood Cell 8.8 10^3/uL (4.4-10.8)
[2020-07-17 08:08] LABS: Potassium 4.4 mmol/L (3.5-5.1)
[2020-07-17 08:13] LABS: BUN/Creatinine Ratio 20.9
[2020-07-17 08:14] LABS: Basophils % (manual) 0 (0.0-2.0); Eosinophils % (manual) 0 (0-7); Metamyelocytes % 0
[2020-07-17 08:15] LABS: Blast Cells 0; Myelocytes % 0; Promyelocytes % 0; Reactive Lymphocytes 0
[2020-07-17 08:57] LABS: Band Neutrophils % (manual) 2; Lymphocytes % (manual) 4 (10.0-50.0); Monocytes % (manual) 1 (0-12)
[2020-07-17 12:30] VITALS: BP 158/84
[2020-07-17] MEDS: DIGOXIN 0.125 MG TAB PO SCH (14:37)
[2020-07-17] MEDS: POTASSIUM CHL 20 Meq TABLET PO SCH ×2 (14:41→21:42)
[2020-07-17] MEDS: SACUBITRIL-VALSARTAN 24mg/26mg TAB PO SCH ×2 (14:41→21:42)
[2020-07-17 17:00] VITALS: BP 141/67
[2020-07-17] MEDS ORDERED: HYDROcodone-ACET 10/325MG TAB PO PRN (17:45)
[2020-07-17 22:16] VITALS: BP 142/67
[2020-07-18] MEDS: IPRATROPIUM BROM 0.5 MG/2.5ML INH SOL NEB SCH ×4 (00:23→18:00)
[2020-07-18] MEDS: FUROSEMIDE INJECTION 100 MG in SODIUM CHL 0.9% 100 ML IV SCH ×2 (02:16→10:29)
[2020-07-18 04:48] VITALS: BP 153/73
[2020-07-18 06:09] LABS: Basophils # (auto) 0 10 ^3/uL (0-0.2); Basophils % (auto) 0.1 % (0.0-2.0); Eosinophils # (auto) 0 10 ^3/uL (0-0.8); Neutrophils # (auto) 10.4 10 ^3/uL (1.6-8.6); Red Cell Distribution Width 14.5 % (11.8-14.3); White Blood Cell 11.8 10^3/uL (4.4-10.8)
[2020-07-18 06:10] LABS: Hematocrit 22.6 % (36.0-46.0); Hemoglobin 7.5 g/dL (12.2-16.2); Lymphocytes # (auto) 0.5 10 ^3/uL (0.4-5.4); Lymphocytes % (auto) 4.6 % (10.0-50.0); Mean Corpuscular Hemoglobin 28.4 pg (28.0-32.0); Mean Corpuscular Hgb Conc. 33.2 g/dL (32.0-36.0); Mean Corpuscular Volume 85.5 fL (80.0-100.0); Monocytes # (auto) 0.9 10 ^3/uL (0-1.3); Monocytes % (auto) 7.3 % (0.0-12.0); Nucleated Red Blood Cells % 0.1 %; Platelet Count (auto) 262 10^3/uL (140-450); Red Blood Cells 2.64 10^6/uL (4.0-5.20)
[2020-07-18 06:36] LABS: Calcium 8.8 mg/dL (8.5-10.1); Potassium 4.9 mmol/L (3.5-5.1)
[2020-07-18 06:45] LABS: BUN/Creatinine Ratio 22.7
[2020-07-18] MEDS ORDERED: DEXTROSE (50%) 50ML SYRG IV PRN (08:15)
[2020-07-18] MEDS: INSULIN LANTUS (GLARGINE) 1 /0.01ml (100units/ml) SC SCH ×2 (08:29→22:28)
[2020-07-18] MEDS: InsuLIN REG 1unit/0.01ml Soln (100units/ml) SC SCH ×4 (08:30→22:22)
[2020-07-18] MEDS: ACCU-CHEK COMFORT CURVE STRIP VI SCH ×4 (08:30→22:22)
[2020-07-18 09:00] VITALS: BP 154/81
[2020-07-18] MEDS: POTASSIUM CHL 20 Meq TABLET PO SCH ×2 (10:27→22:14)
[2020-07-18] MEDS: SACUBITRIL-VALSARTAN 24mg/26mg TAB PO SCH ×2 (10:27→22:14)
[2020-07-18] MEDS: DIGOXIN 0.125 MG TAB PO SCH (10:28)
[2020-07-18 13:00] VITALS: BP 143/89
[2020-07-18] MEDS: DOBUTamine 1000MCG/ML 250 ML IV SCH (15:43)
[2020-07-18 17:00] VITALS: BP 143/72
[2020-07-18 20:00] VITALS: BP 134/80
[2020-07-19] MEDS: IPRATROPIUM BROM 0.5 MG/2.5ML INH SOL NEB SCH ×4 (00:11→21:10)
[2020-07-19] MEDS: INSULIN LANTUS (GLARGINE) 1 /0.01ml (100units/ml) SC SCH ×2 (01:00→07:06)
[2020-07-19 05:00] VITALS: BP 140/73
[2020-07-19 06:06] LABS: Basophils # (auto) 0.1 10 ^3/uL (0-0.2); Eosinophils # (auto) 0.3 10 ^3/uL (0-0.8); Monocytes # (auto) 0.7 10 ^3/uL (0-1.3); Neutrophils # (auto) 8.3 10 ^3/uL (1.6-8.6); Red Cell Distribution Width 14.1 % (11.8-14.3)
[2020-07-19 06:08] LABS: Basophils % (auto) 0.9 % (0.0-2.0); Eosinophils % (auto) 2.7 % (0.0-7.0); Hematocrit 23.2 % (36.0-46.0); Hemoglobin 7.8 g/dL (12.2-16.2); Lymphocytes # (auto) 1.3 10 ^3/uL (0.4-5.4); Lymphocytes % (auto) 12.3 % (10.0-50.0); Mean Corpuscular Hemoglobin 28.6 pg (28.0-32.0); Mean Corpuscular Hgb Conc. 33.8 g/dL (32.0-36.0); Mean Corpuscular Volume 84.6 fL (80.0-100.0); Monocytes % (auto) 6.4 % (0.0-12.0); Neutrophils % (auto) 77.7 % (37.0-80.0); Platelet Count (auto) 267 10^3/uL (140-450); Red Blood Cells 2.74 10^6/uL (4.0-5.20); White Blood Cell 10.7 10^3/uL (4.4-10.8)
[2020-07-19 06:26] LABS: BUN/Creatinine Ratio 26.4; Calcium 8.9 mg/dL (8.5-10.1)
[2020-07-19] MEDS: InsuLIN REG 1unit/0.01ml Soln (100units/ml) SC SCH ×3 (07:00→17:40)
[2020-07-19] MEDS: ACCU-CHEK COMFORT CURVE STRIP VI SCH ×4 (07:00→22:00)
[2020-07-19 08:38] VITALS: BP 131/68
[2020-07-19] MEDS: POTASSIUM CHL 20 Meq TABLET PO SCH ×2 (10:59→22:00)
[2020-07-19] MEDS: DIGOXIN 0.125 MG TAB PO SCH (11:00)
[2020-07-19] MEDS: SACUBITRIL-VALSARTAN 24mg/26mg TAB PO SCH ×2 (11:00→22:00)
[2020-07-19] MEDS: DOBUTamine 1000MCG/ML 250 ML IV SCH (11:53)
[2020-07-19 13:00] VITALS: BP 141/57
[2020-07-19 15:27] LABS: Basophils # (auto) 0.1 10 ^3/uL (0-0.2); Basophils % (auto) 0.5 % (0.0-2.0); Eosinophils # (auto) 0.3 10 ^3/uL (0-0.8); Eosinophils % (auto) 3.2 % (0.0-7.0); Hematocrit 26.2 % (36.0-46.0); Hemoglobin 8.5 g/dL (12.2-16.2); Lymphocytes % (auto) 9.6 % (10.0-50.0); Mean Corpuscular Hemoglobin 27.7 pg (28.0-32.0); Mean Corpuscular Hgb Conc. 32.3 g/dL (32.0-36.0); Mean Corpuscular Volume 85.8 fL (80.0-100.0); Monocytes # (auto) 0.8 10 ^3/uL (0-1.3); Monocytes % (auto) 7.5 % (0.0-12.0); Neutrophils # (auto) 7.9 10 ^3/uL (1.6-8.6); Neutrophils % (auto) 79.2 % (37.0-80.0); Platelet Count (auto) 306 10^3/uL (140-450); Red Blood Cells 3.05 10^6/uL (4.0-5.20); Red Cell Distribution Width 14.3 % (11.8-14.3)
[2020-07-19 16:35] VITALS: BP 157/78
[2020-07-19 22:00] VITALS: BP 141/74
[2020-07-20] MEDS: IPRATROPIUM BROM 0.5 MG/2.5ML INH SOL NEB SCH ×5 (00:49→18:20)
[2020-07-20] MEDS: InsuLIN REG 1unit/0.01ml Soln (100units/ml) SC SCH ×4 (01:00→17:00)
[2020-07-20 04:55] VITALS: BP 128/66
[2020-07-20] MEDS: ACCU-CHEK COMFORT CURVE STRIP VI SCH ×3 (07:00→17:00)
[2020-07-20] MEDS: INSULIN LANTUS (GLARGINE) 1 /0.01ml (100units/ml) SC SCH (07:00)
[2020-07-20 07:10] VITALS: BP 128/66
[2020-07-20] MEDS: DOBUTamine 1000MCG/ML 250 ML IV SCH (07:48)
[2020-07-20 08:20] VITALS: BP 129/73
[2020-07-20 08:21] LABS: Basophils # (auto) 0.1 10 ^3/uL (0-0.2); Basophils % (auto) 0.8 % (0.0-2.0); Eosinophils # (auto) 0.4 10 ^3/uL (0-0.8); Mean Corpuscular Hemoglobin 27.9 pg (28.0-32.0); Monocytes # (auto) 0.8 10 ^3/uL (0-1.3); Neutrophils # (auto) 5.4 10 ^3/uL (1.6-8.6)
[2020-07-20 08:23] LABS: Eosinophils % (auto) 4.6 % (0.0-7.0); Hematocrit 26.1 % (36.0-46.0); Hemoglobin 8.4 g/dL (12.2-16.2); Lymphocytes # (auto) 1.2 10 ^3/uL (0.4-5.4); Lymphocytes % (auto) 14.8 % (10.0-50.0); Mean Corpuscular Hgb Conc. 32.2 g/dL (32.0-36.0); Mean Corpuscular Volume 86.6 fL (80.0-100.0); Monocytes % (auto) 10.2 % (0.0-12.0); Neutrophils % (auto) 69.6 % (37.0-80.0); Platelet Count (auto) 290 10^3/uL (140-450); Red Blood Cells 3.01 10^6/uL (4.0-5.20); Red Cell Distribution Width 14.2 % (11.8-14.3); White Blood Cell 7.8 10^3/uL (4.4-10.8)
[2020-07-20 08:59] LABS: Calcium 8.7 mg/dL (8.5-10.1); Potassium 4.4 mmol/L (3.5-5.1)
[2020-07-20 09:01] LABS: BUN/Creatinine Ratio 22.6
[2020-07-20] MEDS: DIGOXIN 0.125 MG TAB PO SCH (10:04)
[2020-07-20] MEDS: SACUBITRIL-VALSARTAN 24mg/26mg TAB PO SCH (10:04)
[2020-07-20] MEDS: POTASSIUM CHL 20 Meq TABLET PO SCH (10:07)
[2020-07-20 12:15] VITALS: BP 146/69
[2020-07-20 15:38] VITALS: BP 146/69
[2020-07-20 16:15] VITALS: BP 151/83
== END 2020-07-20 18:52 | disposition home or self-care (01) | DRG 291 ==
LOC: ER 20:44 → TELE 07-17 04:04 → EDUNIT# 07-17 04:04 → TELE-CENTR 07-17 08:38
PROVIDERS: ADMIT Internal Medicine Cardiovascular Disease; ATTEND Internal Medicine Cardiovascular Disease
PROC: 5A09357 Assistance with Respiratory Ventilation, Less than 24 Consecutive Hours, Continuous Positive Airway Pressure (ICD-10-PCS; 2020-07-16)
PROC: 05HB33Z Insertion of Infusion Device into Right Basilic Vein, Percutaneous Approach (ICD-10-PCS; principal; 2020-07-18)
PROC: B54MZZA Ultrasonography of Right Upper Extremity Veins, Guidance (ICD-10-PCS; 2020-07-18)
DX: I11.0 Hypertensive heart disease with heart failure (principal); J96.02 Acute respiratory failure with hypercapnia; J44.1 Chronic obstructive pulmonary disease with (acute) exacerbation; K92.2 Gastrointestinal hemorrhage, unspecified; I50.23 Acute on chronic systolic (congestive) heart failure; I42.0 Dilated cardiomyopathy; Z20.822 Contact with and (suspected) exposure to COVID-19; D50.0 Iron deficiency anemia secondary to blood loss (chronic); E11.9 Type 2 diabetes mellitus without complications; I27.20 Pulmonary hypertension, unspecified; I48.0 Paroxysmal atrial fibrillation; M19.90 Unspecified osteoarthritis, unspecified site; Z86.16 Personal history of COVID-19; Z87.01 Personal history of pneumonia (recurrent)
CPT/HCPCS: 36415; 36600; 71045; 80048; 80053; 81001; 82270; 82805; 82962; 83605; 83735; 83880; 84484; 85007; 85025; 85027; 87040; 87426; 93005; 94640; 96365; 96375; 99291; G0378; J1815

== ENCOUNTER 2020-07-23 14:45 | Inpatient (IN) | payer MEDICARE, OTHER ==
[2020-07-23] VITALS (18 sets, daily range): BP systolic 111–173; BP diastolic 69–102
[~2020-07-23] VITALS: Ht 175.3 cm; Wt 74.2 kg
[2020-07-23] MEDS: fentaNYL Drip 2500mCg/250mlNS 250 ML IV SCH (08:00)
[2020-07-23] MEDS ORDERED: MAGNESIUM SULFATE 1GM/100ML 100 ML IV ONE (15:00)
[2020-07-23] MEDS ORDERED: ALBUTEROL SULF 2.5 MG/0.5ML(0.5%) NEB SOLN NEB ONE (15:00)
[2020-07-23] MEDS ORDERED: IPRATROPIUM BROM 0.5 MG/2.5ML INH SOL NEB ONE (15:00)
[2020-07-23] MEDS ORDERED: methylPREDNISolone SOD SUCC 125 MG/2 ML VL IV ONE (15:00)
[2020-07-23 15:21] LABS: Basophils # (auto) 0.1 10 ^3/uL (0-0.2); Eosinophils # (auto) 0.5 10 ^3/uL (0-0.8); Red Blood Cells 3.38 10^6/uL (4.0-5.20)
[2020-07-23 15:22] LABS: Basophils % (auto) 0.8 % (0.0-2.0); Eosinophils % (auto) 3.6 % (0.0-7.0); Hematocrit 30.2 % (36.0-46.0); Hemoglobin 9.2 g/dL (12.2-16.2); Lymphocytes # (auto) 4.5 10 ^3/uL (0.4-5.4); Mean Corpuscular Hemoglobin 27.3 pg (28.0-32.0); Mean Corpuscular Hgb Conc. 30.5 g/dL (32.0-36.0); Mean Corpuscular Volume 89.3 fL (80.0-100.0); Monocytes # (auto) 0.9 10 ^3/uL (0-1.3); Monocytes % (auto) 6.4 % (0.0-12.0); Neutrophils # (auto) 7.8 10 ^3/uL (1.6-8.6); Neutrophils % (auto) 56.2 % (37.0-80.0); Platelet Count (auto) 380 10^3/uL (140-450); Red Cell Distribution Width 14.7 % (11.8-14.3); White Blood Cell 13.8 10^3/uL (4.4-10.8)
[2020-07-23] MEDS ORDERED: PROPOFOL 100 ML IV ONE (15:26)
[2020-07-23] MEDS ORDERED: PROPOFOL 100 ML IV SCH (15:30)
[2020-07-23] MEDS ORDERED: SUCCINYLCHOLINE CHLORIDE 20 MG/ML 10ML VIAL IV ONE (15:30)
[2020-07-23] MEDS ORDERED: ETOMIDATE (2MG/ML) 20ML VIAL IV ONE (15:30)
[2020-07-23] MEDS ORDERED: MIDAZOLAM DRIP 50 mg/50mL 50 ML IV ONE (15:31)
[2020-07-23 15:34] LABS: Albumin 3.3 g/dL (3.4-5.0); BUN/Creatinine Ratio 15.3; Calcium 9.2 mg/dL (8.5-10.1); Potassium 4.2 mmol/L (3.5-5.1)
[2020-07-23] MEDS: MIDAZOLAM DRIP 50 mg/50mL 50 ML IV SCH ×2 (15:35→22:20)
[2020-07-23 15:38] LABS: Lactic Acid w/Reflex 7.2 mmol/L (0.4-2.0)
[2020-07-23 15:39] LABS: Total Protein 8.1 g/dL (6.4-8.2)
[2020-07-23 15:48] LABS: Urine Bacteria NONE SEEN /hpf (None Seen); Urine Blood Negative /uL (Negative); Urine Specific Gravity 1.012 (1.001-1.035); Urine WBC 1 /hpf (0 - 5)
[2020-07-23 15:52] LABS: INR 1.04 (0.9-1.15); Partial Thromboplastin Time 26.8 sec (23.0-31.2)
[2020-07-23] MEDS ORDERED: FUROSEMIDE 40 MG/4 ML VIAL IV ONE (16:00)
[2020-07-23] MEDS ORDERED: NOREPINEPHRINE 8 MG/250ML KIT 250 ML IV ONE (16:30)
[2020-07-23] MEDS: NOREPINEPHRINE 8 MG/250ML KIT 250 ML IV SCH (16:40)
[2020-07-23] MEDS ORDERED: MORPHINE SULF INJ 2 MG/ML SYRINGE 1ML IV PRN (18:15)
[2020-07-23] MEDS ORDERED: NITROGLYCERIN 0.4 MG SL TAB SL PRN (18:15)
[2020-07-23] MEDS ORDERED: DEXTROSE (50%) 50ML SYRG IV PRN (18:15)
[2020-07-23] MEDS: PROPOFOL 100 ML IV SCH ×2 (19:30→23:24)
[2020-07-23] MEDS: DOBUTamine 1000MCG/ML 250 ML IV SCH (20:00)
[2020-07-23] MEDS: ACCU-CHEK COMFORT CURVE STRIP VI SCH (21:47)
[2020-07-23] MEDS: InsuLIN REG 1unit/0.01ml Soln (100units/ml) SC SCH (21:48)
[2020-07-24] VITALS (103 sets, daily range): BP systolic 109–190; BP diastolic 63–103
[2020-07-24] MEDS: MIDAZOLAM DRIP 50 mg/50mL 50 ML IV SCH ×4 (02:00→17:58)
[2020-07-24] MEDS: ALBUTEROL SULF 2.5 MG/0.5ML(0.5%) NEB SOLN NEB SCH ×4 (02:16→18:09)
[2020-07-24] MEDS: IPRATROPIUM BROM 0.5 MG/2.5ML INH SOL NEB SCH ×4 (02:17→18:09)
[2020-07-24] MEDS ORDERED: dilTIAZem 25 MG/5 ML VIAL IV ONE (02:45)
[2020-07-24] MEDS: PROPOFOL 100 ML IV SCH (04:13)
[2020-07-24 04:42] LABS: Albumin 2.8 g/dL (3.4-5.0); Calcium 8.9 mg/dL (8.5-10.1)
[2020-07-24 04:46] LABS: BUN/Creatinine Ratio 16.6; Bilirubin, Total 0.9 mg/dL (0.2-1.0); Total Protein 6.9 g/dL (6.4-8.2)
[2020-07-24 04:50] LABS: Basophils # (auto) 0 10 ^3/uL (0-0.2); Basophils % (auto) 0.1 % (0.0-2.0); Eosinophils # (auto) 0 10 ^3/uL (0-0.8); Hemoglobin 7.8 g/dL (12.2-16.2); Lymphocytes # (auto) 0.2 10 ^3/uL (0.4-5.4); Monocytes # (auto) 0.1 10 ^3/uL (0-1.3); Nucleated Red Blood Cells % 0.1 %; Platelet Count (auto) 287 10^3/uL (140-450)
[2020-07-24 04:52] LABS: Hematocrit 23.3 % (36.0-46.0); Lymphocytes % (auto) 3.6 % (10.0-50.0); Mean Corpuscular Hemoglobin 28.2 pg (28.0-32.0); Mean Corpuscular Hgb Conc. 33.3 g/dL (32.0-36.0); Mean Corpuscular Volume 84.6 fL (80.0-100.0); Monocytes % (auto) 0.8 % (0.0-12.0); Neutrophils % (auto) 95.5 % (37.0-80.0); Red Blood Cells 2.76 10^6/uL (4.0-5.20); Red Cell Distribution Width 14.2 % (11.8-14.3); White Blood Cell 6.2 10^3/uL (4.4-10.8)
[2020-07-24] MEDS: DOBUTamine 1000MCG/ML 250 ML IV SCH ×2 (05:23→20:57)
[2020-07-24] MEDS: FUROSEMIDE 40 MG/4 ML VIAL IV SCH ×2 (06:07→17:57)
[2020-07-24] MEDS: ACCU-CHEK COMFORT CURVE STRIP VI SCH ×4 (06:15→22:00)
[2020-07-24] MEDS: InsuLIN REG 1unit/0.01ml Soln (100units/ml) SC SCH ×4 (06:30→22:37)
[2020-07-24] MEDS ORDERED: METOPROLOL TARTRATE 50 MG TAB PO ONE (07:00)
[2020-07-24] MEDS ORDERED: METOPROLOL TARTRATE 50 MG TAB ONE (07:04)
[2020-07-24] MEDS: cefTRIAXone 1GM/50ML D5W 50 ML IV SCH (09:08)
[2020-07-24] MEDS: METOPROLOL TARTRATE 50 MG TAB PO SCH ×2 (10:03→21:47)
[2020-07-24] MEDS: AZITHROMYCIN 500MG/ 250ML 250 ML IV SCH (10:03)
[2020-07-24] MEDS ORDERED: ALBU108A5 IN (13:14)
[2020-07-24] MEDS: NOREPINEPHRINE 8 MG/250ML KIT 250 ML IV SCH (16:45)
[2020-07-24] MEDS: fentaNYL Drip 2500mCg/250mlNS 250 ML IV SCH (19:30)
[2020-07-24] MEDS ORDERED: FUROSEMIDE 40 MG/4 ML VIAL IV ONE (21:30)
[2020-07-25] VITALS (99 sets, daily range): BP systolic 124–203; BP diastolic 65–108
[2020-07-25] MEDS: IPRATROPIUM BROM 0.5 MG/2.5ML INH SOL NEB SCH ×4 (00:07→18:33)
[2020-07-25] MEDS: ALBUTEROL SULF 2.5 MG/0.5ML(0.5%) NEB SOLN NEB SCH ×4 (00:07→18:33)
[2020-07-25] MEDS: DOBUTamine 1000MCG/ML 250 ML IV SCH ×3 (00:54→21:08)
[2020-07-25 02:17] LABS: Basophils # (auto) 0 10 ^3/uL (0-0.2); Basophils % (auto) 0.2 % (0.0-2.0); Eosinophils # (auto) 0 10 ^3/uL (0-0.8); Eosinophils % (auto) 0.3 % (0.0-7.0); Hematocrit 31.1 % (36.0-46.0); Hemoglobin 10.2 g/dL (12.2-16.2); Lymphocytes # (auto) 0.9 10 ^3/uL (0.4-5.4); Lymphocytes % (auto) 6.3 % (10.0-50.0); Mean Corpuscular Hgb Conc. 32.6 g/dL (32.0-36.0); Mean Corpuscular Volume 85.9 fL (80.0-100.0); Monocytes % (auto) 6.7 % (0.0-12.0); Neutrophils # (auto) 12.8 10 ^3/uL (1.6-8.6); Neutrophils % (auto) 86.5 % (37.0-80.0); Platelet Count (auto) 301 10^3/uL (140-450); Red Blood Cells 3.62 10^6/uL (4.0-5.20); Red Cell Distribution Width 14.6 % (11.8-14.3); White Blood Cell 14.8 10^3/uL (4.4-10.8)
[2020-07-25 02:34] LABS: Albumin 2.8 g/dL (3.4-5.0); BUN/Creatinine Ratio 17.6; Calcium 9.2 mg/dL (8.5-10.1); Potassium 3.5 mmol/L (3.5-5.1)
[2020-07-25 02:37] LABS: Total Protein 7.3 g/dL (6.4-8.2)
[2020-07-25] MEDS: FUROSEMIDE 40 MG/4 ML VIAL IV SCH ×3 (05:58→18:11)
[2020-07-25] MEDS: ACCU-CHEK COMFORT CURVE STRIP VI SCH ×4 (06:41→21:26)
[2020-07-25] MEDS: InsuLIN REG 1unit/0.01ml Soln (100units/ml) SC SCH ×4 (06:43→21:31)
[2020-07-25] MEDS: METOPROLOL TARTRATE 50 MG TAB PO SCH ×2 (06:57→21:14)
[2020-07-25] MEDS: cefTRIAXone 1GM/50ML D5W 50 ML IV SCH (08:37)
[2020-07-25] MEDS ORDERED: SACUBITRIL-VALSARTAN 24mg/26mg TAB PO SCH (10:00)
[2020-07-25] MEDS ORDERED: hydrALAZINE HCL 20 MG/ML VL ONE (10:25)
[2020-07-25] MEDS: AZITHROMYCIN 500MG/ 250ML 250 ML IV SCH (10:27)
[2020-07-25] MEDS ORDERED: hydrALAZINE HCL 20 MG/ML VL IV PRN (10:30)
[2020-07-25] MEDS: NOREPINEPHRINE 8 MG/250ML KIT 250 ML IV SCH (15:41)
[2020-07-25] MEDS ORDERED: SACUBITRIL-VALSARTAN 24mg/26mg TAB PO ONE (15:45)
[2020-07-25] MEDS: fentaNYL Drip 2500mCg/250mlNS 250 ML IV SCH (18:12)
[2020-07-25] MEDS: PROPOFOL 100 ML IV SCH ×2 (18:13→22:26)
[2020-07-25] MEDS: SACUBITRIL-VALSARTAN 24mg/26mg TAB PO SCH (21:10)
[2020-07-26] VITALS (97 sets, daily range): BP systolic 109–156; BP diastolic 58–105
[2020-07-26] MEDS: ALBUTEROL SULF 2.5 MG/0.5ML(0.5%) NEB SOLN NEB SCH ×5 (00:22→23:58)
[2020-07-26] MEDS: IPRATROPIUM BROM 0.5 MG/2.5ML INH SOL NEB SCH ×5 (00:22→23:58)
[2020-07-26 04:03] LABS: Basophils # (auto) 0.1 10 ^3/uL (0-0.2); Basophils % (auto) 0.4 % (0.0-2.0); Eosinophils # (auto) 0.1 10 ^3/uL (0-0.8); Eosinophils % (auto) 0.8 % (0.0-7.0); Hematocrit 32.6 % (36.0-46.0); Hemoglobin 10.8 g/dL (12.2-16.2); Lymphocytes # (auto) 1.1 10 ^3/uL (0.4-5.4); Lymphocytes % (auto) 9.6 % (10.0-50.0); Mean Corpuscular Hemoglobin 28.4 pg (28.0-32.0); Mean Corpuscular Hgb Conc. 33.1 g/dL (32.0-36.0); Mean Corpuscular Volume 85.8 fL (80.0-100.0); Monocytes # (auto) 1.1 10 ^3/uL (0-1.3); Monocytes % (auto) 9.3 % (0.0-12.0); Neutrophils # (auto) 9.5 10 ^3/uL (1.6-8.6); Neutrophils % (auto) 79.9 % (37.0-80.0); Platelet Count (auto) 289 10^3/uL (140-450); Red Blood Cells 3.81 10^6/uL (4.0-5.20); Red Cell Distribution Width 14.5 % (11.8-14.3); White Blood Cell 11.9 10^3/uL (4.4-10.8)
[2020-07-26 04:18] LABS: Calcium 9.1 mg/dL (8.5-10.1)
[2020-07-26 04:25] LABS: Albumin 2.8 g/dL (3.4-5.0); BUN/Creatinine Ratio 16.9; Bilirubin, Total 1.2 mg/dL (0.2-1.0)
[2020-07-26 04:38] LABS: Potassium 2.8 mmol/L (3.5-5.1)
[2020-07-26] MEDS: FUROSEMIDE 40 MG/4 ML VIAL IV SCH ×2 (06:00→17:43)
[2020-07-26] MEDS: SACUBITRIL-VALSARTAN 24mg/26mg TAB PO SCH ×3 (06:05→22:18)
[2020-07-26] MEDS: ACCU-CHEK COMFORT CURVE STRIP VI SCH ×4 (06:05→22:17)
[2020-07-26] MEDS: InsuLIN REG 1unit/0.01ml Soln (100units/ml) SC SCH ×4 (06:15→22:20)
[2020-07-26] MEDS: POTASSIUM CHL 20MEQ/100ML 100 ML IV SCH ×4 (07:40→11:37)
[2020-07-26] MEDS: DOBUTamine 1000MCG/ML 250 ML IV SCH (08:42)
[2020-07-26] MEDS: METOPROLOL TARTRATE 50 MG TAB PO SCH ×2 (08:42→22:19)
[2020-07-26] MEDS: cefTRIAXone 1GM/50ML D5W 50 ML IV SCH (09:04)
[2020-07-26] MEDS: AZITHROMYCIN 500MG/ 250ML 250 ML IV SCH (10:00)
[2020-07-26] MEDS ORDERED: LEVALBUTEROL HCL 1.25 MG/3 ML NEB NEB PRN (15:00)
[2020-07-26] MEDS ORDERED: FUROSEMIDE 40 MG/4 ML VIAL IV ONE (15:15)
[2020-07-26] MEDS: MIDAZOLAM DRIP 50 mg/50mL 50 ML IV SCH (15:30)
[2020-07-26] MEDS: NOREPINEPHRINE 8 MG/250ML KIT 250 ML IV SCH (15:43)
[2020-07-26] MEDS: LEVALBUTEROL HCL 1.25 MG/3 ML NEB NEB PRN (16:10)
[2020-07-27] VITALS (61 sets, daily range): BP systolic 85–161; BP diastolic 45–104
[2020-07-27] MEDS: DOBUTamine 1000MCG/ML 250 ML IV SCH ×3 (04:10→14:28)
[2020-07-27 04:35] LABS: Basophils # (auto) 0.4 10 ^3/uL (0-0.2); Basophils % (auto) 3.7 % (0.0-2.0); Eosinophils # (auto) 0.6 10 ^3/uL (0-0.8); Eosinophils % (auto) 5.6 % (0.0-7.0); Hematocrit 30.5 % (36.0-46.0); Lymphocytes % (auto) 10.1 % (10.0-50.0); Mean Corpuscular Hemoglobin 28.5 pg (28.0-32.0); Mean Corpuscular Hgb Conc. 32.9 g/dL (32.0-36.0); Mean Corpuscular Volume 86.6 fL (80.0-100.0); Monocytes # (auto) 0.5 10 ^3/uL (0-1.3); Monocytes % (auto) 5.4 % (0.0-12.0); Neutrophils # (auto) 7.5 10 ^3/uL (1.6-8.6); Neutrophils % (auto) 75.2 % (37.0-80.0); Platelet Count (auto) 282 10^3/uL (140-450); Red Blood Cells 3.52 10^6/uL (4.0-5.20); Red Cell Distribution Width 14.6 % (11.8-14.3); White Blood Cell 9.9 10^3/uL (4.4-10.8)
[2020-07-27 04:50] LABS: Albumin 2.6 g/dL (3.4-5.0); Calcium 8.7 mg/dL (8.5-10.1); Potassium 3.5 mmol/L (3.5-5.1)
[2020-07-27 04:53] LABS: BUN/Creatinine Ratio 16.8
[2020-07-27 04:56] LABS: Total Protein 6.8 g/dL (6.4-8.2)
[2020-07-27] MEDS: InsuLIN REG 1unit/0.01ml Soln (100units/ml) SC SCH ×4 (06:17→22:51)
[2020-07-27] MEDS: SACUBITRIL-VALSARTAN 24mg/26mg TAB PO SCH ×3 (06:17→22:50)
[2020-07-27] MEDS: FUROSEMIDE 40 MG/4 ML VIAL IV SCH ×2 (06:17→17:55)
[2020-07-27] MEDS: ACCU-CHEK COMFORT CURVE STRIP VI SCH ×4 (06:17→22:50)
[2020-07-27] MEDS: LEVALBUTEROL HCL 1.25 MG/3 ML NEB NEB PRN (06:40)
[2020-07-27] MEDS: IPRATROPIUM BROM 0.5 MG/2.5ML INH SOL NEB SCH ×3 (06:40→18:37)
[2020-07-27] MEDS: ALBUTEROL SULF 2.5 MG/0.5ML(0.5%) NEB SOLN NEB SCH ×3 (09:11→18:37)
[2020-07-27] MEDS: METOPROLOL TARTRATE 50 MG TAB PO SCH ×3 (09:35→22:50)
[2020-07-27] MEDS: AZITHROMYCIN 500MG/ 250ML 250 ML IV SCH (09:35)
[2020-07-27] MEDS: cefTRIAXone 1GM/50ML D5W 50 ML IV SCH (09:35)
[2020-07-27] MEDS ORDERED: ALBUTEROL SULF 2.5 MG/0.5ML(0.5%) NEB SOLN ONE (12:00)
[2020-07-27] MEDS: NOREPINEPHRINE 8 MG/250ML KIT 250 ML IV SCH (13:36)
[2020-07-28] VITALS (39 sets, daily range): BP systolic 101–166; BP diastolic 59–108
[2020-07-28] MEDS: ALBUTEROL SULF 2.5 MG/0.5ML(0.5%) NEB SOLN NEB SCH ×3 (00:17→18:55)
[2020-07-28] MEDS ORDERED: ALBUTEROL SULF 2.5 MG/0.5ML(0.5%) NEB SOLN ONE ×4 (00:17→18:22)
[2020-07-28] MEDS: IPRATROPIUM BROM 0.5 MG/2.5ML INH SOL NEB SCH ×4 (00:18→18:55)
[2020-07-28] MEDS: DOBUTamine 1000MCG/ML 250 ML IV SCH ×4 (01:35→22:04)
[2020-07-28 04:22] LABS: Basophils # (auto) 0.1 10 ^3/uL (0-0.2); Basophils % (auto) 0.8 % (0.0-2.0); Eosinophils # (auto) 0.7 10 ^3/uL (0-0.8); Eosinophils % (auto) 7.9 % (0.0-7.0); Hematocrit 32.5 % (36.0-46.0); Hemoglobin 10.5 g/dL (12.2-16.2); Lymphocytes # (auto) 1.1 10 ^3/uL (0.4-5.4); Lymphocytes % (auto) 11.6 % (10.0-50.0); Mean Corpuscular Hemoglobin 28.3 pg (28.0-32.0); Mean Corpuscular Hgb Conc. 32.4 g/dL (32.0-36.0); Mean Corpuscular Volume 87.2 fL (80.0-100.0); Monocytes # (auto) 0.9 10 ^3/uL (0-1.3); Monocytes % (auto) 9.2 % (0.0-12.0); Neutrophils # (auto) 6.7 10 ^3/uL (1.6-8.6); Neutrophils % (auto) 70.5 % (37.0-80.0); Nucleated Red Blood Cells % 0.1 %; Platelet Count (auto) 303 10^3/uL (140-450); Red Blood Cells 3.73 10^6/uL (4.0-5.20); Red Cell Distribution Width 14.6 % (11.8-14.3); White Blood Cell 9.5 10^3/uL (4.4-10.8)
[2020-07-28 04:47] LABS: Albumin 2.6 g/dL (3.4-5.0); BUN/Creatinine Ratio 14.8; Calcium 8.7 mg/dL (8.5-10.1); Potassium 3.2 mmol/L (3.5-5.1)
[2020-07-28 04:50] LABS: Bilirubin, Total 0.9 mg/dL (0.2-1.0); Total Protein 6.8 g/dL (6.4-8.2)
[2020-07-28] MEDS: FUROSEMIDE 40 MG/4 ML VIAL IV SCH ×2 (06:00→17:34)
[2020-07-28] MEDS: SACUBITRIL-VALSARTAN 24mg/26mg TAB PO SCH ×3 (06:10→21:21)
[2020-07-28] MEDS: InsuLIN REG 1unit/0.01ml Soln (100units/ml) SC SCH ×4 (06:40→21:24)
[2020-07-28] MEDS: ACCU-CHEK COMFORT CURVE STRIP VI SCH ×4 (06:40→21:24)
[2020-07-28] MEDS: cefTRIAXone 1GM/50ML D5W 50 ML IV SCH (09:32)
[2020-07-28] MEDS: AZITHROMYCIN 500MG/ 250ML 250 ML IV SCH (09:43)
[2020-07-28] MEDS: METOPROLOL TARTRATE 50 MG TAB PO SCH ×2 (09:44→21:23)
[2020-07-28] MEDS: NOREPINEPHRINE 8 MG/250ML KIT 250 ML IV SCH (13:56)
[2020-07-28] MEDS ORDERED: POTASSIUM CHL 20MEQ/100ML 300 ML IV ONE (15:54)
[2020-07-28] MEDS: POTASSIUM CHL 20MEQ/100ML 100 ML IV SCH ×3 (15:55→19:48)
[2020-07-28] MEDS ORDERED: traMADol HCL 50 MG TAB PO PRN (21:30)
[2020-07-28] MEDS: DOCUSATE SOD 100 MG CAP PO SCH (22:03)
[2020-07-29] MEDS ORDERED: ALBUTEROL SULF 2.5 MG/0.5ML(0.5%) NEB SOLN ONE (00:19)
[2020-07-29] MEDS: IPRATROPIUM BROM 0.5 MG/2.5ML INH SOL NEB SCH ×4 (00:31→19:48)
[2020-07-29] MEDS: ALBUTEROL SULF 2.5 MG/0.5ML(0.5%) NEB SOLN NEB SCH ×4 (00:31→19:48)
[2020-07-29 05:00] VITALS: BP 108/64
[2020-07-29] MEDS: ACCU-CHEK COMFORT CURVE STRIP VI SCH ×4 (06:47→22:39)
[2020-07-29] MEDS: FUROSEMIDE 40 MG/4 ML VIAL IV SCH (06:47)
[2020-07-29] MEDS: SACUBITRIL-VALSARTAN 24mg/26mg TAB PO SCH ×3 (06:47→22:38)
[2020-07-29] MEDS: InsuLIN REG 1unit/0.01ml Soln (100units/ml) SC SCH ×4 (06:50→22:44)
[2020-07-29 07:07] LABS: Basophils # (auto) 0 10 ^3/uL (0-0.2); Basophils % (auto) 0.5 % (0.0-2.0); Eosinophils # (auto) 0.8 10 ^3/uL (0-0.8); Eosinophils % (auto) 7.8 % (0.0-7.0); Hematocrit 30.8 % (36.0-46.0); Hemoglobin 10.1 g/dL (12.2-16.2); Lymphocytes # (auto) 1.2 10 ^3/uL (0.4-5.4); Lymphocytes % (auto) 11.8 % (10.0-50.0); Mean Corpuscular Hemoglobin 28.5 pg (28.0-32.0); Mean Corpuscular Hgb Conc. 32.9 g/dL (32.0-36.0); Mean Corpuscular Volume 86.6 fL (80.0-100.0); Neutrophils # (auto) 7.1 10 ^3/uL (1.6-8.6); Neutrophils % (auto) 69.9 % (37.0-80.0); Platelet Count (auto) 303 10^3/uL (140-450); Red Blood Cells 3.56 10^6/uL (4.0-5.20); Red Cell Distribution Width 13.9 % (11.8-14.3); White Blood Cell 10.2 10^3/uL (4.4-10.8)
[2020-07-29 07:26] LABS: Calcium 8.9 mg/dL (8.5-10.1); Potassium 3.7 mmol/L (3.5-5.1)
[2020-07-29 07:29] LABS: BUN/Creatinine Ratio 14.3
[2020-07-29] MEDS: cefTRIAXone 1GM/50ML D5W 50 ML IV SCH (08:54)
[2020-07-29] MEDS: DOCUSATE SOD 100 MG CAP PO SCH ×2 (08:55→22:38)
[2020-07-29] MEDS: traMADol HCL 50 MG TAB PO PRN (08:55)
[2020-07-29 09:00] VITALS: BP 100/64
[2020-07-29] MEDS: METOPROLOL TARTRATE 50 MG TAB PO SCH ×2 (11:09→22:39)
[2020-07-29 13:00] VITALS: BP 123/79
[2020-07-29 16:47] VITALS: BP 116/68
[2020-07-29] MEDS: DOBUTamine 1000MCG/ML 250 ML IV SCH ×2 (17:41→21:00)
[2020-07-29] MEDS: FUROSEMIDE 40 MG TAB PO SCH (18:28)
[2020-07-29 18:59] LABS: BUN/Creatinine Ratio 12.2; Calcium 9.6 mg/dL (8.5-10.1); Potassium 4.3 mmol/L (3.5-5.1)
[2020-07-30] VITALS (7 sets, daily range): BP systolic 94–123; BP diastolic 49–87
[2020-07-30] MEDS: IPRATROPIUM BROM 0.5 MG/2.5ML INH SOL NEB SCH ×4 (00:34→19:46)
[2020-07-30] MEDS: ALBUTEROL SULF 2.5 MG/0.5ML(0.5%) NEB SOLN NEB SCH ×4 (00:34→19:46)
[2020-07-30] MEDS: FUROSEMIDE 40 MG TAB PO SCH ×2 (05:47→18:29)
[2020-07-30] MEDS: SACUBITRIL-VALSARTAN 24mg/26mg TAB PO SCH ×3 (05:47→21:48)
[2020-07-30] MEDS: traMADol HCL 50 MG TAB PO PRN ×2 (05:47→13:07)
[2020-07-30] MEDS: InsuLIN REG 1unit/0.01ml Soln (100units/ml) SC SCH ×4 (05:47→22:09)
[2020-07-30] MEDS: ACCU-CHEK COMFORT CURVE STRIP VI SCH ×4 (07:00→21:48)
[2020-07-30] MEDS: cefTRIAXone 1GM/50ML D5W 50 ML IV SCH (09:45)
[2020-07-30] MEDS: DOCUSATE SOD 100 MG CAP PO SCH ×2 (09:46→21:48)
[2020-07-30] MEDS: METOPROLOL TARTRATE 50 MG TAB PO SCH ×2 (09:46→21:48)
[2020-07-30] MEDS: DOBUTamine 1000MCG/ML 250 ML IV SCH ×2 (13:43→21:33)
[2020-07-31 05:30] VITALS: BP 102/54
[2020-07-31] MEDS: ALBUTEROL SULF 2.5 MG/0.5ML(0.5%) NEB SOLN NEB SCH ×4 (05:42→23:34)
[2020-07-31] MEDS: IPRATROPIUM BROM 0.5 MG/2.5ML INH SOL NEB SCH ×5 (05:42→23:34)
[2020-07-31] MEDS: InsuLIN REG 1unit/0.01ml Soln (100units/ml) SC SCH ×4 (06:14→21:19)
[2020-07-31] MEDS: ACCU-CHEK COMFORT CURVE STRIP VI SCH ×4 (06:15→21:02)
[2020-07-31] MEDS: FUROSEMIDE 40 MG TAB PO SCH ×2 (06:15→17:37)
[2020-07-31] MEDS: SACUBITRIL-VALSARTAN 24mg/26mg TAB PO SCH ×3 (06:15→21:02)
[2020-07-31] MEDS: DOBUTamine 1000MCG/ML 250 ML IV SCH (07:02)
[2020-07-31 09:00] VITALS: BP 112/61
[2020-07-31] MEDS ORDERED: MAGNESIUM CITRATE SOLUTION 300 ML BTL PO ONE (09:15)
[2020-07-31] MEDS: METOPROLOL TARTRATE 50 MG TAB PO SCH ×2 (10:52→21:02)
[2020-07-31] MEDS: DOCUSATE SOD 100 MG CAP PO SCH ×2 (10:52→21:01)
[2020-07-31] MEDS: cefTRIAXone 1GM/50ML D5W 50 ML IV SCH (10:53)
[2020-07-31 13:00] VITALS: BP 103/58
[2020-07-31 16:46] VITALS: BP 119/60
[2020-07-31 21:36] VITALS: BP 117/62
[2020-08-01 04:37] VITALS: BP 117/69
[2020-08-01] MEDS: SACUBITRIL-VALSARTAN 24mg/26mg TAB PO SCH ×3 (06:01→21:50)
[2020-08-01] MEDS: FUROSEMIDE 40 MG TAB PO SCH ×2 (06:01→18:15)
[2020-08-01] MEDS: InsuLIN REG 1unit/0.01ml Soln (100units/ml) SC SCH ×4 (06:09→21:48)
[2020-08-01] MEDS: ACCU-CHEK COMFORT CURVE STRIP VI SCH ×4 (06:09→21:18)
[2020-08-01 06:11] LABS: Basophils # (auto) 0.1 10 ^3/uL (0-0.2); Basophils % (auto) 1.5 % (0.0-2.0); Eosinophils # (auto) 0.4 10 ^3/uL (0-0.8); Eosinophils % (auto) 5.8 % (0.0-7.0); Hematocrit 28.4 % (36.0-46.0); Hemoglobin 9.5 g/dL (12.2-16.2); Lymphocytes # (auto) 1.2 10 ^3/uL (0.4-5.4); Lymphocytes % (auto) 16.8 % (10.0-50.0); Mean Corpuscular Hgb Conc. 33.5 g/dL (32.0-36.0); Mean Corpuscular Volume 86.4 fL (80.0-100.0); Monocytes # (auto) 0.8 10 ^3/uL (0-1.3); Monocytes % (auto) 11.2 % (0.0-12.0); Neutrophils # (auto) 4.7 10 ^3/uL (1.6-8.6); Neutrophils % (auto) 64.7 % (37.0-80.0); Nucleated Red Blood Cells % 0.1 %; Platelet Count (auto) 375 10^3/uL (140-450); Red Blood Cells 3.28 10^6/uL (4.0-5.20); Red Cell Distribution Width 13.8 % (11.8-14.3); White Blood Cell 7.3 10^3/uL (4.4-10.8)
[2020-08-01 06:33] LABS: Potassium 3.9 mmol/L (3.5-5.1)
[2020-08-01 06:42] LABS: Albumin 2.7 g/dL (3.4-5.0); BUN/Creatinine Ratio 14.2; Bilirubin, Total 0.6 mg/dL (0.2-1.0); Total Protein 6.9 g/dL (6.4-8.2)
[2020-08-01 09:00] VITALS: BP 130/58
[2020-08-01] MEDS: DOCUSATE SOD 100 MG CAP PO SCH ×2 (10:05→21:50)
[2020-08-01] MEDS: METOPROLOL TARTRATE 50 MG TAB PO SCH ×2 (10:07→21:52)
[2020-08-01 13:00] VITALS: BP 108/58
[2020-08-01 17:00] VITALS: BP 101/64
[2020-08-01] MEDS: IPRATROPIUM BROM 0.5 MG/2.5ML INH SOL NEB SCH (17:52)
[2020-08-01] MEDS: ALBUTEROL SULF 2.5 MG/0.5ML(0.5%) NEB SOLN NEB SCH (17:52)
[2020-08-01 22:00] VITALS: BP 100/66
[2020-08-01] MEDS: traMADol HCL 50 MG TAB PO PRN (23:44)
[2020-08-02] MEDS: IPRATROPIUM BROM 0.5 MG/2.5ML INH SOL NEB SCH ×3 (00:03→13:36)
[2020-08-02] MEDS: ALBUTEROL SULF 2.5 MG/0.5ML(0.5%) NEB SOLN NEB SCH ×3 (00:03→13:37)
[2020-08-02 05:00] VITALS: BP 138/81
[2020-08-02] MEDS: FUROSEMIDE 40 MG TAB PO SCH (06:12)
[2020-08-02] MEDS: SACUBITRIL-VALSARTAN 24mg/26mg TAB PO SCH ×2 (06:12→13:25)
[2020-08-02] MEDS: ACCU-CHEK COMFORT CURVE STRIP VI SCH ×3 (06:17→17:00)
[2020-08-02] MEDS: InsuLIN REG 1unit/0.01ml Soln (100units/ml) SC SCH ×3 (06:25→17:00)
[2020-08-02 09:00] VITALS: BP 122/57
[2020-08-02 09:54] VITALS: BP 122/57
[2020-08-02] MEDS: DOCUSATE SOD 100 MG CAP PO SCH (11:34)
[2020-08-02] MEDS: METOPROLOL TARTRATE 50 MG TAB PO SCH (11:35)
[2020-08-02 13:00] VITALS: BP 108/70
[2020-08-02] MEDS: traMADol HCL 50 MG TAB PO PRN (13:26)
[2020-08-02 13:46] VITALS: BP 108/70
== END 2020-08-02 16:00 | disposition home health service (06) | DRG 280 ==
LOC: EDBD 14:45 → ER 14:45 → TELE 18:31 → EDUNIT# 18:31 → ICU WEST 20:50 → TELE-CENTR 07-28 22:15
PROVIDERS: ADMIT Nurse Practitioner Acute Care; ATTEND Internal Medicine Cardiovascular Disease
PROC: 02HV33Z Insertion of Infusion Device into Superior Vena Cava, Percutaneous Approach (ICD-10-PCS; principal; 2020-07-23)
PROC: 5A1945Z Respiratory Ventilation, 24-96 Consecutive Hours (ICD-10-PCS; 2020-07-23)
PROC: 0BH17EZ Insertion of Endotracheal Airway into Trachea, Via Natural or Artificial Opening (ICD-10-PCS; 2020-07-23)
PROC: 5A09357 Assistance with Respiratory Ventilation, Less than 24 Consecutive Hours, Continuous Positive Airway Pressure (ICD-10-PCS; 2020-07-23)
PROC: 30233N1 Transfusion of Nonautologous Red Blood Cells into Peripheral Vein, Percutaneous Approach (ICD-10-PCS; 2020-07-24)
DX: I21.4 Non-ST elevation (NSTEMI) myocardial infarction (principal); J96.01 Acute respiratory failure with hypoxia; I50.23 Acute on chronic systolic (congestive) heart failure; K29.71 Gastritis, unspecified, with bleeding; D68.59 Other primary thrombophilia; I42.0 Dilated cardiomyopathy; I13.0 Hypertensive heart and chronic kidney disease with heart failure and stage 1 through stage 4 chronic kidney disease, or unspecified chronic kidney disease; N17.9 Acute kidney failure, unspecified; Z20.822 Contact with and (suspected) exposure to COVID-19; I16.0 Hypertensive urgency; N18.31 Chronic kidney disease, stage 3a; E11.22 Type 2 diabetes mellitus with diabetic chronic kidney disease; D72.829 Elevated white blood cell count, unspecified; E66.9 Obesity, unspecified; D64.9 Anemia, unspecified; I48.0 Paroxysmal atrial fibrillation; Z68.25 Body mass index [BMI] 25.0-25.9, adult; Z79.4 Long term (current) use of insulin; Z82.3 Family history of stroke; Z82.49 Family history of ischemic heart disease and other diseases of the circulatory system; Z83.3 Family history of diabetes mellitus; Z86.16 Personal history of COVID-19; Z91.14 Patient's other noncompliance with medication regimen; Z95.810 Presence of automatic (implantable) cardiac defibrillator; Z98.61 Coronary angioplasty status
CPT/HCPCS: 31500; 36415; 36556; 36600; 71045; 80048; 80053; 81001; 82805; 82962; 83036; 83605; 83735; 83880; 84132; 84484; 85025; 85610; 85730; 86850; 86900; 86901; 86920; 87040; 87070; 87077; 87081; 87205; 87426; 93005; 93306; 93971; 94002; 94003; 94640; 94660; 96365; 96375; 97163; 99291; G0378; J0330; J0696; J1815; J2250; J2704; J3480

== ENCOUNTER → 2020-08-07 | Outpatient (CLI) | payer MEDICARE, OTHER ==
[~2020-08-07] MED LIST changes: +DOBUTamine 1000MCG/ML 250 ML IV ONE
[2020-08-07 11:48] LABS: Basophils # (auto) 0.1 10 ^3/uL (0-0.2); Basophils % (auto) 0.8 % (0.0-2.0); Eosinophils # (auto) 0.5 10 ^3/uL (0-0.8); Eosinophils % (auto) 4.6 % (0.0-7.0); Hematocrit 30.5 % (36.0-46.0); Hemoglobin 9.9 g/dL (12.2-16.2); Lymphocytes # (auto) 1.6 10 ^3/uL (0.4-5.4); Lymphocytes % (auto) 15.3 % (10.0-50.0); Mean Corpuscular Hemoglobin 28.6 pg (28.0-32.0); Mean Corpuscular Hgb Conc. 32.4 g/dL (32.0-36.0); Mean Corpuscular Volume 88.3 fL (80.0-100.0); Monocytes # (auto) 0.7 10 ^3/uL (0-1.3); Monocytes % (auto) 6.5 % (0.0-12.0); Neutrophils # (auto) 7.7 10 ^3/uL (1.6-8.6); Neutrophils % (auto) 72.8 % (37.0-80.0); Platelet Count (auto) 402 10^3/uL (140-450); Red Blood Cells 3.45 10^6/uL (4.0-5.20); Red Cell Distribution Width 14.3 % (11.8-14.3); White Blood Cell 10.5 10^3/uL (4.4-10.8)
[2020-08-07 12:00] VITALS: BP 101/79
[2020-08-07 12:04] LABS: Potassium 4.9 mmol/L (3.5-5.1)
[2020-08-07 12:16] LABS: Albumin 3.3 g/dL (3.4-5.0); BUN/Creatinine Ratio 18.2; Bilirubin, Total 0.7 mg/dL (0.2-1.0); Calcium 9.3 mg/dL (8.5-10.1); Total Protein 7.6 g/dL (6.4-8.2)
== END | disposition home or self-care (01) ==
LOC: CHF HDHVI 09:34
PROVIDERS: ATTEND Internal Medicine Cardiovascular Disease
DX: I50.23 Acute on chronic systolic (congestive) heart failure (principal); Z79.899 Other long term (current) drug therapy
CPT/HCPCS: 36415; 80053; 82306; 82607; 83735; 83880; 85025; G0463; J1250

== ENCOUNTER → 2020-08-09 | Outpatient (CLI) | payer MEDICARE, OTHER ==
[~2020-08-09] MED LIST changes: -DOBUTamine 1000MCG/ML 250 ML IV ONE
== END | disposition home or self-care (01) ==
LOC: Rad HDHVI 10:56
PROVIDERS: ATTEND Internal Medicine Cardiovascular Disease
DX: R00.2 Palpitations (principal); R06.02 Shortness of breath
CPT/HCPCS: 93306

== ENCOUNTER → 2020-08-09 | Outpatient (CLI) | payer MEDICARE, OTHER ==
[~2020-08-09] MED LIST changes: +LIDOCAINE 1% (LOCAL ANESTH.) PF 5ml SDV ID ONE; +SODIUM CHLOR 0.9% PF (SALINE LOCK) 10ML VIAL/SYR IV SCH
[2020-08-09 13:10] LABS: INR 1.11 (0.9-1.15); Partial Thromboplastin Time 28.5 sec (23.0-31.2)
== END | disposition home or self-care (01) ==
LOC: XYW 12:09
PROVIDERS: ATTEND Internal Medicine Cardiovascular Disease
DX: Z45.2 Encounter for adjustment and management of vascular access device (principal); I50.9 Heart failure, unspecified; J44.9 Chronic obstructive pulmonary disease, unspecified; F41.9 Anxiety disorder, unspecified; F17.200 Nicotine dependence, unspecified, uncomplicated; Z95.5 Presence of coronary angioplasty implant and graft; Z85.3 Personal history of malignant neoplasm of breast; Z98.890 Other specified postprocedural states; Z79.899 Other long term (current) drug therapy
CPT/HCPCS: 36415; 36569; 85610; 85730; C1751; J7050

== ENCOUNTER → 2020-08-13 | Outpatient (CLI) | payer MEDICARE, OTHER ==
[~2020-08-13] VITALS: Ht 162.6 cm; Wt 79.8 kg
[~2020-08-13] MED LIST changes: +ADENOSINE 67 MG in GIVE UN-DILUTED 0 ML IV ONE; +ADENOSINE 90 MG/30 ML INJ IV ONE; +ALBUTEROL SULF 2.5 MG/0.5ML(0.5%) NEB SOLN ONE; -LIDOCAINE 1% (LOCAL ANESTH.) PF 5ml SDV ID ONE; -SODIUM CHLOR 0.9% PF (SALINE LOCK) 10ML VIAL/SYR IV SCH
== END | disposition home or self-care (01) ==
LOC: Rad HDHVI 13:41
PROVIDERS: ATTEND Internal Medicine Cardiovascular Disease
DX: I25.10 Atherosclerotic heart disease of native coronary artery without angina pectoris (principal); I10 Essential (primary) hypertension; E78.00 Pure hypercholesterolemia, unspecified; E11.9 Type 2 diabetes mellitus without complications; F17.210 Nicotine dependence, cigarettes, uncomplicated; I25.2 Old myocardial infarction; J44.9 Chronic obstructive pulmonary disease, unspecified; Z95.0 Presence of cardiac pacemaker; Z82.49 Family history of ischemic heart disease and other diseases of the circulatory system
CPT/HCPCS: 78452; 93005; 94640; 96374; 96375; A9500; J0153; J1642

== ENCOUNTER → 2020-08-28 | Outpatient (CLI) | payer MEDICARE, OTHER ==
[~2020-08-28] VITALS: Ht 30.5 cm; Wt 72.3 kg
[2020-08-28] VITALS (9 sets, daily range): BP systolic 58–121; BP diastolic 55–70
[~2020-08-28] MED LIST changes: -ADENOSINE 67 MG in GIVE UN-DILUTED 0 ML IV ONE; -ADENOSINE 90 MG/30 ML INJ IV ONE; -ALBUTEROL SULF 2.5 MG/0.5ML(0.5%) NEB SOLN ONE; +CYANOCOBALAMIN (B-12) 1000 MCG/1 ML VIAL IM ONE; +CYANOCOBALAMIN (B-12) 1000 MCG/1 ML VIAL ONE; +DOBUTamine 1000MCG/ML 250 ML IV ONE
[2020-08-28 10:12] LABS: Basophils # (auto) 0 10 ^3/uL (0-0.2); Basophils % (auto) 0.5 % (0.0-2.0); Eosinophils # (auto) 0.2 10 ^3/uL (0-0.8); Eosinophils % (auto) 3.2 % (0.0-7.0); Hematocrit 29.2 % (36.0-46.0); Lymphocytes # (auto) 1.5 10 ^3/uL (0.4-5.4); Mean Corpuscular Hemoglobin 29.7 pg (28.0-32.0); Mean Corpuscular Hgb Conc. 34.1 g/dL (32.0-36.0); Monocytes # (auto) 0.7 10 ^3/uL (0-1.3); Monocytes % (auto) 8.7 % (0.0-12.0); Neutrophils # (auto) 5.1 10 ^3/uL (1.6-8.6); Neutrophils % (auto) 67.6 % (37.0-80.0); Platelet Count (auto) 254 10^3/uL (140-450); Red Blood Cells 3.36 10^6/uL (4.0-5.20); Red Cell Distribution Width 13.4 % (11.8-14.3); White Blood Cell 7.6 10^3/uL (4.4-10.8)
[2020-08-28 10:24] LABS: Albumin 3.4 g/dL (3.4-5.0); Calcium 8.9 mg/dL (8.5-10.1); Potassium 4.2 mmol/L (3.5-5.1)
[2020-08-28 10:52] LABS: BUN/Creatinine Ratio 14.5; Bilirubin, Total 0.8 mg/dL (0.2-1.0); Total Protein 8.2 g/dL (6.4-8.2)
== END | disposition home or self-care (01) ==
LOC: CHF HDHVI 09:14
PROVIDERS: ATTEND Internal Medicine Cardiovascular Disease
DX: I13.0 Hypertensive heart and chronic kidney disease with heart failure and stage 1 through stage 4 chronic kidney disease, or unspecified chronic kidney disease (principal); E11.22 Type 2 diabetes mellitus with diabetic chronic kidney disease; N18.31 Chronic kidney disease, stage 3a; I50.23 Acute on chronic systolic (congestive) heart failure; F41.9 Anxiety disorder, unspecified; J44.9 Chronic obstructive pulmonary disease, unspecified; J96.10 Chronic respiratory failure, unspecified whether with hypoxia or hypercapnia; E78.5 Hyperlipidemia, unspecified; I25.2 Old myocardial infarction; R53.83 Other fatigue; E78.00 Pure hypercholesterolemia, unspecified; M19.90 Unspecified osteoarthritis, unspecified site; I25.10 Atherosclerotic heart disease of native coronary artery without angina pectoris; I10 Essential (primary) hypertension; D63.1 Anemia in chronic kidney disease; I48.0 Paroxysmal atrial fibrillation; D50.0 Iron deficiency anemia secondary to blood loss (chronic); E11.40 Type 2 diabetes mellitus with diabetic neuropathy, unspecified; Z79.4 Long term (current) use of insulin; Z79.899 Other long term (current) drug therapy; Z87.891 Personal history of nicotine dependence; Z95.0 Presence of cardiac pacemaker; Z85.3 Personal history of malignant neoplasm of breast; Z98.890 Other specified postprocedural states
CPT/HCPCS: 36415; 80053; 83735; 83880; 85025; 96365; 96366; 96372; G0463; J1250; J1642; J3420

== ENCOUNTER → 2020-09-04 | Outpatient (CLI) | payer MEDICARE, OTHER ==
[2020-09-04] VITALS (9 sets, daily range): BP systolic 95–122; BP diastolic 51–67
[~2020-09-04] MED LIST changes: -CYANOCOBALAMIN (B-12) 1000 MCG/1 ML VIAL IM ONE; -CYANOCOBALAMIN (B-12) 1000 MCG/1 ML VIAL ONE; +GENTAMICIN SULF 80 MG/2 ML VIAL ONE; +GENTAMICIN SULFATE 160 MG in D5W 5% 100 ML IV ONE; +VANCOMYCIN 1GM/250ML 250 ML IV ONE
[2020-09-04 11:27] LABS: Basophils # (auto) 0.1 10 ^3/uL (0-0.2); Basophils % (auto) 0.6 % (0.0-2.0); Eosinophils # (auto) 0.4 10 ^3/uL (0-0.8); Eosinophils % (auto) 4.7 % (0.0-7.0); Hematocrit 28.4 % (36.0-46.0); Hemoglobin 9.1 g/dL (12.2-16.2); Lymphocytes # (auto) 1.3 10 ^3/uL (0.4-5.4); Lymphocytes % (auto) 15.8 % (10.0-50.0); Mean Corpuscular Hgb Conc. 32.1 g/dL (32.0-36.0); Mean Corpuscular Volume 87.1 fL (80.0-100.0); Monocytes # (auto) 0.6 10 ^3/uL (0-1.3); Monocytes % (auto) 7.4 % (0.0-12.0); Neutrophils % (auto) 71.5 % (37.0-80.0); Nucleated Red Blood Cells % 0.2 %; Platelet Count (auto) 227 10^3/uL (140-450); Red Blood Cells 3.25 10^6/uL (4.0-5.20); Red Cell Distribution Width 13.7 % (11.8-14.3); White Blood Cell 8.4 10^3/uL (4.4-10.8)
[2020-09-04 11:33] LABS: Urine Bacteria FEW /hpf (None Seen); Urine Blood Negative /uL (Negative); Urine Hyaline Cast FEW /lpf (0 - 2); Urine WBC 60 /hpf (0 - 5); Urine WBC Clumps PRESENT /hpf (None Seen)
[2020-09-04 11:45] LABS: Calcium 9.2 mg/dL (8.5-10.1); Potassium 4.9 mmol/L (3.5-5.1)
[2020-09-04 11:47] LABS: BUN/Creatinine Ratio 17.6
== END | disposition home or self-care (01) ==
LOC: CHF HDHVI 09:29
PROVIDERS: ATTEND Internal Medicine Cardiovascular Disease
DX: I13.0 Hypertensive heart and chronic kidney disease with heart failure and stage 1 through stage 4 chronic kidney disease, or unspecified chronic kidney disease (principal); E11.22 Type 2 diabetes mellitus with diabetic chronic kidney disease; I50.23 Acute on chronic systolic (congestive) heart failure; N18.31 Chronic kidney disease, stage 3a; I25.10 Atherosclerotic heart disease of native coronary artery without angina pectoris; I25.2 Old myocardial infarction; J44.9 Chronic obstructive pulmonary disease, unspecified; I48.0 Paroxysmal atrial fibrillation; E11.40 Type 2 diabetes mellitus with diabetic neuropathy, unspecified; E78.5 Hyperlipidemia, unspecified; E78.00 Pure hypercholesterolemia, unspecified; F41.9 Anxiety disorder, unspecified; Z79.4 Long term (current) use of insulin; Z79.899 Other long term (current) drug therapy; M19.90 Unspecified osteoarthritis, unspecified site; Z95.810 Presence of automatic (implantable) cardiac defibrillator; Z85.3 Personal history of malignant neoplasm of breast; Z95.5 Presence of coronary angioplasty implant and graft; Z87.891 Personal history of nicotine dependence
CPT/HCPCS: 36415; 80048; 81001; 83880; 85025; 87086; 96365; 96366; 96367; G0463; J1250; J1580; J1642; J7060

== ENCOUNTER → 2020-09-11 | Outpatient (CLI) | payer MEDICARE, OTHER ==
[2020-09-11] VITALS (9 sets, daily range): BP systolic 97–132; BP diastolic 60–70
[~2020-09-11] VITALS: Ht 30.5 cm; Wt 72.7 kg
[~2020-09-11] MED LIST changes: -GENTAMICIN SULF 80 MG/2 ML VIAL ONE; -GENTAMICIN SULFATE 160 MG in D5W 5% 100 ML IV ONE; -VANCOMYCIN 1GM/250ML 250 ML IV ONE
[2020-09-11 12:13] LABS: Basophils # (auto) 0 10 ^3/uL (0-0.2); Basophils % (auto) 0.6 % (0.0-2.0); Eosinophils # (auto) 0.5 10 ^3/uL (0-0.8); Eosinophils % (auto) 7.6 % (0.0-7.0); Hematocrit 28.2 % (36.0-46.0); Hemoglobin 9.3 g/dL (12.2-16.2); Lymphocytes # (auto) 1.1 10 ^3/uL (0.4-5.4); Lymphocytes % (auto) 17.8 % (10.0-50.0); Mean Corpuscular Hemoglobin 28.7 pg (28.0-32.0); Mean Corpuscular Hgb Conc. 32.8 g/dL (32.0-36.0); Mean Corpuscular Volume 87.3 fL (80.0-100.0); Monocytes # (auto) 0.5 10 ^3/uL (0-1.3); Monocytes % (auto) 8.4 % (0.0-12.0); Neutrophils # (auto) 4.1 10 ^3/uL (1.6-8.6); Neutrophils % (auto) 65.6 % (37.0-80.0); Nucleated Red Blood Cells % 0.1 %; Platelet Count (auto) 289 10^3/uL (140-450); Potassium 4.4 mmol/L (3.5-5.1); Red Blood Cells 3.23 10^6/uL (4.0-5.20); Red Cell Distribution Width 13.6 % (11.8-14.3); White Blood Cell 6.3 10^3/uL (4.4-10.8)
== END | disposition home or self-care (01) ==
LOC: CHF HDHVI 08:14
PROVIDERS: ATTEND Internal Medicine Cardiovascular Disease
DX: I13.0 Hypertensive heart and chronic kidney disease with heart failure and stage 1 through stage 4 chronic kidney disease, or unspecified chronic kidney disease (principal); E11.22 Type 2 diabetes mellitus with diabetic chronic kidney disease; I50.23 Acute on chronic systolic (congestive) heart failure; N18.31 Chronic kidney disease, stage 3a; I25.10 Atherosclerotic heart disease of native coronary artery without angina pectoris; I48.0 Paroxysmal atrial fibrillation; J44.9 Chronic obstructive pulmonary disease, unspecified; J96.10 Chronic respiratory failure, unspecified whether with hypoxia or hypercapnia; E78.00 Pure hypercholesterolemia, unspecified; E11.40 Type 2 diabetes mellitus with diabetic neuropathy, unspecified; M19.90 Unspecified osteoarthritis, unspecified site; F41.9 Anxiety disorder, unspecified; Z79.4 Long term (current) use of insulin; Z79.899 Other long term (current) drug therapy; Z87.891 Personal history of nicotine dependence; Z85.3 Personal history of malignant neoplasm of breast; Z95.810 Presence of automatic (implantable) cardiac defibrillator; Z95.5 Presence of coronary angioplasty implant and graft; Z86.73 Personal history of transient ischemic attack (TIA), and cerebral infarction without residual deficits
CPT/HCPCS: 36415; 82565; 83880; 84132; 84520; 85025; 96365; 96366; G0463; J1250; J1642

== ENCOUNTER → 2020-09-18 | Outpatient (CLI) | payer MEDICARE, OTHER ==
[2020-09-18] VITALS (9 sets, daily range): BP systolic 112–183; BP diastolic 60–94
[~2020-09-18] MED LIST changes: +CYANOCOBALAMIN (B-12) 1000 MCG/1 ML VIAL IM ONE; +CYANOCOBALAMIN (B-12) 1000 MCG/1 ML VIAL ONE; +METOPROLOL SUCCINATE XL 50 MG TAB PO ONE
[2020-09-18 11:45] LABS: Potassium 3.5 mmol/L (3.5-5.1)
[2020-09-18 11:50] LABS: Calcium 9.5 mg/dL (8.5-10.1); Magnesium 2.4 mg/dL (1.6-2.6)
[2020-09-18 11:51] LABS: Basophils # (auto) 0 10 ^3/uL (0-0.2); Basophils % (auto) 0.3 % (0.0-2.0); Eosinophils # (auto) 0.4 10 ^3/uL (0-0.8); Eosinophils % (auto) 5.4 % (0.0-7.0); Hematocrit 30.2 % (36.0-46.0); Hemoglobin 9.7 g/dL (12.2-16.2); Lymphocytes # (auto) 1.1 10 ^3/uL (0.4-5.4); Lymphocytes % (auto) 16.7 % (10.0-50.0); Mean Corpuscular Hemoglobin 27.8 pg (28.0-32.0); Mean Corpuscular Hgb Conc. 32.2 g/dL (32.0-36.0); Mean Corpuscular Volume 86.1 fL (80.0-100.0); Monocytes # (auto) 0.5 10 ^3/uL (0-1.3); Monocytes % (auto) 8.3 % (0.0-12.0); Neutrophils # (auto) 4.5 10 ^3/uL (1.6-8.6); Neutrophils % (auto) 69.3 % (37.0-80.0); Nucleated Red Blood Cells % 0.1 %; Platelet Count (auto) 261 10^3/uL (140-450); Red Cell Distribution Width 13.7 % (11.8-14.3); White Blood Cell 6.5 10^3/uL (4.4-10.8)
== END | disposition home or self-care (01) ==
LOC: CHF HDHVI 08:44
PROVIDERS: ATTEND Internal Medicine Cardiovascular Disease
DX: I13.0 Hypertensive heart and chronic kidney disease with heart failure and stage 1 through stage 4 chronic kidney disease, or unspecified chronic kidney disease (principal); E11.22 Type 2 diabetes mellitus with diabetic chronic kidney disease; I50.23 Acute on chronic systolic (congestive) heart failure; N18.31 Chronic kidney disease, stage 3a; D64.9 Anemia, unspecified; I25.10 Atherosclerotic heart disease of native coronary artery without angina pectoris; I25.2 Old myocardial infarction; I48.0 Paroxysmal atrial fibrillation; J44.9 Chronic obstructive pulmonary disease, unspecified; J96.10 Chronic respiratory failure, unspecified whether with hypoxia or hypercapnia; E11.40 Type 2 diabetes mellitus with diabetic neuropathy, unspecified; E78.5 Hyperlipidemia, unspecified; M19.90 Unspecified osteoarthritis, unspecified site; F41.9 Anxiety disorder, unspecified; Z79.4 Long term (current) use of insulin; Z79.899 Other long term (current) drug therapy; Z87.891 Personal history of nicotine dependence; Z85.3 Personal history of malignant neoplasm of breast; Z95.810 Presence of automatic (implantable) cardiac defibrillator; Z86.73 Personal history of transient ischemic attack (TIA), and cerebral infarction without residual deficits
CPT/HCPCS: 36415; 80048; 83735; 83880; 85025; 96365; 96366; 96372; G0463; J1250; J1642; J3420

== ENCOUNTER → 2020-10-16 | Outpatient (CLI) | payer MEDICARE, OTHER ==
[2020-10-16] VITALS (8 sets, daily range): BP systolic 150–195; BP diastolic 66–103
[~2020-10-16] VITALS: Ht 2.5 cm; Wt 63.7 kg
[~2020-10-16] MED LIST changes: -CYANOCOBALAMIN (B-12) 1000 MCG/1 ML VIAL IM ONE; -CYANOCOBALAMIN (B-12) 1000 MCG/1 ML VIAL ONE; -METOPROLOL SUCCINATE XL 50 MG TAB PO ONE; +cloNIDine HCL 0.1 MG TAB ONE; +cloNIDine HCL 0.1 MG TAB PO ONE
[2020-10-16 11:52] LABS: Basophils # (auto) 0 10 ^3/uL (0-0.2); Basophils % (auto) 0.7 % (0.0-2.0); Eosinophils # (auto) 0.4 10 ^3/uL (0-0.8); Eosinophils % (auto) 6.9 % (0.0-7.0); Hematocrit 27.6 % (36.0-46.0); Lymphocytes % (auto) 31.7 % (10.0-50.0); Mean Corpuscular Hemoglobin 28.3 pg (28.0-32.0); Mean Corpuscular Hgb Conc. 32.8 g/dL (32.0-36.0); Mean Corpuscular Volume 86.3 fL (80.0-100.0); Monocytes # (auto) 0.5 10 ^3/uL (0-1.3); Monocytes % (auto) 8.3 % (0.0-12.0); Neutrophils # (auto) 3.4 10 ^3/uL (1.6-8.6); Neutrophils % (auto) 52.4 % (37.0-80.0); White Blood Cell 6.4 10^3/uL (4.4-10.8)
[2020-10-16 12:03] LABS: Potassium 3.6 mmol/L (3.5-5.1)
[2020-10-16 12:08] LABS: BUN/Creatinine Ratio 21.3; Calcium 8.9 mg/dL (8.5-10.1)
== END | disposition home or self-care (01) ==
LOC: CHF HDHVI 08:30
PROVIDERS: ATTEND Internal Medicine Cardiovascular Disease
DX: I13.0 Hypertensive heart and chronic kidney disease with heart failure and stage 1 through stage 4 chronic kidney disease, or unspecified chronic kidney disease (principal); E11.22 Type 2 diabetes mellitus with diabetic chronic kidney disease; I50.23 Acute on chronic systolic (congestive) heart failure; N18.31 Chronic kidney disease, stage 3a; D64.9 Anemia, unspecified; I25.10 Atherosclerotic heart disease of native coronary artery without angina pectoris; I25.2 Old myocardial infarction; I48.0 Paroxysmal atrial fibrillation; J96.10 Chronic respiratory failure, unspecified whether with hypoxia or hypercapnia; J44.9 Chronic obstructive pulmonary disease, unspecified; E11.40 Type 2 diabetes mellitus with diabetic neuropathy, unspecified; E78.5 Hyperlipidemia, unspecified; E03.9 Hypothyroidism, unspecified; M19.90 Unspecified osteoarthritis, unspecified site; F41.9 Anxiety disorder, unspecified; Z79.4 Long term (current) use of insulin; Z79.899 Other long term (current) drug therapy; Z95.810 Presence of automatic (implantable) cardiac defibrillator
CPT/HCPCS: 36415; 80048; 83880; 85025; 85049; 96365; 96366; G0463; J1250; J1642

== ENCOUNTER → 2020-10-23 | Outpatient (CLI) | payer MEDICARE, OTHER ==
[2020-10-23] VITALS (9 sets, daily range): BP systolic 158–178; BP diastolic 86–101
[~2020-10-23] VITALS: Ht 30.5 cm; Wt 73.3 kg
[~2020-10-23] MED LIST changes: +FUROSEMIDE 40 MG/4 ML VIAL IV ONE; +FUROSEMIDE 40 MG/4 ML VIAL ONE; +POTASSIUM CHL 10 Meq TABLET PO ONE; -cloNIDine HCL 0.1 MG TAB ONE; -cloNIDine HCL 0.1 MG TAB PO ONE
[2020-10-23 11:31] LABS: Basophils # (auto) 0.1 10 ^3/uL (0-0.2); Basophils % (auto) 0.9 % (0.0-2.0); Eosinophils # (auto) 0.3 10 ^3/uL (0-0.8); Hematocrit 28.6 % (36.0-46.0); Hemoglobin 9.2 g/dL (12.2-16.2); Lymphocytes # (auto) 1.5 10 ^3/uL (0.4-5.4); Lymphocytes % (auto) 21.1 % (10.0-50.0); Mean Corpuscular Hemoglobin 27.4 pg (28.0-32.0); Mean Corpuscular Volume 85.7 fL (80.0-100.0); Monocytes # (auto) 0.5 10 ^3/uL (0-1.3); Monocytes % (auto) 7.5 % (0.0-12.0); Neutrophils # (auto) 4.5 10 ^3/uL (1.6-8.6); Neutrophils % (auto) 65.5 % (37.0-80.0); Nucleated Red Blood Cells % 0.1 %; Red Blood Cells 3.34 10^6/uL (4.0-5.20); Red Cell Distribution Width 13.3 % (11.8-14.3); White Blood Cell 6.9 10^3/uL (4.4-10.8)
[2020-10-23 11:54] LABS: BUN/Creatinine Ratio 13.4; Calcium 9.1 mg/dL (8.5-10.1); Potassium 3.6 mmol/L (3.5-5.1)
== END | disposition home or self-care (01) ==
LOC: CHF HDHVI 08:05
PROVIDERS: ATTEND Internal Medicine Cardiovascular Disease
DX: I13.0 Hypertensive heart and chronic kidney disease with heart failure and stage 1 through stage 4 chronic kidney disease, or unspecified chronic kidney disease (principal); E11.22 Type 2 diabetes mellitus with diabetic chronic kidney disease; I50.23 Acute on chronic systolic (congestive) heart failure; N18.31 Chronic kidney disease, stage 3a; I25.10 Atherosclerotic heart disease of native coronary artery without angina pectoris; I25.2 Old myocardial infarction; J44.9 Chronic obstructive pulmonary disease, unspecified; J96.10 Chronic respiratory failure, unspecified whether with hypoxia or hypercapnia; I48.0 Paroxysmal atrial fibrillation; E11.40 Type 2 diabetes mellitus with diabetic neuropathy, unspecified; R53.83 Other fatigue; E78.5 Hyperlipidemia, unspecified; E03.9 Hypothyroidism, unspecified; E78.00 Pure hypercholesterolemia, unspecified; M19.90 Unspecified osteoarthritis, unspecified site; F41.9 Anxiety disorder, unspecified; Z79.4 Long term (current) use of insulin; Z79.899 Other long term (current) drug therapy; Z85.3 Personal history of malignant neoplasm of breast; Z86.73 Personal history of transient ischemic attack (TIA), and cerebral infarction without residual deficits; Z87.891 Personal history of nicotine dependence; Z95.810 Presence of automatic (implantable) cardiac defibrillator
CPT/HCPCS: 36415; 80048; 83880; 85025; 96365; 96366; 96375; G0463; J1250; J1642; J1940

== ENCOUNTER → 2020-11-06 | Outpatient (CLI) | payer MEDICARE, OTHER ==
[2020-11-06] VITALS (9 sets, daily range): BP systolic 159–177; BP diastolic 73–99
[~2020-11-06] MED LIST changes: -FUROSEMIDE 40 MG/4 ML VIAL IV ONE; -FUROSEMIDE 40 MG/4 ML VIAL ONE; -POTASSIUM CHL 10 Meq TABLET PO ONE
[2020-11-06 11:40] LABS: Basophils # (auto) 0.1 10 ^3/uL (0-0.2); Basophils % (auto) 1.2 % (0.0-2.0); Eosinophils # (auto) 0.4 10 ^3/uL (0-0.8); Eosinophils % (auto) 6.8 % (0.0-7.0); Hematocrit 29.4 % (36.0-46.0); Hemoglobin 9.6 g/dL (12.2-16.2); Lymphocytes # (auto) 1.6 10 ^3/uL (0.4-5.4); Lymphocytes % (auto) 24.7 % (10.0-50.0); Mean Corpuscular Hemoglobin 27.6 pg (28.0-32.0); Mean Corpuscular Hgb Conc. 32.7 g/dL (32.0-36.0); Mean Corpuscular Volume 84.6 fL (80.0-100.0); Monocytes # (auto) 0.5 10 ^3/uL (0-1.3); Monocytes % (auto) 7.7 % (0.0-12.0); Neutrophils # (auto) 3.8 10 ^3/uL (1.6-8.6); Neutrophils % (auto) 59.6 % (37.0-80.0); Red Blood Cells 3.47 10^6/uL (4.0-5.20); Red Cell Distribution Width 13.1 % (11.8-14.3); White Blood Cell 6.4 10^3/uL (4.4-10.8)
[2020-11-06 11:45] LABS: Calcium 9.7 mg/dL (8.5-10.1); Potassium 3.6 mmol/L (3.5-5.1)
== END | disposition home or self-care (01) ==
LOC: CHF HDHVI 08:13
PROVIDERS: ATTEND Internal Medicine Cardiovascular Disease
DX: I13.0 Hypertensive heart and chronic kidney disease with heart failure and stage 1 through stage 4 chronic kidney disease, or unspecified chronic kidney disease (principal); E11.22 Type 2 diabetes mellitus with diabetic chronic kidney disease; I50.23 Acute on chronic systolic (congestive) heart failure; N18.31 Chronic kidney disease, stage 3a; I25.10 Atherosclerotic heart disease of native coronary artery without angina pectoris; I25.2 Old myocardial infarction; I48.0 Paroxysmal atrial fibrillation; J44.9 Chronic obstructive pulmonary disease, unspecified; E11.40 Type 2 diabetes mellitus with diabetic neuropathy, unspecified; E78.5 Hyperlipidemia, unspecified; E03.9 Hypothyroidism, unspecified; E78.00 Pure hypercholesterolemia, unspecified; R53.83 Other fatigue; M19.90 Unspecified osteoarthritis, unspecified site; F41.9 Anxiety disorder, unspecified; Z79.4 Long term (current) use of insulin; Z79.899 Other long term (current) drug therapy; Z87.891 Personal history of nicotine dependence; Z85.3 Personal history of malignant neoplasm of breast; Z95.810 Presence of automatic (implantable) cardiac defibrillator; Z95.5 Presence of coronary angioplasty implant and graft; Z86.73 Personal history of transient ischemic attack (TIA), and cerebral infarction without residual deficits
CPT/HCPCS: 36415; 80048; 83880; 85025; 96365; 96366; G0463; J1250; J1642

== ENCOUNTER → 2020-11-13 | Outpatient (CLI) | payer MEDICARE, OTHER ==
[2020-11-13] VITALS (9 sets, daily range): BP systolic 112–197; BP diastolic 79–104
[~2020-11-13] MED LIST changes: +FUROSEMIDE 40 MG/4 ML VIAL IV ONE; +FUROSEMIDE 40 MG/4 ML VIAL ONE; +POTASSIUM CHL 10 Meq TABLET PO ONE; +cloNIDine HCL 0.1 MG TAB ONE; +cloNIDine HCL 0.1 MG TAB PO ONE
[2020-11-13 11:51] LABS: Basophils # (auto) 0 10 ^3/uL (0-0.2); Basophils % (auto) 0.3 % (0.0-2.0); Eosinophils # (auto) 0.4 10 ^3/uL (0-0.8); Eosinophils % (auto) 6.2 % (0.0-7.0); Hematocrit 27.7 % (36.0-46.0); Hemoglobin 9.1 g/dL (12.2-16.2); Lymphocytes # (auto) 1.4 10 ^3/uL (0.4-5.4); Lymphocytes % (auto) 20.9 % (10.0-50.0); Mean Corpuscular Hemoglobin 27.9 pg (28.0-32.0); Mean Corpuscular Volume 84.5 fL (80.0-100.0); Monocytes # (auto) 0.4 10 ^3/uL (0-1.3); Monocytes % (auto) 6.9 % (0.0-12.0); Neutrophils # (auto) 4.3 10 ^3/uL (1.6-8.6); Neutrophils % (auto) 65.7 % (37.0-80.0); Red Blood Cells 3.28 10^6/uL (4.0-5.20); Red Cell Distribution Width 12.7 % (11.8-14.3); White Blood Cell 6.5 10^3/uL (4.4-10.8)
[2020-11-13 11:59] LABS: Potassium 3.6 mmol/L (3.5-5.1)
== END | disposition home or self-care (01) ==
LOC: CHF HDHVI 08:09
PROVIDERS: ATTEND Internal Medicine Cardiovascular Disease
DX: I13.0 Hypertensive heart and chronic kidney disease with heart failure and stage 1 through stage 4 chronic kidney disease, or unspecified chronic kidney disease (principal); E11.22 Type 2 diabetes mellitus with diabetic chronic kidney disease; I50.23 Acute on chronic systolic (congestive) heart failure; N18.31 Chronic kidney disease, stage 3a; I25.10 Atherosclerotic heart disease of native coronary artery without angina pectoris; I25.2 Old myocardial infarction; I48.0 Paroxysmal atrial fibrillation; J44.9 Chronic obstructive pulmonary disease, unspecified; E11.40 Type 2 diabetes mellitus with diabetic neuropathy, unspecified; E78.5 Hyperlipidemia, unspecified; E03.9 Hypothyroidism, unspecified; E78.00 Pure hypercholesterolemia, unspecified; M19.90 Unspecified osteoarthritis, unspecified site; F41.9 Anxiety disorder, unspecified; Z79.4 Long term (current) use of insulin; Z79.899 Other long term (current) drug therapy; Z87.891 Personal history of nicotine dependence; Z95.810 Presence of automatic (implantable) cardiac defibrillator; Z95.5 Presence of coronary angioplasty implant and graft; Z86.73 Personal history of transient ischemic attack (TIA), and cerebral infarction without residual deficits
CPT/HCPCS: 36415; 82565; 83880; 84132; 84520; 85025; 96365; 96366; 96375; G0463; J1250; J1642; J1940

== ENCOUNTER → 2020-11-20 | Outpatient (CLI) | payer MEDICARE, OTHER ==
[2020-11-20] VITALS (7 sets, daily range): BP systolic 97–140; BP diastolic 62–81
[~2020-11-20] MED LIST changes: -FUROSEMIDE 40 MG/4 ML VIAL IV ONE; -FUROSEMIDE 40 MG/4 ML VIAL ONE; -POTASSIUM CHL 10 Meq TABLET PO ONE
[2020-11-20 11:22] LABS: Basophils # (auto) 0.1 10 ^3/uL (0-0.2); Eosinophils # (auto) 0.3 10 ^3/uL (0-0.8); Eosinophils % (auto) 6.3 % (0.0-7.0); Hemoglobin 9.6 g/dL (12.2-16.2); Lymphocytes # (auto) 1.3 10 ^3/uL (0.4-5.4); Lymphocytes % (auto) 24.4 % (10.0-50.0); Mean Corpuscular Hemoglobin 27.8 pg (28.0-32.0); Mean Corpuscular Volume 84.1 fL (80.0-100.0); Monocytes # (auto) 0.5 10 ^3/uL (0-1.3); Monocytes % (auto) 9.1 % (0.0-12.0); Neutrophils # (auto) 3.1 10 ^3/uL (1.6-8.6); Neutrophils % (auto) 59.2 % (37.0-80.0); Nucleated Red Blood Cells % 0.1 %; Red Blood Cells 3.45 10^6/uL (4.0-5.20); Red Cell Distribution Width 13.2 % (11.8-14.3); White Blood Cell 5.2 10^3/uL (4.4-10.8)
[2020-11-20 11:33] LABS: Albumin 3.1 g/dL (3.4-5.0); Calcium 9.6 mg/dL (8.5-10.1); Magnesium 2.4 mg/dL (1.6-2.6); Potassium 3.6 mmol/L (3.5-5.1)
[2020-11-20 11:38] LABS: BUN/Creatinine Ratio 16.4; Bilirubin, Total 0.8 mg/dL (0.2-1.0)
== END | disposition home or self-care (01) ==
LOC: CHF HDHVI 08:14
PROVIDERS: ATTEND Internal Medicine Cardiovascular Disease
DX: I13.0 Hypertensive heart and chronic kidney disease with heart failure and stage 1 through stage 4 chronic kidney disease, or unspecified chronic kidney disease (principal); E11.22 Type 2 diabetes mellitus with diabetic chronic kidney disease; I50.23 Acute on chronic systolic (congestive) heart failure; N18.31 Chronic kidney disease, stage 3a; I25.10 Atherosclerotic heart disease of native coronary artery without angina pectoris; I25.2 Old myocardial infarction; I42.8 Other cardiomyopathies; I48.0 Paroxysmal atrial fibrillation; J96.10 Chronic respiratory failure, unspecified whether with hypoxia or hypercapnia; J44.9 Chronic obstructive pulmonary disease, unspecified; E03.9 Hypothyroidism, unspecified; E78.5 Hyperlipidemia, unspecified; E78.00 Pure hypercholesterolemia, unspecified; E11.40 Type 2 diabetes mellitus with diabetic neuropathy, unspecified; M19.90 Unspecified osteoarthritis, unspecified site; Z79.4 Long term (current) use of insulin; Z95.810 Presence of automatic (implantable) cardiac defibrillator; Z87.891 Personal history of nicotine dependence; Z85.3 Personal history of malignant neoplasm of breast; Z95.5 Presence of coronary angioplasty implant and graft
CPT/HCPCS: 36415; 80053; 83735; 83880; 85025; 96365; 96366; G0463; J1250; J1642

== ENCOUNTER → 2020-11-27 | Outpatient (CLI) | payer MEDICARE, OTHER ==
[2020-11-27] VITALS (9 sets, daily range): BP systolic 144–184; BP diastolic 80–106
[~2020-11-27] MED LIST changes: -cloNIDine HCL 0.1 MG TAB ONE; -cloNIDine HCL 0.1 MG TAB PO ONE
[2020-11-27 11:28] LABS: Potassium 3.6 mmol/L (3.5-5.1)
== END | disposition home or self-care (01) ==
LOC: CHF HDHVI 08:37
PROVIDERS: ATTEND Internal Medicine Cardiovascular Disease
DX: I13.0 Hypertensive heart and chronic kidney disease with heart failure and stage 1 through stage 4 chronic kidney disease, or unspecified chronic kidney disease (principal); E11.22 Type 2 diabetes mellitus with diabetic chronic kidney disease; I50.23 Acute on chronic systolic (congestive) heart failure; N18.31 Chronic kidney disease, stage 3a; I25.10 Atherosclerotic heart disease of native coronary artery without angina pectoris; I25.2 Old myocardial infarction; J44.9 Chronic obstructive pulmonary disease, unspecified; J96.10 Chronic respiratory failure, unspecified whether with hypoxia or hypercapnia; I48.0 Paroxysmal atrial fibrillation; I42.8 Other cardiomyopathies; E11.40 Type 2 diabetes mellitus with diabetic neuropathy, unspecified; E03.9 Hypothyroidism, unspecified; E78.00 Pure hypercholesterolemia, unspecified; E78.5 Hyperlipidemia, unspecified; F41.9 Anxiety disorder, unspecified; M19.90 Unspecified osteoarthritis, unspecified site; Z79.4 Long term (current) use of insulin; Z95.810 Presence of automatic (implantable) cardiac defibrillator; Z87.891 Personal history of nicotine dependence; Z79.899 Other long term (current) drug therapy; Z86.73 Personal history of transient ischemic attack (TIA), and cerebral infarction without residual deficits; Z95.5 Presence of coronary angioplasty implant and graft
CPT/HCPCS: 36415; 82565; 83880; 84132; 84520; 96365; 96366; G0463; J1250; J1642

== ENCOUNTER 2020-12-02 02:41 | Inpatient (IN) | payer MEDICARE, OTHER ==
[~2020-12-02] VITALS: Ht 167.6 cm; Wt 71.7 kg
[~2020-12-02 02:41] MED LIST changes: -DOBUTamine 1000MCG/ML 250 ML IV ONE
[2020-12-02 02:50] VITALS: BP 192/128
[2020-12-02] MEDS ORDERED: methylPREDNISolone SOD SUCC 125 MG/2 ML VL IV ONE (03:00)
[2020-12-02] MEDS ORDERED: IPRATROPIUM BROM 0.5 MG/2.5ML INH SOL NEB ONE (03:15)
[2020-12-02] MEDS ORDERED: ALBUTEROL SULF 2.5 MG/0.5ML(0.5%) NEB SOLN NEB ONE (03:15)
[2020-12-02] MEDS: MAGNESIUM SULFATE 1GM/100ML 100 ML IV SCH ×2 (03:18→04:19)
[2020-12-02] MEDS ORDERED: FUROSEMIDE 100 MG/10ML VIAL IV ONE (05:30)
[2020-12-02] MEDS ORDERED: LABETALOL HCL 5 MG/ML 4ML SYRINGE IV ONE (05:30)
[2020-12-02] MEDS ORDERED: NITROGLYCERIN 0.4 MG SL TAB SL PRN ×2 (05:30→07:00)
[2020-12-02] MEDS ORDERED: MORPHINE SULFATE INJECTION 2 MG/ML SYRG IV PRN ×3 (05:30→07:00)
[2020-12-02 05:55] LABS: Basophils # (auto) 0.1 10 ^3/uL (0-0.2); Basophils % (auto) 0.3 % (0.0-2.0); Eosinophils # (auto) 0 10 ^3/uL (0-0.8); Eosinophils % (auto) 0.1 % (0.0-7.0); Hematocrit 28.6 % (36.0-46.0); Lymphocytes # (auto) 0.5 10 ^3/uL (0.4-5.4); Lymphocytes % (auto) 3.4 % (10.0-50.0); Mean Corpuscular Hgb Conc. 31.6 g/dL (32.0-36.0); Mean Corpuscular Volume 85.5 fL (80.0-100.0); Monocytes # (auto) 0.5 10 ^3/uL (0-1.3); Monocytes % (auto) 3.7 % (0.0-12.0); Neutrophils # (auto) 13.3 10 ^3/uL (1.6-8.6); Neutrophils % (auto) 92.5 % (37.0-80.0); Red Blood Cells 3.35 10^6/uL (4.0-5.20); Red Cell Distribution Width 13.3 % (11.8-14.3); White Blood Cell 14.4 10^3/uL (4.4-10.8)
[2020-12-02 06:16] VITALS: BP 154/80
[2020-12-02 06:18] LABS: Albumin 3.3 g/dL (3.4-5.0); Calcium 9.1 mg/dL (8.5-10.1); Lactic Acid w/Reflex 2.7 mmol/L (0.4-2.0); Magnesium 3.1 mg/dL (1.6-2.6); Potassium 3.6 mmol/L (3.5-5.1)
[2020-12-02 06:23] LABS: BUN/Creatinine Ratio 17.3; Total Protein 7.9 g/dL (6.4-8.2)
[2020-12-02] MEDS ORDERED: METOPROLOL SUCCINATE XL 50 MG TAB PO ONE (06:45)
[2020-12-02 06:52] LABS: Urine Bacteria FEW /hpf (None Seen); Urine Blood Negative /uL (Negative); Urine Hyaline Cast FEW /lpf (0 - 2); Urine Mucus FEW (None Seen); Urine Specific Gravity 1.013 (1.001-1.035); Urine WBC 1 /hpf (0 - 5)
[2020-12-02] MEDS ORDERED: DOCUSATE SOD 100 MG CAP PO PRN (07:00)
[2020-12-02] MEDS ORDERED: DOXYCYCLINE 100MG/250ML 250 ML IV SCH (07:00)
[2020-12-02] MEDS ORDERED: LABETALOL HCL 5 MG/ML 4ML SYRINGE IV PRN (07:00)
[2020-12-02] MEDS ORDERED: ONDANSETRON HCL 4 MG/2 ML VIAL IV PRN (07:00)
[2020-12-02] MEDS ORDERED: DOXYCYCLINE 100MG/250ML 250 ML IV ONE (07:00)
[2020-12-02] MEDS ORDERED: LORazepam 0.5 MG TAB PO PRN (07:00)
[2020-12-02] MEDS ORDERED: DEXTROSE (50%) 50ML SYRG IV PRN (07:00)
[2020-12-02] MEDS ORDERED: ACETAMINOPHEN 325 MG TAB PO PRN (07:00)
[2020-12-02] MEDS ORDERED: HYDROcodone-ACET 5/325MG TAB PO PRN (07:00)
[2020-12-02] MEDS ORDERED: ALUM & MAG HYDROX-SIMETH LIQ(MAALOX) 30 ML PO PRN (07:00)
[2020-12-02] MEDS ORDERED: ENOXAPARIN SOD 30 MG/0.3 ML SYRINGE SC ONE (07:30)
[2020-12-02 07:32] LABS: Amphetamine Screen, Urine NEGATIVE (NEGATIVE); Barbiturate Scree,Urine NEGATIVE (NEGATIVE); Benzodiazephine Screen, Urine NEGATIVE (NEGATIVE); Cannabinoid Screen, Urine NEGATIVE (NEGATIVE); Cocaine Screen, Urine NEGATIVE (NEGATIVE); Opiate Scree,Urine NEGATIVE (NEGATIVE); Phencyclidine Screen, Urine NEGATIVE (NEGATIVE)
[2020-12-02] MEDS: ACCU-CHEK COMFORT CURVE STRIP VI SCH ×4 (07:50→22:00)
[2020-12-02] MEDS: InsuLIN REG 1unit/0.01ml Soln (100units/ml) SC SCH ×4 (07:51→22:48)
[2020-12-02 09:00] LABS: INR 1.1 (0.9-1.15)
[2020-12-02] MEDS ORDERED: OXYBUTYNIN CHL 5 MG TAB PO SCH (10:00)
[2020-12-02] MEDS: SACUBITRIL-VALSARTAN 24mg/26mg TAB PO SCH ×2 (11:10→22:41)
[2020-12-02] MEDS: ALLOPURINOL 100 MG TAB PO SCH (11:11)
[2020-12-02] MEDS: ASPirin-EC 81 mg tab PO SCH (11:11)
[2020-12-02] MEDS: OXYBUTYNIN CHL 5 MG TAB PO SCH ×2 (11:11→22:42)
[2020-12-02] MEDS: ENOXAPARIN SOD 30 MG/0.3 ML SYRINGE SC SCH (11:11)
[2020-12-02] MEDS: LEVOTHYROXINE SODIUM 25 MCG TAB PO SCH (11:12)
[2020-12-02] MEDS: SPIRONOLACTONE 25 MG TAB PO SCH (11:12)
[2020-12-02] MEDS ORDERED: IPRATROPIUM BROM 0.5 MG/2.5ML INH SOL NEB SCH (12:00)
[2020-12-02 14:55] VITALS: BP 163/76
[2020-12-02] MEDS ORDERED: FUROSEMIDE 40 MG/4 ML VIAL IV SCH (18:00)
[2020-12-02 18:24] VITALS: BP 133/68
[2020-12-02] MEDS: FUROSEMIDE INJECTION 100 MG in D5W 5% 100 ML IV SCH (18:52)
[2020-12-02] MEDS: DOBUTamine 1000MCG/ML 250 ML IV SCH (18:52)
[2020-12-02 20:00] VITALS: BP 157/79
[2020-12-02 22:00] VITALS: BP 157/79
[2020-12-02] MEDS: ALBUTEROL SULF 2.5 MG/0.5ML(0.5%) NEB SOLN NEB SCH (22:35)
[2020-12-02] MEDS: IPRATROPIUM BROM 0.5 MG/2.5ML INH SOL NEB SCH (22:36)
[2020-12-02] MEDS: ATORVASTATIN 20 MG TAB PO SCH (22:41)
[2020-12-02] MEDS: POTASSIUM CHL 20 Meq TABLET PO SCH (22:41)
[2020-12-03] MEDS ORDERED: FUROSEMIDE INJECTION 10 ML ONE (03:22)
[2020-12-03] MEDS: FUROSEMIDE INJECTION 100 MG in D5W 5% 100 ML IV SCH ×3 (03:34→23:02)
[2020-12-03 05:00] VITALS: BP 101/60
[2020-12-03] MEDS: DOBUTamine 1000MCG/ML 250 ML IV SCH ×2 (06:12→18:22)
[2020-12-03] MEDS: ALBUTEROL SULF 2.5 MG/0.5ML(0.5%) NEB SOLN NEB SCH ×5 (06:15→22:48)
[2020-12-03] MEDS: IPRATROPIUM BROM 0.5 MG/2.5ML INH SOL NEB SCH ×5 (06:15→22:48)
[2020-12-03] MEDS: POTASSIUM CHL 20 Meq TABLET PO SCH ×3 (06:19→21:50)
[2020-12-03] MEDS: InsuLIN REG 1unit/0.01ml Soln (100units/ml) SC SCH ×4 (06:22→21:51)
[2020-12-03 09:00] VITALS: BP 117/79
[2020-12-03] MEDS: LEVOTHYROXINE SODIUM 25 MCG TAB PO SCH (09:30)
[2020-12-03] MEDS: SACUBITRIL-VALSARTAN 24mg/26mg TAB PO SCH ×2 (09:30→21:51)
[2020-12-03] MEDS: ASPirin-EC 81 mg tab PO SCH (09:30)
[2020-12-03] MEDS: OXYBUTYNIN CHL 5 MG TAB PO SCH ×2 (09:30→21:49)
[2020-12-03] MEDS: SPIRONOLACTONE 25 MG TAB PO SCH (09:30)
[2020-12-03] MEDS: ALLOPURINOL 100 MG TAB PO SCH (09:31)
[2020-12-03] MEDS: ENOXAPARIN SOD 30 MG/0.3 ML SYRINGE SC SCH (09:31)
[2020-12-03] MEDS: METOPROLOL SUCCINATE XL 50 MG TAB PO SCH (09:31)
[2020-12-03] MEDS: ACCU-CHEK COMFORT CURVE STRIP VI SCH ×3 (11:32→21:50)
[2020-12-03 12:47] VITALS: BP 124/71
[2020-12-03 13:29] VITALS: BP 124/71
[2020-12-03 17:28] VITALS: BP 117/54
[2020-12-03] MEDS: ATORVASTATIN 20 MG TAB PO SCH (21:50)
[2020-12-03 22:00] VITALS: BP 148/99
[2020-12-04 05:00] VITALS: BP 112/64
[2020-12-04] MEDS: DOBUTamine 1000MCG/ML 250 ML IV SCH ×3 (05:57→21:53)
[2020-12-04] MEDS: ACCU-CHEK COMFORT CURVE STRIP VI SCH ×4 (06:23→21:52)
[2020-12-04] MEDS: InsuLIN REG 1unit/0.01ml Soln (100units/ml) SC SCH ×4 (06:28→21:50)
[2020-12-04] MEDS: IPRATROPIUM BROM 0.5 MG/2.5ML INH SOL NEB SCH ×5 (06:29→22:40)
[2020-12-04] MEDS: ALBUTEROL SULF 2.5 MG/0.5ML(0.5%) NEB SOLN NEB SCH ×5 (06:30→22:40)
[2020-12-04] MEDS: POTASSIUM CHL 20 Meq TABLET PO SCH ×3 (06:32→21:52)
[2020-12-04 09:00] VITALS: BP 132/65
[2020-12-04] MEDS: FUROSEMIDE INJECTION 100 MG in D5W 5% 100 ML IV SCH ×2 (09:11→18:16)
[2020-12-04] MEDS: ASPirin-EC 81 mg tab PO SCH (09:12)
[2020-12-04] MEDS: SACUBITRIL-VALSARTAN 24mg/26mg TAB PO SCH ×2 (09:12→21:52)
[2020-12-04] MEDS: OXYBUTYNIN CHL 5 MG TAB PO SCH ×2 (09:12→21:51)
[2020-12-04] MEDS: LEVOTHYROXINE SODIUM 25 MCG TAB PO SCH (09:12)
[2020-12-04] MEDS: SPIRONOLACTONE 25 MG TAB PO SCH (09:12)
[2020-12-04] MEDS: ENOXAPARIN SOD 30 MG/0.3 ML SYRINGE SC SCH (09:13)
[2020-12-04] MEDS: ALLOPURINOL 100 MG TAB PO SCH (09:13)
[2020-12-04] MEDS: METOPROLOL SUCCINATE XL 50 MG TAB PO SCH (09:13)
[2020-12-04 12:38] VITALS: BP 139/80
[2020-12-04 17:00] VITALS: BP 115/74
[2020-12-04] MEDS: ATORVASTATIN 20 MG TAB PO SCH (21:52)
[2020-12-04 22:00] VITALS: BP 102/56
[2020-12-05 05:00] VITALS: BP 117/62
[2020-12-05] MEDS: FUROSEMIDE INJECTION 100 MG in D5W 5% 100 ML IV SCH ×2 (05:38→15:00)
[2020-12-05] MEDS: POTASSIUM CHL 20 Meq TABLET PO SCH ×2 (05:44→13:16)
[2020-12-05] MEDS: ACCU-CHEK COMFORT CURVE STRIP VI SCH ×2 (06:04→10:55)
[2020-12-05] MEDS: InsuLIN REG 1unit/0.01ml Soln (100units/ml) SC SCH ×2 (06:06→10:56)
[2020-12-05] MEDS: IPRATROPIUM BROM 0.5 MG/2.5ML INH SOL NEB SCH ×3 (06:07→13:33)
[2020-12-05] MEDS: ALBUTEROL SULF 2.5 MG/0.5ML(0.5%) NEB SOLN NEB SCH ×3 (06:07→13:33)
[2020-12-05 09:00] VITALS: BP 87/58
[2020-12-05] MEDS: SPIRONOLACTONE 25 MG TAB PO SCH (09:43)
[2020-12-05] MEDS: ASPirin-EC 81 mg tab PO SCH (09:43)
[2020-12-05] MEDS: LEVOTHYROXINE SODIUM 25 MCG TAB PO SCH (09:43)
[2020-12-05] MEDS: SACUBITRIL-VALSARTAN 24mg/26mg TAB PO SCH (09:43)
[2020-12-05] MEDS: OXYBUTYNIN CHL 5 MG TAB PO SCH (09:43)
[2020-12-05 09:44] VITALS: BP 109/63
[2020-12-05] MEDS: ALLOPURINOL 100 MG TAB PO SCH (09:44)
[2020-12-05] MEDS: ENOXAPARIN SOD 30 MG/0.3 ML SYRINGE SC SCH (09:44)
[2020-12-05] MEDS: METOPROLOL SUCCINATE XL 50 MG TAB PO SCH (09:44)
[2020-12-05] MEDS: DOBUTamine 1000MCG/ML 250 ML IV SCH (11:42)
[2020-12-05 13:00] VITALS: BP 81/52
[2020-12-05 13:20] VITALS: BP 100/63
== END 2020-12-05 16:55 | disposition home or self-care (01) | DRG 871 ==
LOC: EDBD 02:41 → ER 02:41 → TELE 06:52 → TELE-WESTW 14:20
PROVIDERS: ADMIT Hospitalist; ATTEND Internal Medicine Cardiovascular Disease
PROC: 5A09357 Assistance with Respiratory Ventilation, Less than 24 Consecutive Hours, Continuous Positive Airway Pressure (ICD-10-PCS; principal; 2020-12-02)
DX: A41.9 Sepsis, unspecified organism (principal); I50.23 Acute on chronic systolic (congestive) heart failure; J96.01 Acute respiratory failure with hypoxia; J18.9 Pneumonia, unspecified organism; I16.9 Hypertensive crisis, unspecified; N39.0 Urinary tract infection, site not specified; I42.0 Dilated cardiomyopathy; J44.0 Chronic obstructive pulmonary disease with (acute) lower respiratory infection; I13.0 Hypertensive heart and chronic kidney disease with heart failure and stage 1 through stage 4 chronic kidney disease, or unspecified chronic kidney disease; N17.9 Acute kidney failure, unspecified; T82.118A Breakdown (mechanical) of other cardiac electronic device, initial encounter; I25.5 Ischemic cardiomyopathy; N18.32 Chronic kidney disease, stage 3b; D64.9 Anemia, unspecified; E66.3 Overweight; K21.9 Gastro-esophageal reflux disease without esophagitis; R32 Unspecified urinary incontinence; E78.5 Hyperlipidemia, unspecified; Z20.822 Contact with and (suspected) exposure to COVID-19; E03.9 Hypothyroidism, unspecified; E11.22 Type 2 diabetes mellitus with diabetic chronic kidney disease; Z79.01 Long term (current) use of anticoagulants; Z79.51 Long term (current) use of inhaled steroids; Z86.73 Personal history of transient ischemic attack (TIA), and cerebral infarction without residual deficits; Z86.16 Personal history of COVID-19; Z79.899 Other long term (current) drug therapy; Z91.19 Patient's noncompliance with other medical treatment and regimen; Z95.810 Presence of automatic (implantable) cardiac defibrillator; E11.65 Type 2 diabetes mellitus with hyperglycemia; Z79.84 Long term (current) use of oral hypoglycemic drugs
CPT/HCPCS: 36415; 36600; 71045; 80053; 80307; 81001; 82805; 82962; 83036; 83605; 83735; 83880; 84484; 85025; 85610; 87040; 87086; 87426; 93005; 94640; 94660; 96365; 96366; 96367; 96372; 96375; 99291; G0378; J1815; J2405; J3490; J7060

== ENCOUNTER 2020-12-05 21:19 | Inpatient (IN) | payer MEDICARE, OTHER ==
[~2020-12-05] VITALS: Ht 162.6 cm; Wt 77.7 kg
[2020-12-05 22:11] LABS: Basophils # (auto) 0.1 10 ^3/uL (0-0.2); Basophils % (auto) 0.8 % (0.0-2.0); Eosinophils # (auto) 0.1 10 ^3/uL (0-0.8); Eosinophils % (auto) 1.8 % (0.0-7.0); Hematocrit 35.3 % (36.0-46.0); Hemoglobin 11.4 g/dL (12.2-16.2); Lymphocytes # (auto) 1.1 10 ^3/uL (0.4-5.4); Lymphocytes % (auto) 13.6 % (10.0-50.0); Mean Corpuscular Hemoglobin 27.2 pg (28.0-32.0); Mean Corpuscular Hgb Conc. 32.3 g/dL (32.0-36.0); Mean Corpuscular Volume 84.1 fL (80.0-100.0); Monocytes # (auto) 0.5 10 ^3/uL (0-1.3); Monocytes % (auto) 6.4 % (0.0-12.0); Neutrophils # (auto) 6.5 10 ^3/uL (1.6-8.6); Neutrophils % (auto) 77.4 % (37.0-80.0); Red Cell Distribution Width 13.3 % (11.8-14.3); White Blood Cell 8.3 10^3/uL (4.4-10.8)
[2020-12-05 22:29] LABS: INR 1.07 (0.9-1.15); Partial Thromboplastin Time 26.2 sec (23.6-33.0)
[2020-12-05 23:18] LABS: Lactic Acid w/Reflex 2.3 mmol/L (0.4-2.0)
[2020-12-06 01:10] LABS: Alanine Aminotransferase 15 U/L (13-56); Albumin 3.2 g/dL (3.4-5.0); Anion Gap 6 (5-15); Aspartate Aminotransferase 10 U/L (15-37); BUN/Creatinine Ratio 13.5; Blood Urea Nitrogen 46 mg/dL (7-18); Calcium 9.2 mg/dL (8.5-10.1); Carbon Dioxide 24 mmol/L (21-32); Chloride 103 mmol/L (98-107); GFR African American 17 mL/min; GFR Non-African American 14 mL/min; Glucose 175 mg/dL (74-106); Magnesium 2.1 mg/dL (1.6-2.6); Sodium 133 mmol/L (136-145)
[2020-12-06 01:15] LABS: Alkaline Phosphatase 77 U/L (45-117); Total Protein 8.4 g/dL (6.4-8.2)
[2020-12-06] MEDS ORDERED: ALBUTEROL SULF 2.5 MG/0.5ML(0.5%) NEB SOLN NEB ONE (02:00)
[2020-12-06] MEDS ORDERED: SODIUM ZIRCONIUM CYCL 10 GM PAK PO ONE ×2 (02:00→11:30)
[2020-12-06] MEDS ORDERED: SODIUM BICARBONATE 8.4% INJ 50ML SYRINGE IV ONE (02:00)
[2020-12-06] MEDS ORDERED: CALCIUM GLUC 1,000mg/50ml-NS 50 ML IV ONE ×2 (02:00→02:15)
[2020-12-06] MEDS ORDERED: NITROGLYCERIN 0.4 MG SL TAB SL PRN (04:15)
[2020-12-06] MEDS ORDERED: ALBUTEROL SULF 2.5 MG/0.5ML(0.5%) NEB SOLN NEB PRN (04:15)
[2020-12-06] MEDS ORDERED: DEXTROSE (50%) 50ML SYRG IV PRN (04:15)
[2020-12-06] MEDS ORDERED: MORPHINE SULFATE INJECTION 2 MG/ML SYRG IV PRN (04:15)
[2020-12-06] MEDS ORDERED: ACETAMINOPHEN 325 MG TAB PO PRN (04:15)
[2020-12-06] MEDS ORDERED: DOCUSATE SOD 100 MG CAP PO PRN (04:15)
[2020-12-06] MEDS ORDERED: ONDANSETRON HCL 4 MG/2 ML VIAL IV PRN (04:15)
[2020-12-06] MEDS ORDERED: HYDROcodone-ACET 5/325MG TAB PO PRN (04:15)
[2020-12-06] MEDS: SODIUM CHLORIDE 0.9% 1,000 ML IV SCH ×2 (04:30→22:24)
[2020-12-06 05:52] LABS: Basophils # (auto) 0.1 10 ^3/uL (0-0.2); Basophils % (auto) 0.5 % (0.0-2.0); Eosinophils # (auto) 0.1 10 ^3/uL (0-0.8); Hemoglobin 11.7 g/dL (12.2-16.2); Lymphocytes # (auto) 1.3 10 ^3/uL (0.4-5.4); Lymphocytes % (auto) 13.3 % (10.0-50.0); Mean Corpuscular Hemoglobin 26.9 pg (28.0-32.0); Mean Corpuscular Hgb Conc. 31.6 g/dL (32.0-36.0); Mean Corpuscular Volume 85.1 fL (80.0-100.0); Monocytes # (auto) 0.9 10 ^3/uL (0-1.3); Monocytes % (auto) 8.9 % (0.0-12.0); Neutrophils # (auto) 7.4 10 ^3/uL (1.6-8.6); Neutrophils % (auto) 76.3 % (37.0-80.0); Nucleated Red Blood Cells % 0.1 %; Red Blood Cells 4.34 10^6/uL (4.0-5.20); Red Cell Distribution Width 13.2 % (11.8-14.3); White Blood Cell 9.7 10^3/uL (4.4-10.8)
[2020-12-06 06:23] LABS: Calcium 10.1 mg/dL (8.5-10.1)
[2020-12-06 06:27] LABS: Albumin 3.2 g/dL (3.4-5.0)
[2020-12-06 06:29] LABS: Total Protein 8.3 g/dL (6.4-8.2)
[2020-12-06 06:31] LABS: Potassium 7.6 mmol/L (3.5-5.1)
[2020-12-06] MEDS: ACCU-CHEK COMFORT CURVE STRIP VI SCH ×4 (06:43→22:25)
[2020-12-06] MEDS: LEVOTHYROXINE SODIUM 25 MCG TAB PO SCH (06:48)
[2020-12-06] MEDS: InsuLIN REG 1unit/0.01ml Soln (100units/ml) SC SCH ×4 (06:53→22:52)
[2020-12-06 07:00] VITALS: BP 145/94
[2020-12-06] MEDS ORDERED: FAMOTIDINE (10MG/ML) 2ML VL IV SCH (10:00)
[2020-12-06] MEDS: ZINC SULFATE 220mg CAP or TAB PO SCH (10:20)
[2020-12-06] MEDS: MULTIPLE VITAMIN TAB PO SCH (10:22)
[2020-12-06] MEDS: HEPARIN SODIUM (PORCINE) 5000 UNITS/ML 1ML VIAL SC SCH ×2 (10:22→22:25)
[2020-12-06] MEDS: ASCORBIC ACID 500 MG TAB PO SCH ×2 (10:23→22:24)
[2020-12-06] MEDS ORDERED: FUROSEMIDE 40 MG/4 ML VIAL IV ONE (11:30)
[2020-12-06 20:00] VITALS: BP 120/66
[2020-12-06 22:00] VITALS: BP 120/78
[2020-12-07 05:00] VITALS: BP 120/86
[2020-12-07 05:55] LABS: Basophils # (auto) 0.1 10 ^3/uL (0-0.2); Basophils % (auto) 1.8 % (0.0-2.0); Eosinophils # (auto) 0.5 10 ^3/uL (0-0.8); Eosinophils % (auto) 7.8 % (0.0-7.0); Hematocrit 33.7 % (36.0-46.0); Hemoglobin 10.9 g/dL (12.2-16.2); Lymphocytes # (auto) 1.6 10 ^3/uL (0.4-5.4); Lymphocytes % (auto) 25.4 % (10.0-50.0); Mean Corpuscular Hgb Conc. 32.2 g/dL (32.0-36.0); Mean Corpuscular Volume 83.9 fL (80.0-100.0); Monocytes # (auto) 0.5 10 ^3/uL (0-1.3); Monocytes % (auto) 8.5 % (0.0-12.0); Neutrophils # (auto) 3.4 10 ^3/uL (1.6-8.6); Neutrophils % (auto) 56.5 % (37.0-80.0); Nucleated Red Blood Cells % 0.2 %; Red Blood Cells 4.02 10^6/uL (4.0-5.20); Red Cell Distribution Width 13.2 % (11.8-14.3); White Blood Cell 6.1 10^3/uL (4.4-10.8)
[2020-12-07 06:07] LABS: Albumin 2.8 g/dL (3.4-5.0); Calcium 9.3 mg/dL (8.5-10.1)
[2020-12-07 06:10] LABS: BUN/Creatinine Ratio 18.8; Bilirubin, Total 0.8 mg/dL (0.2-1.0); Total Protein 7.2 g/dL (6.4-8.2)
[2020-12-07] MEDS: LEVOTHYROXINE SODIUM 25 MCG TAB PO SCH (06:20)
[2020-12-07] MEDS: ACCU-CHEK COMFORT CURVE STRIP VI SCH ×4 (06:20→23:55)
[2020-12-07] MEDS: InsuLIN REG 1unit/0.01ml Soln (100units/ml) SC SCH ×4 (06:20→22:00)
[2020-12-07 06:28] LABS: Potassium 5.6 mmol/L (3.5-5.1)
[2020-12-07 09:00] VITALS: BP 110/70
[2020-12-07] MEDS: MULTIPLE VITAMIN TAB PO SCH (09:56)
[2020-12-07] MEDS: ZINC SULFATE 220mg CAP or TAB PO SCH (09:56)
[2020-12-07] MEDS: FAMOTIDINE (10MG/ML) 2ML VL IV SCH ×2 (09:56→10:00)
[2020-12-07] MEDS: ASCORBIC ACID 500 MG TAB PO SCH ×2 (09:57→23:53)
[2020-12-07] MEDS: HEPARIN SODIUM (PORCINE) 5000 UNITS/ML 1ML VIAL SC SCH ×2 (10:43→23:54)
[2020-12-07] MEDS ORDERED: SODIUM ZIRCONIUM CYCL 10 GM PAK PO ONE (11:30)
[2020-12-07 13:20] VITALS: BP 111/65
[2020-12-07] MEDS: SODIUM CHLORIDE 0.9% 1,000 ML IV SCH (13:35)
[2020-12-07] MEDS: SODIUM ZIRCONIUM CYCL 10 GM PAK PO SCH ×2 (14:00→23:52)
[2020-12-07 17:15] VITALS: BP 108/74
[2020-12-07 22:00] VITALS: BP 119/78
[2020-12-08 05:00] VITALS: BP 98/81
[2020-12-08] MEDS: SODIUM ZIRCONIUM CYCL 10 GM PAK PO SCH (06:00)
[2020-12-08] MEDS: InsuLIN REG 1unit/0.01ml Soln (100units/ml) SC SCH ×4 (06:20→21:21)
[2020-12-08 06:25] LABS: BUN/Creatinine Ratio 20.3; Potassium 4.2 mmol/L (3.5-5.1)
[2020-12-08] MEDS: SODIUM CHLORIDE 0.9% 1,000 ML IV SCH ×2 (06:29→22:55)
[2020-12-08] MEDS: LEVOTHYROXINE SODIUM 25 MCG TAB PO SCH (06:30)
[2020-12-08] MEDS: ACCU-CHEK COMFORT CURVE STRIP VI SCH ×4 (06:30→21:24)
[2020-12-08 09:12] VITALS: BP 137/80
[2020-12-08] MEDS: ASCORBIC ACID 500 MG TAB PO SCH ×2 (09:56→21:24)
[2020-12-08] MEDS: MULTIPLE VITAMIN TAB PO SCH (09:56)
[2020-12-08] MEDS: ZINC SULFATE 220mg CAP or TAB PO SCH (09:56)
[2020-12-08] MEDS: HEPARIN SODIUM (PORCINE) 5000 UNITS/ML 1ML VIAL SC SCH ×2 (09:57→21:24)
[2020-12-08 13:02] VITALS: BP 113/75
[2020-12-08 17:18] VITALS: BP 117/68
[2020-12-08 22:00] VITALS: BP 145/81
[2020-12-09 05:00] VITALS: BP 121/81
[2020-12-09] MEDS: InsuLIN REG 1unit/0.01ml Soln (100units/ml) SC SCH ×4 (06:16→21:53)
[2020-12-09] MEDS: ACCU-CHEK COMFORT CURVE STRIP VI SCH ×4 (06:19→21:54)
[2020-12-09] MEDS: LEVOTHYROXINE SODIUM 25 MCG TAB PO SCH (06:19)
[2020-12-09 09:00] VITALS: BP 104/78
[2020-12-09] MEDS: ZINC SULFATE 220mg CAP or TAB PO SCH (10:14)
[2020-12-09] MEDS: ASCORBIC ACID 500 MG TAB PO SCH ×2 (10:14→21:39)
[2020-12-09] MEDS: MULTIPLE VITAMIN TAB PO SCH (10:14)
[2020-12-09] MEDS: FAMOTIDINE (10MG/ML) 2ML VL IV SCH (10:14)
[2020-12-09] MEDS: HEPARIN SODIUM (PORCINE) 5000 UNITS/ML 1ML VIAL SC SCH ×2 (10:15→21:39)
[2020-12-09] MEDS: SODIUM CHLORIDE 0.9% 1,000 ML IV SCH (11:32)
[2020-12-09 13:00] VITALS: BP 131/87
[2020-12-09] MEDS ORDERED: SACU1TAB PO (13:35)
[2020-12-09] MEDS ORDERED: HYDR25TA87 PO (13:36)
[2020-12-09] MEDS ORDERED: APIX2.5T PO (13:39)
[2020-12-09 14:58] LABS: BUN/Creatinine Ratio 19.8; Calcium 8.7 mg/dL (8.5-10.1); Potassium 4.7 mmol/L (3.5-5.1)
[2020-12-09 17:00] VITALS: BP 104/67
[2020-12-09] MEDS ORDERED: SODIUM ZIRCONIUM CYCL 10 GM PAK PO ONE (17:45)
[2020-12-09 19:58] LABS: Urine Bacteria MOD /hpf (None Seen); Urine Blood 1+ /uL (Negative); Urine Specific Gravity 1.017 (1.001-1.035); Urine WBC 3001 /hpf (0 - 5); Urine WBC Clumps PRESENT /hpf (None Seen)
[2020-12-09 22:00] VITALS: BP 152/85
[2020-12-09 22:30] VITALS: BP 136/92
[2020-12-10] MEDS: SODIUM CHLORIDE 0.9% 1,000 ML IV SCH (02:00)
[2020-12-10 05:00] VITALS: BP 159/96
[2020-12-10] MEDS: LEVOTHYROXINE SODIUM 25 MCG TAB PO SCH (06:11)
[2020-12-10] MEDS: InsuLIN REG 1unit/0.01ml Soln (100units/ml) SC SCH ×3 (06:11→17:00)
[2020-12-10] MEDS: ACCU-CHEK COMFORT CURVE STRIP VI SCH ×3 (06:12→17:00)
[2020-12-10] MEDS: hydrALAZINE HCL 20 MG/ML VL IV PRN ×2 (06:12→12:42)
[2020-12-10 06:34] LABS: Calcium 8.6 mg/dL (8.5-10.1); Potassium 4.2 mmol/L (3.5-5.1)
[2020-12-10 06:36] LABS: BUN/Creatinine Ratio 19.6
[2020-12-10 09:00] VITALS: BP 169/96
[2020-12-10] MEDS: MULTIPLE VITAMIN TAB PO SCH (10:26)
[2020-12-10] MEDS: ZINC SULFATE 220mg CAP or TAB PO SCH (10:26)
[2020-12-10] MEDS: ASCORBIC ACID 500 MG TAB PO SCH (10:26)
[2020-12-10] MEDS: HEPARIN SODIUM (PORCINE) 5000 UNITS/ML 1ML VIAL SC SCH (10:34)
[2020-12-10] MEDS ORDERED: cefTRIAXone 1GM/50ML D5W 50 ML IV ONE (11:45)
[2020-12-10 13:00] VITALS: BP 171/96
[2020-12-10 17:00] VITALS: BP 119/80
[2020-12-10 18:35] VITALS: BP 119/80
== END 2020-12-10 20:14 | disposition home or self-care (01) | DRG 640 ==
LOC: ER 21:19 → EDBD 21:19 → TELE 12-06 04:24 → TELE-CENTR 12-06 19:56
PROVIDERS: ADMIT Nurse Practitioner Family; ATTEND Internal Medicine Cardiovascular Disease
DX: E87.5 Hyperkalemia (principal); N17.0 Acute kidney failure with tubular necrosis; I13.0 Hypertensive heart and chronic kidney disease with heart failure and stage 1 through stage 4 chronic kidney disease, or unspecified chronic kidney disease; I42.0 Dilated cardiomyopathy; I50.22 Chronic systolic (congestive) heart failure; E87.1 Hypo-osmolality and hyponatremia; Z20.822 Contact with and (suspected) exposure to COVID-19; E88.09 Other disorders of plasma-protein metabolism, not elsewhere classified; F03.90 Unspecified dementia, unspecified severity, without behavioral disturbance, psychotic disturbance, mood disturbance, and anxiety; J44.9 Chronic obstructive pulmonary disease, unspecified; N18.9 Chronic kidney disease, unspecified; Z83.3 Family history of diabetes mellitus; I25.2 Old myocardial infarction; Z82.3 Family history of stroke; Z82.49 Family history of ischemic heart disease and other diseases of the circulatory system; Z91.19 Patient's noncompliance with other medical treatment and regimen; Z95.810 Presence of automatic (implantable) cardiac defibrillator
CPT/HCPCS: 36415; 36600; 71045; 76775; 80048; 80053; 81001; 82570; 82805; 82962; 83605; 83735; 83880; 84156; 84300; 84443; 84484; 85025; 85379; 85610; 85730; 87040; 87081; 87426; 93005; 94640; 96365; 96375; G0378; J0696; J1815; J3490

== ENCOUNTER → 2021-01-08 | Outpatient (CLI) | payer MEDICARE, OTHER ==
[2021-01-08] VITALS (9 sets, daily range): BP systolic 102–147; BP diastolic 61–91
[~2021-01-08] MED LIST changes: -AMLO-496 PO; +DOBUTamine 1000MCG/ML 250 ML IV ONE; -FLUT110A INH; +HYDR25TA87 PO; -LEVO250T69 PO; -LOSA-69 PO; -MAGN400T26 PO; +SACU1TAB PO; -SACU1TAB7 PO
[2021-01-08 10:27] LABS: Calcium 9.2 mg/dL (8.5-10.1); Potassium 3.8 mmol/L (3.5-5.1)
[2021-01-08 10:28] LABS: Basophils # (auto) 0 10 ^3/uL (0-0.2); Basophils % (auto) 0.5 % (0.0-2.0); Eosinophils # (auto) 0.3 10 ^3/uL (0-0.8); Eosinophils % (auto) 7.2 % (0.0-7.0); Hemoglobin 9.1 g/dL (12.2-16.2); Lymphocytes % (auto) 21.6 % (10.0-50.0); Mean Corpuscular Hemoglobin 27.9 pg (28.0-32.0); Mean Corpuscular Hgb Conc. 32.4 g/dL (32.0-36.0); Mean Corpuscular Volume 86.2 fL (80.0-100.0); Monocytes # (auto) 0.4 10 ^3/uL (0-1.3); Monocytes % (auto) 7.9 % (0.0-12.0); Neutrophils % (auto) 62.8 % (37.0-80.0); Nucleated Red Blood Cells % 0.2 %; Red Blood Cells 3.25 10^6/uL (4.0-5.20); Red Cell Distribution Width 13.1 % (11.8-14.3); White Blood Cell 4.8 10^3/uL (4.4-10.8)
[2021-01-08 10:30] LABS: BUN/Creatinine Ratio 34.1
== END | disposition home or self-care (01) ==
LOC: CHF HDHVI 08:01
PROVIDERS: ATTEND Internal Medicine Cardiovascular Disease
DX: I13.0 Hypertensive heart and chronic kidney disease with heart failure and stage 1 through stage 4 chronic kidney disease, or unspecified chronic kidney disease (principal); E11.22 Type 2 diabetes mellitus with diabetic chronic kidney disease; I50.23 Acute on chronic systolic (congestive) heart failure; N18.32 Chronic kidney disease, stage 3b; I25.10 Atherosclerotic heart disease of native coronary artery without angina pectoris; I25.2 Old myocardial infarction; I42.8 Other cardiomyopathies; I48.0 Paroxysmal atrial fibrillation; J44.9 Chronic obstructive pulmonary disease, unspecified; J96.10 Chronic respiratory failure, unspecified whether with hypoxia or hypercapnia; K21.9 Gastro-esophageal reflux disease without esophagitis; E11.40 Type 2 diabetes mellitus with diabetic neuropathy, unspecified; E78.5 Hyperlipidemia, unspecified; E03.9 Hypothyroidism, unspecified; E78.00 Pure hypercholesterolemia, unspecified; F41.9 Anxiety disorder, unspecified; Z79.4 Long term (current) use of insulin; Z79.01 Long term (current) use of anticoagulants; Z79.51 Long term (current) use of inhaled steroids; Z79.899 Other long term (current) drug therapy; Z87.891 Personal history of nicotine dependence; Z95.810 Presence of automatic (implantable) cardiac defibrillator; Z86.73 Personal history of transient ischemic attack (TIA), and cerebral infarction without residual deficits
CPT/HCPCS: 36415; 80048; 83735; 85025; 96365; 96366; G0463; J1250; J1642

== ENCOUNTER → 2021-02-05 | Outpatient (CLI) | payer MEDICARE, OTHER ==
[2021-02-05] VITALS (9 sets, daily range): BP systolic 132–144; BP diastolic 62–78
[~2021-02-05] VITALS: Ht 30.5 cm; Wt 82.1 kg
[~2021-02-05] MED LIST changes: +FUROSEMIDE 40 MG/4 ML VIAL IV ONE; +FUROSEMIDE 40 MG/4 ML VIAL ONE; +FUROSEMIDE INJECTION 10 ML ONE; +FUROSEMIDE INJECTION 100 MG in D5W 5% 100 ML IV ONE; +POTASSIUM EFFERVESENT TAB 25 MEQ ONE; +POTASSIUM EFFERVESENT TAB 25 MEQ PO ONE
[2021-02-05 11:23] LABS: Basophils # (auto) 0 10 ^3/uL (0-0.2); Basophils % (auto) 0.8 % (0.0-2.0); Eosinophils # (auto) 0.3 10 ^3/uL (0-0.8); Lymphocytes # (auto) 0.6 10 ^3/uL (0.4-5.4); Monocytes # (auto) 0.5 10 ^3/uL (0-1.3); White Blood Cell 5.5 10^3/uL (4.4-10.8)
[2021-02-05 11:25] LABS: Eosinophils % (auto) 5.3 % (0.0-7.0); Hematocrit 26.4 % (36.0-46.0); Hemoglobin 8.3 g/dL (12.2-16.2); Mean Corpuscular Hgb Conc. 31.2 g/dL (32.0-36.0); Mean Corpuscular Volume 86.4 fL (80.0-100.0); Monocytes % (auto) 8.3 % (0.0-12.0); Neutrophils # (auto) 4.2 10 ^3/uL (1.6-8.6); Neutrophils % (auto) 75.6 % (37.0-80.0); Nucleated Red Blood Cells % 0.1 %; Red Blood Cells 3.06 10^6/uL (4.0-5.20); Red Cell Distribution Width 13.5 % (11.8-14.3)
[2021-02-05 11:42] LABS: Albumin 2.9 g/dL (3.4-5.0); BUN/Creatinine Ratio 23.8; Calcium 8.5 mg/dL (8.5-10.1); Magnesium 2.3 mg/dL (1.6-2.6)
[2021-02-05 11:44] LABS: Bilirubin, Total 0.8 mg/dL (0.2-1.0)
== END | disposition home or self-care (01) ==
LOC: Rad HDHVI 09:03
PROVIDERS: ATTEND Internal Medicine Cardiovascular Disease
DX: I13.0 Hypertensive heart and chronic kidney disease with heart failure and stage 1 through stage 4 chronic kidney disease, or unspecified chronic kidney disease (principal); E11.22 Type 2 diabetes mellitus with diabetic chronic kidney disease; I50.23 Acute on chronic systolic (congestive) heart failure; N18.32 Chronic kidney disease, stage 3b; I25.10 Atherosclerotic heart disease of native coronary artery without angina pectoris; I25.5 Ischemic cardiomyopathy; I25.2 Old myocardial infarction; I48.0 Paroxysmal atrial fibrillation; J44.9 Chronic obstructive pulmonary disease, unspecified; J96.10 Chronic respiratory failure, unspecified whether with hypoxia or hypercapnia; K21.9 Gastro-esophageal reflux disease without esophagitis; E11.40 Type 2 diabetes mellitus with diabetic neuropathy, unspecified; E78.5 Hyperlipidemia, unspecified; E03.9 Hypothyroidism, unspecified; E78.00 Pure hypercholesterolemia, unspecified; F41.9 Anxiety disorder, unspecified; Z79.4 Long term (current) use of insulin; Z79.51 Long term (current) use of inhaled steroids; Z79.82 Long term (current) use of aspirin; Z79.899 Other long term (current) drug therapy; Z85.3 Personal history of malignant neoplasm of breast; Z87.891 Personal history of nicotine dependence; Z95.810 Presence of automatic (implantable) cardiac defibrillator; Z95.5 Presence of coronary angioplasty implant and graft; Z86.73 Personal history of transient ischemic attack (TIA), and cerebral infarction without residual deficits
CPT/HCPCS: 36415; 80053; 83735; 83880; 85025; 93306; 96365; 96366; 96368; 96376; G0463; J1250; J1642; J1940; 96375; J7060

== ENCOUNTER 2021-02-21 07:36 | Day surgery (SDC) | payer MEDICARE, OTHER ==
[~2021-02-21 07:36] MED LIST changes: -DOBUTamine 1000MCG/ML 250 ML IV ONE; -FUROSEMIDE 40 MG/4 ML VIAL IV ONE; -FUROSEMIDE 40 MG/4 ML VIAL ONE; -FUROSEMIDE INJECTION 10 ML ONE; -FUROSEMIDE INJECTION 100 MG in D5W 5% 100 ML IV ONE; -POTASSIUM EFFERVESENT TAB 25 MEQ ONE; -POTASSIUM EFFERVESENT TAB 25 MEQ PO ONE
[2021-02-21 08:41] VITALS: BP 174/85
[2021-02-21 08:55] VITALS: BP 165/83
[2021-02-21 09:49] VITALS: BP 133/84
[2021-02-21 10:34] VITALS: BP 142/83
[2021-02-21 11:11] VITALS: BP 159/84
== END 2021-02-21 12:02 | disposition home or self-care (01) ==
LOC: CATH 07:36
PROVIDERS: ATTEND Internal Medicine Cardiovascular Disease
DX: D64.9 Anemia, unspecified (principal); I25.10 Atherosclerotic heart disease of native coronary artery without angina pectoris; J44.9 Chronic obstructive pulmonary disease, unspecified; F41.9 Anxiety disorder, unspecified; F17.200 Nicotine dependence, unspecified, uncomplicated; E11.9 Type 2 diabetes mellitus without complications; I10 Essential (primary) hypertension; M10.9 Gout, unspecified; Z96.89 Presence of other specified functional implants; Z95.5 Presence of coronary angioplasty implant and graft; Z85.3 Personal history of malignant neoplasm of breast; Z20.822 Contact with and (suspected) exposure to COVID-19
CPT/HCPCS: 36430; 86850; 86900; 86901; 86920; J7030; P9016; U0003

== ENCOUNTER → 2021-02-26 | Outpatient (CLI) | payer MEDICARE, OTHER ==
[2021-02-26] VITALS (10 sets, daily range): BP systolic 121–160; BP diastolic 67–83
[~2021-02-26] MED LIST changes: +DOBUTamine 1000MCG/ML 250 ML IV ONE; +FUROSEMIDE INJECTION 10 ML ONE; +FUROSEMIDE INJECTION 100 MG in SODIUM CHL 0.9% 100 ML IV ONE
[2021-02-26 11:50] LABS: Basophils # (auto) 0.1 10 ^3/uL (0-0.2); Basophils % (auto) 0.9 % (0.0-2.0); Eosinophils # (auto) 0.3 10 ^3/uL (0-0.8); Hematocrit 29.6 % (36.0-46.0); Hemoglobin 9.3 g/dL (12.2-16.2); Lymphocytes # (auto) 0.7 10 ^3/uL (0.4-5.4); Lymphocytes % (auto) 11.3 % (10.0-50.0); Mean Corpuscular Hemoglobin 27.3 pg (28.0-32.0); Mean Corpuscular Hgb Conc. 31.4 g/dL (32.0-36.0); Mean Corpuscular Volume 86.9 fL (80.0-100.0); Monocytes # (auto) 0.6 10 ^3/uL (0-1.3); Monocytes % (auto) 9.2 % (0.0-12.0); Neutrophils # (auto) 4.9 10 ^3/uL (1.6-8.6); Neutrophils % (auto) 74.6 % (37.0-80.0); Nucleated Red Blood Cells % 0.1 %; Red Blood Cells 3.41 10^6/uL (4.0-5.20); Red Cell Distribution Width 14.7 % (11.8-14.3); White Blood Cell 6.6 10^3/uL (4.4-10.8)
[2021-02-26 12:19] LABS: BUN/Creatinine Ratio 16.8; Bilirubin, Total 1.3 mg/dL (0.2-1.0); Calcium 9.1 mg/dL (8.5-10.1); Magnesium 2.2 mg/dL (1.6-2.6); Total Protein 7.8 g/dL (6.4-8.2)
== END | disposition home or self-care (01) ==
LOC: CHF HDHVI 08:22
PROVIDERS: ATTEND Internal Medicine Cardiovascular Disease
DX: I13.0 Hypertensive heart and chronic kidney disease with heart failure and stage 1 through stage 4 chronic kidney disease, or unspecified chronic kidney disease (principal); E11.22 Type 2 diabetes mellitus with diabetic chronic kidney disease; I50.23 Acute on chronic systolic (congestive) heart failure; N18.32 Chronic kidney disease, stage 3b; I25.10 Atherosclerotic heart disease of native coronary artery without angina pectoris; I25.5 Ischemic cardiomyopathy; I25.2 Old myocardial infarction; I48.0 Paroxysmal atrial fibrillation; J44.9 Chronic obstructive pulmonary disease, unspecified; J96.10 Chronic respiratory failure, unspecified whether with hypoxia or hypercapnia; E11.40 Type 2 diabetes mellitus with diabetic neuropathy, unspecified; K21.9 Gastro-esophageal reflux disease without esophagitis; E78.00 Pure hypercholesterolemia, unspecified; E78.5 Hyperlipidemia, unspecified; E03.9 Hypothyroidism, unspecified; F41.9 Anxiety disorder, unspecified; Z86.73 Personal history of transient ischemic attack (TIA), and cerebral infarction without residual deficits; Z87.891 Personal history of nicotine dependence; Z79.4 Long term (current) use of insulin; Z79.01 Long term (current) use of anticoagulants; Z79.82 Long term (current) use of aspirin; Z79.51 Long term (current) use of inhaled steroids; Z79.899 Other long term (current) drug therapy; Z85.3 Personal history of malignant neoplasm of breast; Z95.5 Presence of coronary angioplasty implant and graft; Z95.810 Presence of automatic (implantable) cardiac defibrillator
CPT/HCPCS: 36415; 80053; 83735; 83880; 85025; 96365; 96366; 96368; G0463; J1250; J1642; J1940

== ENCOUNTER → 2021-03-05 | Outpatient (CLI) | payer MEDICARE, OTHER ==
[2021-03-05] VITALS (9 sets, daily range): BP systolic 128–171; BP diastolic 61–75
[~2021-03-05] MED LIST changes: -FUROSEMIDE INJECTION 10 ML ONE; -FUROSEMIDE INJECTION 100 MG in SODIUM CHL 0.9% 100 ML IV ONE
[2021-03-05 11:31] LABS: Basophils # (auto) 0 10 ^3/uL (0-0.2); Basophils % (auto) 0.7 % (0.0-2.0); Eosinophils # (auto) 0.2 10 ^3/uL (0-0.8); Eosinophils % (auto) 3.5 % (0.0-7.0); Hematocrit 28.6 % (36.0-46.0); Lymphocytes # (auto) 1.2 10 ^3/uL (0.4-5.4); Lymphocytes % (auto) 18.4 % (10.0-50.0); Mean Corpuscular Hgb Conc. 31.3 g/dL (32.0-36.0); Mean Corpuscular Volume 86.2 fL (80.0-100.0); Monocytes # (auto) 0.8 10 ^3/uL (0-1.3); Monocytes % (auto) 11.6 % (0.0-12.0); Neutrophils # (auto) 4.4 10 ^3/uL (1.6-8.6); Neutrophils % (auto) 65.8 % (37.0-80.0); Nucleated Red Blood Cells % 0.1 %; Red Blood Cells 3.32 10^6/uL (4.0-5.20); Red Cell Distribution Width 14.4 % (11.8-14.3); White Blood Cell 6.6 10^3/uL (4.4-10.8)
[2021-03-05 12:06] LABS: Magnesium 2.7 mg/dL (1.6-2.6); Potassium 3.6 mmol/L (3.5-5.1)
[2021-03-05 12:08] LABS: BUN/Creatinine Ratio 16.2
== END | disposition home or self-care (01) ==
LOC: CHF HDHVI 08:02
PROVIDERS: ATTEND Internal Medicine Cardiovascular Disease
DX: I13.0 Hypertensive heart and chronic kidney disease with heart failure and stage 1 through stage 4 chronic kidney disease, or unspecified chronic kidney disease (principal); E11.22 Type 2 diabetes mellitus with diabetic chronic kidney disease; I50.23 Acute on chronic systolic (congestive) heart failure; N18.32 Chronic kidney disease, stage 3b; I25.10 Atherosclerotic heart disease of native coronary artery without angina pectoris; I25.5 Ischemic cardiomyopathy; I25.2 Old myocardial infarction; I48.0 Paroxysmal atrial fibrillation; J44.9 Chronic obstructive pulmonary disease, unspecified; J96.10 Chronic respiratory failure, unspecified whether with hypoxia or hypercapnia; K21.9 Gastro-esophageal reflux disease without esophagitis; E11.40 Type 2 diabetes mellitus with diabetic neuropathy, unspecified; E78.00 Pure hypercholesterolemia, unspecified; E78.5 Hyperlipidemia, unspecified; E03.9 Hypothyroidism, unspecified; F41.9 Anxiety disorder, unspecified; Z79.4 Long term (current) use of insulin; Z79.82 Long term (current) use of aspirin; Z79.01 Long term (current) use of anticoagulants; Z79.51 Long term (current) use of inhaled steroids; Z79.899 Other long term (current) drug therapy; Z85.3 Personal history of malignant neoplasm of breast; Z87.891 Personal history of nicotine dependence; Z95.810 Presence of automatic (implantable) cardiac defibrillator; Z95.5 Presence of coronary angioplasty implant and graft; Z86.73 Personal history of transient ischemic attack (TIA), and cerebral infarction without residual deficits
CPT/HCPCS: 36415; 80048; 83735; 83880; 85025; 96365; 96366; G0463; J1250; J1642

== ENCOUNTER → 2021-03-11 | Outpatient (CLI) | payer MEDICARE, OTHER ==
[2021-03-11] VITALS (8 sets, daily range): BP systolic 133–169; BP diastolic 64–76
[2021-03-11 11:40] LABS: Basophils # (auto) 0.1 10 ^3/uL (0-0.2); Eosinophils # (auto) 0.3 10 ^3/uL (0-0.8); Eosinophils % (auto) 4.5 % (0.0-7.0); Hematocrit 27.1 % (36.0-46.0); Hemoglobin 8.8 g/dL (12.2-16.2); Lymphocytes # (auto) 0.9 10 ^3/uL (0.4-5.4); Lymphocytes % (auto) 14.1 % (10.0-50.0); Mean Corpuscular Hemoglobin 27.7 pg (28.0-32.0); Mean Corpuscular Hgb Conc. 32.5 g/dL (32.0-36.0); Mean Corpuscular Volume 85.1 fL (80.0-100.0); Monocytes # (auto) 0.6 10 ^3/uL (0-1.3); Monocytes % (auto) 10.1 % (0.0-12.0); Neutrophils # (auto) 4.4 10 ^3/uL (1.6-8.6); Neutrophils % (auto) 70.3 % (37.0-80.0); Nucleated Red Blood Cells % 0.1 %; Red Blood Cells 3.19 10^6/uL (4.0-5.20); Red Cell Distribution Width 14.3 % (11.8-14.3); White Blood Cell 6.2 10^3/uL (4.4-10.8)
[2021-03-11 11:55] LABS: Potassium 3.6 mmol/L (3.5-5.1)
[2021-03-11 12:05] LABS: BUN/Creatinine Ratio 14.9; Calcium 8.8 mg/dL (8.5-10.1); Magnesium 2.7 mg/dL (1.6-2.6)
== END | disposition home or self-care (01) ==
LOC: CHF HDHVI 08:36
PROVIDERS: ATTEND Internal Medicine Cardiovascular Disease
DX: I13.0 Hypertensive heart and chronic kidney disease with heart failure and stage 1 through stage 4 chronic kidney disease, or unspecified chronic kidney disease (principal); E11.22 Type 2 diabetes mellitus with diabetic chronic kidney disease; I50.23 Acute on chronic systolic (congestive) heart failure; N18.32 Chronic kidney disease, stage 3b; I25.10 Atherosclerotic heart disease of native coronary artery without angina pectoris; I25.2 Old myocardial infarction; I48.0 Paroxysmal atrial fibrillation; J44.9 Chronic obstructive pulmonary disease, unspecified; J96.10 Chronic respiratory failure, unspecified whether with hypoxia or hypercapnia; E11.40 Type 2 diabetes mellitus with diabetic neuropathy, unspecified; K21.9 Gastro-esophageal reflux disease without esophagitis; E78.00 Pure hypercholesterolemia, unspecified; E78.5 Hyperlipidemia, unspecified; E03.9 Hypothyroidism, unspecified; F41.9 Anxiety disorder, unspecified; Z79.4 Long term (current) use of insulin; Z79.01 Long term (current) use of anticoagulants; Z79.82 Long term (current) use of aspirin; Z79.51 Long term (current) use of inhaled steroids; Z79.899 Other long term (current) drug therapy; Z95.810 Presence of automatic (implantable) cardiac defibrillator; Z95.5 Presence of coronary angioplasty implant and graft; Z87.891 Personal history of nicotine dependence; Z86.73 Personal history of transient ischemic attack (TIA), and cerebral infarction without residual deficits; Z85.3 Personal history of malignant neoplasm of breast
CPT/HCPCS: 36415; 80048; 83735; 83880; 85025; 96365; 96366; G0463; J1250; J1642

== ENCOUNTER → 2021-03-19 | Outpatient (CLI) | payer MEDICARE, OTHER ==
[2021-03-19] VITALS (10 sets, daily range): BP systolic 135–182; BP diastolic 82–92
[~2021-03-19] MED LIST changes: +CYANOCOBALAMIN (B-12) 1000 MCG/1 ML VIAL IM ONE; +CYANOCOBALAMIN (B-12) 1000 MCG/1 ML VIAL ONE
[2021-03-19 11:34] LABS: Basophils # (auto) 0 10 ^3/uL (0-0.2); Basophils % (auto) 0.6 % (0.0-2.0); Eosinophils # (auto) 0.3 10 ^3/uL (0-0.8); Hemoglobin 9.8 g/dL (12.2-16.2); Mean Corpuscular Hemoglobin 26.6 pg (28.0-32.0); White Blood Cell 6.4 10^3/uL (4.4-10.8)
[2021-03-19 11:36] LABS: Eosinophils % (auto) 4.8 % (0.0-7.0); Hematocrit 31.2 % (36.0-46.0); Lymphocytes % (auto) 15.9 % (10.0-50.0); Mean Corpuscular Hgb Conc. 31.5 g/dL (32.0-36.0); Mean Corpuscular Volume 84.3 fL (80.0-100.0); Monocytes # (auto) 0.6 10 ^3/uL (0-1.3); Monocytes % (auto) 9.4 % (0.0-12.0); Neutrophils # (auto) 4.4 10 ^3/uL (1.6-8.6); Neutrophils % (auto) 69.3 % (37.0-80.0); Red Cell Distribution Width 14.6 % (11.8-14.3)
[2021-03-19 11:42] LABS: Albumin 3.2 g/dL (3.4-5.0); Calcium 9.4 mg/dL (8.5-10.1); Magnesium 2.9 mg/dL (1.6-2.6); Potassium 3.6 mmol/L (3.5-5.1)
[2021-03-19 11:47] LABS: BUN/Creatinine Ratio 16.1; Bilirubin, Total 1.1 mg/dL (0.2-1.0); Total Protein 8.2 g/dL (6.4-8.2)
== END | disposition home or self-care (01) ==
LOC: CHF HDHVI 08:35
PROVIDERS: ATTEND Internal Medicine Cardiovascular Disease
DX: I13.0 Hypertensive heart and chronic kidney disease with heart failure and stage 1 through stage 4 chronic kidney disease, or unspecified chronic kidney disease (principal); E11.22 Type 2 diabetes mellitus with diabetic chronic kidney disease; I50.23 Acute on chronic systolic (congestive) heart failure; N18.32 Chronic kidney disease, stage 3b; I25.10 Atherosclerotic heart disease of native coronary artery without angina pectoris; I25.2 Old myocardial infarction; J44.9 Chronic obstructive pulmonary disease, unspecified; J96.10 Chronic respiratory failure, unspecified whether with hypoxia or hypercapnia; K21.9 Gastro-esophageal reflux disease without esophagitis; E11.40 Type 2 diabetes mellitus with diabetic neuropathy, unspecified; E78.00 Pure hypercholesterolemia, unspecified; E78.5 Hyperlipidemia, unspecified; E03.9 Hypothyroidism, unspecified; I48.0 Paroxysmal atrial fibrillation; F41.9 Anxiety disorder, unspecified; Z79.82 Long term (current) use of aspirin; Z79.01 Long term (current) use of anticoagulants; Z79.4 Long term (current) use of insulin; Z79.51 Long term (current) use of inhaled steroids; Z79.899 Other long term (current) drug therapy; Z85.3 Personal history of malignant neoplasm of breast; Z87.891 Personal history of nicotine dependence; Z95.810 Presence of automatic (implantable) cardiac defibrillator; Z95.5 Presence of coronary angioplasty implant and graft; Z86.73 Personal history of transient ischemic attack (TIA), and cerebral infarction without residual deficits
CPT/HCPCS: 36415; 80053; 83735; 83880; 85025; 93005; 96365; 96366; 96372; G0463; J1250; J1642; J3420

== ENCOUNTER → 2021-03-26 | Outpatient (CLI) | payer MEDICARE, OTHER ==
[2021-03-26] VITALS (9 sets, daily range): BP systolic 110–134; BP diastolic 56–78
[~2021-03-26] MED LIST changes: -CYANOCOBALAMIN (B-12) 1000 MCG/1 ML VIAL IM ONE; -CYANOCOBALAMIN (B-12) 1000 MCG/1 ML VIAL ONE; +POTASSIUM CHL 20 Meq TABLET PO ONE
[2021-03-26 11:29] LABS: Basophils # (auto) 0 10 ^3/uL (0-0.2); Basophils % (auto) 0.6 % (0.0-2.0); Eosinophils # (auto) 0.2 10 ^3/uL (0-0.8); Eosinophils % (auto) 3.5 % (0.0-7.0); Hematocrit 31.1 % (36.0-46.0); Hemoglobin 9.7 g/dL (12.2-16.2); Lymphocytes # (auto) 1.3 10 ^3/uL (0.4-5.4); Mean Corpuscular Hemoglobin 26.6 pg (28.0-32.0); Mean Corpuscular Hgb Conc. 31.3 g/dL (32.0-36.0); Mean Corpuscular Volume 84.8 fL (80.0-100.0); Monocytes # (auto) 0.7 10 ^3/uL (0-1.3); Monocytes % (auto) 9.7 % (0.0-12.0); Neutrophils # (auto) 4.6 10 ^3/uL (1.6-8.6); Neutrophils % (auto) 67.2 % (37.0-80.0); Nucleated Red Blood Cells % 0.1 %; Red Blood Cells 3.66 10^6/uL (4.0-5.20); Red Cell Distribution Width 14.9 % (11.8-14.3); White Blood Cell 6.9 10^3/uL (4.4-10.8)
[2021-03-26 11:42] LABS: Potassium 3.4 mmol/L (3.5-5.1)
== END | disposition home or self-care (01) ==
LOC: CHF HDHVI 08:54
PROVIDERS: ATTEND Internal Medicine Cardiovascular Disease
DX: I13.0 Hypertensive heart and chronic kidney disease with heart failure and stage 1 through stage 4 chronic kidney disease, or unspecified chronic kidney disease (principal); E11.22 Type 2 diabetes mellitus with diabetic chronic kidney disease; I50.23 Acute on chronic systolic (congestive) heart failure; N18.32 Chronic kidney disease, stage 3b; I25.10 Atherosclerotic heart disease of native coronary artery without angina pectoris; I25.2 Old myocardial infarction; I48.0 Paroxysmal atrial fibrillation; J44.9 Chronic obstructive pulmonary disease, unspecified; J96.10 Chronic respiratory failure, unspecified whether with hypoxia or hypercapnia; K21.9 Gastro-esophageal reflux disease without esophagitis; E78.5 Hyperlipidemia, unspecified; E03.9 Hypothyroidism, unspecified; E78.00 Pure hypercholesterolemia, unspecified; E11.40 Type 2 diabetes mellitus with diabetic neuropathy, unspecified; Z79.01 Long term (current) use of anticoagulants; Z79.4 Long term (current) use of insulin; Z79.51 Long term (current) use of inhaled steroids; Z79.899 Other long term (current) drug therapy; Z87.891 Personal history of nicotine dependence; Z95.810 Presence of automatic (implantable) cardiac defibrillator; Z95.5 Presence of coronary angioplasty implant and graft; Z86.73 Personal history of transient ischemic attack (TIA), and cerebral infarction without residual deficits
CPT/HCPCS: 36415; 82306; 82565; 82607; 83880; 84132; 84520; 85025; 96365; 96366; G0463; J1250; J1642

== ENCOUNTER → 2021-04-02 | Outpatient (CLI) | payer MEDICARE, OTHER ==
[2021-04-02] VITALS (9 sets, daily range): BP systolic 103–164; BP diastolic 61–97
[~2021-04-02] MED LIST changes: -DOBUTamine 1000MCG/ML 250 ML IV ONE; -POTASSIUM CHL 20 Meq TABLET PO ONE
[2021-04-02] MEDS: cloNIDine HCL 0.1 MG TAB PO ONE (08:18)
[2021-04-02] MEDS: DOBUTamine 1000MCG/ML 250 ML IV ONE ×2 (08:43→08:52)
[2021-04-02] MEDS: cloNIDine HCL 0.1 MG TAB ONE (08:51)
[2021-04-02 11:41] LABS: Basophils # (auto) 0.1 10 ^3/uL (0-0.2); Eosinophils # (auto) 0.3 10 ^3/uL (0-0.8); Lymphocytes # (auto) 1.4 10 ^3/uL (0.4-5.4); White Blood Cell 6.5 10^3/uL (4.4-10.8)
[2021-04-02 11:43] LABS: Basophils % (auto) 0.9 % (0.0-2.0); Hematocrit 29.5 % (36.0-46.0); Hemoglobin 9.4 g/dL (12.2-16.2); Lymphocytes % (auto) 21.7 % (10.0-50.0); Mean Corpuscular Hemoglobin 26.8 pg (28.0-32.0); Mean Corpuscular Volume 83.6 fL (80.0-100.0); Monocytes # (auto) 0.6 10 ^3/uL (0-1.3); Monocytes % (auto) 8.8 % (0.0-12.0); Neutrophils # (auto) 4.1 10 ^3/uL (1.6-8.6); Neutrophils % (auto) 63.6 % (37.0-80.0); Red Blood Cells 3.52 10^6/uL (4.0-5.20); Red Cell Distribution Width 14.7 % (11.8-14.3)
[2021-04-02 12:24] LABS: Potassium 3.6 mmol/L (3.5-5.1)
[2021-04-02 12:34] LABS: BUN/Creatinine Ratio 19.7; Calcium 9.3 mg/dL (8.5-10.1); Magnesium 3.2 mg/dL (1.6-2.6)
== END | disposition home or self-care (01) ==
LOC: CHF HDHVI 07:55
PROVIDERS: ATTEND Internal Medicine Cardiovascular Disease
DX: I13.0 Hypertensive heart and chronic kidney disease with heart failure and stage 1 through stage 4 chronic kidney disease, or unspecified chronic kidney disease (principal); E11.22 Type 2 diabetes mellitus with diabetic chronic kidney disease; N18.32 Chronic kidney disease, stage 3b; I50.23 Acute on chronic systolic (congestive) heart failure; I25.10 Atherosclerotic heart disease of native coronary artery without angina pectoris; J44.9 Chronic obstructive pulmonary disease, unspecified; J96.11 Chronic respiratory failure with hypoxia; K21.9 Gastro-esophageal reflux disease without esophagitis; E78.5 Hyperlipidemia, unspecified; E03.9 Hypothyroidism, unspecified; I25.2 Old myocardial infarction; I48.0 Paroxysmal atrial fibrillation; E78.00 Pure hypercholesterolemia, unspecified; E11.40 Type 2 diabetes mellitus with diabetic neuropathy, unspecified; F41.9 Anxiety disorder, unspecified; Z79.82 Long term (current) use of aspirin; Z79.899 Other long term (current) drug therapy; Z87.891 Personal history of nicotine dependence; Z85.3 Personal history of malignant neoplasm of breast; Z79.01 Long term (current) use of anticoagulants; Z79.4 Long term (current) use of insulin
CPT/HCPCS: 36415; 80048; 83735; 83880; 85025; 96365; 96366; G0463; J1250; J1642

== ENCOUNTER → 2021-04-16 | Outpatient (CLI) | payer MEDICARE, OTHER ==
[2021-04-16] VITALS (9 sets, daily range): BP systolic 113–150; BP diastolic 49–83
[~2021-04-16] MED LIST changes: +DOBUTamine 1000MCG/ML 250 ML IV ONE
[2021-04-16 11:52] LABS: Basophils # (auto) 0 10 ^3/uL (0-0.2); Basophils % (auto) 0.4 % (0.0-2.0); Eosinophils # (auto) 0.3 10 ^3/uL (0-0.8); Eosinophils % (auto) 4.6 % (0.0-7.0); Hematocrit 29.7 % (36.0-46.0); Hemoglobin 9.6 g/dL (12.2-16.2); Lymphocytes # (auto) 1.7 10 ^3/uL (0.4-5.4); Lymphocytes % (auto) 26.5 % (10.0-50.0); Mean Corpuscular Hemoglobin 26.7 pg (28.0-32.0); Mean Corpuscular Hgb Conc. 32.2 g/dL (32.0-36.0); Mean Corpuscular Volume 82.8 fL (80.0-100.0); Monocytes # (auto) 0.5 10 ^3/uL (0-1.3); Monocytes % (auto) 7.5 % (0.0-12.0); Nucleated Red Blood Cells % 0.1 %; Red Blood Cells 3.58 10^6/uL (4.0-5.20); White Blood Cell 6.5 10^3/uL (4.4-10.8)
[2021-04-16 12:25] LABS: Potassium 4.3 mmol/L (3.5-5.1)
== END | disposition home or self-care (01) ==
LOC: CHF HDHVI 09:32
PROVIDERS: ATTEND Internal Medicine Cardiovascular Disease
DX: I13.0 Hypertensive heart and chronic kidney disease with heart failure and stage 1 through stage 4 chronic kidney disease, or unspecified chronic kidney disease (principal); E11.22 Type 2 diabetes mellitus with diabetic chronic kidney disease; I50.23 Acute on chronic systolic (congestive) heart failure; N18.32 Chronic kidney disease, stage 3b; I25.5 Ischemic cardiomyopathy; I25.10 Atherosclerotic heart disease of native coronary artery without angina pectoris; I25.2 Old myocardial infarction; I48.0 Paroxysmal atrial fibrillation; J44.9 Chronic obstructive pulmonary disease, unspecified; J96.10 Chronic respiratory failure, unspecified whether with hypoxia or hypercapnia; E11.40 Type 2 diabetes mellitus with diabetic neuropathy, unspecified; E78.5 Hyperlipidemia, unspecified; E03.9 Hypothyroidism, unspecified; E78.00 Pure hypercholesterolemia, unspecified; K21.9 Gastro-esophageal reflux disease without esophagitis; F41.9 Anxiety disorder, unspecified; Z79.4 Long term (current) use of insulin; Z79.82 Long term (current) use of aspirin; Z79.01 Long term (current) use of anticoagulants; Z79.899 Other long term (current) drug therapy; Z87.891 Personal history of nicotine dependence; Z85.3 Personal history of malignant neoplasm of breast; Z95.810 Presence of automatic (implantable) cardiac defibrillator; Z95.5 Presence of coronary angioplasty implant and graft; Z86.73 Personal history of transient ischemic attack (TIA), and cerebral infarction without residual deficits; Z79.51 Long term (current) use of inhaled steroids
CPT/HCPCS: 36415; 82565; 83880; 84132; 84520; 85025; 96365; 96366; G0463; J1250; J1642

== ENCOUNTER → 2021-04-30 | Outpatient (CLI) | payer MEDICARE, OTHER ==
[2021-04-30] VITALS (8 sets, daily range): BP systolic 122–152; BP diastolic 66–85
[2021-04-30 11:29] LABS: Eosinophils # (auto) 0.3 10 ^3/uL (0-0.8); Hemoglobin 9.9 g/dL (12.2-16.2); Monocytes # (auto) 0.5 10 ^3/uL (0-1.3); Neutrophils # (auto) 3.6 10 ^3/uL (1.6-8.6); Nucleated Red Blood Cells % 0.1 %
[2021-04-30 11:31] LABS: Basophils # (auto) 0.1 10 ^3/uL (0-0.2); Basophils % (auto) 0.9 % (0.0-2.0); Eosinophils % (auto) 4.9 % (0.0-7.0); Hematocrit 30.6 % (36.0-46.0); Lymphocytes # (auto) 1.3 10 ^3/uL (0.4-5.4); Mean Corpuscular Hemoglobin 26.8 pg (28.0-32.0); Mean Corpuscular Hgb Conc. 32.2 g/dL (32.0-36.0); Mean Corpuscular Volume 83.4 fL (80.0-100.0); Monocytes % (auto) 9.1 % (0.0-12.0); Neutrophils % (auto) 63.1 % (37.0-80.0); Red Blood Cells 3.67 10^6/uL (4.0-5.20); Red Cell Distribution Width 14.5 % (11.8-14.3); White Blood Cell 5.7 10^3/uL (4.4-10.8)
[2021-04-30 11:38] LABS: Calcium 9.6 mg/dL (8.5-10.1); Magnesium 2.5 mg/dL (1.6-2.6); Potassium 3.7 mmol/L (3.5-5.1)
[2021-04-30 11:47] LABS: BUN/Creatinine Ratio 17.2
== END | disposition home or self-care (01) ==
LOC: CHF HDHVI 09:21
PROVIDERS: ATTEND Internal Medicine Cardiovascular Disease
DX: I13.0 Hypertensive heart and chronic kidney disease with heart failure and stage 1 through stage 4 chronic kidney disease, or unspecified chronic kidney disease (principal); E11.22 Type 2 diabetes mellitus with diabetic chronic kidney disease; I50.23 Acute on chronic systolic (congestive) heart failure; N18.32 Chronic kidney disease, stage 3b; I25.5 Ischemic cardiomyopathy; I25.10 Atherosclerotic heart disease of native coronary artery without angina pectoris; I25.2 Old myocardial infarction; I48.0 Paroxysmal atrial fibrillation; J44.9 Chronic obstructive pulmonary disease, unspecified; J96.10 Chronic respiratory failure, unspecified whether with hypoxia or hypercapnia; K21.9 Gastro-esophageal reflux disease without esophagitis; E11.40 Type 2 diabetes mellitus with diabetic neuropathy, unspecified; E78.00 Pure hypercholesterolemia, unspecified; E78.5 Hyperlipidemia, unspecified; E03.9 Hypothyroidism, unspecified; F41.9 Anxiety disorder, unspecified; Z79.01 Long term (current) use of anticoagulants; Z79.4 Long term (current) use of insulin; Z79.51 Long term (current) use of inhaled steroids; Z79.82 Long term (current) use of aspirin; Z79.899 Other long term (current) drug therapy; Z87.891 Personal history of nicotine dependence; Z85.3 Personal history of malignant neoplasm of breast; Z95.5 Presence of coronary angioplasty implant and graft; Z95.810 Presence of automatic (implantable) cardiac defibrillator; Z86.73 Personal history of transient ischemic attack (TIA), and cerebral infarction without residual deficits
CPT/HCPCS: 36415; 80048; 83735; 83880; 85025; 96365; 96366; G0463; J1250; J1642

== ENCOUNTER → 2021-05-07 | Outpatient (CLI) | payer MEDICARE, OTHER ==
[2021-05-07] VITALS (9 sets, daily range): BP systolic 117–164; BP diastolic 68–90
[~2021-05-07] MED LIST changes: +FUROSEMIDE 40 MG/4 ML VIAL IV ONE; +FUROSEMIDE 40 MG/4 ML VIAL ONE; +POTASSIUM CHL 10 Meq TABLET PO ONE; +POTASSIUM CHL 20 Meq TABLET PO ONE
[2021-05-07 10:32] LABS: Basophils # (auto) 0 10 ^3/uL (0-0.2); Eosinophils # (auto) 0.2 10 ^3/uL (0-0.8); Hemoglobin 9.1 g/dL (12.2-16.2); Lymphocytes # (auto) 1.1 10 ^3/uL (0.4-5.4); Mean Corpuscular Hemoglobin 26.8 pg (28.0-32.0); Monocytes # (auto) 0.5 10 ^3/uL (0-1.3); Monocytes % (auto) 7.8 % (0.0-12.0)
[2021-05-07 10:34] LABS: Basophils % (auto) 0.7 % (0.0-2.0); Eosinophils % (auto) 3.7 % (0.0-7.0); Hematocrit 28.5 % (36.0-46.0); Lymphocytes % (auto) 16.9 % (10.0-50.0); Mean Corpuscular Hgb Conc. 32.1 g/dL (32.0-36.0); Mean Corpuscular Volume 83.6 fL (80.0-100.0); Neutrophils # (auto) 4.6 10 ^3/uL (1.6-8.6); Neutrophils % (auto) 70.9 % (37.0-80.0); Red Cell Distribution Width 14.2 % (11.8-14.3); White Blood Cell 6.5 10^3/uL (4.4-10.8)
[2021-05-07 10:37] LABS: Potassium 3.6 mmol/L (3.5-5.1)
[2021-05-07 10:50] LABS: Albumin 3.2 g/dL (3.4-5.0); BUN/Creatinine Ratio 23.7; Bilirubin, Total 0.5 mg/dL (0.2-1.0); Calcium 9.1 mg/dL (8.5-10.1); Magnesium 2.2 mg/dL (1.6-2.6); Total Protein 7.5 g/dL (6.4-8.2)
== END | disposition home or self-care (01) ==
LOC: CHF HDHVI 09:21
PROVIDERS: ATTEND Internal Medicine Cardiovascular Disease
DX: I13.0 Hypertensive heart and chronic kidney disease with heart failure and stage 1 through stage 4 chronic kidney disease, or unspecified chronic kidney disease (principal); E11.22 Type 2 diabetes mellitus with diabetic chronic kidney disease; I50.23 Acute on chronic systolic (congestive) heart failure; N18.32 Chronic kidney disease, stage 3b; I25.10 Atherosclerotic heart disease of native coronary artery without angina pectoris; I25.5 Ischemic cardiomyopathy; I25.2 Old myocardial infarction; I48.0 Paroxysmal atrial fibrillation; J44.9 Chronic obstructive pulmonary disease, unspecified; J96.10 Chronic respiratory failure, unspecified whether with hypoxia or hypercapnia; K21.9 Gastro-esophageal reflux disease without esophagitis; E11.40 Type 2 diabetes mellitus with diabetic neuropathy, unspecified; E78.00 Pure hypercholesterolemia, unspecified; E78.5 Hyperlipidemia, unspecified; E03.9 Hypothyroidism, unspecified; F41.9 Anxiety disorder, unspecified; Z79.01 Long term (current) use of anticoagulants; Z79.4 Long term (current) use of insulin; Z79.82 Long term (current) use of aspirin; Z79.51 Long term (current) use of inhaled steroids; Z79.899 Other long term (current) drug therapy; Z87.891 Personal history of nicotine dependence; Z85.3 Personal history of malignant neoplasm of breast; Z95.810 Presence of automatic (implantable) cardiac defibrillator; Z95.5 Presence of coronary angioplasty implant and graft; Z86.73 Personal history of transient ischemic attack (TIA), and cerebral infarction without residual deficits
CPT/HCPCS: 36415; 80053; 83036; 83735; 83880; 85025; 96365; 96366; 96375; G0463; J1250; J1642; J1940

== ENCOUNTER → 2021-05-14 | Outpatient (CLI) | payer MEDICARE, OTHER ==
[2021-05-14] VITALS (9 sets, daily range): BP systolic 120–160; BP diastolic 58–76
[~2021-05-14] VITALS: Ht 30.5 cm; Wt 77.7 kg
[~2021-05-14] MED LIST changes: +CYANOCOBALAMIN (B-12) 1000 MCG/1 ML VIAL IM ONE; +CYANOCOBALAMIN (B-12) 1000 MCG/1 ML VIAL ONE; -POTASSIUM CHL 10 Meq TABLET PO ONE; -POTASSIUM CHL 20 Meq TABLET PO ONE; +POTASSIUM EFFERVESENT TAB 25 MEQ ONE; +POTASSIUM EFFERVESENT TAB 25 MEQ PO ONE
[2021-05-14 11:25] LABS: Basophils # (auto) 0 10 ^3/uL (0-0.2); Eosinophils # (auto) 0.3 10 ^3/uL (0-0.8); Hemoglobin 8.9 g/dL (12.2-16.2); Neutrophils # (auto) 4.4 10 ^3/uL (1.6-8.6); White Blood Cell 6.1 10^3/uL (4.4-10.8)
[2021-05-14 11:31] LABS: Basophils % (auto) 0.6 % (0.0-2.0); Eosinophils % (auto) 4.3 % (0.0-7.0); Hematocrit 27.6 % (36.0-46.0); Lymphocytes % (auto) 15.9 % (10.0-50.0); Mean Corpuscular Hgb Conc. 32.3 g/dL (32.0-36.0); Mean Corpuscular Volume 83.7 fL (80.0-100.0); Monocytes # (auto) 0.4 10 ^3/uL (0-1.3); Monocytes % (auto) 7.2 % (0.0-12.0); Nucleated Red Blood Cells % 0.1 %; Red Cell Distribution Width 14.3 % (11.8-14.3)
[2021-05-14 11:36] LABS: Albumin 3.2 g/dL (3.4-5.0); Calcium 9.1 mg/dL (8.5-10.1); Magnesium 3.2 mg/dL (1.6-2.6); Potassium 3.7 mmol/L (3.5-5.1)
[2021-05-14 11:40] LABS: Bilirubin, Total 0.8 mg/dL (0.2-1.0); Total Protein 7.8 g/dL (6.4-8.2)
== END | disposition home or self-care (01) ==
LOC: CHF HDHVI 09:23
PROVIDERS: ATTEND Internal Medicine Cardiovascular Disease
DX: I13.0 Hypertensive heart and chronic kidney disease with heart failure and stage 1 through stage 4 chronic kidney disease, or unspecified chronic kidney disease (principal); E11.22 Type 2 diabetes mellitus with diabetic chronic kidney disease; I50.23 Acute on chronic systolic (congestive) heart failure; N18.32 Chronic kidney disease, stage 3b; I25.10 Atherosclerotic heart disease of native coronary artery without angina pectoris; I48.0 Paroxysmal atrial fibrillation; I25.2 Old myocardial infarction; J44.9 Chronic obstructive pulmonary disease, unspecified; J96.10 Chronic respiratory failure, unspecified whether with hypoxia or hypercapnia; K21.9 Gastro-esophageal reflux disease without esophagitis; E11.40 Type 2 diabetes mellitus with diabetic neuropathy, unspecified; E78.00 Pure hypercholesterolemia, unspecified; E78.5 Hyperlipidemia, unspecified; E03.9 Hypothyroidism, unspecified; F41.9 Anxiety disorder, unspecified; Z79.01 Long term (current) use of anticoagulants; Z79.82 Long term (current) use of aspirin; Z79.51 Long term (current) use of inhaled steroids; Z79.4 Long term (current) use of insulin; Z79.899 Other long term (current) drug therapy; Z85.3 Personal history of malignant neoplasm of breast; Z87.891 Personal history of nicotine dependence; Z95.810 Presence of automatic (implantable) cardiac defibrillator; Z86.73 Personal history of transient ischemic attack (TIA), and cerebral infarction without residual deficits
CPT/HCPCS: 36415; 80053; 83735; 83880; 85025; 96365; 96366; 96372; 96375; 96376; G0463; J1250; J1642; J1940; J3420

== ENCOUNTER → 2021-06-04 | Outpatient (CLI) | payer MEDICARE, OTHER ==
[2021-06-04] VITALS (9 sets, daily range): BP systolic 95–146; BP diastolic 63–77
[~2021-06-04] MED LIST changes: -CYANOCOBALAMIN (B-12) 1000 MCG/1 ML VIAL IM ONE; -CYANOCOBALAMIN (B-12) 1000 MCG/1 ML VIAL ONE; -FUROSEMIDE 40 MG/4 ML VIAL IV ONE; -FUROSEMIDE 40 MG/4 ML VIAL ONE; -POTASSIUM EFFERVESENT TAB 25 MEQ ONE; -POTASSIUM EFFERVESENT TAB 25 MEQ PO ONE
[2021-06-04 11:53] LABS: Basophils # (auto) 0.1 10 ^3/uL (0-0.2); Eosinophils # (auto) 0.3 10 ^3/uL (0-0.8); Eosinophils % (auto) 5.1 % (0.0-7.0); Hematocrit 28.2 % (36.0-46.0); Hemoglobin 9.1 g/dL (12.2-16.2); Lymphocytes # (auto) 1.1 10 ^3/uL (0.4-5.4); Lymphocytes % (auto) 20.1 % (10.0-50.0); Mean Corpuscular Hemoglobin 27.3 pg (28.0-32.0); Mean Corpuscular Hgb Conc. 32.4 g/dL (32.0-36.0); Mean Corpuscular Volume 84.3 fL (80.0-100.0); Monocytes # (auto) 0.4 10 ^3/uL (0-1.3); Monocytes % (auto) 7.3 % (0.0-12.0); Neutrophils # (auto) 3.6 10 ^3/uL (1.6-8.6); Neutrophils % (auto) 66.5 % (37.0-80.0); Nucleated Red Blood Cells % 0.2 %; Red Blood Cells 3.34 10^6/uL (4.0-5.20); Red Cell Distribution Width 13.6 % (11.8-14.3); White Blood Cell 5.4 10^3/uL (4.4-10.8)
[2021-06-04 11:56] LABS: Albumin 3.5 g/dL (3.4-5.0); Potassium 3.5 mmol/L (3.5-5.1)
[2021-06-04 12:02] LABS: BUN/Creatinine Ratio 24.2; Bilirubin, Total 0.7 mg/dL (0.2-1.0); Calcium 9.4 mg/dL (8.5-10.1); Magnesium 2.2 mg/dL (1.6-2.6); Total Protein 8.1 g/dL (6.4-8.2)
== END | disposition home or self-care (01) ==
LOC: CHF HDHVI 09:20
PROVIDERS: ATTEND Internal Medicine Cardiovascular Disease
DX: I13.0 Hypertensive heart and chronic kidney disease with heart failure and stage 1 through stage 4 chronic kidney disease, or unspecified chronic kidney disease (principal); E11.22 Type 2 diabetes mellitus with diabetic chronic kidney disease; I50.23 Acute on chronic systolic (congestive) heart failure; N18.32 Chronic kidney disease, stage 3b; I25.10 Atherosclerotic heart disease of native coronary artery without angina pectoris; I25.5 Ischemic cardiomyopathy; I25.2 Old myocardial infarction; I48.0 Paroxysmal atrial fibrillation; J44.9 Chronic obstructive pulmonary disease, unspecified; J96.10 Chronic respiratory failure, unspecified whether with hypoxia or hypercapnia; K21.9 Gastro-esophageal reflux disease without esophagitis; E11.40 Type 2 diabetes mellitus with diabetic neuropathy, unspecified; E78.00 Pure hypercholesterolemia, unspecified; E78.5 Hyperlipidemia, unspecified; E03.9 Hypothyroidism, unspecified; F41.9 Anxiety disorder, unspecified; Z79.4 Long term (current) use of insulin; Z79.82 Long term (current) use of aspirin; Z79.01 Long term (current) use of anticoagulants; Z79.51 Long term (current) use of inhaled steroids; Z79.899 Other long term (current) drug therapy; Z87.891 Personal history of nicotine dependence; Z85.3 Personal history of malignant neoplasm of breast; Z95.5 Presence of coronary angioplasty implant and graft; Z95.810 Presence of automatic (implantable) cardiac defibrillator; Z86.73 Personal history of transient ischemic attack (TIA), and cerebral infarction without residual deficits
CPT/HCPCS: 36415; 80053; 83735; 83880; 85025; 96365; 96366; G0463; J1250; J1642

== ENCOUNTER → 2021-06-11 | Outpatient (CLI) | payer MEDICARE, OTHER ==
[2021-06-11] VITALS (9 sets, daily range): BP systolic 120–143; BP diastolic 62–76
[~2021-06-11] MED LIST changes: +FUROSEMIDE 40 MG/4 ML VIAL IV ONE; +FUROSEMIDE 40 MG/4 ML VIAL ONE; +POTASSIUM CHL 10 Meq TABLET PO ONE; +POTASSIUM CHL 20 Meq TABLET PO ONE
[2021-06-11 11:48] LABS: Eosinophils # (auto) 0.3 10 ^3/uL (0-0.8); Hematocrit 26.1 % (36.0-46.0); Monocytes # (auto) 0.5 10 ^3/uL (0-1.3); Neutrophils # (auto) 4.8 10 ^3/uL (1.6-8.6); Nucleated Red Blood Cells % 0.1 %; White Blood Cell 6.6 10^3/uL (4.4-10.8)
[2021-06-11 11:50] LABS: BUN/Creatinine Ratio 21.5; Calcium 9.5 mg/dL (8.5-10.1); Magnesium 2.7 mg/dL (1.6-2.6); Potassium 4.3 mmol/L (3.5-5.1)
[2021-06-11 11:51] LABS: Basophils # (auto) 0 10 ^3/uL (0-0.2); Basophils % (auto) 0.6 % (0.0-2.0); Eosinophils % (auto) 4.7 % (0.0-7.0); Hemoglobin 8.4 g/dL (12.2-16.2); Lymphocytes % (auto) 14.6 % (10.0-50.0); Mean Corpuscular Hemoglobin 27.9 pg (28.0-32.0); Mean Corpuscular Hgb Conc. 32.1 g/dL (32.0-36.0); Monocytes % (auto) 7.8 % (0.0-12.0); Neutrophils % (auto) 72.3 % (37.0-80.0); Red Cell Distribution Width 14.7 % (11.8-14.3)
== END | disposition home or self-care (01) ==
LOC: CHF HDHVI 08:15
PROVIDERS: ATTEND Internal Medicine Cardiovascular Disease
DX: I13.0 Hypertensive heart and chronic kidney disease with heart failure and stage 1 through stage 4 chronic kidney disease, or unspecified chronic kidney disease (principal); E11.22 Type 2 diabetes mellitus with diabetic chronic kidney disease; N18.32 Chronic kidney disease, stage 3b; I50.23 Acute on chronic systolic (congestive) heart failure; F41.9 Anxiety disorder, unspecified; I25.10 Atherosclerotic heart disease of native coronary artery without angina pectoris; J44.9 Chronic obstructive pulmonary disease, unspecified; J96.10 Chronic respiratory failure, unspecified whether with hypoxia or hypercapnia; K21.9 Gastro-esophageal reflux disease without esophagitis; I48.0 Paroxysmal atrial fibrillation; E78.00 Pure hypercholesterolemia, unspecified; E11.40 Type 2 diabetes mellitus with diabetic neuropathy, unspecified; I25.2 Old myocardial infarction; E78.5 Hyperlipidemia, unspecified; Z79.01 Long term (current) use of anticoagulants; Z79.82 Long term (current) use of aspirin; Z79.51 Long term (current) use of inhaled steroids; Z79.4 Long term (current) use of insulin; Z79.899 Other long term (current) drug therapy; Z85.3 Personal history of malignant neoplasm of breast; Z87.891 Personal history of nicotine dependence; Z86.73 Personal history of transient ischemic attack (TIA), and cerebral infarction without residual deficits; Z95.810 Presence of automatic (implantable) cardiac defibrillator; Z95.5 Presence of coronary angioplasty implant and graft
CPT/HCPCS: 36415; 80048; 83735; 83880; 85025; 96365; 96366; 96375; G0463; J1250; J1642; J1940

== ENCOUNTER → 2021-06-18 | Outpatient (CLI) | payer MEDICARE, OTHER ==
[2021-06-18] VITALS (11 sets, daily range): BP systolic 120–141; BP diastolic 67–77
[~2021-06-18] MED LIST changes: +CYANOCOBALAMIN (B-12) 1000 MCG/1 ML VIAL IM ONE; +CYANOCOBALAMIN (B-12) 1000 MCG/1 ML VIAL ONE; -FUROSEMIDE 40 MG/4 ML VIAL IV ONE; -FUROSEMIDE 40 MG/4 ML VIAL ONE; +FUROSEMIDE INJECTION 10 ML ONE; +FUROSEMIDE INJECTION 100 MG in SODIUM CHL 0.9% 100 ML IV ONE; -POTASSIUM CHL 10 Meq TABLET PO ONE; -POTASSIUM CHL 20 Meq TABLET PO ONE
[2021-06-18 10:26] LABS: Basophils # (auto) 0.1 10 ^3/uL (0-0.2); Eosinophils # (auto) 0.3 10 ^3/uL (0-0.8); Eosinophils % (auto) 5.3 % (0.0-7.0); Hemoglobin 7.9 g/dL (12.2-16.2); Lymphocytes # (auto) 0.8 10 ^3/uL (0.4-5.4); Monocytes # (auto) 0.4 10 ^3/uL (0-1.3); Neutrophils # (auto) 3.5 10 ^3/uL (1.6-8.6); Nucleated Red Blood Cells % 0.1 %
[2021-06-18 10:27] LABS: Basophils % (auto) 2.3 % (0.0-2.0); Hematocrit 24.4 % (36.0-46.0); Lymphocytes % (auto) 15.3 % (10.0-50.0); Mean Corpuscular Hemoglobin 27.7 pg (28.0-32.0); Mean Corpuscular Hgb Conc. 32.4 g/dL (32.0-36.0); Mean Corpuscular Volume 85.5 fL (80.0-100.0); Monocytes % (auto) 8.2 % (0.0-12.0); Neutrophils % (auto) 68.9 % (37.0-80.0); Red Blood Cells 2.85 10^6/uL (4.0-5.20); Red Cell Distribution Width 14.6 % (11.8-14.3); White Blood Cell 5.1 10^3/uL (4.4-10.8)
[2021-06-18 11:01] LABS: Calcium 9.2 mg/dL (8.5-10.1); Magnesium 2.7 mg/dL (1.6-2.6); Potassium 4.2 mmol/L (3.5-5.1)
[2021-06-18 11:06] LABS: BUN/Creatinine Ratio 19.3
[2021-06-18 17:33] LABS: % Iron Saturation 15.5 % (15-50)
== END | disposition home or self-care (01) ==
LOC: CHF HDHVI 08:45
PROVIDERS: ATTEND Internal Medicine Cardiovascular Disease
DX: I13.0 Hypertensive heart and chronic kidney disease with heart failure and stage 1 through stage 4 chronic kidney disease, or unspecified chronic kidney disease (principal); E11.22 Type 2 diabetes mellitus with diabetic chronic kidney disease; I50.23 Acute on chronic systolic (congestive) heart failure; N18.32 Chronic kidney disease, stage 3b; I25.10 Atherosclerotic heart disease of native coronary artery without angina pectoris; I25.2 Old myocardial infarction; I25.5 Ischemic cardiomyopathy; I48.0 Paroxysmal atrial fibrillation; J44.9 Chronic obstructive pulmonary disease, unspecified; J96.10 Chronic respiratory failure, unspecified whether with hypoxia or hypercapnia; K21.9 Gastro-esophageal reflux disease without esophagitis; E11.40 Type 2 diabetes mellitus with diabetic neuropathy, unspecified; E78.5 Hyperlipidemia, unspecified; E78.00 Pure hypercholesterolemia, unspecified; E03.9 Hypothyroidism, unspecified; F41.9 Anxiety disorder, unspecified; Z79.82 Long term (current) use of aspirin; Z79.01 Long term (current) use of anticoagulants; Z79.4 Long term (current) use of insulin; Z79.51 Long term (current) use of inhaled steroids; Z79.899 Other long term (current) drug therapy; Z87.891 Personal history of nicotine dependence; Z85.3 Personal history of malignant neoplasm of breast; Z95.5 Presence of coronary angioplasty implant and graft; Z95.810 Presence of automatic (implantable) cardiac defibrillator; Z86.73 Personal history of transient ischemic attack (TIA), and cerebral infarction without residual deficits
CPT/HCPCS: 36415; 80048; 83540; 83550; 83735; 83880; 85025; 96365; 96366; 96368; 96372; G0463; J1250; J1642; J1940; J3420; 96367

== ENCOUNTER → 2021-07-02 | Outpatient (CLI) | payer MEDICARE, OTHER ==
[2021-07-02] VITALS (11 sets, daily range): BP systolic 119–133; BP diastolic 63–76
[~2021-07-02] VITALS: Ht 30.5 cm; Wt 84.0 kg
[~2021-07-02] MED LIST changes: -CYANOCOBALAMIN (B-12) 1000 MCG/1 ML VIAL IM ONE; -CYANOCOBALAMIN (B-12) 1000 MCG/1 ML VIAL ONE; +FUROSEMIDE 100 MG/10ML VIAL IV ONE; +FUROSEMIDE 20 MG/2 ML VIAL ONE; +FUROSEMIDE 40 MG/4 ML VIAL ONE; -FUROSEMIDE INJECTION 10 ML ONE; -FUROSEMIDE INJECTION 100 MG in SODIUM CHL 0.9% 100 ML IV ONE; +POTASSIUM EFFERVESENT TAB 25 MEQ ONE; +POTASSIUM EFFERVESENT TAB 25 MEQ PO ONE; +SODIUM FERR GLUC 62.5MG/5ML 125 MG in SODIUM CHL 0.9% 100 ML IV ONE; +SODIUM FERRIC GLUC CPLEX 62.5MG/5ML VIAL IV ONE
[2021-07-02 11:29] LABS: Basophils # (auto) 0 10 ^3/uL (0-0.2); Hemoglobin 7.4 g/dL (12.2-16.2); Monocytes # (auto) 0.5 10 ^3/uL (0-1.3); Monocytes % (auto) 8.8 % (0.0-12.0); Neutrophils # (auto) 3.9 10 ^3/uL (1.6-8.6); White Blood Cell 5.4 10^3/uL (4.4-10.8)
[2021-07-02 11:32] LABS: Basophils % (auto) 0.8 % (0.0-2.0); Eosinophils # (auto) 0.2 10 ^3/uL (0-0.8); Eosinophils % (auto) 4.3 % (0.0-7.0); Hematocrit 22.4 % (36.0-46.0); Lymphocytes # (auto) 0.7 10 ^3/uL (0.4-5.4); Lymphocytes % (auto) 13.7 % (10.0-50.0); Mean Corpuscular Hemoglobin 28.2 pg (28.0-32.0); Mean Corpuscular Hgb Conc. 32.9 g/dL (32.0-36.0); Mean Corpuscular Volume 85.8 fL (80.0-100.0); Neutrophils % (auto) 72.4 % (37.0-80.0); Nucleated Red Blood Cells % 0.1 %; Red Blood Cells 2.61 10^6/uL (4.0-5.20)
[2021-07-02 12:15] LABS: Calcium 9.1 mg/dL (8.5-10.1); Potassium 3.9 mmol/L (3.5-5.1)
[2021-07-02 12:20] LABS: BUN/Creatinine Ratio 17.6
[2021-07-02 12:21] LABS: Albumin 3.4 g/dL (3.4-5.0); Bilirubin, Total 0.6 mg/dL (0.2-1.0); Magnesium 2.8 mg/dL (1.6-2.6); Total Protein 7.7 g/dL (6.4-8.2)
== END | disposition home or self-care (01) ==
LOC: CHF HDHVI 09:09
PROVIDERS: ATTEND Internal Medicine Cardiovascular Disease
DX: I13.0 Hypertensive heart and chronic kidney disease with heart failure and stage 1 through stage 4 chronic kidney disease, or unspecified chronic kidney disease (principal); E11.22 Type 2 diabetes mellitus with diabetic chronic kidney disease; I50.23 Acute on chronic systolic (congestive) heart failure; N18.32 Chronic kidney disease, stage 3b; E87.6 Hypokalemia; I25.10 Atherosclerotic heart disease of native coronary artery without angina pectoris; I25.2 Old myocardial infarction; I48.0 Paroxysmal atrial fibrillation; J44.9 Chronic obstructive pulmonary disease, unspecified; J96.10 Chronic respiratory failure, unspecified whether with hypoxia or hypercapnia; K21.9 Gastro-esophageal reflux disease without esophagitis; E11.40 Type 2 diabetes mellitus with diabetic neuropathy, unspecified; E78.00 Pure hypercholesterolemia, unspecified; E78.5 Hyperlipidemia, unspecified; E03.9 Hypothyroidism, unspecified; F41.9 Anxiety disorder, unspecified; Z79.01 Long term (current) use of anticoagulants; Z79.4 Long term (current) use of insulin; Z79.82 Long term (current) use of aspirin; Z79.51 Long term (current) use of inhaled steroids; Z79.899 Other long term (current) drug therapy; Z87.891 Personal history of nicotine dependence; Z85.3 Personal history of malignant neoplasm of breast; Z95.5 Presence of coronary angioplasty implant and graft; Z95.810 Presence of automatic (implantable) cardiac defibrillator; Z86.73 Personal history of transient ischemic attack (TIA), and cerebral infarction without residual deficits
CPT/HCPCS: 36415; 80053; 83735; 83880; 85025; 96365; 96366; 96368; 96375; G0463; J1250; J1642; J1940; J2916; 96367

== ENCOUNTER → 2021-07-09 | Outpatient (CLI) | payer MEDICARE, OTHER ==
[2021-07-09] VITALS (8 sets, daily range): BP systolic 110–158; BP diastolic 58–71
[~2021-07-09] MED LIST changes: +CYANOCOBALAMIN (B-12) 1000 MCG/1 ML VIAL IM ONE; +CYANOCOBALAMIN (B-12) 1000 MCG/1 ML VIAL ONE; -FUROSEMIDE 100 MG/10ML VIAL IV ONE; -FUROSEMIDE 20 MG/2 ML VIAL ONE; -FUROSEMIDE 40 MG/4 ML VIAL ONE; -POTASSIUM EFFERVESENT TAB 25 MEQ ONE; -POTASSIUM EFFERVESENT TAB 25 MEQ PO ONE; -SODIUM FERR GLUC 62.5MG/5ML 125 MG in SODIUM CHL 0.9% 100 ML IV ONE; -SODIUM FERRIC GLUC CPLEX 62.5MG/5ML VIAL IV ONE
[2021-07-09 12:06] LABS: Basophils # (auto) 0 10 ^3/uL (0-0.2); Lymphocytes # (auto) 1.2 10 ^3/uL (0.4-5.4); Nucleated Red Blood Cells % 0.1 %; White Blood Cell 6.1 10^3/uL (4.4-10.8)
[2021-07-09 12:09] LABS: Basophils % (auto) 0.6 % (0.0-2.0); Eosinophils # (auto) 0.3 10 ^3/uL (0-0.8); Eosinophils % (auto) 4.2 % (0.0-7.0); Hematocrit 22.9 % (36.0-46.0); Hemoglobin 7.4 g/dL (12.2-16.2); Lymphocytes % (auto) 20.1 % (10.0-50.0); Mean Corpuscular Hemoglobin 28.1 pg (28.0-32.0); Mean Corpuscular Hgb Conc. 32.4 g/dL (32.0-36.0); Mean Corpuscular Volume 86.6 fL (80.0-100.0); Monocytes # (auto) 0.5 10 ^3/uL (0-1.3); Monocytes % (auto) 8.5 % (0.0-12.0); Neutrophils % (auto) 66.6 % (37.0-80.0); Red Blood Cells 2.65 10^6/uL (4.0-5.20); Red Cell Distribution Width 15.2 % (11.8-14.3)
[2021-07-09 12:22] LABS: BUN/Creatinine Ratio 16.3; Calcium 8.8 mg/dL (8.5-10.1); Magnesium 2.8 mg/dL (1.6-2.6); Potassium 3.5 mmol/L (3.5-5.1)
== END | disposition home or self-care (01) ==
LOC: CHF HDHVI 08:58
PROVIDERS: ATTEND Internal Medicine Cardiovascular Disease
DX: I13.0 Hypertensive heart and chronic kidney disease with heart failure and stage 1 through stage 4 chronic kidney disease, or unspecified chronic kidney disease (principal); E11.22 Type 2 diabetes mellitus with diabetic chronic kidney disease; I50.23 Acute on chronic systolic (congestive) heart failure; N18.32 Chronic kidney disease, stage 3b; I25.5 Ischemic cardiomyopathy; I48.0 Paroxysmal atrial fibrillation; I25.10 Atherosclerotic heart disease of native coronary artery without angina pectoris; I25.2 Old myocardial infarction; J44.9 Chronic obstructive pulmonary disease, unspecified; J96.10 Chronic respiratory failure, unspecified whether with hypoxia or hypercapnia; K21.9 Gastro-esophageal reflux disease without esophagitis; E11.40 Type 2 diabetes mellitus with diabetic neuropathy, unspecified; E78.5 Hyperlipidemia, unspecified; E78.00 Pure hypercholesterolemia, unspecified; E03.9 Hypothyroidism, unspecified; F41.9 Anxiety disorder, unspecified; Z79.01 Long term (current) use of anticoagulants; Z79.82 Long term (current) use of aspirin; Z79.51 Long term (current) use of inhaled steroids; Z79.4 Long term (current) use of insulin; Z79.899 Other long term (current) drug therapy; Z87.891 Personal history of nicotine dependence; Z85.3 Personal history of malignant neoplasm of breast; Z95.5 Presence of coronary angioplasty implant and graft; Z95.810 Presence of automatic (implantable) cardiac defibrillator
CPT/HCPCS: 36415; 80048; 83735; 83880; 85025; 96365; 96366; 96372; G0463; J1250; J1642; J3420

== ENCOUNTER → 2021-08-13 | Outpatient (CLI) | payer MEDICARE, OTHER ==
[~2021-08-13] VITALS: Ht 162.6 cm; Wt 76.4 kg
[2021-08-13] VITALS (8 sets, daily range): BP systolic 129–152; BP diastolic 66–92
[~2021-08-13] MED LIST changes: -CYANOCOBALAMIN (B-12) 1000 MCG/1 ML VIAL IM ONE; -CYANOCOBALAMIN (B-12) 1000 MCG/1 ML VIAL ONE; +POTASSIUM EFFERVESENT TAB 25 MEQ ONE; +POTASSIUM EFFERVESENT TAB 25 MEQ PO ONE; +SODIUM CHLORIDE 0.9% 250 ML IV ONE; +SODIUM FERR GLUC 62.5MG/5ML 125 MG in SODIUM CHL 0.9% 100 ML IV ONE; +SODIUM FERRIC GLUC CPLEX 62.5MG/5ML VIAL IV ONE
[2021-08-13 10:15] LABS: Basophils # (auto) 0.1 10 ^3/uL (0-0.2); Eosinophils # (auto) 0.4 10 ^3/uL (0-0.8); Eosinophils % (auto) 6.2 % (0.0-7.0); Hematocrit 28.4 % (36.0-46.0); Hemoglobin 9.2 g/dL (12.2-16.2); Lymphocytes # (auto) 1.2 10 ^3/uL (0.4-5.4); Lymphocytes % (auto) 20.5 % (10.0-50.0); Mean Corpuscular Hemoglobin 27.5 pg (28.0-32.0); Mean Corpuscular Hgb Conc. 32.5 g/dL (32.0-36.0); Mean Corpuscular Volume 84.6 fL (80.0-100.0); Monocytes # (auto) 0.5 10 ^3/uL (0-1.3); Monocytes % (auto) 9.2 % (0.0-12.0); Neutrophils # (auto) 3.7 10 ^3/uL (1.6-8.6); Neutrophils % (auto) 63.1 % (37.0-80.0); Nucleated Red Blood Cells % 0.2 %; Red Blood Cells 3.36 10^6/uL (4.0-5.20); Red Cell Distribution Width 15.7 % (11.8-14.3); White Blood Cell 5.9 10^3/uL (4.4-10.8)
[2021-08-13 10:32] LABS: Albumin 3.3 g/dL (3.4-5.0); Calcium 9.8 mg/dL (8.5-10.1); Magnesium 2.4 mg/dL (1.6-2.6); Potassium 3.5 mmol/L (3.5-5.1)
[2021-08-13 10:35] LABS: Bilirubin, Total 0.8 mg/dL (0.2-1.0); Total Protein 8.4 g/dL (6.4-8.2)
== END | disposition home or self-care (01) ==
LOC: Rad HDHVI 09:14
PROVIDERS: ATTEND Internal Medicine Cardiovascular Disease
DX: I50.23 Acute on chronic systolic (congestive) heart failure (principal); D64.9 Anemia, unspecified; I51.7 Cardiomegaly; I42.9 Cardiomyopathy, unspecified
CPT/HCPCS: 36415; 78472; 80053; 82728; 83735; 83880; 85025; 96361; 96365; 96366; 96367; 96374; 96375; A9505; G0463; J1250; J1642; J2916

== ENCOUNTER → 2021-08-20 | Outpatient (CLI) | payer MEDICARE, OTHER ==
[2021-08-20] VITALS (10 sets, daily range): BP systolic 116–119; BP diastolic 77–82
[~2021-08-20] MED LIST changes: -POTASSIUM EFFERVESENT TAB 25 MEQ ONE; -POTASSIUM EFFERVESENT TAB 25 MEQ PO ONE; -SODIUM CHLORIDE 0.9% 250 ML IV ONE
[2021-08-20 11:07] LABS: Potassium 3.6 mmol/L (3.5-5.1)
== END | disposition home or self-care (01) ==
LOC: CHF HDHVI 09:00
PROVIDERS: ATTEND Internal Medicine Cardiovascular Disease
DX: I50.23 Acute on chronic systolic (congestive) heart failure (principal)
CPT/HCPCS: 36415; 82565; 83880; 84132; 84520; 96365; 96366; 96367; G0463; J1250; J1642; J2916

== ENCOUNTER → 2021-08-27 | Outpatient (CLI) | payer MEDICARE, OTHER ==
[2021-08-27] VITALS (9 sets, daily range): BP systolic 101–133; BP diastolic 57–75
[2021-08-27 11:40] LABS: Basophils # (auto) 0.1 10 ^3/uL (0-0.2); Basophils % (auto) 0.8 % (0.0-2.0); Eosinophils # (auto) 0.3 10 ^3/uL (0-0.8); Eosinophils % (auto) 3.7 % (0.0-7.0); Hematocrit 31.7 % (36.0-46.0); Hemoglobin 10.1 g/dL (12.2-16.2); Lymphocytes # (auto) 1.2 10 ^3/uL (0.4-5.4); Lymphocytes % (auto) 16.5 % (10.0-50.0); Mean Corpuscular Hemoglobin 27.2 pg (28.0-32.0); Mean Corpuscular Hgb Conc. 31.9 g/dL (32.0-36.0); Mean Corpuscular Volume 85.3 fL (80.0-100.0); Monocytes # (auto) 0.6 10 ^3/uL (0-1.3); Monocytes % (auto) 8.5 % (0.0-12.0); Neutrophils # (auto) 5.2 10 ^3/uL (1.6-8.6); Neutrophils % (auto) 70.5 % (37.0-80.0); Nucleated Red Blood Cells % 0.2 %; Red Blood Cells 3.71 10^6/uL (4.0-5.20); Red Cell Distribution Width 15.6 % (11.8-14.3); White Blood Cell 7.4 10^3/uL (4.4-10.8)
[2021-08-27 11:55] LABS: Calcium 9.6 mg/dL (8.5-10.1); Potassium 3.8 mmol/L (3.5-5.1)
[2021-08-27 11:57] LABS: BUN/Creatinine Ratio 20.7
== END | disposition home or self-care (01) ==
LOC: CHF HDHVI 09:21
PROVIDERS: ATTEND Internal Medicine Cardiovascular Disease
DX: I50.23 Acute on chronic systolic (congestive) heart failure (principal)
CPT/HCPCS: 36415; 80048; 83880; 85025; 96365; 96366; 96368; G0463; J1250; J2916

== ENCOUNTER → 2021-09-03 | Outpatient (CLI) | payer MEDICARE, OTHER ==
[2021-09-03] VITALS (9 sets, daily range): BP systolic 97–117; BP diastolic 59–70
[~2021-09-03] MED LIST changes: -SODIUM FERR GLUC 62.5MG/5ML 125 MG in SODIUM CHL 0.9% 100 ML IV ONE; -SODIUM FERRIC GLUC CPLEX 62.5MG/5ML VIAL IV ONE
[2021-09-03 12:07] LABS: Basophils # (auto) 0.1 10 ^3/uL (0-0.2); Basophils % (auto) 0.9 % (0.0-2.0); Eosinophils # (auto) 0.3 10 ^3/uL (0-0.8); Eosinophils % (auto) 4.2 % (0.0-7.0); Hematocrit 30.5 % (36.0-46.0); Hemoglobin 9.9 g/dL (12.2-16.2); Lymphocytes # (auto) 1.8 10 ^3/uL (0.4-5.4); Lymphocytes % (auto) 26.9 % (10.0-50.0); Mean Corpuscular Hemoglobin 27.5 pg (28.0-32.0); Mean Corpuscular Hgb Conc. 32.5 g/dL (32.0-36.0); Mean Corpuscular Volume 84.5 fL (80.0-100.0); Monocytes # (auto) 0.5 10 ^3/uL (0-1.3); Monocytes % (auto) 7.5 % (0.0-12.0); Neutrophils % (auto) 60.5 % (37.0-80.0); Nucleated Red Blood Cells % 0.1 %; Red Blood Cells 3.61 10^6/uL (4.0-5.20); Red Cell Distribution Width 15.2 % (11.8-14.3); White Blood Cell 6.6 10^3/uL (4.4-10.8)
[2021-09-03 12:20] LABS: BUN/Creatinine Ratio 16.4; Calcium 9.4 mg/dL (8.5-10.1); Potassium 3.5 mmol/L (3.5-5.1)
[2021-09-03 12:22] LABS: INR 1.05 (0.9-1.15); Partial Thromboplastin Time 27.3 sec (23.6-33.0)
== END | disposition home or self-care (01) ==
LOC: CHF HDHVI 09:20
PROVIDERS: ATTEND Internal Medicine Cardiovascular Disease
DX: I50.23 Acute on chronic systolic (congestive) heart failure (principal); Z01.812 Encounter for preprocedural laboratory examination; I51.7 Cardiomegaly; I42.0 Dilated cardiomyopathy
CPT/HCPCS: 36415; 80048; 83880; 85025; 85610; 85730; 96365; 96366; G0463; J1250

== ENCOUNTER → 2021-09-04 | Outpatient (CLI) | payer MEDICARE, OTHER ==
[~2021-09-04] MED LIST changes: -DOBUTamine 1000MCG/ML 250 ML IV ONE; +LIDOCAINE 1% (LOCAL ANESTH.) PF 5ml SDV ID ONE; +SODIUM CHLOR 0.9% PF (SALINE LOCK) 10ML VIAL/SYR IV SCH
== END | disposition home or self-care (01) ==
LOC: XYW 12:20
PROVIDERS: ATTEND Internal Medicine Cardiovascular Disease
DX: I50.9 Heart failure, unspecified (principal); Z95.9 Presence of cardiac and vascular implant and graft, unspecified
CPT/HCPCS: 36569; 71045; C1751; J7050

== ENCOUNTER → 2021-09-10 | Outpatient (CLI) | payer MEDICARE, OTHER ==
[2021-09-10] VITALS (11 sets, daily range): BP systolic 107–127; BP diastolic 63–74
[~2021-09-10] MED LIST changes: +CYANOCOBALAMIN (B-12) 1000 MCG/1 ML VIAL IM ONE; +CYANOCOBALAMIN (B-12) 1000 MCG/1 ML VIAL ONE; +DOBUTamine 1000MCG/ML 250 ML IV ONE; -LIDOCAINE 1% (LOCAL ANESTH.) PF 5ml SDV ID ONE; -SODIUM CHLOR 0.9% PF (SALINE LOCK) 10ML VIAL/SYR IV SCH
[2021-09-10 12:22] LABS: Albumin 3.2 g/dL (3.4-5.0); Calcium 9.3 mg/dL (8.5-10.1); Magnesium 2.7 mg/dL (1.6-2.6); Potassium 3.7 mmol/L (3.5-5.1); Uric Acid 5.2 mg/dL (2.6-6.0)
[2021-09-10 12:25] LABS: BUN/Creatinine Ratio 13.5; Bilirubin, Total 0.6 mg/dL (0.2-1.0); Total Protein 8.2 g/dL (6.4-8.2)
== END | disposition home or self-care (01) ==
LOC: CHF HDHVI 10:29
PROVIDERS: ATTEND Internal Medicine Cardiovascular Disease
DX: I13.0 Hypertensive heart and chronic kidney disease with heart failure and stage 1 through stage 4 chronic kidney disease, or unspecified chronic kidney disease (principal); E11.22 Type 2 diabetes mellitus with diabetic chronic kidney disease; I50.23 Acute on chronic systolic (congestive) heart failure; N18.32 Chronic kidney disease, stage 3b; I25.10 Atherosclerotic heart disease of native coronary artery without angina pectoris; I25.2 Old myocardial infarction; I48.0 Paroxysmal atrial fibrillation; J44.9 Chronic obstructive pulmonary disease, unspecified; J96.10 Chronic respiratory failure, unspecified whether with hypoxia or hypercapnia; E78.5 Hyperlipidemia, unspecified; E03.9 Hypothyroidism, unspecified; E78.00 Pure hypercholesterolemia, unspecified; F41.9 Anxiety disorder, unspecified; Z79.01 Long term (current) use of anticoagulants; Z79.82 Long term (current) use of aspirin; Z79.51 Long term (current) use of inhaled steroids; Z79.4 Long term (current) use of insulin; Z79.899 Other long term (current) drug therapy; Z87.891 Personal history of nicotine dependence; Z85.3 Personal history of malignant neoplasm of breast; Z95.5 Presence of coronary angioplasty implant and graft; Z95.810 Presence of automatic (implantable) cardiac defibrillator; Z86.73 Personal history of transient ischemic attack (TIA), and cerebral infarction without residual deficits
CPT/HCPCS: 36415; 80053; 83036; 83735; 83880; 84550; 96365; 96366; 96372; G0463; J1250; J1642; J3420

== ENCOUNTER → 2021-09-17 | Outpatient (CLI) | payer MEDICARE, OTHER ==
[2021-09-17] VITALS (8 sets, daily range): BP systolic 115–135; BP diastolic 59–78
[~2021-09-17] MED LIST changes: -CYANOCOBALAMIN (B-12) 1000 MCG/1 ML VIAL IM ONE; -CYANOCOBALAMIN (B-12) 1000 MCG/1 ML VIAL ONE
[2021-09-17 11:40] LABS: Basophils # (auto) 0 10 ^3/uL (0-0.2); Basophils % (auto) 0.6 % (0.0-2.0); Eosinophils # (auto) 0.2 10 ^3/uL (0-0.8); Hematocrit 27.6 % (36.0-46.0); Hemoglobin 8.9 g/dL (12.2-16.2); Lymphocytes # (auto) 1.1 10 ^3/uL (0.4-5.4); Lymphocytes % (auto) 16.7 % (10.0-50.0); Mean Corpuscular Hemoglobin 27.6 pg (28.0-32.0); Mean Corpuscular Hgb Conc. 32.3 g/dL (32.0-36.0); Mean Corpuscular Volume 85.4 fL (80.0-100.0); Monocytes # (auto) 0.4 10 ^3/uL (0-1.3); Monocytes % (auto) 5.8 % (0.0-12.0); Neutrophils # (auto) 4.6 10 ^3/uL (1.6-8.6); Neutrophils % (auto) 73.9 % (37.0-80.0); Nucleated Red Blood Cells % 0.1 %; Red Blood Cells 3.23 10^6/uL (4.0-5.20); Red Cell Distribution Width 14.6 % (11.8-14.3); White Blood Cell 6.3 10^3/uL (4.4-10.8)
[2021-09-17 11:41] LABS: BUN/Creatinine Ratio 16.7; Calcium 9.6 mg/dL (8.5-10.1); Potassium 3.7 mmol/L (3.5-5.1)
== END | disposition home or self-care (01) ==
LOC: CHF HDHVI 09:40
PROVIDERS: ATTEND Internal Medicine Cardiovascular Disease
DX: I13.0 Hypertensive heart and chronic kidney disease with heart failure and stage 1 through stage 4 chronic kidney disease, or unspecified chronic kidney disease (principal); E11.22 Type 2 diabetes mellitus with diabetic chronic kidney disease; I50.23 Acute on chronic systolic (congestive) heart failure; N18.32 Chronic kidney disease, stage 3b; I25.10 Atherosclerotic heart disease of native coronary artery without angina pectoris; I25.2 Old myocardial infarction; I48.0 Paroxysmal atrial fibrillation; J44.9 Chronic obstructive pulmonary disease, unspecified; J96.10 Chronic respiratory failure, unspecified whether with hypoxia or hypercapnia; K21.9 Gastro-esophageal reflux disease without esophagitis; E11.40 Type 2 diabetes mellitus with diabetic neuropathy, unspecified; E78.00 Pure hypercholesterolemia, unspecified; E78.5 Hyperlipidemia, unspecified; E03.9 Hypothyroidism, unspecified; F41.9 Anxiety disorder, unspecified; Z79.01 Long term (current) use of anticoagulants; Z79.82 Long term (current) use of aspirin; Z79.51 Long term (current) use of inhaled steroids; Z79.4 Long term (current) use of insulin; Z79.899 Other long term (current) drug therapy; Z87.891 Personal history of nicotine dependence; Z95.5 Presence of coronary angioplasty implant and graft; Z95.810 Presence of automatic (implantable) cardiac defibrillator; Z86.73 Personal history of transient ischemic attack (TIA), and cerebral infarction without residual deficits
CPT/HCPCS: 36415; 80048; 85025; 96365; 96366; G0463; J1250; J1642

== ENCOUNTER → 2021-09-24 | Outpatient (CLI) | payer MEDICARE, OTHER ==
[2021-09-24] VITALS (11 sets, daily range): BP systolic 107–132; BP diastolic 60–75
[2021-09-24 12:32] LABS: BUN/Creatinine Ratio 17.4; Calcium 9.1 mg/dL (8.5-10.1); Magnesium 2.8 mg/dL (1.6-2.6); Potassium 3.8 mmol/L (3.5-5.1)
== END | disposition home or self-care (01) ==
LOC: CHF HDHVI 09:07
PROVIDERS: ATTEND Internal Medicine Cardiovascular Disease
DX: I13.0 Hypertensive heart and chronic kidney disease with heart failure and stage 1 through stage 4 chronic kidney disease, or unspecified chronic kidney disease (principal); E11.22 Type 2 diabetes mellitus with diabetic chronic kidney disease; I50.23 Acute on chronic systolic (congestive) heart failure; N18.32 Chronic kidney disease, stage 3b; I25.10 Atherosclerotic heart disease of native coronary artery without angina pectoris; I25.2 Old myocardial infarction; J44.9 Chronic obstructive pulmonary disease, unspecified; J96.10 Chronic respiratory failure, unspecified whether with hypoxia or hypercapnia; K21.9 Gastro-esophageal reflux disease without esophagitis; E11.40 Type 2 diabetes mellitus with diabetic neuropathy, unspecified; E78.00 Pure hypercholesterolemia, unspecified; E78.5 Hyperlipidemia, unspecified; E03.9 Hypothyroidism, unspecified; Z79.01 Long term (current) use of anticoagulants; Z79.82 Long term (current) use of aspirin; Z79.51 Long term (current) use of inhaled steroids; Z79.4 Long term (current) use of insulin; Z79.899 Other long term (current) drug therapy; Z87.891 Personal history of nicotine dependence; Z95.810 Presence of automatic (implantable) cardiac defibrillator; Z95.5 Presence of coronary angioplasty implant and graft; Z86.73 Personal history of transient ischemic attack (TIA), and cerebral infarction without residual deficits; Z85.3 Personal history of malignant neoplasm of breast
CPT/HCPCS: 36415; 80048; 83735; 83880; 96365; 96366; G0463; J1250; J1642

== ENCOUNTER → 2021-10-03 | Outpatient (CLI) | payer MEDICARE, OTHER ==
[2021-10-03] VITALS (12 sets, daily range): BP systolic 112–128; BP diastolic 59–78
[~2021-10-03] MED LIST changes: +AMLO-496 PO; +CLOP75TA70 PO; +GABA100C9 PO; +LOSA-69 PO
[2021-10-03 11:35] LABS: Eosinophils # (auto) 0.3 10 ^3/uL (0-0.8); Lymphocytes # (auto) 1.3 10 ^3/uL (0.4-5.4); Mean Corpuscular Volume 86.9 fL (80.0-100.0); Monocytes # (auto) 0.4 10 ^3/uL (0-1.3); White Blood Cell 6.6 10^3/uL (4.4-10.8)
[2021-10-03 11:37] LABS: Basophils # (auto) 0 10 ^3/uL (0-0.2); Basophils % (auto) 0.6 % (0.0-2.0); Eosinophils % (auto) 4.5 % (0.0-7.0); Hematocrit 26.2 % (36.0-46.0); Hemoglobin 8.3 g/dL (12.2-16.2); Lymphocytes % (auto) 19.4 % (10.0-50.0); Mean Corpuscular Hemoglobin 27.6 pg (28.0-32.0); Mean Corpuscular Hgb Conc. 31.8 g/dL (32.0-36.0); Monocytes % (auto) 6.5 % (0.0-12.0); Neutrophils # (auto) 4.6 10 ^3/uL (1.6-8.6); Nucleated Red Blood Cells % 0.1 %; Red Blood Cells 3.01 10^6/uL (4.0-5.20); Red Cell Distribution Width 15.4 % (11.8-14.3)
[2021-10-03 11:43] LABS: Potassium 3.7 mmol/L (3.5-5.1)
== END | disposition home or self-care (01) ==
LOC: CHF HDHVI 09:20
PROVIDERS: ATTEND Internal Medicine Cardiovascular Disease
DX: I13.0 Hypertensive heart and chronic kidney disease with heart failure and stage 1 through stage 4 chronic kidney disease, or unspecified chronic kidney disease (principal); E11.22 Type 2 diabetes mellitus with diabetic chronic kidney disease; E11.40 Type 2 diabetes mellitus with diabetic neuropathy, unspecified; N18.32 Chronic kidney disease, stage 3b; I50.23 Acute on chronic systolic (congestive) heart failure; I25.10 Atherosclerotic heart disease of native coronary artery without angina pectoris; D51.9 Vitamin B12 deficiency anemia, unspecified; J44.9 Chronic obstructive pulmonary disease, unspecified; K21.9 Gastro-esophageal reflux disease without esophagitis; E03.9 Hypothyroidism, unspecified; E78.5 Hyperlipidemia, unspecified; I48.0 Paroxysmal atrial fibrillation; E78.00 Pure hypercholesterolemia, unspecified; Z79.4 Long term (current) use of insulin; Z79.01 Long term (current) use of anticoagulants; Z79.52 Long term (current) use of systemic steroids; Z79.82 Long term (current) use of aspirin; Z79.899 Other long term (current) drug therapy; Z85.3 Personal history of malignant neoplasm of breast; Z87.891 Personal history of nicotine dependence; Z98.61 Coronary angioplasty status; Z95.810 Presence of automatic (implantable) cardiac defibrillator
CPT/HCPCS: 36415; 82565; 82728; 83540; 83550; 83880; 84132; 84520; 85025; 85045; 96365; 96366; G0463; J1250; J1642

== ENCOUNTER 2021-10-08 14:09 | Inpatient (IN) | payer MEDICARE, OTHER ==
[~2021-10-08] VITALS: Ht 167.6 cm; Wt 89.0 kg
[~2021-10-08 14:09] MED LIST changes: -AMLO-496 PO; -CLOP75TA70 PO; -DOBUTamine 1000MCG/ML 250 ML IV ONE; -GABA100C9 PO; -LOSA-69 PO
[2021-10-08 15:01] LABS: Basophils # (auto) 0.1 10 ^3/uL (0-0.2); Basophils % (auto) 0.7 % (0.0-2.0); Eosinophils # (auto) 0.3 10 ^3/uL (0-0.8); Eosinophils % (auto) 3.5 % (0.0-7.0); Mean Corpuscular Hgb Conc. 31.1 g/dL (32.0-36.0); Monocytes # (auto) 0.4 10 ^3/uL (0-1.3); Neutrophils # (auto) 6.2 10 ^3/uL (1.6-8.6); Red Cell Distribution Width 15.2 % (11.8-14.3)
[2021-10-08 15:04] LABS: Hematocrit 26.4 % (36.0-46.0); Hemoglobin 8.2 g/dL (12.2-16.2); Lymphocytes # (auto) 0.9 10 ^3/uL (0.4-5.4); Mean Corpuscular Hemoglobin 27.1 pg (28.0-32.0); Monocytes % (auto) 5.1 % (0.0-12.0); Neutrophils % (auto) 78.7 % (37.0-80.0); Red Blood Cells 3.03 10^6/uL (4.0-5.20); White Blood Cell 7.8 10^3/uL (4.4-10.8)
[2021-10-08 15:20] LABS: Albumin 3.1 g/dL (3.4-5.0); Magnesium 2.4 mg/dL (1.6-2.6); Potassium 3.6 mmol/L (3.5-5.1)
[2021-10-08 15:25] LABS: BUN/Creatinine Ratio 20.6; Bilirubin, Total 0.5 mg/dL (0.2-1.0)
[2021-10-08] MEDS ORDERED: IPRATROPIUM BROM 0.5 MG/2.5ML INH SOL NEB ONE (16:15)
[2021-10-08] MEDS ORDERED: ALBUTEROL SULF 2.5 MG/0.5ML(0.5%) NEB SOLN NEB ONE (16:15)
[2021-10-08 20:11] LABS: Urine Bacteria NONE SEEN /hpf (None Seen); Urine Blood Negative /uL (Negative); Urine Specific Gravity 1.014 (1.001-1.035); Urine WBC <1 /hpf (0 - 5)
[2021-10-08 20:21] LABS: Alcohol, Urine < 3.0 mg/dL (0-10); Amphetamine Screen, Urine NEGATIVE (NEGATIVE); Barbiturate Scree,Urine NEGATIVE (NEGATIVE); Benzodiazephine Screen, Urine NEGATIVE (NEGATIVE); Cannabinoid Screen, Urine POSITIVE (NEGATIVE); Cocaine Screen, Urine NEGATIVE (NEGATIVE); Opiate Scree,Urine NEGATIVE (NEGATIVE); Phencyclidine Screen, Urine NEGATIVE (NEGATIVE)
[2021-10-08] MEDS ORDERED: DEXTROSE (50%) 50ML SYRG IV PRN (23:30)
[2021-10-08] MEDS ORDERED: MORPHINE SULFATE INJ 2 MG/ml SYRG IV PRN (23:30)
[2021-10-08] MEDS: MILRINONE 20MG/100ML 100 ML IV SCH (23:30)
[2021-10-08] MEDS ORDERED: FUROSEMIDE INJECTION 100 MG in SODIUM CHL 0.9% 100 ML IV ONE (23:30)
[2021-10-08] MEDS ORDERED: NITROGLYCERIN 0.4 MG SL TAB SL PRN (23:30)
[2021-10-08 23:47] VITALS: BP 125/73
[2021-10-09] MEDS ORDERED: FUROSEMIDE INJECTION 10 ML ONE (00:12)
[2021-10-09 00:45] LABS: BUN/Creatinine Ratio 20.2; Calcium 10.1 mg/dL (8.5-10.1); Potassium 4.1 mmol/L (3.5-5.1)
[2021-10-09] MEDS: IPRATROPIUM BROM 0.5 MG/2.5ML INH SOL NEB SCH ×3 (05:55→18:21)
[2021-10-09] MEDS: hydrALAZINE HCL 25 MG TAB PO SCH ×3 (06:06→22:13)
[2021-10-09] MEDS: LEVOTHYROXINE SODIUM 25 MCG TAB PO SCH (07:00)
[2021-10-09] MEDS: ACCU-CHEK COMFORT CURVE STRIP VI SCH ×4 (07:00→22:13)
[2021-10-09] MEDS: InsuLIN REG 1unit/0.01ml Soln (100units/ml) SC SCH ×4 (07:00→22:00)
[2021-10-09] MEDS: MILRINONE 20MG/100ML 100 ML IV SCH ×2 (09:27→18:51)
[2021-10-09] MEDS: SACUBITRIL-VALSARTAN 24mg/26mg TAB PO SCH (10:31)
[2021-10-09] MEDS: ALLOPURINOL 100 MG TAB PO SCH (10:31)
[2021-10-09] MEDS: POTASSIUM CHL 20 Meq TABLET PO SCH ×2 (10:34→22:13)
[2021-10-09] MEDS: METOPROLOL SUCCINATE XL 50 MG TAB PO SCH (10:35)
[2021-10-09 15:25] VITALS: BP 116/82
[2021-10-09 17:00] VITALS: BP 96/51
[2021-10-09 20:00] VITALS: BP_SYST 142; BP_SYST 173; BP_DIAS 104; BP_DIAS 84
[2021-10-10] VITALS (7 sets, daily range): BP systolic 105–142; BP diastolic 51–84
[2021-10-10] MEDS: MILRINONE 20MG/100ML 100 ML IV SCH ×2 (05:09→14:42)
[2021-10-10] MEDS: IPRATROPIUM BROM 0.5 MG/2.5ML INH SOL NEB SCH ×3 (06:07→18:16)
[2021-10-10] MEDS: hydrALAZINE HCL 25 MG TAB PO SCH ×3 (06:25→22:00)
[2021-10-10] MEDS: LEVOTHYROXINE SODIUM 25 MCG TAB PO SCH (06:35)
[2021-10-10] MEDS: ACCU-CHEK COMFORT CURVE STRIP VI SCH ×4 (06:36→22:15)
[2021-10-10] MEDS: InsuLIN REG 1unit/0.01ml Soln (100units/ml) SC SCH ×4 (06:36→22:15)
[2021-10-10] MEDS: SACUBITRIL-VALSARTAN 24mg/26mg TAB PO SCH (08:16)
[2021-10-10] MEDS: ALLOPURINOL 100 MG TAB PO SCH (08:17)
[2021-10-10] MEDS: POTASSIUM CHL 20 Meq TABLET PO SCH (08:17)
[2021-10-10] MEDS: METOPROLOL SUCCINATE XL 50 MG TAB PO SCH (10:00)
[2021-10-10] MEDS ORDERED: ALBU108A5 IN (14:27)
[2021-10-10] MEDS ORDERED: GABA100C9 PO (14:28)
[2021-10-10] MEDS ORDERED: AMLO-496 PO (14:29)
[2021-10-10] MEDS ORDERED: CLOP75TA70 PO (14:29)
[2021-10-10] MEDS ORDERED: LOSA-69 PO (14:29)
[2021-10-10] MEDS ORDERED: FUROSEMIDE 40 MG/4 ML VIAL IV SCH (18:00)
[2021-10-10] MEDS: ALBUTEROL SULF 2.5 MG/0.5ML(0.5%) NEB SOLN NEB PRN (18:16)
[2021-10-11] MEDS: MILRINONE 20MG/100ML 100 ML IV SCH ×3 (00:25→20:06)
[2021-10-11 05:00] VITALS: BP 114/66
[2021-10-11 05:08] LABS: Basophils # (auto) 0.1 10 ^3/uL (0-0.2); Eosinophils # (auto) 0.3 10 ^3/uL (0-0.8); Hemoglobin 8.8 g/dL (12.2-16.2); Lymphocytes # (auto) 1.4 10 ^3/uL (0.4-5.4); Lymphocytes % (auto) 17.2 % (10.0-50.0); Mean Corpuscular Hemoglobin 27.5 pg (28.0-32.0); Mean Corpuscular Hgb Conc. 31.4 g/dL (32.0-36.0); Mean Corpuscular Volume 87.6 fL (80.0-100.0); Monocytes # (auto) 0.6 10 ^3/uL (0-1.3); Monocytes % (auto) 7.8 % (0.0-12.0); Neutrophils # (auto) 5.6 10 ^3/uL (1.6-8.6)
[2021-10-11 05:22] LABS: Potassium 4.3 mmol/L (3.5-5.1)
[2021-10-11 05:27] LABS: BUN/Creatinine Ratio 18.7; Calcium 9.2 mg/dL (8.5-10.1)
[2021-10-11] MEDS: IPRATROPIUM BROM 0.5 MG/2.5ML INH SOL NEB SCH ×3 (05:53→18:16)
[2021-10-11] MEDS: ALBUTEROL SULF 2.5 MG/0.5ML(0.5%) NEB SOLN NEB PRN ×2 (05:53→11:52)
[2021-10-11] MEDS: hydrALAZINE HCL 25 MG TAB PO SCH ×3 (06:00→22:00)
[2021-10-11] MEDS: InsuLIN REG 1unit/0.01ml Soln (100units/ml) SC SCH ×4 (06:23→21:31)
[2021-10-11] MEDS: ACCU-CHEK COMFORT CURVE STRIP VI SCH ×4 (06:25→22:00)
[2021-10-11] MEDS: LEVOTHYROXINE SODIUM 25 MCG TAB PO SCH (06:33)
[2021-10-11 09:00] VITALS: BP 91/49
[2021-10-11] MEDS: SACUBITRIL-VALSARTAN 24mg/26mg TAB PO SCH (10:00)
[2021-10-11] MEDS: METOPROLOL SUCCINATE XL 50 MG TAB PO SCH (10:00)
[2021-10-11 13:00] VITALS: BP 94/59
[2021-10-11] MEDS: ALLOPURINOL 100 MG TAB PO SCH (15:34)
[2021-10-11 17:00] VITALS: BP 87/50
[2021-10-11 20:00] VITALS: BP 94/59
[2021-10-11 22:00] VITALS: BP 104/68
[2021-10-12 02:14] VITALS: BP 118/68
[2021-10-12 05:00] VITALS: BP 104/77
[2021-10-12] MEDS: ALBUTEROL SULF 2.5 MG/0.5ML(0.5%) NEB SOLN NEB PRN ×3 (05:39→19:23)
[2021-10-12] MEDS: IPRATROPIUM BROM 0.5 MG/2.5ML INH SOL NEB SCH ×3 (05:39→19:23)
[2021-10-12] MEDS: MILRINONE 20MG/100ML 100 ML IV SCH ×3 (05:54→20:29)
[2021-10-12] MEDS: hydrALAZINE HCL 25 MG TAB PO SCH ×3 (06:00→21:39)
[2021-10-12] MEDS: InsuLIN REG 1unit/0.01ml Soln (100units/ml) SC SCH ×4 (06:08→22:00)
[2021-10-12] MEDS: ACCU-CHEK COMFORT CURVE STRIP VI SCH ×4 (06:09→21:38)
[2021-10-12] MEDS: LEVOTHYROXINE SODIUM 25 MCG TAB PO SCH (06:09)
[2021-10-12 09:00] VITALS: BP 108/60
[2021-10-12] MEDS: SACUBITRIL-VALSARTAN 24mg/26mg TAB PO SCH (09:27)
[2021-10-12] MEDS: METOPROLOL SUCCINATE XL 50 MG TAB PO SCH (09:27)
[2021-10-12] MEDS: ALLOPURINOL 100 MG TAB PO SCH (09:34)
[2021-10-12 13:00] VITALS: BP 103/70
[2021-10-12 16:43] VITALS: BP 122/74
[2021-10-12 22:00] VITALS: BP 122/70
[2021-10-13] MEDS: GABAPENTIN 100 MG CAP PO SCH ×2 (02:43→10:33)
[2021-10-13 03:16] LABS: Basophils # (auto) 0.1 10 ^3/uL (0-0.2); Basophils % (auto) 0.8 % (0.0-2.0); Eosinophils # (auto) 0.4 10 ^3/uL (0-0.8); Eosinophils % (auto) 5.3 % (0.0-7.0); Hematocrit 26.9 % (36.0-46.0); Hemoglobin 8.4 g/dL (12.2-16.2); Lymphocytes # (auto) 1.3 10 ^3/uL (0.4-5.4); Lymphocytes % (auto) 18.3 % (10.0-50.0); Mean Corpuscular Hemoglobin 26.8 pg (28.0-32.0); Mean Corpuscular Hgb Conc. 31.4 g/dL (32.0-36.0); Mean Corpuscular Volume 85.3 fL (80.0-100.0); Monocytes # (auto) 0.6 10 ^3/uL (0-1.3); Monocytes % (auto) 7.8 % (0.0-12.0); Neutrophils # (auto) 4.9 10 ^3/uL (1.6-8.6); Neutrophils % (auto) 67.8 % (37.0-80.0); Nucleated Red Blood Cells % 0.3 %; Red Blood Cells 3.15 10^6/uL (4.0-5.20); Red Cell Distribution Width 15.3 % (11.8-14.3); White Blood Cell 7.2 10^3/uL (4.4-10.8)
[2021-10-13 03:24] LABS: Anion Gap 9 (5-15); BUN/Creatinine Ratio 20.5; Blood Urea Nitrogen 43 mg/dL (7-18); Calcium 9.1 mg/dL (8.5-10.1); Carbon Dioxide 23 mmol/L (21-32); Chloride 108 mmol/L (98-107); GFR African American 29 mL/min; GFR Non-African American 24 mL/min; Glucose 108 mg/dL (74-106); Potassium 3.9 mmol/L (3.5-5.1); Sodium 140 mmol/L (136-145)
[2021-10-13 05:00] VITALS: BP 102/55
[2021-10-13] MEDS: hydrALAZINE HCL 25 MG TAB PO SCH ×2 (06:00→13:43)
[2021-10-13] MEDS: MILRINONE 20MG/100ML 100 ML IV SCH (06:01)
[2021-10-13] MEDS: ACCU-CHEK COMFORT CURVE STRIP VI SCH ×3 (06:02→18:38)
[2021-10-13] MEDS: LEVOTHYROXINE SODIUM 25 MCG TAB PO SCH (06:04)
[2021-10-13] MEDS: InsuLIN REG 1unit/0.01ml Soln (100units/ml) SC SCH ×3 (06:05→17:00)
[2021-10-13] MEDS: ALBUTEROL SULF 2.5 MG/0.5ML(0.5%) NEB SOLN NEB PRN ×3 (06:43→19:02)
[2021-10-13] MEDS: IPRATROPIUM BROM 0.5 MG/2.5ML INH SOL NEB SCH ×3 (06:43→19:02)
[2021-10-13 09:00] VITALS: BP 93/63
[2021-10-13] MEDS: SACUBITRIL-VALSARTAN 24mg/26mg TAB PO SCH (10:00)
[2021-10-13] MEDS: METOPROLOL SUCCINATE XL 50 MG TAB PO SCH (10:00)
[2021-10-13] MEDS: ALLOPURINOL 100 MG TAB PO SCH (10:34)
[2021-10-13 13:00] VITALS: BP 88/52
[2021-10-13 16:12] VITALS: BP 88/52
[2021-10-13 17:00] VITALS: BP 97/58
== END 2021-10-13 21:45 | disposition home or self-care (01) | DRG 291 ==
LOC: ER 14:09 → EDBD 14:09 → TELE 23:31 → TELE-CENTR 10-09 20:14
PROVIDERS: ADMIT Internal Medicine Cardiovascular Disease; ATTEND Internal Medicine Cardiovascular Disease
DX: I13.0 Hypertensive heart and chronic kidney disease with heart failure and stage 1 through stage 4 chronic kidney disease, or unspecified chronic kidney disease (principal); I50.23 Acute on chronic systolic (congestive) heart failure; U07.1 COVID-19; I67.4 Hypertensive encephalopathy; N17.9 Acute kidney failure, unspecified; D64.9 Anemia, unspecified; E03.9 Hypothyroidism, unspecified; J44.9 Chronic obstructive pulmonary disease, unspecified; N18.30 Chronic kidney disease, stage 3 unspecified; E78.5 Hyperlipidemia, unspecified; E66.9 Obesity, unspecified; E11.22 Type 2 diabetes mellitus with diabetic chronic kidney disease; I25.2 Old myocardial infarction; Z90.11 Acquired absence of right breast and nipple; Z95.810 Presence of automatic (implantable) cardiac defibrillator; Z68.31 Body mass index [BMI] 31.0-31.9, adult; Z79.4 Long term (current) use of insulin
CPT/HCPCS: 36415; 70450; 71045; 80048; 80053; 80307; 81001; 82962; 83605; 83735; 83880; 84484; 85025; 87040; 93005; 94640; 96365; 97163; G0378; J1815

== ENCOUNTER → 2021-10-17 | Outpatient (CLI) | payer MEDICARE, OTHER ==
[2021-10-17] VITALS (10 sets, daily range): BP systolic 103–126; BP diastolic 57–74
[~2021-10-17] MED LIST changes: +AMLO-496 PO; -APIX2.5T PO; +CLOP75TA70 PO; +CYANOCOBALAMIN (B-12) 1000 MCG/1 ML VIAL IM ONE; +CYANOCOBALAMIN (B-12) 1000 MCG/1 ML VIAL ONE; +DOBUTamine 1000MCG/ML 250 ML IV ONE; +GABA100C9 PO; -HYDR-4296 PO; +LOSA-69 PO; -METO1TAB9 PO; -SACU1TAB PO
[2021-10-17 11:50] LABS: Calcium 9.1 mg/dL (8.5-10.1)
== END | disposition home or self-care (01) ==
LOC: CHF HDHVI 09:08
PROVIDERS: ATTEND Internal Medicine Cardiovascular Disease
DX: I13.0 Hypertensive heart and chronic kidney disease with heart failure and stage 1 through stage 4 chronic kidney disease, or unspecified chronic kidney disease (principal); E11.22 Type 2 diabetes mellitus with diabetic chronic kidney disease; N18.32 Chronic kidney disease, stage 3b; I50.23 Acute on chronic systolic (congestive) heart failure; J44.9 Chronic obstructive pulmonary disease, unspecified; E78.5 Hyperlipidemia, unspecified; E03.9 Hypothyroidism, unspecified; I25.2 Old myocardial infarction; I25.10 Atherosclerotic heart disease of native coronary artery without angina pectoris; K21.9 Gastro-esophageal reflux disease without esophagitis; I48.0 Paroxysmal atrial fibrillation; E78.00 Pure hypercholesterolemia, unspecified; Z87.891 Personal history of nicotine dependence; E11.40 Type 2 diabetes mellitus with diabetic neuropathy, unspecified; D51.9 Vitamin B12 deficiency anemia, unspecified; F41.9 Anxiety disorder, unspecified; J96.11 Chronic respiratory failure with hypoxia; Z86.73 Personal history of transient ischemic attack (TIA), and cerebral infarction without residual deficits; I42.0 Dilated cardiomyopathy; Z79.01 Long term (current) use of anticoagulants; Z79.82 Long term (current) use of aspirin; Z79.4 Long term (current) use of insulin; Z79.51 Long term (current) use of inhaled steroids; Z79.52 Long term (current) use of systemic steroids; Z95.810 Presence of automatic (implantable) cardiac defibrillator
CPT/HCPCS: 36415; 80048; 83880; 96365; 96366; 96372; G0463; J1250; J1642; J3420

== ENCOUNTER → 2021-10-24 | Outpatient (CLI) | payer MEDICARE, OTHER ==
[2021-10-24] VITALS (12 sets, daily range): BP systolic 103–139; BP diastolic 55–79
[~2021-10-24] MED LIST changes: -CYANOCOBALAMIN (B-12) 1000 MCG/1 ML VIAL IM ONE; -CYANOCOBALAMIN (B-12) 1000 MCG/1 ML VIAL ONE
[2021-10-24 12:47] LABS: Calcium 9.5 mg/dL (8.5-10.1); Magnesium 2.4 mg/dL (1.6-2.6); Potassium 3.8 mmol/L (3.5-5.1)
[2021-10-24 12:52] LABS: Albumin 3.2 g/dL (3.4-5.0); BUN/Creatinine Ratio 17.5; Bilirubin, Total 0.6 mg/dL (0.2-1.0); Total Protein 8.2 g/dL (6.4-8.2)
== END | disposition home or self-care (01) ==
LOC: CHF HDHVI 09:06
PROVIDERS: ATTEND Internal Medicine Cardiovascular Disease
DX: I13.0 Hypertensive heart and chronic kidney disease with heart failure and stage 1 through stage 4 chronic kidney disease, or unspecified chronic kidney disease (principal); E11.22 Type 2 diabetes mellitus with diabetic chronic kidney disease; I50.23 Acute on chronic systolic (congestive) heart failure; N18.32 Chronic kidney disease, stage 3b; I25.10 Atherosclerotic heart disease of native coronary artery without angina pectoris; I25.2 Old myocardial infarction; I48.0 Paroxysmal atrial fibrillation; J44.9 Chronic obstructive pulmonary disease, unspecified; J96.10 Chronic respiratory failure, unspecified whether with hypoxia or hypercapnia; K21.9 Gastro-esophageal reflux disease without esophagitis; E78.00 Pure hypercholesterolemia, unspecified; E78.5 Hyperlipidemia, unspecified; E03.9 Hypothyroidism, unspecified; E11.40 Type 2 diabetes mellitus with diabetic neuropathy, unspecified; Z79.01 Long term (current) use of anticoagulants; Z79.82 Long term (current) use of aspirin; Z79.4 Long term (current) use of insulin; Z79.51 Long term (current) use of inhaled steroids; Z79.52 Long term (current) use of systemic steroids; Z79.899 Other long term (current) drug therapy; Z87.891 Personal history of nicotine dependence; Z95.810 Presence of automatic (implantable) cardiac defibrillator; Z86.73 Personal history of transient ischemic attack (TIA), and cerebral infarction without residual deficits
CPT/HCPCS: 36415; 80053; 83735; 83880; 96365; 96366; G0463; J1250; J1642

== ENCOUNTER → 2021-11-07 | Outpatient (CLI) | payer MEDICARE, OTHER ==
[~2021-11-07] MED LIST changes: -DOBUTamine 1000MCG/ML 250 ML IV ONE
== END | disposition home or self-care (01) ==
LOC: LAB 09:47
PROVIDERS: ATTEND Internal Medicine Cardiovascular Disease
DX: D64.9 Anemia, unspecified (principal); R19.5 Other fecal abnormalities
CPT/HCPCS: 82270

== ENCOUNTER → 2021-11-07 | Outpatient (CLI) | payer MEDICARE, OTHER ==
[2021-11-07] VITALS (11 sets, daily range): BP systolic 102–125; BP diastolic 56–75
[~2021-11-07] MED LIST changes: +DOBUTamine 1000MCG/ML 250 ML IV ONE
[2021-11-07 12:25] LABS: Potassium 3.7 mmol/L (3.5-5.1)
== END | disposition home or self-care (01) ==
LOC: CHF HDHVI 08:41
PROVIDERS: ATTEND Internal Medicine Cardiovascular Disease
DX: I13.0 Hypertensive heart and chronic kidney disease with heart failure and stage 1 through stage 4 chronic kidney disease, or unspecified chronic kidney disease (principal); E11.22 Type 2 diabetes mellitus with diabetic chronic kidney disease; N18.32 Chronic kidney disease, stage 3b; I50.23 Acute on chronic systolic (congestive) heart failure; F41.9 Anxiety disorder, unspecified; I25.10 Atherosclerotic heart disease of native coronary artery without angina pectoris; J44.9 Chronic obstructive pulmonary disease, unspecified; J96.11 Chronic respiratory failure with hypoxia; K21.9 Gastro-esophageal reflux disease without esophagitis; E78.5 Hyperlipidemia, unspecified; E03.9 Hypothyroidism, unspecified; I25.2 Old myocardial infarction; E78.00 Pure hypercholesterolemia, unspecified; E11.40 Type 2 diabetes mellitus with diabetic neuropathy, unspecified; I48.0 Paroxysmal atrial fibrillation; Z79.01 Long term (current) use of anticoagulants; Z79.82 Long term (current) use of aspirin; Z79.4 Long term (current) use of insulin; Z79.51 Long term (current) use of inhaled steroids; Z79.899 Other long term (current) drug therapy; Z87.891 Personal history of nicotine dependence; Z85.3 Personal history of malignant neoplasm of breast; Z95.810 Presence of automatic (implantable) cardiac defibrillator; Z86.73 Personal history of transient ischemic attack (TIA), and cerebral infarction without residual deficits; Z79.52 Long term (current) use of systemic steroids
CPT/HCPCS: 36415; 80048; 83880; 96365; 96366; G0463; J1250; J1642

== ENCOUNTER → 2021-11-12 | Outpatient (CLI) | payer MEDICARE, OTHER ==
[2021-11-12] VITALS (11 sets, daily range): BP systolic 99–129; BP diastolic 55–71
[~2021-11-12] MED LIST changes: +CYANOCOBALAMIN (B-12) 1000 MCG/1 ML VIAL IM ONE; +CYANOCOBALAMIN (B-12) 1000 MCG/1 ML VIAL ONE
[2021-11-12 10:56] LABS: Calcium 9.2 mg/dL (8.5-10.1); Potassium 3.9 mmol/L (3.5-5.1)
[2021-11-12 11:01] LABS: BUN/Creatinine Ratio 22.3
[2021-11-12 11:04] LABS: Basophils # (auto) 0.1 10 ^3/uL (0-0.2); Basophils % (auto) 0.8 % (0.0-2.0); Eosinophils # (auto) 0.3 10 ^3/uL (0-0.8); Eosinophils % (auto) 5.2 % (0.0-7.0); Hematocrit 28.6 % (36.0-46.0); Hemoglobin 8.9 g/dL (12.2-16.2); Lymphocytes # (auto) 1.5 10 ^3/uL (0.4-5.4); Lymphocytes % (auto) 23.4 % (10.0-50.0); Mean Corpuscular Hemoglobin 27.7 pg (28.0-32.0); Mean Corpuscular Volume 89.2 fL (80.0-100.0); Monocytes # (auto) 0.5 10 ^3/uL (0-1.3); Monocytes % (auto) 7.5 % (0.0-12.0); Neutrophils % (auto) 63.1 % (37.0-80.0); Nucleated Red Blood Cells % 0.2 %; Red Blood Cells 3.21 10^6/uL (4.0-5.20); White Blood Cell 6.3 10^3/uL (4.4-10.8)
== END | disposition home or self-care (01) ==
LOC: CHF HDHVI 09:06
PROVIDERS: ATTEND Internal Medicine Cardiovascular Disease
DX: I13.0 Hypertensive heart and chronic kidney disease with heart failure and stage 1 through stage 4 chronic kidney disease, or unspecified chronic kidney disease (principal); E11.22 Type 2 diabetes mellitus with diabetic chronic kidney disease; N18.32 Chronic kidney disease, stage 3b; I50.23 Acute on chronic systolic (congestive) heart failure; D51.9 Vitamin B12 deficiency anemia, unspecified; F41.9 Anxiety disorder, unspecified; I25.10 Atherosclerotic heart disease of native coronary artery without angina pectoris; J44.9 Chronic obstructive pulmonary disease, unspecified; J96.11 Chronic respiratory failure with hypoxia; K21.9 Gastro-esophageal reflux disease without esophagitis; E78.5 Hyperlipidemia, unspecified; E03.9 Hypothyroidism, unspecified; I25.2 Old myocardial infarction; I48.0 Paroxysmal atrial fibrillation; E78.00 Pure hypercholesterolemia, unspecified; E11.40 Type 2 diabetes mellitus with diabetic neuropathy, unspecified; Z79.01 Long term (current) use of anticoagulants; Z79.82 Long term (current) use of aspirin; Z79.51 Long term (current) use of inhaled steroids; Z79.52 Long term (current) use of systemic steroids; Z79.4 Long term (current) use of insulin; Z87.891 Personal history of nicotine dependence; Z95.810 Presence of automatic (implantable) cardiac defibrillator; Z86.73 Personal history of transient ischemic attack (TIA), and cerebral infarction without residual deficits; Z79.899 Other long term (current) drug therapy; Z85.3 Personal history of malignant neoplasm of breast
CPT/HCPCS: 36415; 80048; 85025; 85045; 96365; 96366; 96372; G0463; J1250; J1642; J3420

== ENCOUNTER → 2021-11-19 | Outpatient (CLI) | payer MEDICARE, OTHER ==
[2021-11-19] VITALS (12 sets, daily range): BP systolic 107–137; BP diastolic 59–87
[~2021-11-19] VITALS: Ht 162.6 cm; Wt 73.1 kg
[~2021-11-19] MED LIST changes: -CYANOCOBALAMIN (B-12) 1000 MCG/1 ML VIAL IM ONE; -CYANOCOBALAMIN (B-12) 1000 MCG/1 ML VIAL ONE; -DOBUTamine 1000MCG/ML 250 ML IV ONE; +MILRINONE 20MG/100ML 100 ML IV ONE; +MILRINONE 20MG/100ML 100 ML IV SCH
[2021-11-19 13:08] LABS: Albumin 3.2 g/dL (3.4-5.0); Calcium 9.4 mg/dL (8.5-10.1); Magnesium 2.7 mg/dL (1.6-2.6); Potassium 4.2 mmol/L (3.5-5.1)
[2021-11-19 13:12] LABS: BUN/Creatinine Ratio 15.5; Bilirubin, Total 0.6 mg/dL (0.2-1.0)
== END | disposition home or self-care (01) ==
LOC: Rad HDHVI 10:39
PROVIDERS: ATTEND Internal Medicine Cardiovascular Disease
DX: I13.0 Hypertensive heart and chronic kidney disease with heart failure and stage 1 through stage 4 chronic kidney disease, or unspecified chronic kidney disease (principal); E11.22 Type 2 diabetes mellitus with diabetic chronic kidney disease; N18.32 Chronic kidney disease, stage 3b; I50.23 Acute on chronic systolic (congestive) heart failure; F41.9 Anxiety disorder, unspecified; I25.10 Atherosclerotic heart disease of native coronary artery without angina pectoris; J44.9 Chronic obstructive pulmonary disease, unspecified; J96.11 Chronic respiratory failure with hypoxia; K21.9 Gastro-esophageal reflux disease without esophagitis; E78.5 Hyperlipidemia, unspecified; E03.9 Hypothyroidism, unspecified; I48.0 Paroxysmal atrial fibrillation; E78.00 Pure hypercholesterolemia, unspecified; E11.40 Type 2 diabetes mellitus with diabetic neuropathy, unspecified; Z79.01 Long term (current) use of anticoagulants; Z79.82 Long term (current) use of aspirin; Z79.51 Long term (current) use of inhaled steroids; Z79.52 Long term (current) use of systemic steroids; Z79.4 Long term (current) use of insulin; Z79.899 Other long term (current) drug therapy; Z85.3 Personal history of malignant neoplasm of breast; Z87.891 Personal history of nicotine dependence; Z86.73 Personal history of transient ischemic attack (TIA), and cerebral infarction without residual deficits; Z95.810 Presence of automatic (implantable) cardiac defibrillator
CPT/HCPCS: 36415; 80053; 83735; 83880; 96365; 96366; G0463; J1642; J2260

== ENCOUNTER → 2021-12-03 | Outpatient (CLI) | payer MEDICARE, OTHER ==
[2021-12-03] VITALS (11 sets, daily range): BP systolic 98–138; BP diastolic 52–77
[~2021-12-03] VITALS: Ht 30.5 cm; Wt 72.7 kg
[~2021-12-03] MED LIST changes: -MILRINONE 20MG/100ML 100 ML IV SCH
[2021-12-03 17:31] LABS: Potassium 3.7 mmol/L (3.5-5.1)
== END | disposition home or self-care (01) ==
LOC: CHF HDHVI 11:15
PROVIDERS: ATTEND Internal Medicine Cardiovascular Disease
DX: I13.0 Hypertensive heart and chronic kidney disease with heart failure and stage 1 through stage 4 chronic kidney disease, or unspecified chronic kidney disease (principal); E11.22 Type 2 diabetes mellitus with diabetic chronic kidney disease; N18.32 Chronic kidney disease, stage 3b; I50.23 Acute on chronic systolic (congestive) heart failure; I25.10 Atherosclerotic heart disease of native coronary artery without angina pectoris; F41.9 Anxiety disorder, unspecified; J44.9 Chronic obstructive pulmonary disease, unspecified; J96.11 Chronic respiratory failure with hypoxia; E78.5 Hyperlipidemia, unspecified; K21.9 Gastro-esophageal reflux disease without esophagitis; E03.9 Hypothyroidism, unspecified; I48.0 Paroxysmal atrial fibrillation; E78.00 Pure hypercholesterolemia, unspecified; E11.40 Type 2 diabetes mellitus with diabetic neuropathy, unspecified; I25.2 Old myocardial infarction; Z79.01 Long term (current) use of anticoagulants; Z79.82 Long term (current) use of aspirin; Z79.4 Long term (current) use of insulin; Z79.51 Long term (current) use of inhaled steroids; Z79.52 Long term (current) use of systemic steroids; Z79.899 Other long term (current) drug therapy; Z85.3 Personal history of malignant neoplasm of breast; Z87.891 Personal history of nicotine dependence; Z86.73 Personal history of transient ischemic attack (TIA), and cerebral infarction without residual deficits; Z95.810 Presence of automatic (implantable) cardiac defibrillator; Z86.16 Personal history of COVID-19
CPT/HCPCS: 36415; 82565; 83880; 84132; 84443; 84520; 96365; 96366; G0463; J1642; J2260

== ENCOUNTER → 2021-12-10 | Outpatient (CLI) | payer MEDICARE, OTHER ==
[2021-12-10] VITALS (11 sets, daily range): BP systolic 96–151; BP diastolic 52–96
[~2021-12-10] MED LIST changes: +CYANOCOBALAMIN (B-12) 1000 MCG/1 ML VIAL IM ONE; +CYANOCOBALAMIN (B-12) 1000 MCG/1 ML VIAL ONE
[2021-12-10 16:37] LABS: Eosinophils # (auto) 0.3 10 ^3/uL (0-0.8); Lymphocytes # (auto) 1.2 10 ^3/uL (0.4-5.4); Nucleated Red Blood Cells % 0.1 %; White Blood Cell 4.9 10^3/uL (4.4-10.8)
[2021-12-10 16:40] LABS: Basophils # (auto) 0.1 10 ^3/uL (0-0.2); Basophils % (auto) 1.2 % (0.0-2.0); Eosinophils % (auto) 5.4 % (0.0-7.0); Hematocrit 28.7 % (36.0-46.0); Lymphocytes % (auto) 23.6 % (10.0-50.0); Mean Corpuscular Hemoglobin 27.8 pg (28.0-32.0); Mean Corpuscular Hgb Conc. 31.5 g/dL (32.0-36.0); Mean Corpuscular Volume 88.5 fL (80.0-100.0); Monocytes # (auto) 0.4 10 ^3/uL (0-1.3); Monocytes % (auto) 8.4 % (0.0-12.0); Neutrophils % (auto) 61.4 % (37.0-80.0); Red Blood Cells 3.24 10^6/uL (4.0-5.20); Red Cell Distribution Width 14.8 % (11.8-14.3)
[2021-12-10 16:48] LABS: BUN/Creatinine Ratio 17.5; Calcium 9.5 mg/dL (8.5-10.1); Magnesium 2.6 mg/dL (1.6-2.6); Potassium 3.5 mmol/L (3.5-5.1)
== END | disposition home or self-care (01) ==
LOC: CHF HDHVI 11:09
PROVIDERS: ATTEND Internal Medicine Cardiovascular Disease
DX: I13.0 Hypertensive heart and chronic kidney disease with heart failure and stage 1 through stage 4 chronic kidney disease, or unspecified chronic kidney disease (principal); E11.22 Type 2 diabetes mellitus with diabetic chronic kidney disease; N18.32 Chronic kidney disease, stage 3b; I50.43 Acute on chronic combined systolic (congestive) and diastolic (congestive) heart failure; F41.9 Anxiety disorder, unspecified; I25.10 Atherosclerotic heart disease of native coronary artery without angina pectoris; J44.9 Chronic obstructive pulmonary disease, unspecified; J96.11 Chronic respiratory failure with hypoxia; K21.9 Gastro-esophageal reflux disease without esophagitis; E78.5 Hyperlipidemia, unspecified; E03.9 Hypothyroidism, unspecified; I25.2 Old myocardial infarction; I48.0 Paroxysmal atrial fibrillation; E78.00 Pure hypercholesterolemia, unspecified; E11.40 Type 2 diabetes mellitus with diabetic neuropathy, unspecified; Z79.01 Long term (current) use of anticoagulants; Z79.82 Long term (current) use of aspirin; Z79.4 Long term (current) use of insulin; Z79.51 Long term (current) use of inhaled steroids; Z79.52 Long term (current) use of systemic steroids; Z79.899 Other long term (current) drug therapy; Z86.16 Personal history of COVID-19; Z85.3 Personal history of malignant neoplasm of breast; Z87.891 Personal history of nicotine dependence; Z95.810 Presence of automatic (implantable) cardiac defibrillator; Z86.73 Personal history of transient ischemic attack (TIA), and cerebral infarction without residual deficits; Z95.1 Presence of aortocoronary bypass graft
CPT/HCPCS: 36415; 80048; 83735; 83880; 85025; 96365; 96366; 96372; G0463; J1642; J2260; J3420

== ENCOUNTER → 2021-12-17 | Outpatient (CLI) | payer MEDICARE, OTHER ==
[2021-12-17] VITALS (11 sets, daily range): BP systolic 92–119; BP diastolic 48–78
[~2021-12-17] MED LIST changes: -CYANOCOBALAMIN (B-12) 1000 MCG/1 ML VIAL IM ONE; -CYANOCOBALAMIN (B-12) 1000 MCG/1 ML VIAL ONE
[2021-12-17 16:48] LABS: Albumin 3.5 g/dL (3.4-5.0); Calcium 9.2 mg/dL (8.5-10.1); Magnesium 2.3 mg/dL (1.6-2.6); Potassium 3.8 mmol/L (3.5-5.1)
[2021-12-17 16:50] LABS: BUN/Creatinine Ratio 19.7
[2021-12-17 16:53] LABS: Bilirubin, Total 0.6 mg/dL (0.2-1.0)
== END | disposition home or self-care (01) ==
LOC: CHF HDHVI 11:11
PROVIDERS: ATTEND Internal Medicine Cardiovascular Disease
DX: I13.0 Hypertensive heart and chronic kidney disease with heart failure and stage 1 through stage 4 chronic kidney disease, or unspecified chronic kidney disease (principal); E11.22 Type 2 diabetes mellitus with diabetic chronic kidney disease; N18.32 Chronic kidney disease, stage 3b; I50.43 Acute on chronic combined systolic (congestive) and diastolic (congestive) heart failure; I25.10 Atherosclerotic heart disease of native coronary artery without angina pectoris; F41.9 Anxiety disorder, unspecified; J44.9 Chronic obstructive pulmonary disease, unspecified; J96.11 Chronic respiratory failure with hypoxia; K21.9 Gastro-esophageal reflux disease without esophagitis; E78.5 Hyperlipidemia, unspecified; E03.9 Hypothyroidism, unspecified; I48.0 Paroxysmal atrial fibrillation; E78.00 Pure hypercholesterolemia, unspecified; E11.40 Type 2 diabetes mellitus with diabetic neuropathy, unspecified; I25.2 Old myocardial infarction; Z79.01 Long term (current) use of anticoagulants; Z79.82 Long term (current) use of aspirin; Z79.4 Long term (current) use of insulin; Z79.51 Long term (current) use of inhaled steroids; Z79.52 Long term (current) use of systemic steroids; Z79.899 Other long term (current) drug therapy; Z86.16 Personal history of COVID-19; Z85.3 Personal history of malignant neoplasm of breast; Z87.891 Personal history of nicotine dependence; Z95.810 Presence of automatic (implantable) cardiac defibrillator; Z86.73 Personal history of transient ischemic attack (TIA), and cerebral infarction without residual deficits
CPT/HCPCS: 36415; 80053; 83735; 83880; 96365; 96366; G0463; J1642; J2260

== ENCOUNTER → 2021-12-31 | Outpatient (CLI) | payer MEDICARE, OTHER ==
[2021-12-31] VITALS (11 sets, daily range): BP systolic 106–136; BP diastolic 60–82
[~2021-12-31] MED LIST changes: -MILRINONE 20MG/100ML 100 ML IV ONE
[2021-12-31] MEDS: MILRINONE 20MG/100ML 100 ML IV ONE ×2 (11:17→12:21)
[2021-12-31 16:44] LABS: Magnesium 1.9 mg/dL (1.6-2.6); Potassium 3.8 mmol/L (3.5-5.1)
== END | disposition home or self-care (01) ==
LOC: CHF HDHVI 10:54
PROVIDERS: ATTEND Internal Medicine Cardiovascular Disease
DX: I13.0 Hypertensive heart and chronic kidney disease with heart failure and stage 1 through stage 4 chronic kidney disease, or unspecified chronic kidney disease (principal); E11.22 Type 2 diabetes mellitus with diabetic chronic kidney disease; N18.32 Chronic kidney disease, stage 3b; I50.43 Acute on chronic combined systolic (congestive) and diastolic (congestive) heart failure; F41.9 Anxiety disorder, unspecified; I25.10 Atherosclerotic heart disease of native coronary artery without angina pectoris; J44.9 Chronic obstructive pulmonary disease, unspecified; J96.11 Chronic respiratory failure with hypoxia; K21.9 Gastro-esophageal reflux disease without esophagitis; E78.5 Hyperlipidemia, unspecified; E03.9 Hypothyroidism, unspecified; I25.2 Old myocardial infarction; I48.0 Paroxysmal atrial fibrillation; E78.00 Pure hypercholesterolemia, unspecified; E11.40 Type 2 diabetes mellitus with diabetic neuropathy, unspecified; Z86.16 Personal history of COVID-19; Z79.01 Long term (current) use of anticoagulants; Z79.82 Long term (current) use of aspirin; Z79.4 Long term (current) use of insulin; Z79.51 Long term (current) use of inhaled steroids; Z79.52 Long term (current) use of systemic steroids; Z85.3 Personal history of malignant neoplasm of breast; Z87.891 Personal history of nicotine dependence; Z86.73 Personal history of transient ischemic attack (TIA), and cerebral infarction without residual deficits; Z95.810 Presence of automatic (implantable) cardiac defibrillator; Z95.1 Presence of aortocoronary bypass graft
CPT/HCPCS: 36415; 82565; 83735; 83880; 84132; 84520; 96365; 96366; G0463; J1642; J2260

== ENCOUNTER → 2022-01-05 | Outpatient (CLI) | payer MEDICARE, OTHER ==
[~2022-01-05] MED LIST changes: +CHOL20007 PO; +MAGN1CAP PO; +POM; +SACU1TAB PO
[2022-01-05 14:06] VITALS: BP 129/86
[2022-01-05 14:32] VITALS: BP 124/68
[2022-01-05 17:04] LABS: Basophils # (auto) 0.1 10 ^3/uL (0-0.2); Basophils % (auto) 0.8 % (0.0-2.0); Eosinophils # (auto) 0.2 10 ^3/uL (0-0.8); Hematocrit 30.7 % (36.0-46.0); Hemoglobin 9.6 g/dL (12.2-16.2); Lymphocytes # (auto) 1.2 10 ^3/uL (0.4-5.4); Lymphocytes % (auto) 19.3 % (10.0-50.0); Mean Corpuscular Hemoglobin 27.4 pg (28.0-32.0); Mean Corpuscular Hgb Conc. 31.3 g/dL (32.0-36.0); Mean Corpuscular Volume 87.5 fL (80.0-100.0); Monocytes # (auto) 0.5 10 ^3/uL (0-1.3); Monocytes % (auto) 7.7 % (0.0-12.0); Neutrophils # (auto) 4.3 10 ^3/uL (1.6-8.6); Neutrophils % (auto) 69.2 % (37.0-80.0); Nucleated Red Blood Cells % 0.1 %; Red Blood Cells 3.51 10^6/uL (4.0-5.20); White Blood Cell 6.2 10^3/uL (4.4-10.8)
[2022-01-05 17:14] LABS: BUN/Creatinine Ratio 16.8; Calcium 9.2 mg/dL (8.5-10.1); Potassium 4.1 mmol/L (3.5-5.1)
[2022-01-05 17:50] LABS: INR 1.03 (0.9-1.15); Partial Thromboplastin Time 30.2 sec (24.6-33.4)
== END | disposition home or self-care (01) ==
LOC: Rad HDHVI 13:33
PROVIDERS: ATTEND Internal Medicine Cardiovascular Disease
DX: R94.31 Abnormal electrocardiogram [ECG] [EKG] (principal); R79.1 Abnormal coagulation profile; I65.22 Occlusion and stenosis of left carotid artery; Z01.818 Encounter for other preprocedural examination; Z95.0 Presence of cardiac pacemaker
CPT/HCPCS: 36415; 71046; 80048; 85025; 85610; 85730; 93005; G0463; J1642

== ENCOUNTER → 2022-01-07 | Outpatient (CLI) | payer MEDICARE, OTHER ==
[2022-01-07] VITALS (11 sets, daily range): BP systolic 97–152; BP diastolic 67–80
[~2022-01-07] MED LIST changes: +DOBUTamine 1000MCG/ML 250 ML IV ONE; -GABA100C9 PO
== END | disposition home or self-care (01) ==
LOC: CHF HDHVI 10:43
PROVIDERS: ATTEND Internal Medicine Cardiovascular Disease
DX: I13.0 Hypertensive heart and chronic kidney disease with heart failure and stage 1 through stage 4 chronic kidney disease, or unspecified chronic kidney disease (principal); E11.22 Type 2 diabetes mellitus with diabetic chronic kidney disease; N18.32 Chronic kidney disease, stage 3b; I50.23 Acute on chronic systolic (congestive) heart failure; I25.10 Atherosclerotic heart disease of native coronary artery without angina pectoris; I25.5 Ischemic cardiomyopathy; J44.9 Chronic obstructive pulmonary disease, unspecified; E11.40 Type 2 diabetes mellitus with diabetic neuropathy, unspecified; E11.51 Type 2 diabetes mellitus with diabetic peripheral angiopathy without gangrene; F41.9 Anxiety disorder, unspecified; J96.11 Chronic respiratory failure with hypoxia; K21.9 Gastro-esophageal reflux disease without esophagitis; E78.5 Hyperlipidemia, unspecified; E03.9 Hypothyroidism, unspecified; I25.2 Old myocardial infarction; I48.0 Paroxysmal atrial fibrillation; E78.00 Pure hypercholesterolemia, unspecified; Z85.3 Personal history of malignant neoplasm of breast; Z79.899 Other long term (current) drug therapy; Z86.73 Personal history of transient ischemic attack (TIA), and cerebral infarction without residual deficits; Z87.891 Personal history of nicotine dependence; Z86.16 Personal history of COVID-19; Z79.01 Long term (current) use of anticoagulants; Z79.82 Long term (current) use of aspirin; Z79.4 Long term (current) use of insulin; Z79.51 Long term (current) use of inhaled steroids; Z79.52 Long term (current) use of systemic steroids
CPT/HCPCS: 96365; 96366; G0463; J1250; J1642

== ENCOUNTER 2022-01-08 06:52 | Day surgery (SDC) | payer MEDICARE, OTHER ==
[~2022-01-08] VITALS: Ht 162.6 cm; Wt 75.3 kg
[~2022-01-08 06:52] MED LIST changes: -DOBUTamine 1000MCG/ML 250 ML IV ONE
[2022-01-08] MEDS ORDERED: LIDOCAINE 2%HCL (LOCAL ANESTH.) INJ 20ML MDV ONE (08:16)
[2022-01-08] MEDS ORDERED: MIDAZOLAM HCL 2MG/2ML 2ml VIAL (1mg/ml) ONE (08:24)
[2022-01-08] MEDS ORDERED: ANGIOMAX 250 MG VIAL IV ONE (08:25)
[2022-01-08] MEDS ORDERED: fentaNYL CITRATE 100 MCG/2 ML VL ONE (08:25)
[2022-01-08] MEDS ORDERED: SODIUM CHL 0.9% 0 ML ONE (08:26)
== END 2022-01-08 11:55 | disposition home or self-care (01) ==
LOC: CATH 06:52
PROVIDERS: ATTEND Internal Medicine Cardiovascular Disease
DX: E11.51 Type 2 diabetes mellitus with diabetic peripheral angiopathy without gangrene (principal); I50.21 Acute systolic (congestive) heart failure; I25.10 Atherosclerotic heart disease of native coronary artery without angina pectoris; I42.0 Dilated cardiomyopathy; E11.21 Type 2 diabetes mellitus with diabetic nephropathy; J44.9 Chronic obstructive pulmonary disease, unspecified; Z85.3 Personal history of malignant neoplasm of breast; Z95.5 Presence of coronary angioplasty implant and graft; Z98.891 History of uterine scar from previous surgery; Z82.49 Family history of ischemic heart disease and other diseases of the circulatory system; Z83.3 Family history of diabetes mellitus; Z20.822 Contact with and (suspected) exposure to COVID-19; Z95.810 Presence of automatic (implantable) cardiac defibrillator
CPT/HCPCS: 37224; C1769; C1894; J1644; J2250; J3010; U0003; 99152

== ENCOUNTER → 2022-01-28 | Outpatient (CLI) | payer MEDICARE, OTHER ==
[2022-01-28] VITALS (11 sets, daily range): BP systolic 84–122; BP diastolic 45–76
[~2022-01-28] MED LIST changes: +MILRINONE 20MG/100ML 100 ML IV ONE; +SODIUM CHLORIDE 0.9% 250 ML IV ONE
[2022-01-28 13:05] LABS: Albumin 3.1 g/dL (3.4-5.0); Calcium 9.1 mg/dL (8.5-10.1); Magnesium 2.1 mg/dL (1.6-2.6); Potassium 3.5 mmol/L (3.5-5.1)
[2022-01-28 13:09] LABS: BUN/Creatinine Ratio 17.3; Bilirubin, Total 0.5 mg/dL (0.2-1.0); Total Protein 7.8 g/dL (6.4-8.2)
== END | disposition home or self-care (01) ==
LOC: CHF HDHVI 10:53
PROVIDERS: ATTEND Internal Medicine Cardiovascular Disease
DX: I13.0 Hypertensive heart and chronic kidney disease with heart failure and stage 1 through stage 4 chronic kidney disease, or unspecified chronic kidney disease (principal); E11.22 Type 2 diabetes mellitus with diabetic chronic kidney disease; N18.32 Chronic kidney disease, stage 3b; I50.43 Acute on chronic combined systolic (congestive) and diastolic (congestive) heart failure; I25.10 Atherosclerotic heart disease of native coronary artery without angina pectoris; F41.9 Anxiety disorder, unspecified; J44.9 Chronic obstructive pulmonary disease, unspecified; J96.11 Chronic respiratory failure with hypoxia; K21.9 Gastro-esophageal reflux disease without esophagitis; E78.5 Hyperlipidemia, unspecified; E03.9 Hypothyroidism, unspecified; I25.2 Old myocardial infarction; I48.0 Paroxysmal atrial fibrillation; E78.00 Pure hypercholesterolemia, unspecified; E11.21 Type 2 diabetes mellitus with diabetic nephropathy; E11.51 Type 2 diabetes mellitus with diabetic peripheral angiopathy without gangrene; Z79.01 Long term (current) use of anticoagulants; Z79.82 Long term (current) use of aspirin; Z79.4 Long term (current) use of insulin; Z79.51 Long term (current) use of inhaled steroids; Z79.52 Long term (current) use of systemic steroids; Z79.899 Other long term (current) drug therapy; Z86.16 Personal history of COVID-19; Z85.3 Personal history of malignant neoplasm of breast; Z87.891 Personal history of nicotine dependence; Z95.810 Presence of automatic (implantable) cardiac defibrillator; Z86.73 Personal history of transient ischemic attack (TIA), and cerebral infarction without residual deficits
CPT/HCPCS: 36415; 80053; 83735; 83880; 96365; 96366; G0463; J1642; J2260; J7050; 96361

== ENCOUNTER → 2022-02-04 | Outpatient (CLI) | payer MEDICARE, OTHER ==
[2022-02-04] VITALS (9 sets, daily range): BP systolic 113–131; BP diastolic 58–82
[~2022-02-04] MED LIST changes: -SODIUM CHLORIDE 0.9% 250 ML IV ONE; +cefTRIAXone 1GM/50ML D5W 50 ML IV ONE
[2022-02-04 17:15] LABS: Basophils # (auto) 0 10 ^3/uL (0-0.2); Basophils % (auto) 0.8 % (0.0-2.0); Eosinophils # (auto) 0.3 10 ^3/uL (0-0.8); Eosinophils % (auto) 4.5 % (0.0-7.0); Hematocrit 30.8 % (36.0-46.0); Hemoglobin 9.7 g/dL (12.2-16.2); Lymphocytes # (auto) 1.1 10 ^3/uL (0.4-5.4); Lymphocytes % (auto) 19.5 % (10.0-50.0); Mean Corpuscular Hemoglobin 27.4 pg (28.0-32.0); Mean Corpuscular Hgb Conc. 31.3 g/dL (32.0-36.0); Mean Corpuscular Volume 87.5 fL (80.0-100.0); Monocytes # (auto) 0.4 10 ^3/uL (0-1.3); Monocytes % (auto) 6.4 % (0.0-12.0); Neutrophils # (auto) 3.9 10 ^3/uL (1.6-8.6); Neutrophils % (auto) 68.8 % (37.0-80.0); Nucleated Red Blood Cells % 0.1 %; Red Blood Cells 3.52 10^6/uL (4.0-5.20); White Blood Cell 5.7 10^3/uL (4.4-10.8)
[2022-02-04 17:31] LABS: Calcium 9.2 mg/dL (8.5-10.1); Magnesium 2.2 mg/dL (1.6-2.6); Potassium 3.5 mmol/L (3.5-5.1)
[2022-02-04 17:34] LABS: BUN/Creatinine Ratio 19.3
== END | disposition home or self-care (01) ==
LOC: CHF HDHVI 11:07
PROVIDERS: ATTEND Internal Medicine Cardiovascular Disease
DX: I13.0 Hypertensive heart and chronic kidney disease with heart failure and stage 1 through stage 4 chronic kidney disease, or unspecified chronic kidney disease (principal); E11.22 Type 2 diabetes mellitus with diabetic chronic kidney disease; N18.32 Chronic kidney disease, stage 3b; I50.43 Acute on chronic combined systolic (congestive) and diastolic (congestive) heart failure; I25.10 Atherosclerotic heart disease of native coronary artery without angina pectoris; F41.9 Anxiety disorder, unspecified; J44.9 Chronic obstructive pulmonary disease, unspecified; J96.11 Chronic respiratory failure with hypoxia; K21.9 Gastro-esophageal reflux disease without esophagitis; E78.5 Hyperlipidemia, unspecified; E03.9 Hypothyroidism, unspecified; I25.2 Old myocardial infarction; I48.0 Paroxysmal atrial fibrillation; E78.00 Pure hypercholesterolemia, unspecified; E11.21 Type 2 diabetes mellitus with diabetic nephropathy; E11.40 Type 2 diabetes mellitus with diabetic neuropathy, unspecified; E11.51 Type 2 diabetes mellitus with diabetic peripheral angiopathy without gangrene; Z86.16 Personal history of COVID-19; Z85.3 Personal history of malignant neoplasm of breast; Z87.891 Personal history of nicotine dependence; Z79.01 Long term (current) use of anticoagulants; Z79.82 Long term (current) use of aspirin; Z79.4 Long term (current) use of insulin; Z79.51 Long term (current) use of inhaled steroids; Z79.52 Long term (current) use of systemic steroids; Z79.899 Other long term (current) drug therapy; Z95.1 Presence of aortocoronary bypass graft; Z95.810 Presence of automatic (implantable) cardiac defibrillator; Z86.73 Personal history of transient ischemic attack (TIA), and cerebral infarction without residual deficits
CPT/HCPCS: 36415; 80048; 83735; 83880; 85025; 96365; 96366; G0463; J1642; J2260; J0696

== ENCOUNTER → 2022-02-11 | Outpatient (CLI) | payer MEDICARE, OTHER ==
[2022-02-11] VITALS (11 sets, daily range): BP systolic 115–158; BP diastolic 66–92
[~2022-02-11] MED LIST changes: +FUROSEMIDE 20 MG/2 ML VIAL IV ONE; +FUROSEMIDE 20 MG/2 ML VIAL ONE; +POTASSIUM CHL 20 Meq TABLET PO ONE; +POTASSIUM EFFERVESENT TAB 25 MEQ GT ONE; +POTASSIUM EFFERVESENT TAB 25 MEQ ONE; -cefTRIAXone 1GM/50ML D5W 50 ML IV ONE
[2022-02-11 12:24] LABS: Calcium 9.3 mg/dL (8.5-10.1); Magnesium 2.4 mg/dL (1.6-2.6); Potassium 3.3 mmol/L (3.5-5.1)
[2022-02-11 12:27] LABS: BUN/Creatinine Ratio 19.5
== END | disposition home or self-care (01) ==
LOC: CHF HDHVI 10:25
PROVIDERS: ATTEND Internal Medicine Cardiovascular Disease
DX: I50.23 Acute on chronic systolic (congestive) heart failure (principal)
CPT/HCPCS: 36415; 80048; 83735; 83880; 96365; 96366; 96375; G0463; J1642

== ENCOUNTER → 2022-02-18 | Outpatient (CLI) | payer MEDICARE, OTHER ==
[2022-02-18] VITALS (13 sets, daily range): BP systolic 87–142; BP diastolic 44–86
[~2022-02-18] MED LIST changes: -FUROSEMIDE 20 MG/2 ML VIAL IV ONE; -FUROSEMIDE 20 MG/2 ML VIAL ONE; -POTASSIUM CHL 20 Meq TABLET PO ONE; -POTASSIUM EFFERVESENT TAB 25 MEQ GT ONE; -POTASSIUM EFFERVESENT TAB 25 MEQ ONE
[2022-02-18 11:39] LABS: BUN/Creatinine Ratio 15.3; Magnesium 2.6 mg/dL (1.6-2.6); Potassium 3.5 mmol/L (3.5-5.1)
== END | disposition home or self-care (01) ==
LOC: CHF HDHVI 09:33
PROVIDERS: ATTEND Internal Medicine Cardiovascular Disease
DX: I50.23 Acute on chronic systolic (congestive) heart failure (principal)
CPT/HCPCS: 36415; 80048; 83735; 83880; 96365; 96366; G0463; J1642

== ENCOUNTER → 2022-02-25 | Outpatient (CLI) | payer MEDICARE, OTHER ==
[2022-02-25] VITALS (11 sets, daily range): BP systolic 86–133; BP diastolic 47–75
[~2022-02-25] MED LIST changes: +CYANOCOBALAMIN (B-12) 1000 MCG/1 ML VIAL IM ONE; +CYANOCOBALAMIN (B-12) 1000 MCG/1 ML VIAL ONE; +SODIUM CHLORIDE 0.9% 100 ML IV ONE
[2022-02-25 16:18] LABS: Albumin 3.3 g/dL (3.4-5.0); BUN/Creatinine Ratio 12.6; Calcium 9.6 mg/dL (8.5-10.1); Magnesium 2.1 mg/dL (1.6-2.6); Potassium 3.3 mmol/L (3.5-5.1)
[2022-02-25 16:21] LABS: Bilirubin, Total 0.6 mg/dL (0.2-1.0); Total Protein 7.8 g/dL (6.4-8.2)
== END | disposition home or self-care (01) ==
LOC: CHF HDHVI 11:09
PROVIDERS: ATTEND Internal Medicine Cardiovascular Disease
DX: I50.23 Acute on chronic systolic (congestive) heart failure (principal)
CPT/HCPCS: 36415; 80053; 83735; 83880; 96361; 96365; 96366; 96372; G0463; J1642

== ENCOUNTER → 2022-03-04 | Outpatient (CLI) | payer MEDICARE, OTHER ==
[~2022-03-04] VITALS: Ht 162.6 cm; Wt 73.7 kg
[2022-03-04] VITALS (14 sets, daily range): BP systolic 76–155; BP diastolic 38–94
[~2022-03-04] MED LIST changes: -CYANOCOBALAMIN (B-12) 1000 MCG/1 ML VIAL IM ONE; -CYANOCOBALAMIN (B-12) 1000 MCG/1 ML VIAL ONE; -SODIUM CHLORIDE 0.9% 100 ML IV ONE; +SODIUM CHLORIDE 0.9% 500 ML IV ONE
[2022-03-04 10:05] LABS: BUN/Creatinine Ratio 14.2; Magnesium 2.1 mg/dL (1.6-2.6); Potassium 3.5 mmol/L (3.5-5.1)
[2022-03-04 10:16] LABS: Hematocrit 32.3 % (36.0-46.0); Mean Corpuscular Hgb Conc. 31.4 g/dL (32.0-36.0); Mean Corpuscular Volume 85.6 fL (80.0-100.0); Monocytes # (auto) 0.5 10 ^3/uL (0-1.3); Red Blood Cells 3.77 10^6/uL (4.0-5.20)
[2022-03-04 10:18] LABS: Basophils # (auto) 0 10 ^3/uL (0-0.2); Basophils % (auto) 0.6 % (0.0-2.0); Eosinophils # (auto) 0.3 10 ^3/uL (0-0.8); Eosinophils % (auto) 4.2 % (0.0-7.0); Hemoglobin 10.2 g/dL (12.2-16.2); Lymphocytes # (auto) 1.4 10 ^3/uL (0.4-5.4); Lymphocytes % (auto) 20.8 % (10.0-50.0); Mean Corpuscular Hemoglobin 26.9 pg (28.0-32.0); Monocytes % (auto) 7.4 % (0.0-12.0); Neutrophils # (auto) 4.4 10 ^3/uL (1.6-8.6); Nucleated Red Blood Cells % 0.1 %; Red Cell Distribution Width 13.7 % (11.8-14.3); White Blood Cell 6.5 10^3/uL (4.4-10.8)
== END | disposition home or self-care (01) ==
LOC: CHF HDHVI 08:14
PROVIDERS: ATTEND Internal Medicine Cardiovascular Disease
DX: I50.23 Acute on chronic systolic (congestive) heart failure (principal)
CPT/HCPCS: 36415; 80048; 83735; 83880; 85025; 96365; 96366; G0463; J1642

== ENCOUNTER → 2022-03-11 | Outpatient (CLI) | payer MEDICARE, OTHER ==
[2022-03-11] VITALS (10 sets, daily range): BP systolic 113–174; BP diastolic 71–102
[~2022-03-11] MED LIST changes: +FUROSEMIDE 40 MG/4 ML VIAL IV ONE; +FUROSEMIDE 40 MG/4 ML VIAL ONE; +METOPROLOL SUCCINATE XL 50 MG TAB PO ONE; +POTASSIUM CHL 20 Meq TABLET PO ONE; -SODIUM CHLORIDE 0.9% 500 ML IV ONE
[2022-03-11 16:46] LABS: Albumin 3.1 g/dL (3.4-5.0); BUN/Creatinine Ratio 16.1; Calcium 9.4 mg/dL (8.5-10.1); Potassium 4.2 mmol/L (3.5-5.1)
[2022-03-11 16:49] LABS: Bilirubin, Total 0.6 mg/dL (0.2-1.0); Total Protein 7.1 g/dL (6.4-8.2)
== END | disposition home or self-care (01) ==
LOC: CHF HDHVI 10:47
PROVIDERS: ATTEND Internal Medicine Cardiovascular Disease
DX: I50.23 Acute on chronic systolic (congestive) heart failure (principal)
CPT/HCPCS: 36415; 80053; 83880; 96365; 96366; 96375; G0463; J1642

== ENCOUNTER → 2022-03-18 | Outpatient (CLI) | payer MEDICARE, OTHER ==
[2022-03-18] VITALS (8 sets, daily range): BP systolic 101–132; BP diastolic 58–81
[~2022-03-18] MED LIST changes: -FUROSEMIDE 40 MG/4 ML VIAL IV ONE; -FUROSEMIDE 40 MG/4 ML VIAL ONE; -METOPROLOL SUCCINATE XL 50 MG TAB PO ONE; -POTASSIUM CHL 20 Meq TABLET PO ONE
[2022-03-18 16:18] LABS: BUN/Creatinine Ratio 17.4; Calcium 9.3 mg/dL (8.5-10.1); Magnesium 2.3 mg/dL (1.6-2.6); Potassium 3.9 mmol/L (3.5-5.1)
== END | disposition home or self-care (01) ==
LOC: CHF HDHVI 10:57
PROVIDERS: ATTEND Internal Medicine Cardiovascular Disease
DX: I50.23 Acute on chronic systolic (congestive) heart failure (principal)
CPT/HCPCS: 36415; 80048; 83735; 83880; 96365; 96366; G0463; J1642

== ENCOUNTER → 2022-03-25 | Outpatient (CLI) | payer MEDICARE, OTHER ==
[~2022-03-25] VITALS: Ht 162.6 cm; Wt 75.4 kg
[2022-03-25] VITALS (10 sets, daily range): BP systolic 96–156; BP diastolic 53–87
[~2022-03-25] MED LIST changes: +ASCO500T11 PO; +CHOL50007 PO; +CYANOCOBALAMIN (B-12) 1000 MCG/1 ML VIAL IM ONE; +CYANOCOBALAMIN (B-12) 1000 MCG/1 ML VIAL ONE; +GABA100C9 PO; +GLUC-145 VI; +HYDR-4296 PO; +IPR002IS HHN; +MAGN400T40 PO; +METO-6 PO; +NYS15TP TOP; +PREG50CA PO; +PROM25TA5 PO; +VERI10TA PO; +VERI2.5T PO; +VERI5TAB PO; +ZINC220C8 PO
[2022-03-25 12:05] LABS: Basophils # (auto) 0.1 10 ^3/uL (0-0.2); Basophils % (auto) 1.1 % (0.0-2.0); Eosinophils % (auto) 3.9 % (0.0-7.0); Lymphocytes # (auto) 1.4 10 ^3/uL (0.4-5.4); Mean Corpuscular Volume 85.5 fL (80.0-100.0); Monocytes # (auto) 0.4 10 ^3/uL (0-1.3); White Blood Cell 6.4 10^3/uL (4.4-10.8)
[2022-03-25 12:08] LABS: Eosinophils # (auto) 0.2 10 ^3/uL (0-0.8); Hematocrit 32.5 % (36.0-46.0); Hemoglobin 10.2 g/dL (12.2-16.2); Lymphocytes % (auto) 22.4 % (10.0-50.0); Mean Corpuscular Hemoglobin 26.8 pg (28.0-32.0); Mean Corpuscular Hgb Conc. 31.4 g/dL (32.0-36.0); Neutrophils # (auto) 4.2 10 ^3/uL (1.6-8.6); Neutrophils % (auto) 65.6 % (37.0-80.0); Red Blood Cells 3.81 10^6/uL (4.0-5.20); Red Cell Distribution Width 13.9 % (11.8-14.3)
[2022-03-25 12:20] LABS: INR 1.03 (0.9-1.15); Partial Thromboplastin Time 29.6 sec (24.6-33.4)
[2022-03-25 12:22] LABS: Albumin 3.6 g/dL (3.4-5.0); Calcium 9.4 mg/dL (8.5-10.1)
[2022-03-25 12:25] LABS: Bilirubin, Total 0.6 mg/dL (0.2-1.0); Total Protein 7.6 g/dL (6.4-8.2)
== END | disposition home or self-care (01) ==
LOC: Rad HDHVI 10:24
PROVIDERS: ATTEND Internal Medicine Cardiovascular Disease
DX: I50.23 Acute on chronic systolic (congestive) heart failure (principal)
CPT/HCPCS: 36415; 71046; 80053; 83880; 85025; 85610; 85730; 96365; 96366; 96372; G0463; J1642

== ENCOUNTER 2022-03-26 09:57 | Day surgery (SDC) | payer MEDICARE, OTHER ==
[2022-03-26] VITALS (8 sets, daily range): BP systolic 94–171; BP diastolic 67–105
[~2022-03-26 09:57] MED LIST changes: -CHOL20007 PO; -CYANOCOBALAMIN (B-12) 1000 MCG/1 ML VIAL IM ONE; -CYANOCOBALAMIN (B-12) 1000 MCG/1 ML VIAL ONE; -HYDR25TA87 PO; -IPR002IS NEB; -MAGN1CAP PO; -MILRINONE 20MG/100ML 100 ML IV ONE; -POM; -SITA100T7 PO; -ZINC220C8 PO
[2022-03-26] MEDS ORDERED: fentaNYL CITRATE 100 MCG/2 ML VL ONE (12:37)
[2022-03-26] MEDS ORDERED: VERAPAMIL 2.5MG/ML INJ 2ML VIAL IV ONE (12:37)
[2022-03-26] MEDS ORDERED: MIDAZOLAM HCL 2MG/2ML 2ml VIAL (1mg/ml) ONE (12:37)
[2022-03-26] MEDS ORDERED: SODIUM CHL 0.9% 50 ML ONE (12:37)
[2022-03-26] MEDS ORDERED: ANGIOMAX 250 MG VIAL IV ONE (12:37)
[2022-03-26] MEDS ORDERED: SITA100T7 PO (15:12)
== END 2022-03-26 16:25 | disposition home or self-care (01) ==
LOC: CATH 09:57
PROVIDERS: ATTEND Internal Medicine Cardiovascular Disease
DX: I70.211 Atherosclerosis of native arteries of extremities with intermittent claudication, right leg (principal); I11.0 Hypertensive heart disease with heart failure; I50.20 Unspecified systolic (congestive) heart failure; Z20.822 Contact with and (suspected) exposure to COVID-19
CPT/HCPCS: C1724; C1725; C1760; C1761; C1769; C1887; C1894; C9774; J0583; J1644; J2001; J2250; J3010; Q9967; U0003; 37185; 99152; 99153

== ENCOUNTER → 2022-04-08 | Outpatient (CLI) | payer MEDICARE, OTHER ==
[2022-04-08] VITALS (11 sets, daily range): BP systolic 87–134; BP diastolic 52–79
[~2022-04-08] MED LIST changes: +MILRINONE 20MG/100ML 100 ML IV ONE; +SITA100T7 PO
[2022-04-08 16:51] LABS: Calcium 9.5 mg/dL (8.5-10.1); Magnesium 2.4 mg/dL (1.6-2.6); Potassium 3.8 mmol/L (3.5-5.1)
[2022-04-08 16:54] LABS: BUN/Creatinine Ratio 13.6
== END | disposition home or self-care (01) ==
LOC: CHF HDHVI 11:05
PROVIDERS: ATTEND Internal Medicine Cardiovascular Disease
DX: I50.23 Acute on chronic systolic (congestive) heart failure (principal); I51.7 Cardiomegaly; I42.1 Obstructive hypertrophic cardiomyopathy
CPT/HCPCS: 36415; 80048; 83735; 83880; 96365; 96366; G0463; J1642; J2260

== ENCOUNTER → 2022-04-15 | Outpatient (CLI) | payer MEDICARE, OTHER ==
[2022-04-15] VITALS (7 sets, daily range): BP systolic 104–131; BP diastolic 62–86
[~2022-04-15] MED LIST changes: +CYANOCOBALAMIN (B-12) 1000 MCG/1 ML VIAL IM ONE; +CYANOCOBALAMIN (B-12) 1000 MCG/1 ML VIAL ONE; +FUROSEMIDE 100 MG/10ML VIAL IV ONE; +FUROSEMIDE 40 MG/4 ML VIAL ONE; +cefTRIAXone 1GM/50ML D5W 50 ML IV ONE
[2022-04-15 16:35] LABS: Basophils # (auto) 0.1 10 ^3/uL (0-0.2); Basophils % (auto) 1.6 % (0.0-2.0); Eosinophils # (auto) 0.2 10 ^3/uL (0-0.8); Eosinophils % (auto) 3.2 % (0.0-7.0); Hematocrit 29.4 % (36.0-46.0); Hemoglobin 9.6 g/dL (12.2-16.2); Lymphocytes # (auto) 1.4 10 ^3/uL (0.4-5.4); Lymphocytes % (auto) 25.4 % (10.0-50.0); Mean Corpuscular Hemoglobin 27.4 pg (28.0-32.0); Mean Corpuscular Hgb Conc. 32.6 g/dL (32.0-36.0); Mean Corpuscular Volume 84.2 fL (80.0-100.0); Monocytes # (auto) 0.4 10 ^3/uL (0-1.3); Monocytes % (auto) 6.9 % (0.0-12.0); Neutrophils # (auto) 3.5 10 ^3/uL (1.6-8.6); Neutrophils % (auto) 62.9 % (37.0-80.0); Nucleated Red Blood Cells % 0.1 %; Red Cell Distribution Width 13.2 % (11.8-14.3); Urine Blood TRACE /uL (Negative); White Blood Cell 5.5 10^3/uL (4.4-10.8)
[2022-04-15 16:43] LABS: BUN/Creatinine Ratio 14.8; Calcium 8.9 mg/dL (8.5-10.1); Potassium 3.5 mmol/L (3.5-5.1)
== END | disposition home or self-care (01) ==
LOC: CHF HDHVI 11:11
PROVIDERS: ATTEND Internal Medicine Cardiovascular Disease
DX: I50.23 Acute on chronic systolic (congestive) heart failure (principal)
CPT/HCPCS: 36415; 80048; 81003; 83880; 85025; 96365; 96366; 96367; 96372; 96375; G0463; J0696; J1642

== ENCOUNTER → 2022-04-22 | Outpatient (CLI) | payer MEDICARE, OTHER ==
[2022-04-22] VITALS (8 sets, daily range): BP systolic 87–130; BP diastolic 54–78
[~2022-04-22] MED LIST changes: -CYANOCOBALAMIN (B-12) 1000 MCG/1 ML VIAL IM ONE; -CYANOCOBALAMIN (B-12) 1000 MCG/1 ML VIAL ONE; -FUROSEMIDE 100 MG/10ML VIAL IV ONE; -FUROSEMIDE 40 MG/4 ML VIAL ONE
[2022-04-22 12:20] LABS: Potassium 3.9 mmol/L (3.5-5.1)
[2022-04-22 12:29] LABS: Albumin 3.5 g/dL (3.4-5.0); BUN/Creatinine Ratio 17.7; Bilirubin, Total 0.5 mg/dL (0.2-1.0); Calcium 9.3 mg/dL (8.5-10.1); Magnesium 2.6 mg/dL (1.6-2.6)
== END | disposition home or self-care (01) ==
LOC: CHF HDHVI 11:03
PROVIDERS: ATTEND Internal Medicine Cardiovascular Disease
DX: I50.23 Acute on chronic systolic (congestive) heart failure (principal)
CPT/HCPCS: 36415; 80053; 83735; 83880; 96365; 96366; 96367; G0463; J0696; J1642

== ENCOUNTER → 2022-05-06 | Outpatient (CLI) | payer MEDICARE, OTHER ==
[2022-05-06] VITALS (11 sets, daily range): BP systolic 92–144; BP diastolic 54–82
[~2022-05-06] MED LIST changes: -cefTRIAXone 1GM/50ML D5W 50 ML IV ONE
[2022-05-06 11:19] LABS: BUN/Creatinine Ratio 14.1; Calcium 9.9 mg/dL (8.5-10.1); Potassium 3.9 mmol/L (3.5-5.1)
== END | disposition home or self-care (01) ==
LOC: CHF HDHVI 09:45
PROVIDERS: ATTEND Internal Medicine Cardiovascular Disease
DX: I50.23 Acute on chronic systolic (congestive) heart failure (principal); E55.9 Vitamin D deficiency, unspecified
CPT/HCPCS: 36415; 80048; 82306; 82607; 83036; 83880; 96365; 96366; G0463; J1642

== ENCOUNTER → 2022-05-13 | Outpatient (CLI) | payer MEDICARE, OTHER ==
[2022-05-13] VITALS (10 sets, daily range): BP systolic 93–152; BP diastolic 58–89
[2022-05-13 16:57] LABS: Basophils # (auto) 0 10 ^3/uL (0-0.2); Basophils % (auto) 0.7 % (0.0-2.0); Eosinophils # (auto) 0.2 10 ^3/uL (0-0.8); Eosinophils % (auto) 4.8 % (0.0-7.0); Hemoglobin 9.9 g/dL (12.2-16.2); Lymphocytes # (auto) 1.2 10 ^3/uL (0.4-5.4); Mean Corpuscular Hgb Conc. 31.8 g/dL (32.0-36.0); Monocytes # (auto) 0.3 10 ^3/uL (0-1.3); Monocytes % (auto) 6.8 % (0.0-12.0); Neutrophils # (auto) 2.9 10 ^3/uL (1.6-8.6); Neutrophils % (auto) 61.7 % (37.0-80.0); Red Blood Cells 3.65 10^6/uL (4.0-5.20); Red Cell Distribution Width 13.1 % (11.8-14.3); White Blood Cell 4.8 10^3/uL (4.4-10.8)
[2022-05-13 16:58] LABS: Urine Blood Negative /uL (Negative)
[2022-05-13 17:08] LABS: Albumin 3.2 g/dL (3.4-5.0); BUN/Creatinine Ratio 17.9; Calcium 9.1 mg/dL (8.5-10.1); Potassium 3.6 mmol/L (3.5-5.1)
[2022-05-13 17:11] LABS: Bilirubin, Total 0.4 mg/dL (0.2-1.0); Total Protein 7.7 g/dL (6.4-8.2)
== END | disposition home or self-care (01) ==
LOC: CHF HDHVI 11:18
PROVIDERS: ATTEND Internal Medicine Cardiovascular Disease
DX: I50.23 Acute on chronic systolic (congestive) heart failure (principal)
CPT/HCPCS: 36415; 80053; 81003; 83735; 83880; 85025; 96365; 96366; G0463; J1642

== ENCOUNTER → 2022-05-20 | Outpatient (CLI) | payer MEDICARE, OTHER ==
[2022-05-20] VITALS (11 sets, daily range): BP systolic 113–166; BP diastolic 66–86
[2022-05-20 16:09] LABS: BUN/Creatinine Ratio 13.5; Calcium 9.6 mg/dL (8.5-10.1); Magnesium 2.2 mg/dL (1.6-2.6); Potassium 4.3 mmol/L (3.5-5.1)
== END | disposition home or self-care (01) ==
LOC: CHF HDHVI 09:12
PROVIDERS: ATTEND Internal Medicine Cardiovascular Disease
DX: I50.23 Acute on chronic systolic (congestive) heart failure (principal)
CPT/HCPCS: 36415; 80048; 83735; 83880; 96365; 96366; G0463; J1642

== ENCOUNTER → 2022-05-27 | Outpatient (CLI) | payer MEDICARE, OTHER ==
[2022-05-27] VITALS (11 sets, daily range): BP systolic 96–149; BP diastolic 52–87
[2022-05-27 16:56] LABS: Potassium 3.7 mmol/L (3.5-5.1)
[2022-05-27 17:04] LABS: Albumin 3.2 g/dL (3.4-5.0); BUN/Creatinine Ratio 17.3; Bilirubin, Total 0.5 mg/dL (0.2-1.0); Calcium 8.8 mg/dL (8.5-10.1); Magnesium 2.3 mg/dL (1.6-2.6); Total Protein 7.9 g/dL (6.4-8.2)
== END | disposition home or self-care (01) ==
LOC: Rad HDHVI 10:02
PROVIDERS: ATTEND Internal Medicine Cardiovascular Disease
DX: I50.23 Acute on chronic systolic (congestive) heart failure (principal)
CPT/HCPCS: 36415; 80053; 83735; 83880; 93306; 96365; 96366; G0463; J1642

== ENCOUNTER → 2022-06-03 | Outpatient (CLI) | payer MEDICARE, OTHER ==
[2022-06-03] VITALS (11 sets, daily range): BP systolic 98–138; BP diastolic 51–74
== END | disposition home or self-care (01) ==
LOC: CHF HDHVI 10:55
PROVIDERS: ATTEND Internal Medicine Cardiovascular Disease
DX: I25.5 Ischemic cardiomyopathy (principal); I11.0 Hypertensive heart disease with heart failure; I50.23 Acute on chronic systolic (congestive) heart failure; Z79.899 Other long term (current) drug therapy
CPT/HCPCS: 96365; 96366; G0463; J1642; J2260

== ENCOUNTER → 2022-06-09 | Outpatient (CLI) | payer MEDICARE, OTHER ==
[2022-06-09] VITALS (11 sets, daily range): BP systolic 85–111; BP diastolic 38–72
[~2022-06-09] VITALS: Ht 30.5 cm; Wt 0.5 kg
== END | disposition home or self-care (01) ==
LOC: CHF HDHVI 10:39
PROVIDERS: ATTEND Internal Medicine Cardiovascular Disease
DX: I11.0 Hypertensive heart disease with heart failure (principal); I50.43 Acute on chronic combined systolic (congestive) and diastolic (congestive) heart failure; I25.5 Ischemic cardiomyopathy; Z79.899 Other long term (current) drug therapy
CPT/HCPCS: 96365; 96366; G0463; J1642; J2260

== ENCOUNTER → 2022-06-24 | Outpatient (CLI) | payer MEDICARE, OTHER ==
[~2022-06-24] VITALS: Ht 30.5 cm; Wt 0.5 kg
[2022-06-24] VITALS (10 sets, daily range): BP systolic 82–113; BP diastolic 50–69
[~2022-06-24] MED LIST changes: +CYANOCOBALAMIN (B-12) 1000 MCG/1 ML VIAL IM ONE; +CYANOCOBALAMIN (B-12) 1000 MCG/1 ML VIAL ONE; +DOBUTamine 1000MCG/ML 250 ML IV ONE; -MILRINONE 20MG/100ML 100 ML IV ONE
== END | disposition home or self-care (01) ==
LOC: CHF HDHVI 11:10
PROVIDERS: ATTEND Internal Medicine Cardiovascular Disease
DX: I11.0 Hypertensive heart disease with heart failure (principal); I50.43 Acute on chronic combined systolic (congestive) and diastolic (congestive) heart failure; R53.83 Other fatigue; I42.8 Other cardiomyopathies; Z79.899 Other long term (current) drug therapy
CPT/HCPCS: 96365; 96366; 96372; G0463; J1250; J1642; J3420

== ENCOUNTER → 2022-07-01 | Outpatient (CLI) | payer MEDICARE, OTHER ==
[2022-07-01] VITALS (9 sets, daily range): BP systolic 109–136; BP diastolic 66–81
[~2022-07-01] MED LIST changes: -CYANOCOBALAMIN (B-12) 1000 MCG/1 ML VIAL IM ONE; -CYANOCOBALAMIN (B-12) 1000 MCG/1 ML VIAL ONE
== END | disposition home or self-care (01) ==
LOC: CHF HDHVI 10:45
PROVIDERS: ATTEND Internal Medicine Cardiovascular Disease
DX: I11.0 Hypertensive heart disease with heart failure (principal); I50.42 Chronic combined systolic (congestive) and diastolic (congestive) heart failure; R53.83 Other fatigue; I42.8 Other cardiomyopathies; Z79.899 Other long term (current) drug therapy
CPT/HCPCS: 96365; 96366; G0463; J1250; J1642

== ENCOUNTER → 2022-07-08 | Outpatient (CLI) | payer MEDICARE, OTHER ==
[2022-07-08] VITALS (9 sets, daily range): BP systolic 126–161; BP diastolic 67–83
[~2022-07-08] MED LIST changes: +FUROSEMIDE 40 MG/4 ML VIAL IV ONE; +FUROSEMIDE 40 MG/4 ML VIAL ONE; +POTASSIUM CHL 10 Meq TABLET PO ONE; +POTASSIUM CHL 20 Meq TABLET PO ONE
== END | disposition home or self-care (01) ==
LOC: CHF HDHVI 10:47
PROVIDERS: ATTEND Internal Medicine Cardiovascular Disease
DX: I11.0 Hypertensive heart disease with heart failure (principal); I50.42 Chronic combined systolic (congestive) and diastolic (congestive) heart failure; R63.5 Abnormal weight gain; I42.8 Other cardiomyopathies; R53.83 Other fatigue; Z79.899 Other long term (current) drug therapy
CPT/HCPCS: 96365; 96366; 96375; G0463; J1250; J1642; J1940

== ENCOUNTER → 2022-07-15 | Outpatient (CLI) | payer MEDICARE, OTHER ==
[2022-07-15] VITALS (8 sets, daily range): BP systolic 140–163; BP diastolic 73–91
[~2022-07-15] MED LIST changes: -FUROSEMIDE 40 MG/4 ML VIAL IV ONE; -FUROSEMIDE 40 MG/4 ML VIAL ONE; -POTASSIUM CHL 10 Meq TABLET PO ONE; -POTASSIUM CHL 20 Meq TABLET PO ONE
== END | disposition home or self-care (01) ==
LOC: CHF HDHVI 11:12
PROVIDERS: ATTEND Internal Medicine Cardiovascular Disease
DX: I11.0 Hypertensive heart disease with heart failure (principal); I50.42 Chronic combined systolic (congestive) and diastolic (congestive) heart failure; I42.8 Other cardiomyopathies; R53.83 Other fatigue; Z79.899 Other long term (current) drug therapy
CPT/HCPCS: 96365; 96366; G0463; J1250; J1642

== ENCOUNTER → 2022-07-22 | Outpatient (CLI) | payer MEDICARE, OTHER ==
[2022-07-22] VITALS (9 sets, daily range): BP systolic 91–116; BP diastolic 55–66
[~2022-07-22] MED LIST changes: +CYANOCOBALAMIN (B-12) 1000 MCG/1 ML VIAL IM ONE; +CYANOCOBALAMIN (B-12) 1000 MCG/1 ML VIAL ONE
== END | disposition home or self-care (01) ==
LOC: CHF HDHVI 10:23
PROVIDERS: ATTEND Internal Medicine Cardiovascular Disease
DX: I13.0 Hypertensive heart and chronic kidney disease with heart failure and stage 1 through stage 4 chronic kidney disease, or unspecified chronic kidney disease (principal); N18.30 Chronic kidney disease, stage 3 unspecified; I50.42 Chronic combined systolic (congestive) and diastolic (congestive) heart failure; I42.1 Obstructive hypertrophic cardiomyopathy; Z79.899 Other long term (current) drug therapy
CPT/HCPCS: 96365; 96366; 96372; G0463; J1250; J1642; J3420

== ENCOUNTER → 2022-07-29 | Outpatient (CLI) | payer MEDICARE, OTHER ==
[2022-07-29] VITALS (9 sets, daily range): BP systolic 102–132; BP diastolic 65–106
[~2022-07-29] MED LIST changes: -CYANOCOBALAMIN (B-12) 1000 MCG/1 ML VIAL IM ONE; -CYANOCOBALAMIN (B-12) 1000 MCG/1 ML VIAL ONE
== END | disposition home or self-care (01) ==
LOC: CHF HDHVI 11:10
PROVIDERS: ATTEND Internal Medicine Cardiovascular Disease
DX: I13.0 Hypertensive heart and chronic kidney disease with heart failure and stage 1 through stage 4 chronic kidney disease, or unspecified chronic kidney disease (principal); N18.30 Chronic kidney disease, stage 3 unspecified; I50.42 Chronic combined systolic (congestive) and diastolic (congestive) heart failure; I25.5 Ischemic cardiomyopathy; Z79.899 Other long term (current) drug therapy
CPT/HCPCS: 96365; 96366; G0463; J1250; J1642

== ENCOUNTER → 2022-08-05 | Outpatient (CLI) | payer MEDICARE, OTHER ==
[2022-08-05] VITALS (9 sets, daily range): BP systolic 105–149; BP diastolic 57–86
== END | disposition home or self-care (01) ==
LOC: CHF HDHVI 11:15
PROVIDERS: ATTEND Internal Medicine Cardiovascular Disease
DX: I13.0 Hypertensive heart and chronic kidney disease with heart failure and stage 1 through stage 4 chronic kidney disease, or unspecified chronic kidney disease (principal); E11.22 Type 2 diabetes mellitus with diabetic chronic kidney disease; N18.30 Chronic kidney disease, stage 3 unspecified; I50.42 Chronic combined systolic (congestive) and diastolic (congestive) heart failure; Z79.899 Other long term (current) drug therapy
CPT/HCPCS: 96365; 96366; G0463; J1250; J1642

== ENCOUNTER → 2022-08-12 | Outpatient (CLI) | payer MEDICARE, OTHER ==
[2022-08-12] VITALS (9 sets, daily range): BP systolic 115–155; BP diastolic 74–97
== END | disposition home or self-care (01) ==
LOC: CHF HDHVI 10:59
PROVIDERS: ATTEND Internal Medicine Cardiovascular Disease
DX: I13.0 Hypertensive heart and chronic kidney disease with heart failure and stage 1 through stage 4 chronic kidney disease, or unspecified chronic kidney disease (principal); E11.22 Type 2 diabetes mellitus with diabetic chronic kidney disease; I50.42 Chronic combined systolic (congestive) and diastolic (congestive) heart failure; N18.30 Chronic kidney disease, stage 3 unspecified; I25.5 Ischemic cardiomyopathy; R53.83 Other fatigue; Z79.899 Other long term (current) drug therapy
CPT/HCPCS: 96365; 96366; G0463; J1250; J1642

== ENCOUNTER → 2022-09-02 | Outpatient (CLI) | payer MEDICARE, OTHER ==
[2022-09-02] VITALS (8 sets, daily range): BP systolic 112–155; BP diastolic 69–89
[~2022-09-02] MED LIST changes: +FUROSEMIDE 40 MG/4 ML VIAL IV ONE; +FUROSEMIDE 40 MG/4 ML VIAL ONE; +MAGNESIUM SULFATE 1GM/100ML 100 ML IV ONE; +POTASSIUM CHL 10 Meq TABLET PO ONE; +POTASSIUM CHL 20 Meq TABLET PO ONE
== END | disposition home or self-care (01) ==
LOC: CHF HDHVI 11:13
PROVIDERS: ATTEND Internal Medicine Cardiovascular Disease
DX: I13.0 Hypertensive heart and chronic kidney disease with heart failure and stage 1 through stage 4 chronic kidney disease, or unspecified chronic kidney disease (principal); E11.22 Type 2 diabetes mellitus with diabetic chronic kidney disease; I50.42 Chronic combined systolic (congestive) and diastolic (congestive) heart failure; N18.30 Chronic kidney disease, stage 3 unspecified; E83.42 Hypomagnesemia; I25.5 Ischemic cardiomyopathy; Z79.899 Other long term (current) drug therapy
CPT/HCPCS: 96365; 96366; 96368; 96375; G0463; J1250; J1642; J1940; J3475; 96367

== ENCOUNTER → 2022-09-16 | Outpatient (CLI) | payer MEDICARE, OTHER ==
[2022-09-16] VITALS (8 sets, daily range): BP systolic 100–166; BP diastolic 61–93
[~2022-09-16] MED LIST changes: -AMLO-496 PO; +AMLO1TAB23 PO; +FUROSEMIDE 20 MG TAB ONE; -FUROSEMIDE 40 MG/4 ML VIAL IV ONE; -FUROSEMIDE 40 MG/4 ML VIAL ONE; +GABA-1308 PO; -GABA100C9 PO; -LOSA-69 PO; +LOSA50TA46 PO; -MAGNESIUM SULFATE 1GM/100ML 100 ML IV ONE; +OXYB5TAB10 PO; -OXYB5TAB61 PO; +POTA-228 PO; -POTA10TA32 PO; -POTASSIUM CHL 10 Meq TABLET PO ONE; -POTASSIUM CHL 20 Meq TABLET PO ONE; +PROM25TA10 PO; -PROM25TA5 PO
== END | disposition home or self-care (01) ==
LOC: CHF HDHVI 11:05
PROVIDERS: ATTEND Internal Medicine Cardiovascular Disease
DX: I13.0 Hypertensive heart and chronic kidney disease with heart failure and stage 1 through stage 4 chronic kidney disease, or unspecified chronic kidney disease (principal); E11.22 Type 2 diabetes mellitus with diabetic chronic kidney disease; I50.42 Chronic combined systolic (congestive) and diastolic (congestive) heart failure; N18.30 Chronic kidney disease, stage 3 unspecified; E83.42 Hypomagnesemia; I25.5 Ischemic cardiomyopathy; Z79.899 Other long term (current) drug therapy
CPT/HCPCS: 96365; 96366; G0463; J1250; J1642

== ENCOUNTER → 2022-09-23 | Outpatient (CLI) | payer MEDICARE, OTHER ==
[2022-09-23] VITALS (10 sets, daily range): BP systolic 112–144; BP diastolic 62–80
[~2022-09-23] MED LIST changes: +DOBUTamine 1000MCG/ML 250 ML IV SCH; -FUROSEMIDE 20 MG TAB ONE; +FUROSEMIDE 40 MG/4 ML VIAL IV ONE; +FUROSEMIDE 40 MG/4 ML VIAL ONE; +POTASSIUM EFFERVESENT TAB 25 MEQ ONE; +POTASSIUM EFFERVESENT TAB 25 MEQ PO ONE; +cefTRIAXone SOD 1,000 MG VL ONE
== END | disposition home or self-care (01) ==
LOC: CHF HDHVI 11:13
PROVIDERS: ATTEND Internal Medicine Cardiovascular Disease
DX: I13.0 Hypertensive heart and chronic kidney disease with heart failure and stage 1 through stage 4 chronic kidney disease, or unspecified chronic kidney disease (principal); E11.22 Type 2 diabetes mellitus with diabetic chronic kidney disease; I50.42 Chronic combined systolic (congestive) and diastolic (congestive) heart failure; N18.30 Chronic kidney disease, stage 3 unspecified; I25.5 Ischemic cardiomyopathy; E83.42 Hypomagnesemia; R53.83 Other fatigue; Z79.899 Other long term (current) drug therapy
CPT/HCPCS: 96365; 96366; 96375; G0463; J1250; J1642; J1940; 96374; J0696

== ENCOUNTER → 2022-09-30 | Outpatient (CLI) | payer MEDICARE, OTHER ==
[2022-09-30] VITALS (10 sets, daily range): BP systolic 98–135; BP diastolic 59–80
[~2022-09-30] MED LIST changes: +CYANOCOBALAMIN (B-12) 1000 MCG/1 ML VIAL IM ONE; +CYANOCOBALAMIN (B-12) 1000 MCG/1 ML VIAL ONE; -FUROSEMIDE 40 MG/4 ML VIAL IV ONE; -FUROSEMIDE 40 MG/4 ML VIAL ONE; -POTASSIUM EFFERVESENT TAB 25 MEQ ONE; -POTASSIUM EFFERVESENT TAB 25 MEQ PO ONE; -cefTRIAXone SOD 1,000 MG VL ONE
== END | disposition home or self-care (01) ==
LOC: CHF HDHVI 11:01
PROVIDERS: ATTEND Internal Medicine Cardiovascular Disease
DX: I13.0 Hypertensive heart and chronic kidney disease with heart failure and stage 1 through stage 4 chronic kidney disease, or unspecified chronic kidney disease (principal); E11.22 Type 2 diabetes mellitus with diabetic chronic kidney disease; N18.30 Chronic kidney disease, stage 3 unspecified; I50.42 Chronic combined systolic (congestive) and diastolic (congestive) heart failure; I25.5 Ischemic cardiomyopathy; Z79.899 Other long term (current) drug therapy
CPT/HCPCS: 96365; 96366; 96372; G0463; J1250; J1642; J3420

== ENCOUNTER → 2022-10-07 | Outpatient (CLI) | payer MEDICARE, OTHER ==
[2022-10-07] VITALS (10 sets, daily range): BP systolic 112–155; BP diastolic 62–93
[~2022-10-07] VITALS: Ht 30.5 cm; Wt 70.9 kg
[~2022-10-07] MED LIST changes: -CYANOCOBALAMIN (B-12) 1000 MCG/1 ML VIAL IM ONE; -CYANOCOBALAMIN (B-12) 1000 MCG/1 ML VIAL ONE
== END | disposition home or self-care (01) ==
LOC: CHF HDHVI 10:48
PROVIDERS: ATTEND Internal Medicine Cardiovascular Disease
DX: I13.0 Hypertensive heart and chronic kidney disease with heart failure and stage 1 through stage 4 chronic kidney disease, or unspecified chronic kidney disease (principal); E11.22 Type 2 diabetes mellitus with diabetic chronic kidney disease; N18.30 Chronic kidney disease, stage 3 unspecified; I50.42 Chronic combined systolic (congestive) and diastolic (congestive) heart failure; I25.5 Ischemic cardiomyopathy; Z79.899 Other long term (current) drug therapy
CPT/HCPCS: 96365; 96366; G0463; J1250; J1642

== ENCOUNTER → 2022-10-12 | Outpatient (CLI) | payer MEDICARE, OTHER ==
[2022-10-12] VITALS (10 sets, daily range): BP systolic 118–157; BP diastolic 68–90
[~2022-10-12] VITALS: Ht 30.5 cm; Wt 72.2 kg
== END | disposition home or self-care (01) ==
LOC: CHF HDHVI 11:06
PROVIDERS: ATTEND Internal Medicine Cardiovascular Disease
DX: I13.0 Hypertensive heart and chronic kidney disease with heart failure and stage 1 through stage 4 chronic kidney disease, or unspecified chronic kidney disease (principal); E11.22 Type 2 diabetes mellitus with diabetic chronic kidney disease; I50.43 Acute on chronic combined systolic (congestive) and diastolic (congestive) heart failure; N18.30 Chronic kidney disease, stage 3 unspecified; I25.5 Ischemic cardiomyopathy; Z79.899 Other long term (current) drug therapy
CPT/HCPCS: 96365; 96366; G0463; J1250; J1642

== ENCOUNTER → 2022-10-28 | Outpatient (CLI) | payer MEDICARE, OTHER ==
[2022-10-28] VITALS (9 sets, daily range): BP systolic 122–153; BP diastolic 68–95; PULSE 75; RESP 16; O2SAT 97
[~2022-10-28] MED LIST changes: +CYANOCOBALAMIN (B-12) 1000 MCG/1 ML VIAL IM ONE; +CYANOCOBALAMIN (B-12) 1000 MCG/1 ML VIAL ONE; -DOBUTamine 1000MCG/ML 250 ML IV SCH
== END | disposition home or self-care (01) ==
LOC: CHF HDHVI 10:57
PROVIDERS: ATTEND Internal Medicine Cardiovascular Disease
DX: I13.0 Hypertensive heart and chronic kidney disease with heart failure and stage 1 through stage 4 chronic kidney disease, or unspecified chronic kidney disease (principal); E11.22 Type 2 diabetes mellitus with diabetic chronic kidney disease; N18.30 Chronic kidney disease, stage 3 unspecified; I50.23 Acute on chronic systolic (congestive) heart failure; I25.5 Ischemic cardiomyopathy; Z79.899 Other long term (current) drug therapy
CPT/HCPCS: 96365; 96366; 96372; G0463; J1250; J1642; J3420

== ENCOUNTER → 2022-11-11 | Outpatient (CLI) | payer MEDICARE, OTHER ==
[2022-11-11] VITALS (10 sets, daily range): BP systolic 123–139; BP diastolic 75–87; PULSE 75–76; RESP 18–20; O2SAT 94–95
[~2022-11-11] MED LIST changes: +BUMETANIDE 1mg/4ml VIAL (0.25mg/ml) ONE; +BUMETANIDE 2.5mg/10ml (0.25 mg/ml) INJ IV ONE; -CYANOCOBALAMIN (B-12) 1000 MCG/1 ML VIAL IM ONE; -CYANOCOBALAMIN (B-12) 1000 MCG/1 ML VIAL ONE; +DOBUTamine 1000MCG/ML 250 ML IV SCH; +FAMOTIDINE 20 MG TAB ONE; +FAMOTIDINE 20 MG TAB PO ONE
== END | disposition home or self-care (01) ==
LOC: CHF HDHVI 11:06
PROVIDERS: ATTEND Internal Medicine Cardiovascular Disease
DX: I13.0 Hypertensive heart and chronic kidney disease with heart failure and stage 1 through stage 4 chronic kidney disease, or unspecified chronic kidney disease (principal); E11.22 Type 2 diabetes mellitus with diabetic chronic kidney disease; I50.42 Chronic combined systolic (congestive) and diastolic (congestive) heart failure; N18.30 Chronic kidney disease, stage 3 unspecified; I25.5 Ischemic cardiomyopathy; E83.42 Hypomagnesemia; Z79.899 Other long term (current) drug therapy
CPT/HCPCS: 96365; 96366; 96375; G0463; J1250; J1642; J3490

== ENCOUNTER → 2022-12-04 | Outpatient (CLI) | payer MEDICARE, OTHER ==
[~2022-12-04] VITALS: Ht 162.6 cm; Wt 73.3 kg
[2022-12-04] VITALS (10 sets, daily range): BP systolic 100–135; BP diastolic 62–81; PULSE 69–78; RESP 20; O2SAT 96
[~2022-12-04] MED LIST changes: -BUMETANIDE 1mg/4ml VIAL (0.25mg/ml) ONE; -BUMETANIDE 2.5mg/10ml (0.25 mg/ml) INJ IV ONE; +CYANOCOBALAMIN (B-12) 1000 MCG/1 ML VIAL IM ONE; +CYANOCOBALAMIN (B-12) 1000 MCG/1 ML VIAL ONE; -DOBUTamine 1000MCG/ML 250 ML IV SCH; -FAMOTIDINE 20 MG TAB ONE; -FAMOTIDINE 20 MG TAB PO ONE
[2022-12-06 19:26] VITALS: BP 130/81; PULSE 76; RESP 18; TEMP 98.1; O2SAT 97
== END | disposition home or self-care (01) ==
LOC: CHF HDHVI 10:40
PROVIDERS: ATTEND Internal Medicine Cardiovascular Disease
DX: I13.0 Hypertensive heart and chronic kidney disease with heart failure and stage 1 through stage 4 chronic kidney disease, or unspecified chronic kidney disease (principal); E11.22 Type 2 diabetes mellitus with diabetic chronic kidney disease; I50.42 Chronic combined systolic (congestive) and diastolic (congestive) heart failure; N18.30 Chronic kidney disease, stage 3 unspecified; I25.5 Ischemic cardiomyopathy; D64.9 Anemia, unspecified; R53.83 Other fatigue; E83.42 Hypomagnesemia; Z79.899 Other long term (current) drug therapy
CPT/HCPCS: 96365; 96366; 96372; G0463; J1250; J1642; J3420

== ENCOUNTER → 2022-12-25 | Outpatient (CLI) | payer MEDICARE, OTHER ==
[2022-12-25] VITALS (9 sets, daily range): BP systolic 110–135; BP diastolic 64–92; PULSE 68–80; RESP 16; O2SAT 97
[~2022-12-25] MED LIST changes: -CYANOCOBALAMIN (B-12) 1000 MCG/1 ML VIAL IM ONE; -CYANOCOBALAMIN (B-12) 1000 MCG/1 ML VIAL ONE
== END | disposition home or self-care (01) ==
LOC: CHF HDHVI 11:05
PROVIDERS: ATTEND Internal Medicine Cardiovascular Disease
DX: I13.0 Hypertensive heart and chronic kidney disease with heart failure and stage 1 through stage 4 chronic kidney disease, or unspecified chronic kidney disease (principal); E11.22 Type 2 diabetes mellitus with diabetic chronic kidney disease; I50.43 Acute on chronic combined systolic (congestive) and diastolic (congestive) heart failure; N18.30 Chronic kidney disease, stage 3 unspecified; I25.5 Ischemic cardiomyopathy; Z79.899 Other long term (current) drug therapy
CPT/HCPCS: 96365; 96366; G0463; J1250; J1642

== ENCOUNTER → 2023-01-01 | Outpatient (CLI) | payer MEDICARE, OTHER ==
[2023-01-01] VITALS (10 sets, daily range): BP systolic 117–168; BP diastolic 71–90; PULSE 75–101; RESP 20; O2SAT 96
[~2023-01-01] MED LIST changes: +CYANOCOBALAMIN (B-12) 1000 MCG/1 ML VIAL IM ONE; +CYANOCOBALAMIN (B-12) 1000 MCG/1 ML VIAL ONE
== END | disposition home or self-care (01) ==
LOC: CHF HDHVI 12:11
PROVIDERS: ATTEND Internal Medicine Cardiovascular Disease
DX: I13.0 Hypertensive heart and chronic kidney disease with heart failure and stage 1 through stage 4 chronic kidney disease, or unspecified chronic kidney disease (principal); E11.22 Type 2 diabetes mellitus with diabetic chronic kidney disease; N18.30 Chronic kidney disease, stage 3 unspecified; I50.43 Acute on chronic combined systolic (congestive) and diastolic (congestive) heart failure; Z79.899 Other long term (current) drug therapy
CPT/HCPCS: 93005; 96365; 96366; 96372; G0463; J1250; J1642; J3420

== ENCOUNTER → 2023-01-08 | Outpatient (CLI) | payer MEDICARE, OTHER ==
[2023-01-08] VITALS (9 sets, daily range): BP systolic 120–142; BP diastolic 66–89; PULSE 66–76; RESP 16; O2SAT 97
[~2023-01-08] VITALS: Ht 30.5 cm; Wt 71.7 kg
[~2023-01-08] MED LIST changes: +BACITRACIN TOP OINT 1 UD PKG TOP ONE; -CYANOCOBALAMIN (B-12) 1000 MCG/1 ML VIAL IM ONE; -CYANOCOBALAMIN (B-12) 1000 MCG/1 ML VIAL ONE; +MAGNESIUM OXIDE 400 MG TAB ONE
== END | disposition home or self-care (01) ==
LOC: CHF HDHVI 11:35
PROVIDERS: ATTEND Internal Medicine Cardiovascular Disease
DX: I13.0 Hypertensive heart and chronic kidney disease with heart failure and stage 1 through stage 4 chronic kidney disease, or unspecified chronic kidney disease (principal); E11.22 Type 2 diabetes mellitus with diabetic chronic kidney disease; N18.30 Chronic kidney disease, stage 3 unspecified; I50.43 Acute on chronic combined systolic (congestive) and diastolic (congestive) heart failure; I25.5 Ischemic cardiomyopathy; E83.42 Hypomagnesemia; Z79.899 Other long term (current) drug therapy
CPT/HCPCS: 96365; 96366; G0463; J1250; J1642

== ENCOUNTER → 2023-01-15 | Outpatient (CLI) | payer MEDICARE, OTHER ==
[2023-01-15] VITALS (9 sets, daily range): BP systolic 115–136; BP diastolic 67–80; PULSE 63–78; RESP 18; O2SAT 98
[~2023-01-15] MED LIST changes: -BACITRACIN TOP OINT 1 UD PKG TOP ONE; -MAGNESIUM OXIDE 400 MG TAB ONE
== END | disposition home or self-care (01) ==
LOC: CHF HDHVI 12:32
PROVIDERS: ATTEND Internal Medicine Cardiovascular Disease
DX: I13.0 Hypertensive heart and chronic kidney disease with heart failure and stage 1 through stage 4 chronic kidney disease, or unspecified chronic kidney disease (principal); E11.22 Type 2 diabetes mellitus with diabetic chronic kidney disease; N18.30 Chronic kidney disease, stage 3 unspecified; I50.43 Acute on chronic combined systolic (congestive) and diastolic (congestive) heart failure; I25.5 Ischemic cardiomyopathy; Z79.899 Other long term (current) drug therapy
CPT/HCPCS: 96365; 96366; G0463; J1250; J1642

== ENCOUNTER → 2023-01-29 | Outpatient (CLI) | payer MEDICARE, OTHER ==
[2023-01-29] VITALS (9 sets, daily range): BP systolic 123–171; BP diastolic 67–96; PULSE 71–77; RESP 18; O2SAT 100
[~2023-01-29] VITALS: Ht 30.5 cm; Wt 73.5 kg
[~2023-01-29] MED LIST changes: +ALBUTEROL SULF 2.5 MG/0.5ML(0.5%) NEB SOLN NEB ONE; +ALBUTEROL SULF 2.5 MG/0.5ML(0.5%) NEB SOLN ONE; +BUMETANIDE 2.5mg/10ml (0.25 mg/ml) INJ IV ONE; +BUMETANIDE INJECTION 10 ML ONE; +POTASSIUM CHL 10 Meq TABLET PO ONE; +POTASSIUM CHL 20 Meq TABLET PO ONE
== END | disposition home or self-care (01) ==
LOC: CHF HDHVI 11:23
PROVIDERS: ATTEND Internal Medicine Cardiovascular Disease
DX: I13.0 Hypertensive heart and chronic kidney disease with heart failure and stage 1 through stage 4 chronic kidney disease, or unspecified chronic kidney disease (principal); E11.22 Type 2 diabetes mellitus with diabetic chronic kidney disease; I50.43 Acute on chronic combined systolic (congestive) and diastolic (congestive) heart failure; N18.30 Chronic kidney disease, stage 3 unspecified; I25.5 Ischemic cardiomyopathy; R06.02 Shortness of breath; R00.2 Palpitations; Z79.899 Other long term (current) drug therapy
CPT/HCPCS: 94640; 96365; 96366; 96375; G0463; J1250; J1642

== ENCOUNTER → 2023-02-03 | Outpatient (CLI) | payer MEDICARE, OTHER ==
[2023-02-03] VITALS (10 sets, daily range): BP systolic 115–132; BP diastolic 74–87; PULSE 72–75; RESP 18; O2SAT 96–97
[~2023-02-03] MED LIST changes: -ALBUTEROL SULF 2.5 MG/0.5ML(0.5%) NEB SOLN NEB ONE; -ALBUTEROL SULF 2.5 MG/0.5ML(0.5%) NEB SOLN ONE; -BUMETANIDE 2.5mg/10ml (0.25 mg/ml) INJ IV ONE; -BUMETANIDE INJECTION 10 ML ONE; +DOBUTamine 1000MCG/ML 250 ML IV SCH; -POTASSIUM CHL 10 Meq TABLET PO ONE; -POTASSIUM CHL 20 Meq TABLET PO ONE
== END | disposition home or self-care (01) ==
LOC: CHF HDHVI 12:19
PROVIDERS: ATTEND Internal Medicine Cardiovascular Disease
DX: I13.0 Hypertensive heart and chronic kidney disease with heart failure and stage 1 through stage 4 chronic kidney disease, or unspecified chronic kidney disease (principal); E11.22 Type 2 diabetes mellitus with diabetic chronic kidney disease; I50.43 Acute on chronic combined systolic (congestive) and diastolic (congestive) heart failure; N18.30 Chronic kidney disease, stage 3 unspecified; I25.5 Ischemic cardiomyopathy; R00.2 Palpitations; R06.02 Shortness of breath; E83.42 Hypomagnesemia; Z79.899 Other long term (current) drug therapy
CPT/HCPCS: 96365; 96366; G0463; J1250; J1642

== ENCOUNTER → 2023-02-18 | Outpatient (CLI) | payer MEDICARE, OTHER ==
[2023-02-18] VITALS (9 sets, daily range): BP systolic 107–129; BP diastolic 62–82; PULSE 74–78; RESP 16; O2SAT 97
[~2023-02-18] MED LIST changes: +APIX2.5T PO; +ASPI325T4 PO; +CYANOCOBALAMIN (B-12) 1000 MCG/1 ML VIAL IM ONE; +CYANOCOBALAMIN (B-12) 1000 MCG/1 ML VIAL ONE; +DIGO0.12 PO; -DOBUTamine 1000MCG/ML 250 ML IV SCH; +FURO1TAB31 PO; +HYDR25TA87 PO; +LEVO25TA6 PO; +METO-289 PO; +POTA1TAB4 PO; +SACU1TAB7 PO
== END | disposition home or self-care (01) ==
LOC: CHF HDHVI 12:15
PROVIDERS: ATTEND Internal Medicine Cardiovascular Disease
DX: I13.0 Hypertensive heart and chronic kidney disease with heart failure and stage 1 through stage 4 chronic kidney disease, or unspecified chronic kidney disease (principal); E11.22 Type 2 diabetes mellitus with diabetic chronic kidney disease; I50.43 Acute on chronic combined systolic (congestive) and diastolic (congestive) heart failure; N18.30 Chronic kidney disease, stage 3 unspecified; I25.5 Ischemic cardiomyopathy; R06.02 Shortness of breath; E83.42 Hypomagnesemia; R00.2 Palpitations; Z79.899 Other long term (current) drug therapy
CPT/HCPCS: 96365; 96366; 96372; G0463; J1250; J1642; J3420

== ENCOUNTER → 2023-02-26 | Outpatient (CLI) | payer MEDICARE, OTHER ==
[2023-02-26] VITALS (9 sets, daily range): BP systolic 150–199; BP diastolic 83–105; PULSE 68–76; RESP 16; O2SAT 100
[~2023-02-26] VITALS: Ht 30.5 cm; Wt 72.8 kg
[~2023-02-26] MED LIST changes: +BUMETANIDE 1mg/4ml VIAL (0.25mg/ml) ONE; +BUMETANIDE 2.5mg/10ml (0.25 mg/ml) INJ IV ONE; -CYANOCOBALAMIN (B-12) 1000 MCG/1 ML VIAL IM ONE; -CYANOCOBALAMIN (B-12) 1000 MCG/1 ML VIAL ONE; +METOPROLOL SUCCINATE XL 50 MG TAB PO ONE; +POTASSIUM CHL 10 Meq TABLET PO ONE; +POTASSIUM CHL 20 Meq TABLET PO ONE; +SACUBITRIL-VALSARTAN 24mg/26mg TAB PO ONE; +amLODIPine BESYLATE 5 MG TAB ONE; +amLODIPine BESYLATE 5 MG TAB PO ONE
== END | disposition home or self-care (01) ==
LOC: CHF HDHVI 12:24
PROVIDERS: ATTEND Internal Medicine Cardiovascular Disease
DX: I13.0 Hypertensive heart and chronic kidney disease with heart failure and stage 1 through stage 4 chronic kidney disease, or unspecified chronic kidney disease (principal); E11.22 Type 2 diabetes mellitus with diabetic chronic kidney disease; N18.30 Chronic kidney disease, stage 3 unspecified; I50.43 Acute on chronic combined systolic (congestive) and diastolic (congestive) heart failure; I25.5 Ischemic cardiomyopathy; E83.42 Hypomagnesemia; Z79.899 Other long term (current) drug therapy
CPT/HCPCS: 96365; 96366; 96375; G0463; J1250; J1642; J3490

== ENCOUNTER → 2023-03-12 | Outpatient (CLI) | payer MEDICARE, OTHER ==
[2023-03-12] VITALS (10 sets, daily range): BP systolic 114–161; BP diastolic 72–86; PULSE 69–76; RESP 18; O2SAT 98
[~2023-03-12] MED LIST changes: -BUMETANIDE 1mg/4ml VIAL (0.25mg/ml) ONE; -BUMETANIDE 2.5mg/10ml (0.25 mg/ml) INJ IV ONE; -METOPROLOL SUCCINATE XL 50 MG TAB PO ONE; -POTASSIUM CHL 10 Meq TABLET PO ONE; -POTASSIUM CHL 20 Meq TABLET PO ONE; -SACUBITRIL-VALSARTAN 24mg/26mg TAB PO ONE; -amLODIPine BESYLATE 5 MG TAB ONE; -amLODIPine BESYLATE 5 MG TAB PO ONE
== END | disposition home or self-care (01) ==
LOC: CHF HDHVI 12:18
PROVIDERS: ATTEND Internal Medicine Cardiovascular Disease
DX: I13.0 Hypertensive heart and chronic kidney disease with heart failure and stage 1 through stage 4 chronic kidney disease, or unspecified chronic kidney disease (principal); E11.22 Type 2 diabetes mellitus with diabetic chronic kidney disease; N18.30 Chronic kidney disease, stage 3 unspecified; I50.43 Acute on chronic combined systolic (congestive) and diastolic (congestive) heart failure; I25.5 Ischemic cardiomyopathy; Z79.899 Other long term (current) drug therapy
CPT/HCPCS: 96365; 96366; G0463; J1250; J1642

== ENCOUNTER → 2023-03-19 | Outpatient (CLI) | payer MEDICARE, OTHER ==
[2023-03-19] VITALS (9 sets, daily range): BP systolic 122–141; BP diastolic 62–82; PULSE 70–76; RESP 18; O2SAT 95
[~2023-03-19] MED LIST changes: +CYANOCOBALAMIN (B-12) 1000 MCG/1 ML VIAL IM ONE; +CYANOCOBALAMIN (B-12) 1000 MCG/1 ML VIAL ONE
== END | disposition home or self-care (01) ==
LOC: CHF HDHVI 12:15
PROVIDERS: ATTEND Internal Medicine Cardiovascular Disease
DX: I13.0 Hypertensive heart and chronic kidney disease with heart failure and stage 1 through stage 4 chronic kidney disease, or unspecified chronic kidney disease (principal); E11.22 Type 2 diabetes mellitus with diabetic chronic kidney disease; I50.43 Acute on chronic combined systolic (congestive) and diastolic (congestive) heart failure; N18.30 Chronic kidney disease, stage 3 unspecified; I25.5 Ischemic cardiomyopathy; R00.2 Palpitations; E83.42 Hypomagnesemia; Z79.899 Other long term (current) drug therapy
CPT/HCPCS: 96365; 96366; 96372; G0463; J1250; J1642; J3420

== ENCOUNTER 2023-03-30 04:32 | Inpatient (IN) | payer MEDICARE, OTHER ==
[~2023-03-30] VITALS: Ht 160 cm; Wt 73.5 kg
[2023-03-30] VITALS (14 sets, daily range): BP systolic 125–147; BP diastolic 69–88; PULSE 83–97; RESP 15–20; TEMP 98.8–99.3; O2SAT 97–100
[~2023-03-30 04:32] MED LIST changes: -CYANOCOBALAMIN (B-12) 1000 MCG/1 ML VIAL IM ONE; -CYANOCOBALAMIN (B-12) 1000 MCG/1 ML VIAL ONE; -DOBUTamine 1000MCG/ML 250 ML IV ONE
[2023-03-30] MEDS ORDERED: methylPREDNISolone SOD SUCC 125 MG/2 ML VL IV ONE (04:45)
[2023-03-30] MEDS ORDERED: ALBUTEROL SULF 2.5 MG/0.5ML(0.5%) NEB SOLN NEB ONE (04:45)
[2023-03-30] MEDS ORDERED: IPRATROPIUM BROM 0.5 MG/2.5ML INH SOL NEB ONE (04:45)
[2023-03-30] MEDS ORDERED: FUROSEMIDE 100 MG/10ML VIAL IV ONE (05:00)
[2023-03-30] MEDS ORDERED: NITROGLYCERIN 2% OINT 1GM PKG TD ONE (05:00)
[2023-03-30] MEDS ORDERED: LABETALOL HCL 5 MG/ML 4ML SYRINGE IV ONE (05:00)
[2023-03-30 05:17] LABS: Basophils # (auto) 0.1 10 ^3/uL (0-0.2); Basophils % (auto) 1.1 % (0.0-2.0); Hemoglobin 9.4 g/dL (12.2-16.2); Neutrophils # (auto) 4.9 10 ^3/uL (1.6-8.6); Red Cell Distribution Width 16.8 % (11.8-14.3)
[2023-03-30 05:19] LABS: Eosinophils # (auto) 0.5 10 ^3/uL (0-0.8); Lymphocytes # (auto) 3.5 10 ^3/uL (0.4-5.4); Lymphocytes % (auto) 36.9 % (10.0-50.0); Mean Corpuscular Hemoglobin 27.4 pg (28.0-32.0); Mean Corpuscular Hgb Conc. 30.4 g/dL (32.0-36.0); Monocytes # (auto) 0.5 10 ^3/uL (0-1.3); Monocytes % (auto) 5.8 % (0.0-12.0); Neutrophils % (auto) 51.2 % (37.0-80.0); Nucleated Red Blood Cells % 0.5 %; Red Blood Cells 3.44 10^6/uL (4.0-5.20); White Blood Cell 9.5 10^3/uL (4.4-10.8)
[2023-03-30 05:28] LABS: Alanine Aminotransferase 19 U/L (7-40); Albumin 4.3 g/dL (3.2-4.8); Alkaline Phosphatase 79 U/L (46-116); Anion Gap 8 (5-15); Aspartate Aminotransferase 29 U/L (13-40); BUN/Creatinine Ratio 13.7 (10.0-20.0); Blood Urea Nitrogen 25 mg/dL (9-23); Calcium 9.3 mg/dL (8.7-10.4); Carbon Dioxide 26 mmol/L (20-30); Chloride 106 mmol/L (98-107); Glucose 282 mg/dL (74-106); INR 1.13 (0.9-1.15); Magnesium 2.4 mg/dL (1.6-2.6); Partial Thromboplastin Time 20.8 SEC (24.5-34.5); Potassium 4.2 mmol/L (3.5-5.1); Prothrombin Time 11.8 sec (9.3-11.8); Sodium 140 mmol/L (136-145)
[2023-03-30 05:29] LABS: Total Protein 7.8 g/dL (5.7-8.2)
[2023-03-30 05:33] LABS: Urine Epithelial Cast None Seen /hpf (<5)
[2023-03-30 06:40] LABS: Urine Bacteria NONE SEEN /hpf (None Seen); Urine Blood Negative /uL (Negative); Urine Clarity Clear (Clear); Urine Color Yellow (Yellow); Urine Hyaline Cast FEW /lpf (0 - 2); Urine Protein, UAD 3+ (Negative); Urine Specific Gravity 1.016 (1.001-1.035); Urine WBC 1 /hpf (0 - 5)
[2023-03-30] MEDS ORDERED: SODIUM BICARBONATE 8.4 % INJ 50ML VIAL IV ONE (09:00)
[2023-03-30] MEDS ORDERED: DEXTROSE (50%) 50ML SYRG IV PRN (09:00)
[2023-03-30] MEDS: FUROSEMIDE INJECTION 100 MG in SODIUM CHL 0.9% 100 ML IV SCH ×2 (09:15→20:27)
[2023-03-30] MEDS ORDERED: ALBUTEROL SULF 2.5 MG/0.5ML(0.5%) NEB SOLN NEB PRN (09:15)
[2023-03-30] MEDS ORDERED: PATIENTS OWN MEDICATION (Pregabalin (Lyrica) 50 MG) PO PRN (09:15)
[2023-03-30] MEDS ORDERED: NITROGLYCERIN 0.4 MG SL TAB SL PRN (09:30)
[2023-03-30] MEDS ORDERED: ONDANSETRON HCL 4 MG/2 ML VIAL IV PRN (09:30)
[2023-03-30] MEDS ORDERED: MORPHINE SULFATE INJ 2 MG/ml SYRG IV PRN (09:30)
[2023-03-30] MEDS ORDERED: ACETAMINOPHEN 325 MG TAB PO PRN (09:30)
[2023-03-30] MEDS ORDERED: PANTOPRAZOLE 40 MG/10 ML VIAL INJ IV ONE (09:45)
[2023-03-30 09:49] LABS: LDL Cholesterol 94 mg/dL (< 100); Triglycerides 88 mg/dL (< 150)
[2023-03-30 09:51] LABS: Cholesterol 161 mg/dL (< 200); HDL Cholesterol 54 mg/dL (40-59)
[2023-03-30] MEDS ORDERED: PATIENTS OWN MEDICATION (Cholecalciferol (Vitamin D3) 5,000 UNIT) PO SCH (10:00)
[2023-03-30] MEDS ORDERED: PATIENTS OWN MEDICATION (Magnesium Oxide 1 TAB) PO SCH (10:00)
[2023-03-30] MEDS ORDERED: PATIENTS OWN MEDICATION (Sitagliptin Phosphate (Januvia) 1 TAB) PO SCH (10:00)
[2023-03-30] MEDS ORDERED: LEVOTHYROXINE SODIUM 25 MCG TAB PO SCH (10:00)
[2023-03-30] MEDS ORDERED: FUROSEMIDE 20 MG/2 ML VIAL IV SCH (10:00)
[2023-03-30] MEDS ORDERED: PREGABALIN 25 MG CAP PO PRN (10:15)
[2023-03-30] MEDS: methylPREDNISolone SOD SUCC 40 MG/ML VL IV SCH ×2 (11:04→20:53)
[2023-03-30] MEDS: DIGOXIN 0.125 MG TAB PO SCH ×2 (11:05→12:08)
[2023-03-30] MEDS: ASPirin-EC 81 mg tab PO SCH ×2 (11:05→12:06)
[2023-03-30] MEDS: ASCORBIC ACID 500 MG TAB PO SCH (11:05)
[2023-03-30] MEDS: LOSARTAN POTASSIUM 50 MG TAB PO SCH ×2 (11:05→12:01)
[2023-03-30] MEDS: METOPROLOL SUCCINATE XL 50 MG TAB PO SCH (11:06)
[2023-03-30] MEDS: CLOPIDOGREL BISULFATE 75 MG TAB PO SCH (11:06)
[2023-03-30] MEDS: hydrALAZINE HCL 25 MG TAB PO SCH ×2 (11:06→12:01)
[2023-03-30] MEDS: GABAPENTIN 100 MG CAP PO SCH ×2 (11:07→12:00)
[2023-03-30] MEDS: APIXABAN 2.5 MG TAB PO SCH ×2 (11:07→12:06)
[2023-03-30] MEDS: OXYBUTYNIN CHL 5 MG TAB PO SCH ×2 (11:10→12:06)
[2023-03-30] MEDS: SACUBITRIL-VALSARTAN 24mg/26mg TAB PO SCH ×2 (11:11→12:00)
[2023-03-30] MEDS: ACCU-CHEK COMFORT CURVE STRIP VI SCH ×3 (11:30→20:54)
[2023-03-30] MEDS ORDERED: HYALURONIDASE 150 UNIT/1 ML SUBCUT ONE (11:30)
[2023-03-30] MEDS: InsuLIN REG 1unit/0.01ml Soln (100units/ml) SC SCH ×3 (11:30→20:57)
[2023-03-30 11:48] LABS: Base Excess 5.3 mmol/L (-2.0-2.0)
[2023-03-30] MEDS: ALLOPURINOL 100 MG TAB PO SCH ×2 (14:00→20:54)
[2023-03-30] MEDS: IPRATROPIUM BROM 0.5 MG/2.5ML INH SOL NEB SCH ×3 (15:02→22:26)
[2023-03-30] MEDS: ALBUTEROL SULF 2.5 MG/0.5ML(0.5%) NEB SOLN NEB SCH ×3 (15:02→22:26)
[2023-03-31] VITALS (21 sets, daily range): BP systolic 122–163; BP diastolic 63–93; PULSE 57–103; RESP 16–20; TEMP 97.9–98.4; O2SAT 90–100
[2023-03-31] MEDS: ALBUTEROL SULF 2.5 MG/0.5ML(0.5%) NEB SOLN NEB SCH ×6 (02:31→21:59)
[2023-03-31] MEDS: IPRATROPIUM BROM 0.5 MG/2.5ML INH SOL NEB SCH ×6 (02:31→21:59)
[2023-03-31] MEDS: FUROSEMIDE INJECTION 100 MG in SODIUM CHL 0.9% 100 ML IV SCH ×2 (05:21→14:16)
[2023-03-31 05:41] LABS: Basophils # (auto) 0 10 ^3/uL (0-0.2); Basophils % (auto) 0.1 % (0.0-2.0); Eosinophils # (auto) 0 10 ^3/uL (0-0.8); Hemoglobin 8.6 g/dL (12.2-16.2); Lymphocytes # (auto) 0.3 10 ^3/uL (0.4-5.4); Lymphocytes % (auto) 3.3 % (10.0-50.0); Mean Corpuscular Hemoglobin 27.9 pg (28.0-32.0); Mean Corpuscular Hgb Conc. 31.9 g/dL (32.0-36.0); Mean Corpuscular Volume 87.4 fL (80.0-100.0); Monocytes # (auto) 0.1 10 ^3/uL (0-1.3); Monocytes % (auto) 1.4 % (0.0-12.0); Neutrophils # (auto) 7.6 10 ^3/uL (1.6-8.6); Neutrophils % (auto) 95.2 % (37.0-80.0); Nucleated Red Blood Cells % 0.1 %; Red Blood Cells 3.09 10^6/uL (4.0-5.20); Red Cell Distribution Width 16.5 % (11.8-14.3)
[2023-03-31 05:45] LABS: Alanine Aminotransferase 12 U/L (7-40); Albumin 3.9 g/dL (3.2-4.8); Alkaline Phosphatase 57 U/L (46-116); Anion Gap 7 (5-15); Aspartate Aminotransferase 24 U/L (13-40); BUN/Creatinine Ratio 12.7 (10.0-20.0); Bilirubin, Total 1.3 mg/dL (0.2-1.0); Blood Urea Nitrogen 22 mg/dL (9-23); Calcium 9.5 mg/dL (8.7-10.4); Carbon Dioxide 30 mmol/L (20-30); Chloride 106 mmol/L (98-107); Glucose 163 mg/dL (74-106); Potassium 3.5 mmol/L (3.5-5.1); Sodium 143 mmol/L (136-145); Total Protein 7.2 g/dL (5.7-8.2)
[2023-03-31] MEDS: ALLOPURINOL 100 MG TAB PO SCH ×3 (05:51→21:39)
[2023-03-31] MEDS: ACCU-CHEK COMFORT CURVE STRIP VI SCH ×4 (05:53→21:40)
[2023-03-31] MEDS: InsuLIN REG 1unit/0.01ml Soln (100units/ml) SC SCH ×4 (05:54→22:06)
[2023-03-31 07:24] LABS: Base Excess 5.5 mmol/L (-2.0-2.0)
[2023-03-31] MEDS ORDERED: AZITHROMYCIN 500MG/ 250ML 250 ML IV ONE (08:00)
[2023-03-31] MEDS: DOBUTamine 1000MCG/ML 250 ML IV SCH (09:15)
[2023-03-31] MEDS: SITAGLIPTIN 100 MG PO SCH (10:00)
[2023-03-31] MEDS: CHOLECALCIFEROL 5000 UNIT PO SCH (10:00)
[2023-03-31] MEDS ORDERED: PATIENTS OWN MEDICATION (Amlodipine Besylate 1 TAB) PO SCH (10:00)
[2023-03-31] MEDS: methylPREDNISolone SOD SUCC 40 MG/ML VL IV SCH ×2 (10:37→21:40)
[2023-03-31] MEDS: PANTOPRAZOLE 40 MG/10 ML VIAL INJ IV SCH (10:37)
[2023-03-31] MEDS: MAGNESIUM OXIDE 400 MG TAB PO SCH (10:38)
[2023-03-31] MEDS: ASCORBIC ACID 500 MG TAB PO SCH (10:38)
[2023-03-31] MEDS: amLODIPine BESYLATE 5 MG TAB PO SCH (10:38)
[2023-03-31] MEDS: POTASSIUM EFFERVESENT TAB 25 MEQ PO SCH (10:38)
[2023-03-31] MEDS: CLOPIDOGREL BISULFATE 75 MG TAB PO SCH (10:39)
[2023-03-31] MEDS: LEVOTHYROXINE SODIUM 25 MCG TAB PO SCH ×2 (10:39→11:45)
[2023-03-31] MEDS: SACUBITRIL-VALSARTAN 24mg/26mg TAB PO SCH ×3 (10:39→21:39)
[2023-03-31] MEDS: METOPROLOL SUCCINATE XL 50 MG TAB PO SCH (10:39)
[2023-03-31] MEDS: GABAPENTIN 100 MG CAP PO SCH ×2 (10:39→21:39)
[2023-03-31] MEDS: AZITHROMYCIN 500MG/ 250ML 250 ML IV SCH (11:47)
[2023-03-31 17:22] LABS: COVID19 ANTIGEN SOFIA FIA NEGATIVE (NEGATIVE)
[2023-04-01] VITALS (20 sets, daily range): BP systolic 113–163; BP diastolic 67–84; PULSE 63–83; RESP 16–20; TEMP 97.8–98.1; O2SAT 94–100
[2023-04-01] MEDS: FUROSEMIDE INJECTION 100 MG in SODIUM CHL 0.9% 100 ML IV SCH ×3 (01:15→21:15)
[2023-04-01] MEDS: ALBUTEROL SULF 2.5 MG/0.5ML(0.5%) NEB SOLN NEB SCH ×6 (02:12→21:44)
[2023-04-01] MEDS: IPRATROPIUM BROM 0.5 MG/2.5ML INH SOL NEB SCH ×6 (02:12→21:44)
[2023-04-01 05:52] LABS: Hematocrit 27.1 % (36.0-46.0); Hemoglobin 8.7 g/dL (12.2-16.2); Mean Corpuscular Hemoglobin 27.7 pg (28.0-32.0); Mean Corpuscular Hgb Conc. 31.9 g/dL (32.0-36.0); Mean Corpuscular Volume 86.7 fL (80.0-100.0); Red Blood Cells 3.13 10^6/uL (4.0-5.20); Red Cell Distribution Width 16.4 % (11.8-14.3); White Blood Cell 14.1 10^3/uL (4.4-10.8)
[2023-04-01 05:57] LABS: Anion Gap 6 (5-15); Calcium 9.6 mg/dL (8.7-10.4); Carbon Dioxide 34 mmol/L (20-30); Chloride 101 mmol/L (98-107); Potassium 4.1 mmol/L (3.5-5.1); Sodium 141 mmol/L (136-145)
[2023-04-01] MEDS: DOBUTamine 1000MCG/ML 250 ML IV SCH ×2 (05:58→14:54)
[2023-04-01 06:03] LABS: BUN/Creatinine Ratio 16.2 (10.0-20.0); Band Neutrophils % (manual) 0; Basophils % (manual) 0 (0.0-2.0); Blast Cells 0; Blood Urea Nitrogen 31 mg/dL (9-23); Eosinophils % (manual) 0 (0-7); Glucose 197 mg/dL (74-106); Metamyelocytes % 0; Myelocytes % 0; Promyelocytes % 0; Reactive Lymphocytes 0
[2023-04-01 06:05] LABS: Free T3 1.57 pg/mL (2.3-4.2)
[2023-04-01 06:06] LABS: Free T4 (Free Thyroxine) 1.13 ng/dL (0.89-1.76)
[2023-04-01] MEDS: ACCU-CHEK COMFORT CURVE STRIP VI SCH ×4 (06:24→23:01)
[2023-04-01] MEDS: ALLOPURINOL 100 MG TAB PO SCH ×3 (06:24→22:48)
[2023-04-01] MEDS: InsuLIN REG 1unit/0.01ml Soln (100units/ml) SC SCH ×4 (06:35→23:05)
[2023-04-01 08:44] LABS: Hepatitis B Surface Antigen Negative (Negative)
[2023-04-01 09:06] LABS: Hepatitis C Antibody Negative (Negative)
[2023-04-01 09:08] LABS: Lymphocytes % (manual) 1 (10.0-50.0); Monocytes % (manual) 1 (0-12); Platelet Estimate Adequate
[2023-04-01] MEDS: SITAGLIPTIN 100 MG PO SCH (10:00)
[2023-04-01] MEDS: CHOLECALCIFEROL 5000 UNIT PO SCH (10:00)
[2023-04-01] MEDS: DIGOXIN 0.125 MG TAB PO SCH (10:37)
[2023-04-01] MEDS: CLOPIDOGREL BISULFATE 75 MG TAB PO SCH (10:38)
[2023-04-01] MEDS: APIXABAN 2.5 MG TAB PO SCH (10:40)
[2023-04-01] MEDS: amLODIPine BESYLATE 5 MG TAB PO SCH (10:41)
[2023-04-01] MEDS: LEVOTHYROXINE SODIUM 25 MCG TAB PO SCH (10:42)
[2023-04-01] MEDS: METOPROLOL SUCCINATE XL 50 MG TAB PO SCH (10:46)
[2023-04-01] MEDS: methylPREDNISolone SOD SUCC 40 MG/ML VL IV SCH (10:49)
[2023-04-01] MEDS: PANTOPRAZOLE 40 MG/10 ML VIAL INJ IV SCH (10:54)
[2023-04-01] MEDS: AZITHROMYCIN 500MG/ 250ML 250 ML IV SCH (10:58)
[2023-04-01] MEDS: GABAPENTIN 100 MG CAP PO SCH ×2 (10:58→22:47)
[2023-04-01] MEDS: ASPirin-EC 81 mg tab PO SCH (11:01)
[2023-04-01] MEDS: SACUBITRIL-VALSARTAN 24mg/26mg TAB PO SCH ×2 (11:06→22:48)
[2023-04-01] MEDS: hydrALAZINE HCL 25 MG TAB PO SCH (11:07)
[2023-04-01] MEDS: OXYBUTYNIN CHL 5 MG TAB PO SCH (11:15)
[2023-04-01] MEDS: MAGNESIUM OXIDE 400 MG TAB PO SCH (11:17)
[2023-04-01] MEDS: ASCORBIC ACID 500 MG TAB PO SCH (11:21)
[2023-04-01] MEDS: POTASSIUM EFFERVESENT TAB 25 MEQ PO SCH (11:31)
[2023-04-02] VITALS (19 sets, daily range): BP systolic 100–110; BP diastolic 55–80; PULSE 66–89; RESP 16–18; TEMP 98–98.2; O2SAT 95–100
[2023-04-02] MEDS: IPRATROPIUM BROM 0.5 MG/2.5ML INH SOL NEB SCH ×6 (01:53→22:04)
[2023-04-02] MEDS: ALBUTEROL SULF 2.5 MG/0.5ML(0.5%) NEB SOLN NEB SCH ×6 (01:53→22:04)
[2023-04-02] MEDS: FUROSEMIDE INJECTION 100 MG in SODIUM CHL 0.9% 100 ML IV SCH ×2 (04:28→17:15)
[2023-04-02] MEDS: ALLOPURINOL 100 MG TAB PO SCH ×3 (05:27→22:39)
[2023-04-02 05:56] LABS: Basophils # (auto) 0 10 ^3/uL (0-0.2); Eosinophils # (auto) 0 10 ^3/uL (0-0.8); Hematocrit 27.2 % (36.0-46.0); Hemoglobin 8.6 g/dL (12.2-16.2); Lymphocytes # (auto) 0.4 10 ^3/uL (0.4-5.4); Lymphocytes % (auto) 2.8 % (10.0-50.0); Mean Corpuscular Hemoglobin 27.2 pg (28.0-32.0); Mean Corpuscular Hgb Conc. 31.6 g/dL (32.0-36.0); Mean Corpuscular Volume 85.9 fL (80.0-100.0); Monocytes # (auto) 0.6 10 ^3/uL (0-1.3); Monocytes % (auto) 4.3 % (0.0-12.0); Neutrophils # (auto) 11.8 10 ^3/uL (1.6-8.6); Neutrophils % (auto) 92.9 % (37.0-80.0); Red Blood Cells 3.16 10^6/uL (4.0-5.20); Red Cell Distribution Width 15.9 % (11.8-14.3); White Blood Cell 12.8 10^3/uL (4.4-10.8)
[2023-04-02 06:08] LABS: Chloride 100 mmol/L (98-107); Potassium 3.8 mmol/L (3.5-5.1); Sodium 139 mmol/L (136-145)
[2023-04-02 06:09] LABS: Anion Gap 8 (5-15); Calcium 9.1 mg/dL (8.7-10.4); Carbon Dioxide 31 mmol/L (20-30)
[2023-04-02 06:14] LABS: BUN/Creatinine Ratio 15.9 (10.0-20.0); Blood Urea Nitrogen 34 mg/dL (9-23); Glucose 142 mg/dL (74-106)
[2023-04-02] MEDS: ACCU-CHEK COMFORT CURVE STRIP VI SCH ×4 (06:37→22:47)
[2023-04-02] MEDS: InsuLIN REG 1unit/0.01ml Soln (100units/ml) SC SCH ×4 (06:38→22:57)
[2023-04-02] MEDS: SITAGLIPTIN 100 MG PO SCH (10:00)
[2023-04-02] MEDS: CHOLECALCIFEROL 5000 UNIT PO SCH (10:00)
[2023-04-02] MEDS: PANTOPRAZOLE 40 MG/10 ML VIAL INJ IV SCH (11:11)
[2023-04-02] MEDS: AZITHROMYCIN 500MG/ 250ML 250 ML IV SCH (11:12)
[2023-04-02] MEDS: ASPirin-EC 81 mg tab PO SCH (11:13)
[2023-04-02] MEDS: APIXABAN 2.5 MG TAB PO SCH (11:13)
[2023-04-02] MEDS: OXYBUTYNIN CHL 5 MG TAB PO SCH (11:14)
[2023-04-02] MEDS: SACUBITRIL-VALSARTAN 24mg/26mg TAB PO SCH ×2 (11:14→22:38)
[2023-04-02] MEDS: ASCORBIC ACID 500 MG TAB PO SCH (11:14)
[2023-04-02] MEDS: DIGOXIN 0.125 MG TAB PO SCH (11:14)
[2023-04-02] MEDS: GABAPENTIN 100 MG CAP PO SCH ×2 (11:15→22:39)
[2023-04-02] MEDS: LEVOTHYROXINE SODIUM 25 MCG TAB PO SCH (11:15)
[2023-04-02] MEDS: CLOPIDOGREL BISULFATE 75 MG TAB PO SCH (11:15)
[2023-04-02] MEDS: MAGNESIUM OXIDE 400 MG TAB PO SCH (11:15)
[2023-04-02] MEDS: METOPROLOL SUCCINATE XL 50 MG TAB PO SCH (11:16)
[2023-04-02] MEDS: amLODIPine BESYLATE 5 MG TAB PO SCH (11:17)
[2023-04-02] MEDS: hydrALAZINE HCL 25 MG TAB PO SCH (11:18)
[2023-04-02] MEDS: POTASSIUM EFFERVESENT TAB 25 MEQ PO SCH (11:18)
[2023-04-02 15:47] LABS: Protein, Urine 53.2 mg/dL (0.0-11.9)
[2023-04-02 15:49] LABS: Creatinine, Urine 81.02 mg/dL (30.0-125.0); Urine Protein/Creatinine Ratio 0.66
[2023-04-03] VITALS (20 sets, daily range): BP systolic 96–104; BP diastolic 54–80; PULSE 72–78; RESP 16–20; TEMP 97.2–98.3; O2SAT 97–100
[2023-04-03] MEDS: ALBUTEROL SULF 2.5 MG/0.5ML(0.5%) NEB SOLN NEB SCH ×6 (01:52→22:07)
[2023-04-03] MEDS: IPRATROPIUM BROM 0.5 MG/2.5ML INH SOL NEB SCH ×6 (01:52→22:07)
[2023-04-03] MEDS: ACCU-CHEK COMFORT CURVE STRIP VI SCH ×2 (06:20→11:42)
[2023-04-03] MEDS: InsuLIN REG 1unit/0.01ml Soln (100units/ml) SC SCH ×2 (06:21→11:44)
[2023-04-03] MEDS: ALLOPURINOL 100 MG TAB PO SCH ×3 (06:26→21:54)
[2023-04-03] MEDS: PANTOPRAZOLE 40 MG/10 ML VIAL INJ IV SCH (09:31)
[2023-04-03] MEDS: POTASSIUM EFFERVESENT TAB 25 MEQ PO SCH (09:32)
[2023-04-03] MEDS: ASPirin-EC 81 mg tab PO SCH (09:32)
[2023-04-03] MEDS: GABAPENTIN 100 MG CAP PO SCH ×2 (09:32→21:54)
[2023-04-03] MEDS: SACUBITRIL-VALSARTAN 24mg/26mg TAB PO SCH ×2 (09:32→21:54)
[2023-04-03] MEDS: LEVOTHYROXINE SODIUM 25 MCG TAB PO SCH (09:33)
[2023-04-03] MEDS: CLOPIDOGREL BISULFATE 75 MG TAB PO SCH (09:33)
[2023-04-03] MEDS: ASCORBIC ACID 500 MG TAB PO SCH (09:33)
[2023-04-03] MEDS: amLODIPine BESYLATE 5 MG TAB PO SCH (09:34)
[2023-04-03] MEDS: OXYBUTYNIN CHL 5 MG TAB PO SCH (09:34)
[2023-04-03] MEDS: DIGOXIN 0.125 MG TAB PO SCH (09:35)
[2023-04-03] MEDS: MAGNESIUM OXIDE 400 MG TAB PO SCH (09:35)
[2023-04-03] MEDS: APIXABAN 2.5 MG TAB PO SCH (09:35)
[2023-04-03] MEDS: METOPROLOL SUCCINATE XL 50 MG TAB PO SCH (09:36)
[2023-04-03] MEDS: hydrALAZINE HCL 25 MG TAB PO SCH (09:37)
[2023-04-03] MEDS: AZITHROMYCIN 500MG/ 250ML 250 ML IV SCH (09:41)
[2023-04-03] MEDS: SITAGLIPTIN 100 MG PO SCH (10:00)
[2023-04-03] MEDS: CHOLECALCIFEROL 5000 UNIT PO SCH (10:00)
[2023-04-04] VITALS (18 sets, daily range): BP systolic 108–123; BP diastolic 61–78; PULSE 55–78; RESP 16–21; TEMP 97.9–98.8; O2SAT 96–100
[2023-04-04] MEDS: ALBUTEROL SULF 2.5 MG/0.5ML(0.5%) NEB SOLN NEB SCH ×6 (02:10→22:03)
[2023-04-04] MEDS: IPRATROPIUM BROM 0.5 MG/2.5ML INH SOL NEB SCH ×6 (02:10→22:03)
[2023-04-04] MEDS: ALLOPURINOL 100 MG TAB PO SCH ×3 (05:41→21:32)
[2023-04-04] MEDS: GABAPENTIN 100 MG CAP PO SCH ×2 (10:00→21:32)
[2023-04-04] MEDS: OXYBUTYNIN CHL 5 MG TAB PO SCH (10:00)
[2023-04-04] MEDS: METOPROLOL SUCCINATE XL 50 MG TAB PO SCH (10:00)
[2023-04-04] MEDS: SITAGLIPTIN 100 MG PO SCH (10:00)
[2023-04-04] MEDS: ASPirin-EC 81 mg tab PO SCH (10:00)
[2023-04-04] MEDS: CHOLECALCIFEROL 5000 UNIT PO SCH (10:00)
[2023-04-04] MEDS: POTASSIUM EFFERVESENT TAB 25 MEQ PO SCH (10:09)
[2023-04-04] MEDS: PANTOPRAZOLE 40 MG/10 ML VIAL INJ IV SCH (10:13)
[2023-04-04] MEDS: AZITHROMYCIN 500MG/ 250ML 250 ML IV SCH (10:13)
[2023-04-04] MEDS: SACUBITRIL-VALSARTAN 24mg/26mg TAB PO SCH ×2 (10:57→21:31)
[2023-04-04] MEDS: DIGOXIN 0.125 MG TAB PO SCH (10:57)
[2023-04-04] MEDS: hydrALAZINE HCL 25 MG TAB PO SCH (10:58)
[2023-04-04] MEDS: amLODIPine BESYLATE 5 MG TAB PO SCH (10:58)
[2023-04-04] MEDS: APIXABAN 2.5 MG TAB PO SCH (10:58)
[2023-04-04] MEDS: MAGNESIUM OXIDE 400 MG TAB PO SCH (10:58)
[2023-04-04] MEDS: CLOPIDOGREL BISULFATE 75 MG TAB PO SCH (10:58)
[2023-04-04 11:56] LABS: Basophils # (auto) 0 10 ^3/uL (0-0.2); Basophils % (auto) 0.1 % (0.0-2.0); Eosinophils # (auto) 0.3 10 ^3/uL (0-0.8); Hematocrit 31.8 % (36.0-46.0); Hemoglobin 10.1 g/dL (12.2-16.2); Lymphocytes # (auto) 0.8 10 ^3/uL (0.4-5.4); Mean Corpuscular Hemoglobin 27.7 pg (28.0-32.0); Mean Corpuscular Hgb Conc. 31.6 g/dL (32.0-36.0); Mean Corpuscular Volume 87.6 fL (80.0-100.0); Monocytes # (auto) 0.9 10 ^3/uL (0-1.3); Monocytes % (auto) 10.2 % (0.0-12.0); Neutrophils # (auto) 6.7 10 ^3/uL (1.6-8.6); Neutrophils % (auto) 77.7 % (37.0-80.0); Nucleated Red Blood Cells % 0.1 %; Red Blood Cells 3.63 10^6/uL (4.0-5.20); Red Cell Distribution Width 15.8 % (11.8-14.3); White Blood Cell 8.7 10^3/uL (4.4-10.8)
[2023-04-04 12:09] LABS: Chloride 98 mmol/L (98-107); Potassium 4.3 mmol/L (3.5-5.1); Sodium 139 mmol/L (136-145)
[2023-04-04 12:10] LABS: Anion Gap 5 (5-15); Calcium 9.3 mg/dL (8.5-10.1); Carbon Dioxide 36 mmol/L (20-30)
[2023-04-04 12:15] LABS: BUN/Creatinine Ratio 16.7 (10.0-20.0); Blood Urea Nitrogen 41 mg/dL (9-23); Glucose 198 mg/dL (74-106)
[2023-04-04] MEDS: ASCORBIC ACID 500 MG TAB PO SCH (14:04)
[2023-04-05] VITALS (16 sets, daily range): BP systolic 93–118; BP diastolic 52–77; PULSE 54–86; RESP 15–20; TEMP 98–99.4; O2SAT 92–100
[2023-04-05] MEDS: ALBUTEROL SULF 2.5 MG/0.5ML(0.5%) NEB SOLN NEB SCH ×6 (02:02→22:11)
[2023-04-05] MEDS: IPRATROPIUM BROM 0.5 MG/2.5ML INH SOL NEB SCH ×6 (02:02→22:10)
[2023-04-05] MEDS: ALLOPURINOL 100 MG TAB PO SCH ×3 (05:57→22:00)
[2023-04-05] MEDS: LEVOTHYROXINE SODIUM 25 MCG TAB PO SCH (06:06)
[2023-04-05 06:19] LABS: Albumin 3.5 g/dL (3.2-4.8); Alkaline Phosphatase 50 U/L (46-116); Anion Gap 8 (5-15); Aspartate Aminotransferase 20 U/L (13-40); BUN/Creatinine Ratio 17.2 (10.0-20.0); Blood Urea Nitrogen 44 mg/dL (9-23); Calcium 8.8 mg/dL (8.7-10.4); Carbon Dioxide 33 mmol/L (20-30); Chloride 99 mmol/L (98-107); Glucose 141 mg/dL (74-106); Potassium 3.8 mmol/L (3.5-5.1); Sodium 140 mmol/L (136-145)
[2023-04-05 06:20] LABS: Bilirubin, Total 1.3 mg/dL (0.2-1.0); Phosphorus 3.6 mg/dL (2.4-5.1); Total Protein 6.4 g/dL (5.7-8.2)
[2023-04-05 06:21] LABS: Alanine Aminotransferase 9 U/L (7-40)
[2023-04-05] MEDS: SITAGLIPTIN 100 MG PO SCH (09:45)
[2023-04-05] MEDS: CHOLECALCIFEROL 5000 UNIT PO SCH (09:45)
[2023-04-05] MEDS: AZITHROMYCIN 500MG/ 250ML 250 ML IV SCH (09:56)
[2023-04-05] MEDS: hydrALAZINE HCL 25 MG TAB PO SCH (10:00)
[2023-04-05] MEDS: GABAPENTIN 100 MG CAP PO SCH ×2 (10:00→22:00)
[2023-04-05] MEDS: PANTOPRAZOLE 40 MG TAB PO SCH (10:00)
[2023-04-05] MEDS: amLODIPine BESYLATE 5 MG TAB PO SCH (10:00)
[2023-04-05] MEDS: OXYBUTYNIN CHL 5 MG TAB PO SCH (10:00)
[2023-04-05] MEDS ORDERED: LACTULOSE 20Gm/30ML SOLN PO PRN (11:15)
[2023-04-05] MEDS: CLOPIDOGREL BISULFATE 75 MG TAB PO SCH (12:47)
[2023-04-05] MEDS: ASCORBIC ACID 500 MG TAB PO SCH (12:47)
[2023-04-05] MEDS: APIXABAN 2.5 MG TAB PO SCH (12:47)
[2023-04-05] MEDS: SACUBITRIL-VALSARTAN 24mg/26mg TAB PO SCH ×2 (12:47→22:00)
[2023-04-05] MEDS: MAGNESIUM OXIDE 400 MG TAB PO SCH (12:47)
[2023-04-05] MEDS: POTASSIUM EFFERVESENT TAB 25 MEQ PO SCH (12:48)
[2023-04-05] MEDS: METOPROLOL TARTRATE 1MG/1ML-5ML VIAL IV SCH ×2 (22:00→23:13)
[2023-04-06] VITALS (18 sets, daily range): BP systolic 90–106; BP diastolic 46–61; PULSE 60–107; RESP 16–21; TEMP 98–98.9; O2SAT 95–100
[2023-04-06] MEDS: ALBUTEROL SULF 2.5 MG/0.5ML(0.5%) NEB SOLN NEB SCH ×6 (02:37→22:14)
[2023-04-06] MEDS: IPRATROPIUM BROM 0.5 MG/2.5ML INH SOL NEB SCH ×6 (03:15→22:15)
[2023-04-06] MEDS: ALLOPURINOL 100 MG TAB PO SCH ×3 (06:00→21:20)
[2023-04-06] MEDS: LEVOTHYROXINE SODIUM 25 MCG TAB PO SCH (07:00)
[2023-04-06] MEDS: AZITHROMYCIN 500MG/ 250ML 250 ML IV SCH (09:48)
[2023-04-06] MEDS: GABAPENTIN 100 MG CAP PO SCH ×2 (10:00→21:20)
[2023-04-06] MEDS: hydrALAZINE HCL 25 MG TAB PO SCH (10:00)
[2023-04-06] MEDS: CLOPIDOGREL BISULFATE 75 MG TAB PO SCH (10:00)
[2023-04-06] MEDS: ASPirin 81 mg TAB PO SCH (10:00)
[2023-04-06] MEDS: APIXABAN 2.5 MG TAB PO SCH (10:00)
[2023-04-06] MEDS ORDERED: DIGOXIN (250MCG/ML) 2 ML AMPULE IV SCH (10:00)
[2023-04-06] MEDS: amLODIPine BESYLATE 5 MG TAB PO SCH (10:00)
[2023-04-06] MEDS: METOPROLOL TARTRATE 1MG/1ML-5ML VIAL IV SCH ×2 (10:00→21:20)
[2023-04-06] MEDS: POTASSIUM EFFERVESENT TAB 25 MEQ PO SCH (10:00)
[2023-04-06] MEDS: CHOLECALCIFEROL 5000 UNIT PO SCH (10:00)
[2023-04-06] MEDS: ASCORBIC ACID 500 MG TAB PO SCH (10:00)
[2023-04-06] MEDS: OXYBUTYNIN CHL 5 MG TAB PO SCH (10:00)
[2023-04-06] MEDS: PANTOPRAZOLE 40 MG TAB PO SCH (10:00)
[2023-04-06] MEDS: SODIUM CHLORIDE 0.9% 1,000 ML IV SCH ×2 (13:46→23:45)
[2023-04-07] VITALS (13 sets, daily range): BP systolic 97–127; BP diastolic 58–77; PULSE 72–86; RESP 16–20; TEMP 97.5–98.4; O2SAT 97–100
[2023-04-07] MEDS: IPRATROPIUM BROM 0.5 MG/2.5ML INH SOL NEB SCH ×6 (02:30→22:46)
[2023-04-07] MEDS: ALBUTEROL SULF 2.5 MG/0.5ML(0.5%) NEB SOLN NEB SCH ×6 (02:30→22:46)
[2023-04-07] MEDS: ALLOPURINOL 100 MG TAB PO SCH ×3 (06:18→21:51)
[2023-04-07] MEDS: LEVOTHYROXINE SODIUM 50 MCG TAB PO SCH (06:18)
[2023-04-07 06:59] LABS: Anion Gap 7 (5-15); Carbon Dioxide 35 mmol/L (20-30); Chloride 102 mmol/L (98-107); Potassium 3.5 mmol/L (3.5-5.1); Sodium 144 mmol/L (136-145)
[2023-04-07 07:00] LABS: Calcium 9.3 mg/dL (8.5-10.1)
[2023-04-07 07:05] LABS: BUN/Creatinine Ratio 17.5 (10.0-20.0); Blood Urea Nitrogen 37 mg/dL (9-23); Glucose 121 mg/dL (74-106)
[2023-04-07] MEDS: SODIUM CHLORIDE 0.9% 1,000 ML IV SCH (09:45)
[2023-04-07] MEDS ORDERED: acetaZOLAMIDE SODIUM 500 MG VL IV SCH (10:00)
[2023-04-07] MEDS: hydrALAZINE HCL 25 MG TAB PO SCH (10:00)
[2023-04-07] MEDS: CHOLECALCIFEROL 5000 UNIT PO SCH (10:00)
[2023-04-07] MEDS: amLODIPine BESYLATE 5 MG TAB PO SCH (10:00)
[2023-04-07] MEDS ORDERED: SODIUM CHLORIDE 0.9% 1,000 ML IV SCH (11:00)
[2023-04-07] MEDS: GABAPENTIN 100 MG CAP PO SCH ×2 (11:31→21:51)
[2023-04-07] MEDS: ASCORBIC ACID 500 MG TAB PO SCH (11:31)
[2023-04-07] MEDS: POTASSIUM EFFERVESENT TAB 25 MEQ PO SCH (11:31)
[2023-04-07] MEDS: APIXABAN 2.5 MG TAB PO SCH (11:32)
[2023-04-07] MEDS: ASPirin 81 mg TAB PO SCH (11:32)
[2023-04-07] MEDS: OXYBUTYNIN CHL 5 MG TAB PO SCH (11:32)
[2023-04-07] MEDS ORDERED: POTASSIUM EFFERVESENT TAB 25 MEQ PO ONE (13:30)
[2023-04-07] MEDS: CLOPIDOGREL BISULFATE 75 MG TAB PO SCH (13:47)
[2023-04-07] MEDS: PANTOPRAZOLE 40 MG/10 ML VIAL INJ IV SCH (13:47)
[2023-04-08] VITALS (12 sets, daily range): BP systolic 100–138; BP diastolic 64–72; PULSE 74–80; RESP 18–22; TEMP 97.7–98.6; O2SAT 95–100
[2023-04-08] MEDS: IPRATROPIUM BROM 0.5 MG/2.5ML INH SOL NEB SCH ×4 (02:00→14:24)
[2023-04-08] MEDS: ALBUTEROL SULF 2.5 MG/0.5ML(0.5%) NEB SOLN NEB SCH ×4 (02:00→14:24)
[2023-04-08] MEDS: LEVOTHYROXINE SODIUM 50 MCG TAB PO SCH (05:20)
[2023-04-08] MEDS: ALLOPURINOL 100 MG TAB PO SCH ×2 (05:20→14:00)
[2023-04-08 06:55] LABS: Anion Gap 8 (5-15); Calcium 9.3 mg/dL (8.5-10.1); Carbon Dioxide 31 mmol/L (20-30); Chloride 106 mmol/L (98-107); Potassium 3.8 mmol/L (3.5-5.1); Sodium 145 mmol/L (136-145)
[2023-04-08 07:01] LABS: BUN/Creatinine Ratio 15.6 (10.0-20.0); Blood Urea Nitrogen 29 mg/dL (9-23); Glucose 108 mg/dL (74-106)
[2023-04-08] MEDS: PANTOPRAZOLE 40 MG/10 ML VIAL INJ IV SCH (09:30)
[2023-04-08] MEDS: GABAPENTIN 100 MG CAP PO SCH (09:30)
[2023-04-08] MEDS: APIXABAN 2.5 MG TAB PO SCH (09:30)
[2023-04-08] MEDS: ASPirin 81 mg TAB PO SCH (09:30)
[2023-04-08] MEDS: CLOPIDOGREL BISULFATE 75 MG TAB PO SCH (09:31)
[2023-04-08] MEDS: OXYBUTYNIN CHL 5 MG TAB PO SCH (09:31)
[2023-04-08] MEDS: CHOLECALCIFEROL 5000 UNIT PO SCH (09:38)
[2023-04-08] MEDS: amLODIPine BESYLATE 5 MG TAB PO SCH (10:00)
[2023-04-08] MEDS: hydrALAZINE HCL 25 MG TAB PO SCH (10:00)
[2023-04-08] MEDS ORDERED: BUMETANIDE 2.5mg/10ml (0.25 mg/ml) INJ IV ONE (10:15)
[2023-04-08] MEDS ORDERED: APIXABAN 2.5 MG TAB PO SCH ×2 (22:00)
[2023-04-09] MEDS ORDERED: POTASSIUM EFFERVESENT TAB 25 MEQ PO SCH (10:00)
== END 2023-04-08 17:05 | disposition home or self-care (01) | DRG 291 ==
LOC: EDBD 04:32 → ER 04:32 → TELE 09:20 → TELE-CENTR 18:30 → CENTRAL 04-06 13:15 → TELE-CENTR 04-07 18:59
PROVIDERS: ADMIT Internal Medicine; ATTEND Internal Medicine
PROC: 5A09357 Assistance with Respiratory Ventilation, Less than 24 Consecutive Hours, Continuous Positive Airway Pressure (ICD-10-PCS; principal; 2023-03-30)
PROC: 05HA33Z Insertion of Infusion Device into Left Brachial Vein, Percutaneous Approach (ICD-10-PCS; 2023-03-30)
PROC: B54NZZA Ultrasonography of Left Upper Extremity Veins, Guidance (ICD-10-PCS; 2023-03-30)
DX: I13.0 Hypertensive heart and chronic kidney disease with heart failure and stage 1 through stage 4 chronic kidney disease, or unspecified chronic kidney disease (principal); I50.23 Acute on chronic systolic (congestive) heart failure; J96.01 Acute respiratory failure with hypoxia; J96.02 Acute respiratory failure with hypercapnia; J44.1 Chronic obstructive pulmonary disease with (acute) exacerbation; N18.4 Chronic kidney disease, stage 4 (severe); E87.4 Mixed disorder of acid-base balance; J98.11 Atelectasis; N17.9 Acute kidney failure, unspecified; I42.9 Cardiomyopathy, unspecified; E66.01 Morbid (severe) obesity due to excess calories; D64.9 Anemia, unspecified; T50.2X5A Adverse effect of carbonic-anhydrase inhibitors, benzothiadiazides and other diuretics, initial encounter; E03.9 Hypothyroidism, unspecified; Z20.822 Contact with and (suspected) exposure to COVID-19; E11.22 Type 2 diabetes mellitus with diabetic chronic kidney disease; E79.0 Hyperuricemia without signs of inflammatory arthritis and tophaceous disease; E11.65 Type 2 diabetes mellitus with hyperglycemia; E78.5 Hyperlipidemia, unspecified; I25.2 Old myocardial infarction; Z82.3 Family history of stroke; Z82.49 Family history of ischemic heart disease and other diseases of the circulatory system; Z83.3 Family history of diabetes mellitus; Z95.810 Presence of automatic (implantable) cardiac defibrillator; Z68.27 Body mass index [BMI] 27.0-27.9, adult; Y92.89 Other specified places as the place of occurrence of the external cause; Z86.73 Personal history of transient ischemic attack (TIA), and cerebral infarction without residual deficits
CPT/HCPCS: 36415; 36600; 70450; 70551; 71045; 76775; 80048; 80053; 80061; 80162; 81001; 82306; 82570; 82805; 82962; 83036; 83735; 83880; 83970; 84100; 84156; 84300; 84439; 84443; 84481; 84484; 84550; 85007; 85025; 85027; 85610; 85730; 86803; 87081; 87340; 87426; 92610; 93005; 94640; 94660; 96372; 96374; 96375; 96376; 97110; 97116; 97163; 97530; 99291; C9113; G0378; J1815; J3470; J3490

== ENCOUNTER → 2023-04-23 | Outpatient (CLI) | payer MEDICARE, OTHER ==
[2023-04-23] VITALS (7 sets, daily range): BP systolic 113–134; BP diastolic 62–97; PULSE 77–95; RESP 20; O2SAT 100
[~2023-04-23] MED LIST changes: +AMLO1TAB22 PO; +CYANOCOBALAMIN (B-12) 1000 MCG/1 ML VIAL IM ONE; +CYANOCOBALAMIN (B-12) 1000 MCG/1 ML VIAL ONE; +DOBUTamine 1000MCG/ML 250 ML IV ONE; -FURO1TAB31 PO; -FURO40TA4 PO; -GLUC-145 VI; -HYDR-4296 PO; -IPR002IS HHN; +IPR002IS NEB; -LEVO25TA49 PO; -METO-6 PO; -NYS15TP TOP; +ONDANSETRON HCL 4 MG/2 ML VIAL IV ONE; +ONDANSETRON HCL 4 MG/2 ML VIAL ONE; -POTA-228 PO; -POTA1TAB4 PO; -SACU1TAB7 PO; -VERI10TA PO; -VERI2.5T PO; -VERI5TAB PO
== END | disposition home or self-care (01) ==
LOC: CHF HDHVI 11:30
PROVIDERS: ATTEND Internal Medicine Cardiovascular Disease
DX: I13.0 Hypertensive heart and chronic kidney disease with heart failure and stage 1 through stage 4 chronic kidney disease, or unspecified chronic kidney disease (principal); E11.22 Type 2 diabetes mellitus with diabetic chronic kidney disease; N18.4 Chronic kidney disease, stage 4 (severe); I50.23 Acute on chronic systolic (congestive) heart failure; J44.9 Chronic obstructive pulmonary disease, unspecified; E78.5 Hyperlipidemia, unspecified; E03.9 Hypothyroidism, unspecified; I25.2 Old myocardial infarction; E66.01 Morbid (severe) obesity due to excess calories; Z68.27 Body mass index [BMI] 27.0-27.9, adult; Z79.899 Other long term (current) drug therapy; Z86.73 Personal history of transient ischemic attack (TIA), and cerebral infarction without residual deficits; Z95.810 Presence of automatic (implantable) cardiac defibrillator
CPT/HCPCS: 96365; 96366; 96372; 96375; G0463; J1250; J1642; J2405; J3420